=== PATIENT | male | born 1980 | race Hispanic/Latino ===

== ENCOUNTER 2020-04-13 12:36 | Inpatient (IN) | payer SELFPAY ==
--- OUTSIDE RECORDS SUMMARY | 2020-04-13 12:41 | XMS REPORT | Summary of Care ---
:1980 Author Organization [facility] Address [address] [place] [id number] Care Team Providers Name Role Phone Pcp, Does Not Have A Primary Care Provider Reason for Referral (Routine) Status Reason Specialty Diagnoses / Referred By Referred To Procedures Contact Contact New Request IM-GASTROENTEROLOGY / Diagnoses Hematemesis with nausea Esophageal varices determined by endoscopy Layne Jimenez, Gastroenterology Procedures Discharge Follow-Up: Specialty Service IM-GASTROENTEROLOGY; [address] [place] [address] (Routine) Status Reason Specialty Diagnoses / Referred By Referred To Procedures Contact Contact New Request Internal Medicine Diagnoses Hematemesis with nausea Esophageal varices determined by endoscopy Layne Jimenez MD Pcp, Patient Procedures Discharge Follow-up: PCP PATIENT DOES NOT HAVE A PCP; [address] [place] [address] Does Not Have A [address] [phone] Phone: Radiology Services (DANIELLE) Status Reason Specialty Diagnoses / Referred By Referred To Procedures Contact Contact New Request Diagnostic Diagnoses Hematemesis with nausea Villanueva, Radiology Procedures US ABDOMEN LIMITED WITH DOPPLER Heraclio Pereyra Jr., MD [address] [place] [address] [id number] [place] [address] Radiology Services (Routine) Status Reason Specialty Diagnoses / Referred By Referred To Procedures Contact Contact New Request Diagnostic Diagnoses Hematemesis with nausea Villanueva, Radiology Procedures XR CHEST 1 VW Heraclio Pereyra Jr., MD [address] [facility] [id number] [place] [address] Radiology Services (STAT) Status Reason Specialty Diagnoses / Referred By Referred To Procedures Contact Contact New Request Diagnostic Diagnoses Hematemesis with nausea Banipal Radiology Procedures XR ABDOMEN ACUTE SERIES Barby Arias DO [address] [facility] [id number] [place] [address] Reason for Visit Reason Comments Other vomitting blood Auth/Cert Status Reason Specialty Diagnoses / Referred By Referred To Procedures Contact Contact Emergency Medicine [facility] Dept [address] [place] [phone] Fax: Encounter Details Date Type Department Care Team Description 04/04/2020 - Hospital Medicine (Mabel Valentino, BEACH LIFEGUARD [address] [place], [place] [id number] Gastrointestinal 04/08/2020 Encounter [id number]) Heraclio Villanueva Jr., MD [address] [facility] [id number] [place] [phone] hemorrhage with [address] [facility] Layne Jimenez MD [address] [place], [place] [id number] hematemesis [place], [place] [id number] Allergies No Known Allergiesdocumented as of this encounter (statuses as of 04/08/2020) Medications Medication Sig Dispensed Refills Start Date End Date Status pantoprazole 40 mg EC Take 1 tablet by 30 tablet 3 04/08/2020 Active tabletIndications: mouth daily. Hematemesis with nausea, Esophageal varices determined by endoscopy propranoloL 10 mg Take 1 tablet by 60 tablet 3 04/08/2020 Active tabletIndications: mouth 2 (two) Hematemesis with nausea, times daily. Esophageal varices determined by endoscopy ciprofloxacin HCl 500 mg Take 1 tablet by 4 tablet 0 04/08/20 20 Active tabletIndications: mouth every 12 Hematemesis with nausea, (twelve) hours. Esophageal varices determined by endoscopy documented as of this encounter (statuses as of 04/08/2020) Active Problems Problem Noted Date GI bleed 04/04/2020 Gastrointestinal hemorrhage with hematemesis 0 Overview: Added automatically from request for alex manuel [id number] documented as of this encounter (statuses as of 04/08/2020) Social History Tobacco Use Types Packs/Day Years Used Date Current Every Day Smoker Tobacco Cessation: Ready to Quit: Yes; C ounseling Given: Yes Sex Assigned at Date Recorded Not on file COVID-19 Exposure Response Date Recorded In the last month, have you been in contact with No / Unsure 04/04/2020 7:59 PM WORKFORCE MANAGEMENT CONSULTANT someone who was confirmed or suspected to have Coronavirus / COVID-19? documented as of this encounter Last Filed Vital Signs Vital Sign Reading Time Taken Comments Blood Pressure 115/58 04/08/2020 12:36 PM WORKFORCE MANAGEMENT CONSULTANT Pulse 66 04/08/2020 12:36 PM WORKFORCE MANAGEMENT CONSULTANT Temperature 36.7 C (98 F) 04/08/2020 12:36 PM WORKFORCE MANAGEMENT CONSULTANT Respiratory Rate 18 04/08/2020 12:36 PM WORKFORCE MANAGEMENT CONSULTANT Oxygen Saturation 94% 04/08/2020 12:36 PM WORKFORCE MANAGEMENT CONSULTANT Inhaled Oxygen Concentration - - Weight 83 kg (182 lb 14.4 oz) 04/08/2020 4:53 AM WORKFORCE MANAGEMENT CONSULTANT b edscale Height 170.2 cm (5' 7") 04/04/2020 10:45 PM WORKFORCE MANAGEMENT CONSULTANT Body Mass Index 28.65 04/04/2020 10:45 PM WORKFORCE MANAGEMENT CONSULTANT documented in this encounter Discharge Instructions AttachmentsThe following attachments cannot be sent through Care Everywhere. Upper GI Bleeding (Stable) (Bruneian)Gastrointestinal (GI) Bleeding, When You Have (Bruneian)Varices, Esophageal (Bruneian)Pantoprazole tablets (Bruneian) Propranolol tablets (Bruneian)Ciprofloxacin tablets (Bruneian)documented in this encounter Progress Notes Chandan Sinclair LMSW - 04/08/2020 12:19 PM WORKFORCE MANAGEMENT CONSULTANT Care Management Discharge Disposition Note (DCDN) 5-2-1 Interventions: Disease specific education;Intensive medication reconciliation/management;Teachback;Clear discharge plan;Follow-up appointments;Follow-up phone calls 5-2-1 Providers: Physician;Principal Network Engineer/Supervisor Cigar Processing;Nurse 5-2-1 Patient Capacity Improvements: Avoidance of adverse events/readmission;Transportation arrangements;[facility] for [facility] Discharge Plan for ongoing care and services: Patient Choice completed for referred services: Discussed with patient/patients family involved in decision making: Patient's family or support contact: Discharge Plan: Receiving facility was provided the following clinical documentation at discharge- CM Facesheet, Consult notes, Labs, Progress Notes, MAR: DME location: Other DME location: Durable Medical Equipment: Home Health location: Discharge location(s): Community resources/referrals made or provided to patient: Yes Resources/Referrals: County Resources Fact Sheets Mental Status: Alert & Oriented to Person,Place & Time Psychosocial issues and/or concerns resulting in patient being a high risk for re-admission: Manage ADL indepentdly: Yes Living Arrangement: Home Other living arrangement: [facility] [address] [facility] Funding Resources: Self Pay Has patient been referred to [facility]/[place] [facility]? Nursing informed of discharge plan: No CHP referral sent? No CM medication request completed (if appropriate): N/A PCP: Bernie Nieto No Transportation: Private Vehicle Prior authorization obtained for ambulance: Authorization number: CPT code: Discharge Medications Will the patient be able to obtain his medications? Yes Does the patient have transportation to to obtain the prescription medications? Yes CM Medication Request completed (if appropriate): Yes Name of RN informed: Roosevelt OSULLIVAN Expected discharge date: 04/08/2020 Time: Midday [20] Additional Information: Pt is undocumented and provided good Rx card. CM/SW Name & Contact number: Chandan Sinclair LMSW Ph. [phone] The following information has been provided to the facility noted above: reason for the patient discharge or transfer; patients physical and psychosocial status; summary of care, treatment, servicesprovided to patient; and the patient progress toward goals. Chandan Dias LMSW - 04/08/2020 11:00 AM CSTCare Management Social Functional Assessment Patient Name: iWllis Alvarez Age: [age] year old Sex: male Previous admit date: N/A Current diagnosis and co-morbidities: gi bleed Readmission Questions: Was patient discharged from any acute care hospital within the last 30 days: No Social Functional Assessment: Primary language spoken/preferred: Lithuanian Mental Status: Alert & Oriented to Person,Place & Time Information given by: Spouse;Self Patient's support system: Spouse Name and number of support system: Jameson Fried @ [phone] (Spouse) Primary Water Valve Mechanic: Self MPOA: No Living Arrangement: Home Address of living arrangement : [address] [place], [place] [address] [address] Persons living in home: Self;Spouse Names & numbers of persons living in home: Jameson Fired @ [phone] (Spouse) Barriers to returning home: None Baseline functional status- ambulation: Independent Functional status-baseline personal care: Independent Baseline functional status- driving: Independent Baseline functional status- grocery shopping: Independent Functional status-baseline housekeeping: Independent Functional status-baseline meal prep: Independent Current functional status same as prior: Yes Do you have a PCP?: No Refered to: [facility] Home Health Care Agency: No Provider Services: No DME Company: No Equipment: None Hemodialysis: No Community resources utilized: None Funding Resources: Self Pay Prescription coverage plan: Self Pay [facility] where meds are [facility] Anticipated services prior to disharge: Continue Medical Eval Expected mode of discharge transportation: Family Name and phone number of the friend or family member picking up the patient: Jameson Fried @ [phone] (Spouse) Additional Recommendations for DC: Sw provided [facility] resources and good Rx card.Pt is undocumented. Recommended discharge plan: Home SFA Complete: Social Functional Assessment complete: Yes Alcohol Use Screening (AUDIT-C) How often do you have a drink containing alcohol?: 4 or more times a week SCORE: 4 How many drinks containing alcohol do you have on a typical day when you are drinking?: 3 or 4 drinks How often do you have six or more drinks on one occasion?: Never Total Score (AUDIT-C): 5 Did patient elect to have resources provided: No Actions taken: Discussed availability of resources Role of Care Management explained.yes Chandan Fairchild LMSW Supervisor Cigar Processing, Care Management Callie Davila MD - 04/07/2020 3:23 PM CST [place] Team Progress / Acceptance Note Date of Service: 04/07/2020 15:23 Chief Complaint: hematemesis 24-HOUR EVENTS: NAEO SUBJECTIVE: Pt denies any more episodes of hematemesis. He had one BM this AM which he says was black. Notes improvement in lightheadedness. Denies abdominal pain, n/v, SOB. CURRENT MEDICATIONS - reviewed. Current Facility-Administered Medications Medication Dose Route Frequency Last Rate Last Admin propranoloL (INDERAL) tablet 10 mg 10 mg Oral BID pantoprazole (PROTONIX) 40 mg in NaCl 0.9% (NS) 100 mL MINI-BAG 40 mg IV Piggyback Q12H 40 mgat 04/07/20 0741 cefTRIAXone (ROCEPHIN) 1,000 mg in NaCl 0.9% (NS) 50 mL MINI-BAG 1,000 mg IV Piggyback Q24H ABX 1,000 mg at 04/06/20 2159 dextrose 50 % in water (D50W) injection 25 mL 25 mL Slow IV Push PRN foLIC acid (FOLATE) 5 mg in NaCl 0.9% (NS) piggyback 5 mg IV Piggyback DAILY 5 mg at 04/07/200741 glucagon (GLUCAGEN DIAGNOSTIC KIT) injection 1 mg 1 mg Intramuscular PRN octreotide (SANDOSTATIN) 1,250 mcg in NaCl 0.9% (NS) 250 mL infusion 50 mcg/hr IV Infusion CONTINUOUS 10 mL/hr at 04/06/20 2310 50 mcg/hr at 04/06/20 2310 ondansetron (ZOFRAN (PF)) injection 4 mg 4 mg Slow IV Push Q6HPRN thiamine (VITAMIN B1) 100 mg in NaCl 0.9% (NS) piggyback 100 mg IV Piggyback DAILY 100 mg at 04/07/20 0741 PHYSICAL EXAM: Vitals: 04/06/20 2245 04/07/20 0502 04/07/20 0819 04/07/20 1248 BP: 113/65 125/70 107/60 120/59 BP Location: Right arm Right arm Patient Position: Supine Supine Pulse: 76 79 74 81 Resp: 18 18 19 18 Temp: 36.8 C (98.3 F) 36.2 C (97.2 F) 36.4 C (97.5 F) 37.1 C (98.7 F) TempSrc: Oral Oral Oral Axillary SpO2: 97% 97% 96% 97% Weight: Height: Intake/Output Summary (Last 24 hours) at 04/07/2020 1523 Last data filed at 04/07/2020 0502 Gross per 24 hour Intake 871 ml Output 450 ml Net 421 ml General: alert and oriented x 4 (person, place, date/time and situation); no apparent distress Lungs: clear to auscultation bilaterally Cardio: S1, S2 normal; no murmurs, rubs or gallops, regular rate and rhythm Abdomen: soft, nontender to palpation LABS/IMAGING - reviewed, pertinent results as below: MELD-Na score: 22 at 04/07/2020 4:45 AM MELD score: 19 at 04/07/2020 4:45 AM Calculated from: Serum Creatinine: 0.68 mg/dL (Rounded to 1 mg/dL) at 04/07/2020 4:45 AM Serum Sodium: 132 mmol/L at 04/07/2020 4:45 AM Total Bilirubin: 3.4 mg/dL at 04/05/2020 4:07 AM INR(ratio): 2.1 at 04/05/2020 4:13 AM Age: 39 years 9 months ASSESSMENT/PLAN Willis Alvarez is a 39 year old male admitted to the hospital with: Decompensated liver cirrhosis - MELD 22 Hematemesis - now s/p EGD w/banding EtOH and cocaine use disorder Coagulopathy Patient presented with an upper GI bleed in the setting of heavy EtOH and cocaine use. Underwent EGDwhich showed multiple esophageal varices including a grade III bleeding varix that was banded. Currently hemodynamically stable with stable hemoglobin. Plan - pantoprazole 40 mg IV BID - continue octreotide 50 mcg/hr (stop at 1915 today for 72 hours). - continue with ceftriaxone 1 g q 24 hrs; transition to cirpo on discharge for a total of 7 days (SOT 04/04 - vitamin K 10 mg IV x 3 doses (04/05 - 04/07) - CBC q 12 hrs - if overt bleeding, call IR and GI; may need emergent TIPS - f/u AFP level and hepatitis labs - Patient to have repeat EGD in 4 weeks - patient will need assistance with case management for insurance and possible case book for ongoingoutpatient care - change nadalol to propanolol given pharmacy availability; plan for d/c tomorrow. PAIN: Controlled Tylenol Prophylaxis: DVT- Contraindicated: Cranial/GI Bleeding or other Hemorrhage present Stress Ulcer: pantoprazole Code Status: addressed: Full Code Disposition Anticipated Discharge Date : 04/08/2020 Barriers to Discharge: octreotide drip, case book for EGD. Callie Weber MD Internal Medicine, PGY-2 [place] Team Pager#[phone] END OF DAILY PROGRESS NOTE HOSPITAL COURSE Willis Alvarez is a 39 year old male with no PMH who presented with UGIB in the setting of intermediate heavy EtOH use. On arrival, Hgb was 3.1; transfused RBC and cryo. GI consulted who performed EGD and found multiple varices including recently bleeding stage III varices requiring banding. He tolerated the procedure well and did not have any more episodes of bleeding/emesis. Transferred to the floor for ongoing care. Resolved Issues Acute blood loss anemia Troponin leak most likely 2/2 type II WI AKI FORCE MANAGEMENT CONSULTANT Associated attestation - Layne Jimenez MD - 04/07/2020 8:50 PM CSTI personally examined the patient on 04/07/[address] Weber's resident note as written . I actively participated in the decision-making process. Please see the resident's note for additional details. Patient with variceal bleeding/EtOH cirrhosis s/p banding by GI. He will complete his72h of IV octreotide late this evening, will likely be stable for discharge tomorrow, as he is tolerating liquids, no further hematemesis, had a BM. Understands that he will need GI follow up and that abstinence from alcohol is one of the biggest factors influencing his disease state. Will have socialwork come by prior to d/c to discuss what options are available for outpatient followup as patient is a resident of [facility]. Janusz Sinclair MD - 04/07/2020 2:00 PM CSTBrief Gastroenterology and Hepatology Progress Note Date of Service: 04/07/20 EGD106/05/19 Impression/Post-Op Diagnosis: - Normal examined duodenum. - Portal hypertensive gastropathy. - Type 2 gastroesophageal varices (GOV2, esophageal varices which extend along the fundus), without bleeding. - Type 1 gastroesophageal varices (GOV1, esophageal varices which extend along the lesser curvature), without bleeding. - Recently bleeding grade III esophageal varices. Completely eradicated. Banded. - No specimens collected. MELD-Na score: 22 at 04/07/2020 4:45 AM MELD score: 19 at 04/07/2020 4:45 AM Calculated from: Serum Creatinine: 0.68 mg/dL (Rounded to 1 mg/dL) at 04/07/2020 4:45 AM Serum Sodium: 132 mmol/L at 04/07/2020 4:45 AM Total Bilirubin: 3.4 mg/dL at 04/05/2020 4:07 AM INR(ratio): 2.1 at 04/05/2020 4:13 AM Age: 39 years 9 months Willis Alvarez is a 39 year old male with PMH as listed above, GI consulted for: Hematemesis Acute Blood Loss Anemia Suspected Cirrhosis ETOH Use Disorder Coagulopathy Decompensated Liver Cirrhosis MELD-Na 22 Child-Suh C Background: Etiology: ETOH Decompensations: EV bleeding Ascites: absent Encephalopathy: Grade 0 Varices: large grade III SBP: No previous episodes. Renal Function: recent MARA, but now normal kidney function HCC Screening: no overt lesions noted on recent US Immunity screening: needs hepatitis serologies Colon Cancer Screening: never had Transplant Candidacy: not a candidate given lack of insurance Assessment: Patient with GI bleed from large EV grade III, that were successfully banded and he has done well post procedure. Recommendations: - soft diet - Maintain 2 large bore IV's at all timeswith activetype and screen - monitor H/H qday, transfuse to keep Hgb >7 - switch PPI gtt to IV PPI BID - Octreotide 50 mcg/hr continuously for total of 72 hours - Ceftriaxone 1 gram q24 hoursfor at least 7 days; switch to cipro on d/c for total of 7 days - hold blood thinners and anti-platelet agents - notify GI fellow electronic resources librarian if any overt bleeding with associated hemodynamic changes or hemoglobin drop - start patient on propanolol - assistance for emergency medicare and follow up with GI including for repeat EGD - follow up EGD in 4 weeks (case requested) - if any further overt bleeding patient would need IR consult for emergent TIPS Patient was discussed with Dr. Beauchamp. GI will continue to follow along. Please call with questions. Janusz Sincliar MD PGY-4 Gastroenterology and Hepatology Contact Information Available on [facility] FORCE MANAGEMENT CONSULTANT Julio C Sheridan MD - 04/06/2020 6:13 PM CST [place] Team Progress / Acceptance Note Date of Service: 04/06/2020 18:13 Chief Complaint: hematemesis 24-HOUR EVENTS: - EGD 04/05 - gastroesophageal varices banded - Tolerated procedure well - diet advanced - stable to be transferred from MICU to floor SUBJECTIVE: Patient reports some esophageal discomfort, but is able to drink liquids. Denies nausea, vomiting, abdominal pain, dyspnea, melena, hematochezia. CURRENT MEDICATIONS - reviewed. Current Facility-Administered Medications Medication Dose Route Frequency Last Rate Last Admin pantoprazole (PROTONIX) 40 mg in NaCl 0.9% (NS) 100 mL MINI-BAG 40 mg IV Piggyback Q12H phytonadione (VITAMIN K) 10 mg in NaCl 0.9% (NS) piggyback 10 mg IV Piggyback DAILY 10 mg at 04/06/20 1733 cefTRIAXone (ROCEPHIN) 1,000 mg in NaCl 0.9% (NS) 50 mL MINI-BAG 1,000 mg IV Piggyback Q24H ABX 1,000 mg at 04/05/20 2201 dextrose 50 % in water (D50W) injection 25 mL 25 mL Slow IV Push PRN foLIC acid (FOLATE) 5 mg in NaCl 0.9% (NS) piggyback 5 mg IV Piggyback DAILY 5 mg at glucagon (GLUCAGEN DIAGNOSTIC KIT) injection 1 mg 1 mg Intramuscular PRN octreotide (SANDOSTATIN) 1,250 mcg in NaCl 0.9% (NS) 250 mL infusion 50 mcg/hr IV Infusion CONTINUOUS 10 mL/hr at 04/06/20 0422 50 mcg/hr at 04/06/20 042 ondansetron (ZOFRAN (PF)) injection 4 mg 4 mg Slow IV Push Q6HPRN thiamine (VITAMIN B1) 100 mg in NaCl 0.9% (NS) piggyback 100 mg IV Piggyback DAILY 100 mg at 04/06/20 0927 PHYSICAL EXAM: Vitals: 04/06/20 1000 04/06/20 1200 04/06/20 1400 04/06/20 1600 BP: 122/84 131/78 127/76 125/75 Pulse: 91 84 79 84 Resp: 22 (!) 33 22 20 Temp: 36.9 C (98.4 F) 37 C (98.6 F) TempSrc: SpO2: 100% 97% 97% 97% Weight: Height: Intake/Output Summary (Last 24 hours) at 04/06/2020 1813 Last data filed at 04/06/2020 1700 Gross per 24 hour Intake 2320 ml Output 1345 ml Net 975 ml General: alert and oriented x 4 (person, place, date/time and situation); no apparent distress Lungs: clear to auscultation bilaterally Cardio: S1, S2 normal; no murmurs, rubs or gallops, regular rate and rhythm Abdomen: soft, nontender to palpation LABS/IMAGING - reviewed, pertinent results as below: MELD-Na score: 22 at 04/06/2020 4:13 AM MELD score: 19 at 04/06/2020 4:13 AM Calculated from: Serum Creatinine: 0.78 mg/dL (Rounded to 1 mg/dL) at 04/06/2020 4:13 AM Serum Sodium: 133 mmol/L at 04/06/2020 4:13 AM Total Bilirubin: 3.4 mg/dL at 04/05/2020 4:07 AM INR(ratio): 2.1 at 04/05/2020 4:13 AM Age: 39 years 9 months ASSESSMENT/PLAN Willis Alvarez is a 39 year old male admitted to the hospital with: Decompensated liver cirrhosis - MELD 22 Hematemesis - now s/p EGD w/banding EtOH and cocaine use disorder Coagulopathy Patient presented with an upper GI bleed in the setting of heavy EtOH and cocaine use. Underwent EGDwhich showed multiple esophageal varices including a grade III bleeding varix that was banded. - pantoprazole 40 mg IV BID - continue octreotide 50 mcg/hr - continue with ceftriaxone 1 g q 24 hrs (04/04 - 04/10) - vitamin K 10 mg IV x 3 doses (04/05 - 04/07) - CBC q 12 hrs - if overt bleeding, call IR and GI; may need emergent TIPS - f/u AFP level and hepatitis labs - Patient to have repeat EGD in 4 weeks - patient will need assistance with case management for insurance and possible case book for ongoingoutpatient care - nadolol 40 mg PO daily PAIN: Controlled Tylenol Prophylaxis: DVT- Contraindicated: Cranial/GI Bleeding or other Hemorrhage present Stress Ulcer: pantoprazole Code Status: addressed: Full Code Disposition Anticipated Discharge Date : TBD Barriers to Discharge: monitoring after EGD Julio C Sheridan MD Internal Medicine - PGY 2 [place] Team Pager # [phone] END OF DAILY PROGRESS NOTE HOSPITAL COURSE Willis Alvarez is a 39 year old male with no PMH who 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 On arrival, Hgb was 3.1; transfused RBC and cryo. GI consulted who performed EGD and found multiple varices including recently bleeding stage III varices requiring banding. He tolerated the procedure well and did not have any more episodes of bleeding/emesis. Transferred to the floor for ongoing care. Resolved Issues Acute blood loss anemia Troponin leak most likely 2/2 type II [place] MARA Best Garber DO - 04/06/2020 4:36 PM WORKFORCE MANAGEMENT CONSULTANT Brief MICU Note Date: 04/06/2020 16:36 ICU day: 2 Intubation Day: n/a Code Status: full 12 Hour Events (should include: major events throughout the day, patient status, significant labs, radiology, consult updates): -s/p EGD with variceal banding -tolerated CLD in AM and GI soft for lunch -Hgb stable -no further signs of bleeding Plan for next 12 hours (should include: anticipated events, complications to watch for, pending labs/radiology/consults): -TTF -f/u hepatitis, AFP labs -trend Hgb q12 -If significant bleeding, contact IR for emergent tips -consider nadolol prior to discharge -f/u further GI recs -patient will need repeat EGD in 4 weeks, f/u social work Best Luciano DO Janusz Dias MD - 04/06/2020 3:53 PM CST Gastroenterology and Hepatology Progress Note Date of Service: 04/06/2020 15:53 Chief Complaint: GI bleeding SUBJECTIVE/ MAJOR EVENTS: Patient was upset he didn't get any liquids yesterday evening, but this morning is feeling well without any complaints. ROS: Constitutional: No weakness HEENT: No dry mouth CV: No chest pain Resp: No shortness of breath GI: no abdominal pain PHYSICAL EXAM: Temp: [36.9 C (98.4 F)-37.1 C (98.7 F)] Heart Rate (monitor): [71-92] Pulse: [71-91] Resp: [15-33] BP: (106-131)/(54-91) MAP (mmHg): [74-99] Intake/Output Summary (Last 24 hours) at 04/06/2020 1553 Last data filed at 04/06/2020 1400 Gross per 24 hour Intake 2510 ml Output 2020 ml Net 490 ml General: Patient is alert and oriented x4, No apparent distress. Cardiovascular: Regular rate and rhythm, no murmurs; no LE edema. Respiratory: Clear to auscultation bilaterally. Abdomen: Nondistended, no surgical scars, inverted umbilicus, soft, no tenderness, no masses, normalbowel sounds. LABS/IMAGING - REVIEWED EGD106/05/19 Impression/Post-Op Diagnosis: - Normal examined duodenum. - Portal hypertensive gastropathy. - Type 2 gastroesophageal varices (GOV2, esophageal varices which extend along the fundus), without bleeding. - Type 1 gastroesophageal varices (GOV1, esophageal varices which extend along the lesser curvature), without bleeding. - Recently bleeding grade III esophageal varices. Completely eradicated. Banded. - No specimens collected. MELD-Na score: 22 at 04/06/2020 4:13 AM MELD score: 19 at 04/06/2020 4:13 AM Calculated from: Serum Creatinine: 0.78 mg/dL (Rounded to 1 mg/dL) at 04/06/2020 4:13 AM Serum Sodium: 133 mmol/L at 04/06/2020 4:13 AM Total Bilirubin: 3.4 mg/dL at 04/05/2020 4:07 AM INR(ratio): 2.1 at 04/05/2020 4:13 AM Age: 39 years 9 months CURRENT MEDICATIONS - REVIEWED ASSESSMENT/PLAN Willis Alvarez is a 39 year old male with PMH as listed above, GI consulted for: Hematemesis Acute Blood Loss Anemia Suspected Cirrhosis ETOH Use Disorder Coagulopathy Decompensated Liver Cirrhosis MELD-Na 22 Child-Suh C Background: Etiology: ETOH Decompensations: EV bleeding Ascites: absent Encephalopathy: Grade 0 Varices: large grade III SBP: No previous episodes. Renal Function: recent MARA, but now normal kidney function HCC Screening: no overt lesions noted on recent US Immunity screening: needs hepatitis serologies Colon Cancer Screening: never had Transplant Candidacy: not a candidate given lack of insurance Assessment: Patient with GI bleed from large EV grade III, that were successfully banded and he has done well post procedure. Recommendations: - clear liquid diet advance slowly to soft diet - Maintain 2 large bore IV's at all times with active type and screen - monitor H/H q12h, transfuse to keep Hgb >7 - give vitamin K 10 mg IV x 3 days - switch PPI gtt to IV PPI BID - Octreotide 50 mcg/hr continuously - Ceftriaxone 1 gram q24 hours for at least 7 days - hold blood thinners and anti-platelet agents - notify GI fellow electronic resources librarian if any overt bleeding with associated hemodynamic changes or hemoglobin drop - please get AFP level, hepatitis panel - start patient on nadolol - SW assistance for emergency medicare and follow up with GI including for repeat EGD - follow up EGD in 4 weeks (case requested) - if any further overt bleeding patient would need IR consult for emergent TIPS Patient was seen and discussed with Dr. Beauchamp. Please call with questions. GI will continue to follow. Janusz Sinclair MD PGY-4 Gastroenterology and Hepatology Contact Information Available on [facility] FORCE MANAGEMENT CONSULTANT Associated attestation - Fletcher Beauchamp MD - 04/07/2020 4:27 PM CSTI saw the patient with my fellow. I reviewed all pertinent data presented to me and I agree with theassessment and plan as outlined in the fellow's note. I also performed My own confirmatory history and physical exam independently on the patient as I personally formulated the GI plan of care. ? Fletcher Beauchamp MD [employer] Advanced Endoscopist Divison of Gastroenterology and Hepatology [facility] René Ventura MD - 04/06/2020 2:05 AM CST MICU Progress/transfer Note Date of Service: 04/06/2020 02:05 Reason for ICU admission: Hematemesis ICU Day:2 Intubation Day:0 (intubated for Endoscopy) Code Status: Full Last 24 hour events (major events): -Endoscopy - GOV2 without bleeding, GOV1 without bleeding - Grade III bleeding varices banded - Tolerated Endoscopy well. No repeat bleeding. Transitioning to CLD tolerating well Subjective: Pt doing well. No issues. Notes he has sore throat from intubation/endoscope but otherwise not pain,no repeat bleeding, no more emesis. Tolerating CLD well. Ventilator Bundle: Stress ulcer prophylaxis: PPI DVT prophylaxis: contraindicated Lines (with dates): PIV L arm 18G PIV R arm 18G PIV L antecubital 20G Pires: Intake/Output: Intake/Output Summary (Last 24 hours) at 04/06/2020 0205 Last data filed at 04/05/2020 1700 Gross per 24 hour Intake 5153.3 ml Output 1250 ml Net 3903.3 ml Physical Exam: Temp: [36.2 C (97.2 F)-37 C (98.6 F)] Heart Rate (monitor): [80-99] Pulse: [80-100] Resp: [8-24] BP: (101-126)/(44-68) MAP (mmHg): [61-84] Gen: NAD, A&O HEENT: NC/AT, EOMI P: CTAB CV: RRR, no MRG; Abd: NT all 4 quadrants, ND, normoactive bowel sounds MSK: Moving all 4 extremities spontaneously Neuro: No gross deficits noted, peripheral sensation intact Skin: No peripheral edema, cyanosis, lesions noted Labs (pertinent only)/Imaging: Hgb 7.8 Plt 71 Us Abdomen Limited With Doppler Result Date: 04/05/2020 Cirrhotic liver morphology. No focal hepatic lesions. Right pleural effusion. Preliminary Report Dictated by Resident: Richmond Wallace I, Emy Esparza MD., have reviewed this study and agree with the above report. Microbiology: MSSA + BCx - Assessment/Plan: Willis Alvarez is a 39 year old male admitted with UGIB secondary to Esophageal varices d/t EtOH cirrhosis Neuro Sedation/Analgesia: none NO acute concerns, no signs of HE. Resp -Vent: none NIPPV:none No acute concerns Cardiovascular Pressors (mcg/kg/min): none #Troponin leak most likely 2/2 type II WI Will continue to trend troponins. Systolic murmur. Notes he has been told about this before however was never given a diagnosis. Could be secondary to severe anemia vs mild asymptomatic A. Stenosis. Troponins have peaked FEN/GI/ID Stress ulcer prophylaxis: PPI Nutrition: NPO #Hematemesis 2/2 to Bleeding esophageal varices s/p banding #EtOH cirrhosis MELD-Na 27 #Acute Blood loss anemia #Coagulopathy #EtOH use disorder Patient with UGIB in the setting of heavy EtOH use as well as cocaine use. RUQ U/s with cirrhotic morphology. Endoscopy showing multiple varices including grade III bleeding varix that was banded. Willcontinue to monitor patient for further bleeds with low threshold to consult IR for vessel embolization or TIPS. - Protonix drip - octreotide drip - Ceftriaxone 1g Q24h 7 doses - GI on board will follow reccs (see note) - CBC Q6h Renal #Elevated creatinine #Elevated BUN Elevated Cr and BUN in the setting of poor PO intake, heavy emesis, and UGIB. Unknown baseline so hard to diagnose whether this is MARA or if there is some CKD. However given poor PO intake and emesis this could be pre-renal. Also BUN could be elevated in setting of UGIB. - monitor I/O Endo No acute concerns OtherDVT prophylaxis: contraindicated Lines/Catheters: PIV L arm 18G PIV R arm 18G PIV L antecubital 20G Dispo: TBD Prognosis: Serious Code Status: CPR/Full René Ventura MD Internal Medicine PGY-1 Hospital Course Willis Alvarez is a 39 year old male with no PMH who presented with UGIB in the setting of intermediate heavy EtOH use. He was noted to have a Hgb of 3.1 requiring multiple units of blood and Cryoprecipitate to resuscitate him. He was taken by GI for endoscopy where they found multiple varices including recently bleeding stage III varices requiring banding. He tolerated the procedure well and did not have any more episodes of bleeding/emesis. FORCE MANAGEMENT CONSULTANT Associated attestation - Heraclio Villanueva Jr., MD - 04/06/2020 12:50 PM CSTI personally examined the patient on 04/[address] Ventura's resident note as written . Iactively participated in the decision-making process. Please see the resident's note for additionaldetails. Janusz Sinclair MD - 04/05/2020 5:20 PM CSTBrief Gastroenterology and Hepatology Progress Note Date of Service: 04/05/20 EGD Impression/Post-Op Diagnosis: - Normal examined duodenum. - Portal hypertensive gastropathy. - Type 2 gastroesophageal varices (GOV2, esophageal varices which extend along the fundus), without bleeding. - Type 1 gastroesophageal varices (GOV1, esophageal varices which extend along the lesser curvature), without bleeding. - Recently bleeding grade III esophageal varices. Completely eradicated. Banded. - No specimens collected. Recommendation: - Return patient to ICU for ongoing care. - NPO for 6 hours. - Continue present medications. - Monitor closely for evidence of recurrent bleeding; if patient has recurrent acute bleeding then will need emergent TIPS by IR - Advance diet to clear liquids if stable after 6 hours - HGB q12hrs with transfusion goal of 7 - Conitnue Octreotide drip - GI will continue to follow - Repeat upper endoscopy in 4 weeks for endoscopic band ligation. Janusz Sinclair MD PGY-4 Gastroenterology and Hepatology Contact Information Available on [facility] FORCE MANAGEMENT CONSULTANT Associated attestation - Fletcher Beauchamp MD - 04/05/2020 8:47 PM Best Garber DO - 04/05/2020 5:09 PM WORKFORCE MANAGEMENT CONSULTANT Brief MICU Note Date: 04/05/2020 17:09 ICU day: 1 Intubation Day: n/a Code Status: full 12 Hour Events (should include: major events throughout the day, patient status, significant labs, radiology, consult updates): -admitted for hematemesis -s/p 4 u PRBC -s/p EGD showing EV with stigmata of recent bleeding, banding performed Family update: bedside Plan for next 12 hours (should include: anticipated events, complications to watch for, pending labs/radiology/consults): -NPO, can advance to CLD if stable -c/w PPI, octreotide -If significant bleeding, contact IR for emergent TIPS Best Luciano DO Internal Medicine [place] Team Pager#[phone] ohn Paula [facility] - 04/04/2020 9:52 PM CST Pulmonary & Critical Care Medicine MICU Fellow Note This patient's case and situation have been discussed with the ED/primary service. The patient has been accepted for transfer to the MICU. The MICU charge nurse and nursing information systems coordinator have been notified for bed arrangement. The patient will remain under the care of the current primary team until the patient arrives to the MICU. John Paula MD Pulmonary & Critical Care Fellow Pager: [phone] FORCE MANAGEMENT CONSULTANT documented in this encounter H&P Notes Janusz Sinclair MD - 04/05/2020 9:00 AM CST Endoscopy H & P Age: [age] year old Sex: male ASA Class: II Indication: hematemesis, acute blood loss anemia Willis Alvarez is a 39 year old male with cirrhosis presents with acute hematemesis for several days and Hgb of 3.1. He has not had prior GI bleed. Please see the full consult note written by me on 04/04/20 for further details. Histories: No past medical history on file. Cirrhosis No family history on file. No fam hx of GI malignancy No past surgical history on file. none Current Facility-Administered Medications Medication Dose Route Frequency Last Rate Last Admin cefTRIAXone (ROCEPHIN) 1,000 mg in NaCl 0.9% (NS) 50 mL MINI-BAG 1,000 mg IV Piggyback Q24H ABX dextrose 50 % in water (D50W) injection 25 mL 25 mL Slow IV Push PRN foLIC acid (FOLATE) 5 mg in NaCl 0.9% (NS) piggyback 5 mg IV Piggyback DAILY 5 mg at glucagon (GLUCAGEN DIAGNOSTIC KIT) injection 1 mg 1 mg Intramuscular PRN octreotide (SANDOSTATIN) 1,250 mcg in NaCl 0.9% (NS) 250 mL infusion 50 mcg/hr IV Infusion CONTINUOUS 10 mL/hr at 04/04/202114 50 mcg/hr at 04/04/202114 ondansetron (ZOFRAN (PF)) injection 4 mg 4 mg Slow IV Push Q6HPRN pantoprazole (PROTONIX) 80 mg in NaCl 0.9% (NS) 500 mL infusion 8 mg/hr IV Infusion CONTINUOUS 50 mL/hr at 04/05/20 0747 8 mg/hr at 04/05/20 0747 thiamine (VITAMIN B1) 100 mg in NaCl 0.9% (NS) piggyback 100 mg IV Piggyback DAILY 100 mg at 04/05/20 0101 No Known Allergies Social History Socioeconomic History Marital status: Spouse name: Not on file Number of children: Not on file Years of education: Not on file Highest education level: Not on file Occupational History Not on file Social Needs Financial resource strain: Not on file Food insecurity Worry: Not on file Inability: Not on file Transportation needs Medical: Not on file Non-medical: Not on file Tobacco Use Smoking status: Current Every Day Smoker Substance and Sexual Activity Alcohol use: Not on file Drug use: Not on file Sexual activity: Not on file Lifestyle Physical activity Days per week: Not on file Minutes per session: Not on file Stress: Not on file Relationships Social connections Talks on phone: Not on file Gets together: Not on file Attends church service: Not on file Active member of club or organization: Not on file Attends meetings of clubs or organizations: Not on file Relationship status: Not on file Intimate partner violence Fear of current or ex partner: Not on file Emotionally abused: Not on file Physically abused: Not on file Forced sexual activity: Not on file Other Topics Concern Not on file Social History Narrative Not on file Physical Exam: Mental Status: alert, oriented x3 Abdomen: bowel sounds present Spleen Tip: non-palpable Hepatomegaly: no Mass: not present Tenderness: no Impression and Plan: Willis Alvarez is a 39 year old male with PMH as above who presents with hematemesis. Will proceed with EGD. Benefits, risks, alternatives, and likelihood of achieving patient's goals of care discussed. Risks discussed including but not limited to aspiration, infection, bleeding, injury to the GI tract or surrounding vessels/structures, perforation, missed polyps/lesions,failure to obtain a diagnosis, failure to complete the procedure, cardiovascular complications such as WI, stroke, arrhythmia, and . Informed consent obtained/verified. Education provided to the patient and family about the procedure. Janusz Sinclair MD PGY-4 Gastroenterology and Hepatology Contact Information Available on [facility] FORCE MANAGEMENT CONSULTANT Associated attestation - Fletcher Beauchamp MD - 04/05/2020 10:46 AM CSTI saw the patient with my fellow. I reviewed all pertinent data presented to me and I agree with theassessment and plan as outlined in the fellow's note. I also performed My own confirmatory history and physical exam independently on the patient as I personally formulated the GI plan of care. ? Fletcher Beauchamp MD [employer] Advanced Endoscopist Divison of Gastroenterology and Hepatology [facility] René Ventura MD - 04/05/2020 12:07 AM CST Medicine Intensive Care History and Physical Date of Service: 04/04/2020 23:33 ICU day: 1 Intubation Day: 0 CHIEF COMPLAINT: "Vomiting blood for a few days" History of Present Illness Willis Alvarez is a 39 year old male with a no PMH who presents with vomiting of blood since Wednesday(04/01/20). He notes he started vomiting blood on Wednesday, bright red blood mixed with clots. He had 3-4 episodes of emesis and was unable to keep anything down including food or water. Since then he has had multiple episodes of emesis with no blood and has been unable to tolerate any PO. Today he had 7 episodes of emesis with blood mixed with clots including once in the ED triage. He has tried drinking gatorade and pedialyte as well as trying to take peptobismol with no relief. He denies any hematochezia, or melena. He drinks about half a gallon of whiskey a week (last use Wednesday) and uses cocaine intermittently with the last use being last Wednesday. He has increased use due tothe pandemic as well as other personal stressors in his life. He denies ever using IV drugs.. He denies ever being diagnosed with liver disease or having any family Hx of it. He has had heart burn symptoms for which he uses over the counter nexium. He uses Advil as needed for joint pains but denies daily or weekly use. Denies any other NSAID use. He denies having any other medical history or taking any prescribed medications. Notes he took asprin 2 yesterday AM, 2 yesterday evening, and 2 this AM because he heard on the TV that it can reduce the risk of heart attacks and strokes. No fever, chills, KAMARA, SOB, abdominal pain, changes in bowel habits, burining with urination. He notes he has some L sided chest pain when he is vomiting however this relieves with rest and he never has it with other exertion. He also notes weakness, fatigue, nausea with movement which has resolved. Upon presentation, vital signs were T 36.9, HR 102, RR 28, BP 119/39. Pertinent workup showed INR 2.4, Hgb 3.1 with MCV of 69, platelets 158, sodium 129, BUN 51, Cr 1.73, and troponin of 0.051. Bili was 3.2, ALP 118, ALT 37, AST 92. PAST MEDICAL HISTORY No past medical hx PAST SURGICAL HISTORY No past surgical hx FAMILY HISTORY Denies any past family hx [place] any liver disease or GI malignancies SOCIAL HISTORY Social History Socioeconomic History Marital status: Occupational History Social Needs Tobacco Use Smoking status: Current Every Day Smoker Substance and Sexual Activity Alcohol use: Current every day drinker Drug use: Cocaine use Sexual activity: Not on file Lifestyle Relationships Social History Narrative ALLERGIES No Known Allergies per patient REVIEW OF SYSTEMS (-)=Negative,(+)=Positive General: (+) fatigue, (+) malaise, (-) fever, (-) chills Skin: negative HEENT: (-) headache, (-) sore throat Neck: (-) pain, (-) difficulty swallowing Heme: negative Resp: (-) cough, (-) shortness of breath, (-) dyspnea on exertion Cardio: (+) chest pain, (-) palpitations GI: (+) nausea, (+) vomiting, (+) hematemesis, (-) constipation, (-) melena, (-) hematochezia : (+) increased frequency, (-) dysuria PHYSICAL EXAMINATION Temp: [36.4 C (97.5 F)-37.1 C (98.8 F)] Heart Rate (monitor): [99-107] Pulse: [97-112] Resp: [13-28] BP: (79-136)/(35-75) MAP (mmHg): [59-82] Gen: NAD, A&O HEENT: NC/AT, EOMI, P: CTAB CV: RRR, Systolic ejection murmur 2/6 Abd: NT all 4 quadrants, ND, normoactive bowel sounds MSK: Moving all 4 extremities spontaneously Neuro: No gross deficits noted, peripheral sensation intact Skin: No peripheral edema, cyanosis, lesions noted Labs (pertinent only)/Imaging: Reviewed Hgb - 3.1 Plt - 158 INR - 2.4 BUN - 51 Cr - 1.73 Trop - 0.051 ALT - 37 AST - 92 Xr Abdomen Acute Series Result Date: 04/04/2020 No acute intrathoracic or intra-abdominal abnormality. Preliminary Report Dictated by Resident: Richmond Wallace I, Tang Blanchard MD., have reviewed this study and agree with the above report. Microbiology: Bcx drawn pending Assessment/Plan: Willis Alvarez is a 39 year old male admitted with UGIB secondary to Unknown source most likely variceal bleed vs ashia stafford tear vs PUD. Neuro Sedation/Analgesia: none NO acute concerns, no signs of HE. Resp -Vent: none NIPPV:none No acute concerns Cardiovascular Pressors (mcg/kg/min): none #Troponin leak most likely 2/2 type II WI Will continue to trend troponins. Systolic murmur. Notes he has been told about this before however was never given a diagnosis. Could be secondary to severe anemia vs mild asymptomatic A. Stenosis. FEN/GI/ID Stress ulcer prophylaxis: PPI Nutrition: NPO #Hematemesis 2/2 to suspected EtOH cirrhosis vs PUD vs ashia stafford tear. #Acute Blood loss anemia #Coagulopathy #EtOH use disorder Patient with UGIB in the setting of heavy EtOH use as well as cocaine use. Given frequent vomiting cannot r/o ashia stafford tear vs ruptured varix vs PUD given NSAID use. Will resuscitate with fluids and pRBC's, and reverse coagulopathy with Vit K. GI on board appreciate reccs. Prophylactic coverage with Ceftriaxone. - Admit to ICU - NPO - 2 Large bore IV's - 4u pRBC's - Vit K 10mg IV - Protonix drip - octreotide drip - Ceftriaxone 1g Q24h 7 doses - RUQ US w/ dopplers - Craft cultures - 1u Plt, 2u FFP - low threshold for intubation for protection of airway - will f/u closely with GI in case of further bleeds. - CBC Q6h Renal #Elevated creatinine #Elevated BUN Elevated Cr and BUN in the setting of poor PO intake, heavy emesis, and UGIB. Unknown baseline so hard to diagnose whether this is MARA or if there is some CKD. However given poor PO intake and emesis this could be pre-renal. Also BUN could be elevated in setting of UGIB. - U-lytes - monitor I/O Endo No acute concerns OtherDVT prophylaxis: contraindicated Lines/Catheters: PIV L arm 18G PIV R arm 18G PIV L antecubital 20G Dispo: TBD Prognosis: Serious Code Status: CPR/Full René Ventura MD Internal Medicine PGY-1 FORCE MANAGEMENT CONSULTANT Associated attestation - Heraclio Villanueva Jr., MD - 04/05/2020 11:51 AM CSTI personally examined the patient on 04/[address] Ventura's resident note as written . Iactively participated in the decision-making process. Please see the resident's note for additionaldetails. Patient with subacute/acute GI hemorrhage with acute blood loss anemia. History of heavy alcohol use as well as aspirin and NSAIDs. On ppi and octreotide. Endocopy pending documented in this encounter Consult Notes Janusz Sinclair MD - 04/04/2020 11:06 PM CSTAssociated Order(s): CONSULT GASTROENTEROLOGY Department of Gastroenterology & Hepatology Consult Note Requesting Physician: Heraclio Pereyra* Service: ICU Reason for Consultation: vomiting blood since Wednesday (3 days). Vomiting 7 times today with off-on blood. Also reports generalized weakness. Denies fever, SOB, cough, abdominal pain or any pain. Denies hx of liver problems. Reports he has daily drink wine (abut 1/2 gallon per week) since the pandemic. Last stool yesterday, tarry black. Pt triage reports patient vomited BRB in a trash can in triage. Lab shows HGB 3.1. please help to evaluate and treat Date of Service: 04/04/2020 CHIEF COMPLAINT: Hematemesis History of Present Illness Willis Alvarez is a 39 year old /White male with apparently no PMH who presented withhematemesis. 4 days ago patient developed several episodes of vomiting bright blood, however he doesn't specify the exact frequency and quantity of blood. States also was unable to keep any food or liquid down during this time. This somewhat resolved, and over the following 2 days he had no further episodes of hematemesis, but was unable to really take in PO as he would get nausea and vomit occasionally. Today the patient had reportedly 7+ episodes of hematemesis with bright red blood, and potentially with clots. He presented to the hospital for further care at the time, and when he was in the ED the RN states he had one episode of bright blood emesis of at least 200 mL quantity. Patient denies any melena or he matochezia. He denies any chronic liver disease. Patient has taken several doses of aspirin in the past few days in his state of feeling unwell. He told the MICU network intern that he was also taking Ibuprofen occasionally and Nexium PRN. The patient has a heavy ETOH intake history for at least 8 years, and he drinks approximately 1 gallon of whiskey a week with occasional tequila shots. He recently increased the amount of drinking as he has been dealing with some personal stressors. He also has a heavy cocaine use history of at least 1-2 years and he uses a half gram every 2 days. He denies any family history of GI malignancy or IBD. No prior surgeries, doesn't take any medicatoins. Upon presentation, vital signs were T 36.9, HR 102, RR 28, BP 119/39. Pertinent workup showed INR 2.4, Hgb 3.1 with MCV of 69, platelets 158, sodium 129, BUN 51, Cr 1.73, and troponin of 0.051. Bili was 3.2, ALP 118, ALT 37, AST 92. PREVIOUS INVESTIGATIONS RADIOLOGY: No prior studies EGD No studies PAST MEDICAL HISTORY No past medical history on file. None PAST SURGICAL HISTORY No past surgical history on file. None FAMILY HISTORY No family history on file. NO GI malignancy history ALLERGIES No Known Allergies MEDICATIONS Current Facility-Administered Medications Medication Dose Route Frequency Last Rate Last Admin dextrose 50 % in water (D50W) injection 25 mL 25 mL Slow IV Push PRN foLIC acid (FOLATE) 5 mg in NaCl 0.9% (NS) piggyback 5 mg IV Piggyback DAILY glucagon (GLUCAGEN DIAGNOSTIC KIT) injection 1 mg 1 mg Intramuscular PRN octreotide (SANDOSTATIN) 1,250 mcg in NaCl 0.9% (NS) 250 mL infusion 50 mcg/hr IV Infusion CONTINUOUS 10 mL/hr at 04/04/202114 50 mcg/hr at 04/04/202114 pantoprazole (PROTONIX) 80 mg in NaCl 0.9% (NS) 500 mL infusion 8 mg/hr IV Infusion CONTINUOUS 50 mL/hr at 04/04/202050 8 mg/hr at 04/04/202050 phytonadione (VITAMIN K) 10 mg in NaCl 0.9% (NS) piggyback 10 mg IV Piggyback ONCE thiamine (VITAMIN B1) 100 mg in NaCl 0.9% (NS) piggyback 100 mg IV Piggyback DAILY SOCIAL HISTORY Social History Socioeconomic History Marital status: Spouse name: Not on file Number of children: Not on file Years of education: Not on file Highest education level: Not on file Occupational History Not on file Social Needs Financial resource strain: Not on file Food insecurity Worry: Not on file Inability: Not on file Transportation needs Medical: Not on file Non-medical: Not on file Tobacco Use Smoking status: Current Every Day Smoker Substance and Sexual Activity Alcohol use: Not on file Drug use: Not on file Sexual activity: Not on file Lifestyle Physical activity Days per week: Not on file Minutes per session: Not on file Stress: Not on file Relationships Social connections Talks on phone: Not on file Gets together: Not on file Attends church service: Not on file Active member of club or organization: Not on file Attends meetings of clubs or organizations: Not on file Relationship status: Not on file Intimate partner violence Fear of current or ex partner: Not on file Emotionally abused: Not on file Physically abused: Not on file Forced sexual activity: Not on file Other Topics Concern Not on file Social History Narrative Not on file ROS: Constitutional: No weakness HEENT: No dry mouth CV: No chest pain Resp: No shortness of breath GI: No abdominal pain : No burning with urination MSK: No joint pain Skin: No rashes Neuro: No focal weakness Endo: No increased thirst Heme: No feelings of lymphadenopathy PHYSICAL EXAM BP 120/48 | Pulse 107 | Temp 37.1 C (98.8 F) (Tympanic) | Resp 14 | Ht 1.702 m (5' 7") | Wt71.5 kg (157 lb 10.1 oz) | SpO2 100% | BMI 24.69 kg/m General: Patient alert and oriented x4, No apparent distress. HEENT: EOMI, Anicteric sclerae. Neck: Supple,no lymphadenopathy Cardiovascular: Regular rate and rhythm, no murmurs Respiratory: Clear to auscultation bilaterally. Abdomen: Nondistended, no surgical scars, inverted umbilicus, no tenderness, no masses, normal bowelsounds. Rectal: Rectal vault with abundant stool, dark brown Musc: No spinal or paraspinal tenderness, no joint effusions, no clubbing. Skin: Intact and warm, dry. No jaundice or cyanosis. Neuro: No focal deficits LABORATORY HGB (g/dL) Date Value 04/04/2020 3.1 (LL) PLT (10*3/L) Date Value 04/04/2020 158 INR (no units) Date Value 04/04/2020 2.4 Hepatic Function Panel ALBUMIN (g/dL) Date Value 04/04/2020 2.4 (L) T PROTEIN (g/dL) Date Value 04/04/2020 5.4 (L) TOTAL BILI (mg/dL) Date Value 04/04/2020 3.2 (H) No results found for: BILIUNCON No results found for: BILICONJ ALTv (U/L) Date Value 04/04/2020 37 AST(SGOT) (U/L) Date Value 04/04/2020 92 (H) ALK PHOS (U/L) Date Value 04/04/2020 118 BMP NA (mmol/L) Date Value 04/04/2020 129 (L) K (mmol/L) Date Value 04/04/2020 3.6 CALCIUM (mg/dL) Date Value 04/04/2020 7.0 (L) CL (mmol/L) Date Value 04/04/2020 93 (L) BUN (mg/dL) Date Value 04/04/2020 51 (H) CREATININE (mg/dL) Date Value 04/04/2020 1.73 (H) GLUCOSE (mg/dL) Date Value 04/04/2020 147 (H) CO2 TOTAL (mmol/L) Date Value 04/04/2020 22 (L) ASSESSMENT AND PLAN Willis Alvarez is a 39 year old male with PMH as listed above, GI consulted for: Hematemesis Acute Blood Loss Anemia Suspected Cirrhosis ETOH Use Disorder Coagulopathy Patient acutely presenting with suspected upper GI bleed and most likely etiology is variceal due tolongstanding ETOH use and suspected cirrhosis. He could also have PUD from his intermittent use of NSAIDs. He has some mild hypotension and tachycardia and is continuing to be resuscitated at the time. Recommendations: - strict NPO - Maintain 2 large bore IV's at all times with active type and screen - monitor H/H q8h, transfuse to keep Hgb >7 - give vitamin K 10 mg IV - check fibrinogen and if <150 give cryoprecipitate - Protonix 80 mg IV bolus, and then 8 mg/hr continuous - Octreotide 100 mcg bolus and then 50 mcg/hr continuously - Ceftriaxone 1 gram q24 hours for at least 7 days - RUQ US with dopplers; if ascites present obtain diagnostic paracentesis and send fluid for cell count and differential, culture, albumin, total protein and cytology - full infectious workup - hold blood thinners and anti-platelet agents - notify GI fellow electronic resources librarian if any overt bleeding with associated hemodynamic changes or hemoglobin drop - give 1 unit platelets, followed by 2 units of FFP - monitor in ICU for closer monitoring and resuscitation - please also trend troponin as it was mildly elevated likely related to stress of acute bleed - low threshold to intubate patient if he continues to vomit blood. Please call us with any further overt bleeding for consideration of more urgent endoscopy. Prior to endoscopy patient will need to beintubated for airway protection (tentatively planned for the AM after resuscitation) Patient was discussed with Dr. Beauchapm, and we will formally staff in the morning. Please call with any questions. GI will continue to follow. Janusz Sinclair MD PGY-4 Gastroenterology and Hepatology Contact Information Available on [facility] FORCE MANAGEMENT CONSULTANT Associated attestation - Fletcher Beauchamp MD - 04/05/2020 10:41 AM CSTI saw the patient with my fellow. I reviewed all pertinent data presented to me and I agree with theassessment and plan as outlined in the fellow's note. I also performed My own confirmatory history and physical exam independently on the patient as I personally formulated the GI plan of care. Assessment and Plan: Acute UGIB- hematemesis with HGB of 3 at presentation. Suspect EV from underlying cirrhosis Plan EGD with intubation after appropriate resuscitation/blood products as per MICU Continue Octeotide/protonix drip ? Fletcher Beauchamp MD [employer]mi Teachercrown ironer Advanced Endoscopist Divison of Gastroenterology and Hepatology [facility] documented in this encounter ED Notes Tin Negro RN - 04/04/2020 7:40 PM CSTJose Alvarez is a 39 year old male arrived to triage via wheelchair. Patient vomiting blood x 3 days. Pt reports weakness fatigue. Denies liver problems but has been drinking nearly every day since the pandemic. Pt reports melena. Pt weak jaundiced vomiting BRB in a trash can in triage. Mabel Michaud FNP - 04/04/2020 7:36 PM CST EMERGENCY DEPARTMENT ENCOUNTER [facility] Patient Name: Willis Alvarez Date of : 1980 39 year old Exam Room:127/[facility] Primary Care Physician: No primary care provider on file. 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 Vomiting 7 times today with off-on blood. Also reports generalized weakness. Denies fever, SOB, cough, abdominal pain or any pain. Denies hx of liver problems. Reports he has daily drink wine (abut 1/2 gallon per week) since the pandemic. Last stool yesterday, tarry black. Pt triage reports patient vomited BRB in a trash can in triage. Past Medical History / Immunizations No past medical history on file. Tetanus received in last 5 years: No Childhood immunizations: Up-to-date Past Surgical History No past surgical history on file. Allergies No Known Allergies Social History Substance & Sexual Activity No substance use or sexual activity history on file. Review of Systems Review of Systems Constitutional: Positive for fatigue. Negative for chills and fever. HENT: Negative for congestion, rhinorrhea and sore throat. Eyes: Negative for pain, redness and visual disturbance. Respiratory: Negative for cough, shortness of breath and wheezing. Cardiovascular: Negative for chest pain, palpitations and leg swelling. Gastrointestinal: Positive for blood in stool (tarry black stool), nausea and vomiting (vomiting blood ). Negative for abdominal pain. Genitourinary: Negative for dysuria, urgency, flank pain and decreased urine volume. Musculoskeletal: Negative for arthralgias, myalgias and neck pain. Skin: Negative for color change, rash and wound. Neurological: Positive for weakness (generalized weakness ). Negative for dizziness, syncope, numbness and headaches. Hematological: Negative for adenopathy. Does not bruise/bleed easily. Physical Exam ED Triage Vitals [04/04/201936] Weight 73.5 kg (162 lb) Actual or estimated Estimated by patient/family report Height BP 124/75 Pulse 112 Resp 18 Temp 36.9 C (98.4 F) Temp source Oral SpO2 100 % Measured on Room air Physical Exam Vitals signs and nursing note reviewed. Constitutional: General: He is not in acute distress. Appearance: He is well-developed. HENT: Head: Normocephalic and atraumatic. Right Ear: Tympanic membrane and external ear normal. Left Ear: Tympanic membrane and external ear normal. Nose: Nose normal. No congestion or rhinorrhea. Mouth/Throat: Mouth: Mucous membranes are moist. Pharynx: Oropharynx is clear. No oropharyngeal exudate or posterior oropharyngeal erythema. Tonsils: No tonsillar exudate. Eyes: Extraocular Movements: Extraocular movements intact. Conjunctiva/sclera: Conjunctivae normal. Pupils: Pupils are equal, round, and reactive to light. Comments: Jaundice on both eyes Neck: Musculoskeletal: Normal range of motion and neck supple. Cardiovascular: Rate and Rhythm: Regular rhythm. Tachycardia present. Heart sounds: Normal heart sounds. Pulmonary: Effort: Pulmonary effort is normal. No respiratory distress. Breath sounds: Normal breath sounds. No wheezing. Abdominal: General: Bowel sounds are normal. There is no distension. Palpations: Abdomen is soft. Tenderness: There is no abdominal tenderness. There is no guarding or rebound. Musculoskeletal: Normal range of motion. Lymphadenopathy: Cervical: No cervical adenopathy. Skin: General: Skin is warm and dry. Capillary Refill: Capillary refill takes less than 2 seconds. Coloration: Skin is jaundiced and pale. Findings: No rash. Neurological: Mental Status: He is alert and oriented to person, place, and time. Cranial Nerves: No cranial nerve deficit. Sensory: No sensory deficit. Motor: No abnormal muscle tone. Psychiatric: Behavior: Behavior normal. Labs Recent Results (from the past 24 hour(s)) CBC WITH DIFF Collection Time: 04/04/20 8:11 PM Result Value Ref Range WBC 9.93 4.20 - 10.70 10*3/L RBC 1.63 (L) 4.26 - 5.52 10*6/L HGB 3.1 (LL) 12.2 - 16.4 g/dL HCT 11.3 (LL) 38.4 - 49.3 % MCV 69.3 (L) 81.7 - 95.6 fL MCH 19.0 (L) 26.1 - 32.7 pg MCHC 27.4 (L) 31.2 - 35.0 g/dL RDW-SD 47.5 38.5 - 51.6 fL RDW-CV 20.1 (H) 12.1 - 15.4 % PLT 158 150 - 328 10*3/L MPV IPF % 10.2 1.2 - 10.7 % NRBC/100 WBC 3.2 0.0 - 10.0 /100 WBCs NRBC x10^3 0.32 10*3/L SEG % 75 33 - 76 % LYMPH % 15 14 - 54 % MONO % 10 (H) 0 - 4 % ANC 7.45 (H) 1.99 - 6.95 10*3/uL COMP. METABOLIC PANEL (15020) Collection Time: 04/04/20 8:11 PM Result Value Ref Range NA 129 (L) 135 - 145 mmol/L K 3.6 3.5 - 5.0 mmol/L CL 93 (L) 98 - 108 mmol/L CO2 TOTAL 22 (L) 23 - 31 mmol/L AGAP 14 2 - 16 BUN 51 (H) 7 - 23 mg/dL GLUCOSE 147 (H) 70 - 110 mg/dL CREATININE 1.73 (H) 0.60 - 1.25 mg/dL TOTAL BILI 3.2 (H) 0.1 - 1.1 mg/dL CALCIUM 7.0 (L) 8.6 - 10.6 mg/dL T PROTEIN 5.4 (L) 6.3 - 8.2 g/dL ALBUMIN 2.4 (L) 3.5 - 5.0 g/dL ALK PHOS 118 34 - 122 U/L ALTv 37 5 - 50 U/L AST(SGOT) 92 (H) 13 - 40 U/L eGFR Calculation (Non-) 43.7 mL/min/1.73m2 eGFR Calculation () 53.0 mL/min/1.73m2 LIPASE Collection Time: 04/04/20 8:11 PM Result Value Ref Range LIPASE 72 0 - 220 U/L PROTHROMBIN TIME / INR Collection Time: 04/04/20 8:11 PM Result Value Ref Range PROTIME PATIENT 28.2 (H) 10.1 - 12.6 Seconds INR 2.4 TROPONIN I Collection Time: 04/04/20 8:11 PM Result Value Ref Range TROPONIN I 0.051 (H) <=0.034 ng/mL COVID-19 (ID NOW RAPID TESTING) Collection Time: 04/04/20 8:19 PM Specimen: NASOPHARYNGEAL SWAB Result Value Ref Range SARS-CoV-2 Rapid ID NOW Not Detected Not Detected Type and Screen - ONCE STAT Collection Time: 04/04/20 8:21 PM Result Value Ref Range ABO & RH O POSITIVE IAT Negative ABORH CONFIRMATION Collection Time: 04/04/20 9:08 PM Result Value Ref Range ABO & RH O Positive Prepare Packed RBC (in units), 2 Units Collection Time: 04/04/20 9:53 PM Result Value Ref Range Cross Match Result Compatible ISBT Blood Type Code 5100 Unit Blood Type O Pos Unit Number [id number] Blood Expiration Date & Time Status Information Issued Product Identification Red Blood Cells Product Code [id number] Cross Match Result Compatible ISBT Blood Type Code 5100 Unit Blood Type O Pos Unit Number [id number] Blood Expiration Date & Time [id number] Status Information Ready Product Identification Red Blood Cells Product Code [id number] [facility] Encounter on 04/04/20 XR ABDOMEN ACUTE SERIES Narrative PROCEDURE: XR ABDOMEN ACUTE SERIES CLINICAL INDICATION: Vomiting blood COMPARISON: None FINDINGS: The lungs are clear without focal consolidation, pleural effusion, or pneumothorax. No subdiaphragmatic free air. The cardiac silhouette is normal in size. The bowel gas pattern is nonobstructive. No radiopaque stones or abnormal calcifications are identified. No acute osseous abnormality. Impression No acute intrathoracic or intra-abdominal abnormality. Preliminary Report Dictated by Resident: Richmond Wallace I, Tang Blanchard MD., have reviewed this study and agree with the above report. Orders and Treatments Orders Placed This Encounter Procedures XR ABDOMEN ACUTE SERIES CBC WITH DIFF COMP. METABOLIC PANEL (74102) LIPASE PROTHROMBIN TIME / INR Type and Screen - ONCE STAT TROPONIN I COVID-19 (ID NOW RAPID TESTING) LAB ONLY COVID INTERPRETATION Transfusion Reaction Investigation Urinalysis (Spun) Consult Gastroenterology Procedures Procedures Notes ED Course as of Apr 04 2234 Mouna Apr 04, 20200 Afebrile. Tachycardia. No distress. Jaundice on both eyes and mild on skin. Skin also pale. Non-tender to abdomen. All others negative on physical exam Lab works shows hyponatremia (129), elevated total bili (3.2), elevated troponin (0.051), elevated creatinine (1.39), HGB 3.1 X-ray KUB Treated with Bolus 1 L, Protonix 80 mg, IV, followed by 8 mg/hr. Discussed with Dr Kovacs, faculty in ED. Dr Kovacs ordered Octreotide 50 mcg, IV, followed by 50 mcg/hr Dr Kovacs called to admit ICU. Consulted GI. Talked to Dr Sinclair. Recommended to treat with Vitamin K 10 mg, IV, and Ceftriaxone 1 gram, IV [JX] ED Course User Index [JX] Mabel Quintanilla FNP Diagnosis ICD-10-CM ICD-9-CM 1. Hematemesis with nausea K92.0 578.0 787.02 Disposition & Follow Up ED Disposition None Admitted to ICU MDM MDM Reviewed: nursing note and vitals Interpretation: ECG, x-ray and labs FORCE MANAGEMENT CONSULTANT Associated attestation - Barby Keys DO - 04/05/2020 2:06 AM WORKFORCE MANAGEMENT CONSULTANT I have seen and examined the patient and agree with the history, review of symptoms, physical exam, plan as outlined by BA Bryan. I actively participated in decision making process. Please see note for additional information. 39yo male presents for hematemesis and melena. Pt noted to have Hgb of 3. 2 large bore IV's placedin patient and started on IVFs. Pt type and screened and 2 units ordered. Started on octreotide drip/bolus and Protonix drip/bolus. GI consulted, ICU consulted and patient accepted to ICU team. VSS while in ER. Critical care time: 30 min Diagnosis: Hematemesis Melena GI bleed Severe blood loss anemia Plan: Admit to ICU Xavier Arias documented in this encounter Miscellaneous Notes Care Plan - Roosevelt Lorenz RN - 04/08/2020 12:26 PM WORKFORCE MANAGEMENT CONSULTANT Problem: Discharge Planning Goal: Absence of venous thromboembolism Outcome: Adequate for discharge Goal: Adequate for discharge Outcome: Adequate for discharge Goal: Effective communication Outcome: Adequate for discharge Problem: Falls, Risk of Goal: Absence of falls Outcome: Adequate for discharge Problem: Fluid Volume - Imbalanced Goal: Absence of signs and symptoms of imbalanced fluid volume Outcome: Adequate for discharge Problem: Infection, Risk of or Actual Goal: Absence of infection Outcome: Adequate for discharge Problem: Mental Status - Impaired, Risk of Goal: Mental status restored to baseline Outcome: Adequate for discharge Goal: Absence of physical injury Outcome: Adequate for discharge Problem: Nutrition Deficit Goal: Adequate nutritional intake Outcome: Adequate for discharge Problem: Pain Goal: Control of pain at or below patient's documented comfort goal Outcome: Adequate for discharge Goal: Reduction in pain sensation Outcome: Adequate for discharge Problem: Skin integrity Impaired (Risk or Actual) Goal: Wound healing Outcome: Adequate for discharge Goal: Prevention of new skin breakdown Outcome: Adequate for discharge Problem: Tissue Perfusion - Altered, Risk of Goal: Hemodynamically stable Outcome: Adequate for discharge Problem: Bleeding, Risk of Goal: Absence of impaired coagulation signs and symptoms Outcome: Adequate for discharge Goal: Absence of active bleeding Outcome: Adequate for discharge are Plan - Eduarda Barrios RN - 04/08/2020 3:31 AM WORKFORCE MANAGEMENT CONSULTANT Problem: Discharge Planning Goal: Absence of venous thromboembolism Outcome: Progressing as expected Goal: Adequate for discharge Outcome: Progressing as expected Goal: Effective communication Outcome: Progressing as expected Problem: Falls, Risk of Goal: Absence of falls Outcome: Progressing as expected Problem: Fluid Volume - Imbalanced Goal: Absence of signs and symptoms of imbalanced fluid volume Outcome: Progressing as expected Problem: Infection, Risk of or Actual Goal: Absence of infection Outcome: Progressing as expected Problem: Mental Status - Impaired, Risk of Goal: Mental status restored to baseline Outcome: Progressing as expected Goal: Absence of physical injury Outcome: Progressing as expected Problem: Nutrition Deficit Goal: Adequate nutritional intake Outcome: Progressing as expected Problem: Pain Goal: Control of pain at or below patient's documented comfort goal Outcome: Progressing as expected Goal: Reduction in pain sensation Outcome: Progressing as expected Problem: Skin integrity Impaired (Risk or Actual) Goal: Wound healing Outcome: Progressing as expected Goal: Prevention of new skin breakdown Outcome: Progressing as expected Problem: Tissue Perfusion - Altered, Risk of Goal: Hemodynamically stable Outcome: Progressing as expected Problem: Bleeding, Risk of Goal: Absence of impaired coagulation signs and symptoms Outcome: Progressing as expected Goal: Absence of active bleeding Outcome: Progressing as expected are Plan - Roosevelt Lorenz RN - 04/07/2020 11:08 AM WORKFORCE MANAGEMENT CONSULTANT Problem: Discharge Planning Goal: Absence of venous thromboembolism Outcome: Progressing as expected Goal: Adequate for discharge Outcome: Progressing as expected Goal: Effective communication Outcome: Progressing as expected Problem: Falls, Risk of Goal: Absence of falls Outcome: Progressing as expected Problem: Fluid Volume - Imbalanced Goal: Absence of signs and symptoms of imbalanced fluid volume Outcome: Progressing as expected Problem: Infection, Risk of or Actual Goal: Absence of infection Outcome: Progressing as expected Problem: Mental Status - Impaired, Risk of Goal: Mental status restored to baseline Outcome: Progressing as expected Goal: Absence of physical injury Outcome: Progressing as expected Problem: Nutrition Deficit Goal: Adequate nutritional intake Outcome: Progressing as expected Problem: Pain Goal: Control of pain at or below patient's documented comfort goal Outcome: Progressing as expected Goal: Reduction in pain sensation Outcome: Progressing as expected Problem: Skin integrity Impaired (Risk or Actual) Goal: Wound healing Outcome: Progressing as expected Goal: Prevention of new skin breakdown Outcome: Progressing as expected Problem: Tissue Perfusion - Altered, Risk of Goal: Hemodynamically stable Outcome: Progressing as expected Problem: Bleeding, Risk of Goal: Absence of impaired coagulation signs and symptoms Outcome: Progressing as expected Goal: Absence of active bleeding Outcome: Progressing as expected are Lee - Luz Bush RN - 04/06/2020 11:31 PM WORKFORCE MANAGEMENT CONSULTANT Problem: Discharge Planning Goal: Absence of venous thromboembolism Outcome: Progressing as expected Goal: Adequate for discharge Outcome: Progressing as expected Goal: Effective communication Outcome: Progressing as expected Problem: Falls, Risk of Goal: Absence of falls Outcome: Progressing as expected Problem: Fluid Volume - Imbalanced Goal: Absence of signs and symptoms of imbalanced fluid volume Outcome: Progressing as expected Problem: Infection, Risk of or Actual Goal: Absence of infection Outcome: Progressing as expected Problem: Mental Status - Impaired, Risk of Goal: Mental status restored to baseline Outcome: Progressing as expected Goal: Absence of physical injury Outcome: Progressing as expected Problem: Nutrition Deficit Goal: Adequate nutritional intake Outcome: Progressing as expected Problem: Pain Goal: Control of pain at or below patient's documented comfort goal Outcome: Progressing as expected Goal: Reduction in pain sensation Outcome: Progressing as expected Problem: Skin integrity Impaired (Risk or Actual) Goal: Wound healing Outcome: Progressing as expected Goal: Prevention of new skin breakdown Outcome: Progressing as expected Problem: Tissue Perfusion - Altered, Risk of Goal: Hemodynamically stable Outcome: Progressing as expected Problem: Bleeding, Risk of Goal: Absence of impaired coagulation signs and symptoms Outcome: Progressing as expected Goal: Absence of active bleeding Outcome: Progressing as expected are Lee - Jenn Collins RN - 04/04/2020 11:07 PM WORKFORCE MANAGEMENT CONSULTANT Problem: Discharge Planning Goal: Absence of venous thromboembolism Outcome: Not progressing as expected Goal: Adequate for discharge Outcome: Not progressing as expected Goal: Effective communication Outcome: Not progressing as expected Problem: Falls, Risk of Goal: Absence of falls Outcome: Not progressing as expected Problem: Fluid Volume - Imbalanced Goal: Absence of signs and symptoms of imbalanced fluid volume Outcome: Not progressing as expected Problem: Infection, Risk of or Actual Goal: Absence of infection Outcome: Not progressing as expected Problem: Mental Status - Impaired, Risk of Goal: Mental status restored to baseline Outcome: Not progressing as expected Goal: Absence of physical injury Outcome: Not progressing as expected Problem: Nutrition Deficit Goal: Adequate nutritional intake Outcome: Not progressing as expected Problem: Pain Goal: Control of pain at or below patient's documented comfort goal Outcome: Not progressing as expected Goal: Reduction in pain sensation Outcome: Not progressing as expected Problem: Skin integrity Impaired (Risk or Actual) Goal: Wound healing Outcome: Not progressing as expected Goal: Prevention of new skin breakdown Outcome: Not progressing as expected Problem: Tissue Perfusion - Altered, Risk of Goal: Hemodynamically stable Outcome: Not progressing as expected Problem: Bleeding, Risk of Goal: Absence of impaired coagulation signs and symptoms Outcome: Not progressing as expected Goal: Absence of active bleeding Outcome: Not progressing as expected D Nurse Note - Ariadna Vera RN - 04/04/2020 10:25 PM CSTReport to Karuna OSULLIVAN, patient packaged for ICU transport, no s/s or reaction to blood, infusion contin ues D Nurse Note - Ariadna Vera RN - 04/04/2020 9:37 PM CSTPatient emesis of red liquid 200 ml D Nurse Note - Ariadna Vera RN - 04/04/2020 9:[address] Yogil at bedside to go over lab results and consent for blood transfusion D Nurse Note - Ariadna Vera RN - 04/04/2020 7:56 PM CSTWillis Alvarez is a 39 year old male C/o nv of blood since Wednesday, today 7 episodes, stool black yesterday, no pain, nauseated with drinking fluids, drinks etoh 1/2 gallon week, no etoh since Wednesday, no cp no sob no fever, noted alert speaking in complete sentences, skin w/d jaundiced/pale, denies any other health problems, smokes daily,uses cocaine, last use Wednesday night, documented in this encounter Plan of Treatment Name Type Priority Associated Diagnoses Date/Ti me BLOOD CULTURE SCREEN LAB DANIELLE 11:21 PM WORKFORCE MANAGEMENT CONSULTANT BLOOD CULTURE SCREEN LAB DANIELLE 11:22 PM WORKFORCE MANAGEMENT CONSULTANT Name Type Priority Associated Diagnoses Order S chedule Transfusion Reaction LAB Routine Hematemesis with nate sea FOR FOLLOW-UP TESTING Investigation until disconti nued starting 2019 Urinalysis (Spun) LAB Routine Hematemesis with nausea FOR FOLLOW-UP TESTING until discontin ued starting 2019 Transfusion Reaction LAB Routine FOR FOL LOW-UP TESTING Investigation until disconti nued starting 2019 Urinalysis (Spun) LAB DANIELLE FOR FOLLOW -UP TESTING until discontin ued starting 2019 BASIC METABOLIC PANEL LAB DANIELLE EVERY 24 HOURS (START (NA, K, CL, CO2, GLUCOSE, TI ME ADJUSTABLE) for 1 BUN, CREATININE, CA) Weeks s tarting 04/05/2020 unti l 04/11/2020, 3 c ompleted Transfusion Reaction LAB Routine FOR FOL LOW-UP TESTING Investigation until disconti nued starting 2019 Urinalysis (Spun) LAB DANIELLE FOR FOLLOW -UP TESTING until discontin ued starting 2019 SODIUM URINE LAB DANIELLE ONCE for 1 Occu rrences starting 2019 until 0 Transfusion Reaction LAB Routine FOR FOL LOW-UP TESTING Investigation until disconti nued starting 2019 Urinalysis (Spun) LAB DANIELLE FOR FOLLOW -UP TESTING until discontin ued starting 2019 CBC WITHOUT DIFF LAB Routine EVERY 12 HO URS (START TIME ADJUSTABLE ) for 2 Days starting 04/07/2020 unti l 04/09/2020, 2 c ompleted Health Maintenance Due Date Last Done Comments PNEUMOCOCCAL 0-64 YEARS COMBINED SERIES ( - 1984 PPSV23) Depression Screening 1990 DTaP,Tdap,and Td Vaccines (1 - Tdap) 1997 INFLUENZA VACCINE (#1) 2020 documented as of this encounter Procedures Procedure Name Priority Date/Time Associated Comments Diagnosis CBC WITHOUT DIFF Routine 04/08/2020 Results for 5:28 AM WORKFORCE MANAGEMENT CONSULTANT this procedure are in the results section. BASIC METABOLIC PANEL (NA, K, Routine 04/08/2020 Results for CL, CO2, GLUCOSE, BUN, 5:28 AM WORKFORCE MANAGEMENT CONSULTANT this CREATININE, CA) procedure are in the results section. CBC WITHOUT DIFF Routine 04/07/2020 Results for 2:49 PM WORKFORCE MANAGEMENT CONSULTANT this procedure are in the results section. BASIC METABOLIC PANEL (NA, K, Routine 04/07/2020 Results for CL, CO2, GLUCOSE, BUN, 4:45 AM WORKFORCE MANAGEMENT CONSULTANT this CREATININE, CA) procedure are in the results section. CBC WITHOUT DIFF DANIELLE 04/06/2020 Results for 10:07 PM WORKFORCE MANAGEMENT CONSULTANT this procedure are in the results section. CBC WITHOUT DIFF DANIELLE 04/06/2020 Results for 9:35 AM WORKFORCE MANAGEMENT CONSULTANT this procedure are in the results section. HCV ANTIBODY Add-on 04/06/2020 Results for 4:13 AM WORKFORCE MANAGEMENT CONSULTANT this procedure are in the results section. HEPATITIS B SURFACE ANTIGEN Add-on 04/06/2020 Results for 4:13 AM WORKFORCE MANAGEMENT CONSULTANT this procedure are in the results section. CBC WITH DIFF DANIELLE 04/06/2020 Results for 4:13 AM WORKFORCE MANAGEMENT CONSULTANT this procedure are in the results section. BASIC METABOLIC PANEL (NA, K, DANIELLE 04/06/2020 Results for CL, CO2, GLUCOSE, BUN, 4:13 AM WORKFORCE MANAGEMENT CONSULTANT this CREATININE, CA) procedure are in the results section. MAGNESIUM Add-on 04/06/2020 Results for 4:13 AM WORKFORCE MANAGEMENT CONSULTANT this procedure are in the results section. CBC WITHOUT DIFF DANIELLE 04/05/2020 Results for 7:38 PM WORKFORCE MANAGEMENT CONSULTANT this procedure are in the results section. CBC WITH DIFF DANIELLE 04/05/2020 Results for 3:47 PM WORKFORCE MANAGEMENT CONSULTANT this procedure are in the results section. PREPARE PACKED RBC STAT 04/05/2020 Results f or 12:52 PM WORKFORCE MANAGEMENT CONSULTANT this procedure are in the results section. ESOPHAGOGASTRODUODENOSCOPY Level 1 A 04/05/2020 Gastrointestin al (within 2 10:43 AM WORKFORCE MANAGEMENT CONSULTANT hemorrhage with hours) hematemesis EGD (ENDO) Routine 04/05/2020 10:33 AM WORKFORCE MANAGEMENT CONSULTANT CBC WITH DIFF DANIELLE 04/05/2020 Results for 9:19 AM WORKFORCE MANAGEMENT CONSULTANT this procedure are in the results section. PREPARE CRYOPRECIPITATE Routine 04/05/2020 Resu lts for 8:16 AM WORKFORCE MANAGEMENT CONSULTANT this procedure are in the results section. HBC ANTIBODY (IGM & IGG) Add-on 04/05/2020 Res ults for 6:36 AM WORKFORCE MANAGEMENT CONSULTANT this procedure are in the results section. HEPATITIS B SURFACE ANTIBODY Add-on 04/05/2020 Results for 6:36 AM WORKFORCE MANAGEMENT CONSULTANT this procedure are in the results section. ALPHA FETOPROTEIN Add-on 04/05/2020 Results fo r 6:36 AM WORKFORCE MANAGEMENT CONSULTANT this procedure are in the results section. HAPTOGLOBIN, SERUM DANIELLE 04/05/2020 Results f or 6:36 AM WORKFORCE MANAGEMENT CONSULTANT this procedure are in the results section. TRANSFUSE PACKED RBC Routine 04/05/2020 5:29 AM WORKFORCE MANAGEMENT CONSULTANT PREPARE PACKED RBC Routine 04/05/2020 Hematemesis with Resul ts for 5:18 AM WORKFORCE MANAGEMENT CONSULTANT nausea this procedure are in the results section. FIBRINOGEN DANIELLE 04/05/2020 Results for 4:13 AM WORKFORCE MANAGEMENT CONSULTANT this procedure are in the results section. PROTHROMBIN TIME / INR Add-on 04/05/2020 Resul ts for 4:13 AM WORKFORCE MANAGEMENT CONSULTANT this procedure are in the results section. COMP. METABOLIC PANEL (19453) DANIELLE 04/05/2020 Results for 4:07 AM WORKFORCE MANAGEMENT CONSULTANT this procedure are in the results section. TROPONIN I DANIELLE 04/05/2020 Results for 4:07 AM WORKFORCE MANAGEMENT CONSULTANT this procedure are in the results section. LACTATE DEHYDROGENASE DANIELLE 04/05/2020 Result s for 4:07 AM WORKFORCE MANAGEMENT CONSULTANT this procedure are in the results section. CBC WITHOUT DIFF DANIELLE 04/05/2020 Results for 4:06 AM WORKFORCE MANAGEMENT CONSULTANT this procedure are in the results section. PREPARE PACKED RBC Routine 04/05/2020 Results f or 3:16 AM WORKFORCE MANAGEMENT CONSULTANT this procedure are in the results section. FIBRINOGEN DANIELLE 04/05/2020 Results for 3:05 AM WORKFORCE MANAGEMENT CONSULTANT this procedure are in the results section. CBC WITH DIFF DANIELLE 04/05/2020 Results for 3:05 AM WORKFORCE MANAGEMENT CONSULTANT this procedure are in the results section. TRANSFUSE PACKED RBC Routine 04/05/2020 2:45 AM WORKFORCE MANAGEMENT CONSULTANT SODIUM, URINE RANDOM DANIELLE 04/05/2020 Results for 1:47 AM WORKFORCE MANAGEMENT CONSULTANT this procedure are in the results section. CREATININE, URINE RANDOM DANIELLE 04/05/2020 Res ults for 1:47 AM WORKFORCE MANAGEMENT CONSULTANT this procedure are in the results section. URINE CULTURE [facility] 04/05/2020 Results for 1:47 AM WORKFORCE MANAGEMENT CONSULTANT this procedure are in the results section. URINALYSIS [facility] 04/05/2020 Results for 1:47 AM WORKFORCE MANAGEMENT CONSULTANT this procedure are in the results section. US ABDOMEN LIMITED WITH [facility] 04/05/2020 Hematemesis with Results for DOPPLER 1:25 AM WORKFORCE MANAGEMENT CONSULTANT nausea this procedure are in the results section. TROPONIN I [facility] 04/05/2020 Results for 12:34 AM WORKFORCE MANAGEMENT CONSULTANT this procedure are in the results section. FERRITIN SERUM Add-on 04/05/2020 Results for 12:34 AM WORKFORCE MANAGEMENT CONSULTANT this procedure are in the results section. TRANSFUSE PACKED RBC Routine 04/05/2020 12:08 AM WORKFORCE MANAGEMENT CONSULTANT XR CHEST 1 VW Routine 04/04/2020 Hematemesis with Results fo r 11:45 PM WORKFORCE MANAGEMENT CONSULTANT nausea this procedure are in the results section. BLOOD CULTURE SCREEN [facility] 04/04/2020 11:22 PM WORKFORCE MANAGEMENT CONSULTANT MRSA / MSSA SCREEN BY PCR, [facility] 04/04/2020 R esults for NARES 11:21 PM WORKFORCE MANAGEMENT CONSULTANT this procedure are in the results section. BLOOD CULTURE SCREEN [facility] 04/04/2020 11:21 PM WORKFORCE MANAGEMENT CONSULTANT EKG-12 LEAD Routine 04/04/2020 9:48 PM WORKFORCE MANAGEMENT CONSULTANT XR ABDOMEN ACUTE SERIES STAT 04/04/2020 Hematemesis with Results for 9:18 PM WORKFORCE MANAGEMENT CONSULTANT nausea this procedure are in the results section. ABORH CONFIRMATION Routine 04/04/2020 Results f or 9:08 PM WORKFORCE MANAGEMENT CONSULTANT this procedure are in the results section. HB ABO GROUPING STAT 04/04/2020 Hematemesis with Results for 8:21 PM WORKFORCE MANAGEMENT CONSULTANT nausea this procedure are in the results section. LAB ONLY COVID INTERPRETATION STAT 04/04/2020 Hematemesis with Results for 8:19 PM WORKFORCE MANAGEMENT CONSULTANT nausea this procedure are in the results section. COVID-19 (ID NOW RAPID STAT 04/04/2020 Hematemesis with R esults for TESTING) 8:19 PM WORKFORCE MANAGEMENT CONSULTANT nausea this procedure are in the results section. HB ECG ROUTINE & RHYTHM STRIP Routine 04/04/2020 Hematemesis with 8:15 PM WORKFORCE MANAGEMENT CONSULTANT nausea PROTHROMBIN TIME / INR STAT 04/04/2020 Hematemesis with R esults for 8:11 PM WORKFORCE MANAGEMENT CONSULTANT nausea this procedure are in the results section. CBC WITH DIFF STAT 04/04/2020 Hematemesis with Results fo r 8:11 PM WORKFORCE MANAGEMENT CONSULTANT nausea this procedure are in the results section. IRON PANEL Add-on 04/04/2020 Results for 8:11 PM WORKFORCE MANAGEMENT CONSULTANT this procedure are in the results section. COMP. METABOLIC PANEL (27809) STAT 04/04/2020 Hematemesis with Results for 8:11 PM WORKFORCE MANAGEMENT CONSULTANT nausea this procedure are in the results section. TROPONIN I STAT 04/04/2020 Hematemesis with Results for 8:11 PM WORKFORCE MANAGEMENT CONSULTANT nausea this procedure are in the results section. LIPASE STAT 04/04/2020 Hematemesis with Results for 8:11 PM WORKFORCE MANAGEMENT CONSULTANT nausea this procedure are in the results section. documented in this encounter Results CBC WITHOUT DIFF (04/08/2020 5:28 AM WORKFORCE MANAGEMENT CONSULTANT) WBC 6.47 4.20 - 10.70 [facility] 10*3/L SERVICES RBC 2.98 (L) 4.26 - 5.52 [facility] 10*6/L SERVICES HGB 7.9 (L) 12.2 - 16.4 [facility] g/dL SERVICES HCT 24.5 (L) 38.4 - 49.3 % [facility] SERVICES MCH 26.5 26.1 - 32.7 pg [facility] SERVICES MCV 82.2 81.7 - 95.6 fL [facility] SERVICES MCHC 32.2 31.2 - 35.0 [facility] g/dL SERVICES PLT 83 (L) 150 - 328 [facility] 10*3/L SERVICES MPV Comment: Not Measured [facility] SERVICES RDW-CV 20.5 (H) 12.1 - 15.4 % [facility] SERVICES RDW-SD 60.9 (H) 38.5 - 51.6 fL [facility] SERVICES NRBC x10^3 0.02 10*3/L [facility] SERVICES NRBC/100 WBC 0.3 0.0 - 10.0 [facility] /100 WBCs SERVICES IPF % 4.8Comment: Platelet 1.2 - 10.7 % [facility] count measured by SERVICES fluorescence method. Specimen Blood - HAND, RIGHT Performing Organization Address City/State/Zipcode Phone Number [facility] CLIA: [id number] [place] [address] [place] [address] BASIC METABOLIC PANEL (NA, K, CL, CO2, GLUCOSE, BUN, CREATININE, CA) (04/08/2020 5:28 AM WORKFORCE MANAGEMENT CONSULTANT) Pathologist Sig nature NA 135 135 - 145 [facility] mmol/L SERVICES K 3.9 3.5 - 5.0 [facility] mmol/L SERVICES CL 109 (H) 98 - 108 mmol/L [facility] CO2 TOTAL 21 (L) 23 - 31 mmol/L [facility] AGAP 5 2 - 16 [facility] BUN 14 7 - 23 mg/dL [facility] GLUCOSE 133 (H) 70 - 110 mg/dL [facility] CREATININE 0.66 0.60 - 1.25 [facility] mg/dL SERVICES CALCIUM 6.5 (L) 8.6 - 10.6 [facility] mg/dL SERVICES eGFR Calculation 133.0 mL/min/1.73m2 [facility] (Non- SERVICES [place]) eGFR Calculation 161.2 mL/min/1.73m2 [facility] () SERVICES Specimen Blood - HAND, RIGHT Narrative Performed At Association of Glomerular Filtration Rate (GFR) and St aging [facility] of Kidney Disease* + + +------- ------ + | GFR (mL/min/1.73 m2) | With Kidney Damage | Wi thout Kidney Damage + + +------- ------ + | >90 | Stage one | Normal + + +------- ------ + | 60-89 | Stage two | Decreased GFR + + +------- ------ + | 30-59 | Stage three | Stage three + + +------- ------ + | 15-29 | Stage four | Stage four + + +------- ------ + | <15 (or dialysis) | Stage five | Stage five + + +------- ------ + *Each stage assumes the associated GFR level has been in effect for at least three months. Stages 1 to 5, wit h or without kidney disease, indicate chronic kidney disease. Notes: Determination of stages one and two (with eGFR >59mL/min/1.73 m2) requires estimation of kidney damag e for at least three months as defined by structural or func tional abnormalities of the kidney, manifested by either: Pathological abnormalities or Markers of kidney damage (including abnormalities in the composition of the blo od or urine or abnormalities in imaging tests) . Performing Organization Address City/State/Zipcode Phone Number [facility] CLIA: [id number] [place] [address] [place] [address] CBC WITHOUT DIFF (04/07/2020 2:49 PM WORKFORCE MANAGEMENT CONSULTANT) WBC 4.63 4.20 - 10.70 [facility] 10*3/L SERVICES RBC 2.80 (L) 4.26 - 5.52 [facility] 10*6/L SERVICES HGB 7.3 (L) 12.2 - 16.4 [facility] g/dL SERVICES HCT 23.1 (L) 38.4 - 49.3 % [facility] SERVICES MCH 26.1 26.1 - 32.7 pg [facility] MCV 82.5 81.7 - 95.6 fL [facility] SERVICES MCHC 31.6 31.2 - 35.0 [facility] g/dL SERVICES PLT 74 (L) 150 - 328 [facility] 10*3/L SERVICES MPV Comment: Not Measured [facility] RDW-CV 20.0 (H) 12.1 - 15.4 % [facility] RDW-SD 59.7 (H) 38.5 - 51.6 fL [facility] NRBC x10^3 0.02 10*3/L [facility] NRBC/100 WBC 0.4 0.0 - 10.0 [facility] /100 WBCs SERVICES IPF % 5.1Comment: Platelet 1.2 - 10.7 % [facility] count measured by SERVICES fluorescence method. Specimen Blood - ARM, RIGHT Performing Organization Address City/State/Zipcode Phone Number [facility] CLIA: [id number] [place] [address] [place] [address] BASIC METABOLIC PANEL (NA, K, CL, CO2, GLUCOSE, BUN, CREATININE, CA) (04/07/2020 4:45 AM WORKFORCE MANAGEMENT CONSULTANT) Pathologist Sig nature NA 132 (L) 135 - 145 [facility] mmol/L SERVICES K 3.8 3.5 - 5.0 [facility] mmol/L SERVICES CL 105 98 - 108 mmol/L [facility] CO2 TOTAL 23 23 - 31 mmol/L [facility] AGAP 4 2 - 16 [facility] BUN 20 7 - 23 mg/dL [facility] GLUCOSE 94 70 - 110 mg/dL [facility] CREATININE 0.68 0.60 - 1.25 [facility] mg/dL SERVICES CALCIUM 6.4 (L) 8.6 - 10.6 [facility] mg/dL SERVICES eGFR Calculation 128.5 mL/min/1.73m2 [facility] (Non- SERVICES [place]) eGFR Calculation 155.8 mL/min/1.73m2 [facility] () SERVICES Specimen Blood - VENOUS Narrative Performed At Association of Glomerular Filtration Rate (GFR) and St aging [facility] of Kidney Disease* + + +------- ------ + | GFR (mL/min/1.73 m2) | With Kidney Damage | Wi thout Kidney Damage + + +------- ------ + | >90 | Stage one | Normal + + +------- ------ + | 60-89 | Stage two | Decreased GFR + + +------- ------ + | 30-59 | Stage three | Stage three + + +------- ------ + | 15-29 | Stage four | Stage four + + +------- ------ + | <15 (or dialysis) | Stage five | Stage five + + +------- ------ + *Each stage assumes the associated GFR level has been in effect for at least three months. Stages 1 to 5, wit h or without kidney disease, indicate chronic kidney disease. Notes: Determination of stages one and two (with eGFR >59mL/min/1.73 m2) requires estimation of kidney damag e for at least three months as defined by structural or func tional abnormalities of the kidney, manifested by either: Pathological abnormalities or Markers of kidney damage (including abnormalities in the composition of the blo od or urine or abnormalities in imaging tests) . Performing Organization Address City/State/Zipcode Phone Number [facility] CLIA: [id number] [place], [place] [id number] [address] [place] [address] CBC WITHOUT DIFF (04/06/2020 10:07 PM WORKFORCE MANAGEMENT CONSULTANT) WBC 6.54 4.20 - 10.70 [facility] 10*3/L SERVICES RBC 3.04 (L) 4.26 - 5.52 [facility] 10*6/L SERVICES HGB 7.9 (L) 12.2 - 16.4 [facility] g/dL SERVICES HCT 24.8 (L) 38.4 - 49.3 % [facility] SERVICES MCH 26.0 (L) 26.1 - 32.7 pg [facility] SERVICES MCV 81.6 (L) 81.7 - 95.6 fL [facility] SERVICES MCHC 31.9 31.2 - 35.0 [facility] g/dL SERVICES PLT 64 (L) 150 - 328 [facility] 10*3/L SERVICES MPV Comment: Not Measured [facility] RDW-CV 19.2 (H) 12.1 - 15.4 % [facility] SERVICES RDW-SD 56.5 (H) 38.5 - 51.6 fL [facility] SERVICES NRBC x10^3 0.05 10*3/L [facility] SERVICES NRBC/100 WBC 0.8 0.0 - 10.0 [facility] /100 WBCs SERVICES IPF % 8.0Comment: Platelet 1.2 - 10.7 % [facility] count measured by SERVICES fluorescence method. Specimen Blood - VENOUS Performing Organization Address [facility] Phone Number [facility] CLIA: [id number] [place] [address] [place] [address] CBC WITHOUT DIFF (04/06/2020 9:35 AM WORKFORCE MANAGEMENT CONSULTANT) WBC 6.10 4.20 - 10.70 [facility] 10*3/L SERVICES RBC 3.05 (L) 4.26 - 5.52 [facility] 10*6/L SERVICES HGB 7.9 (L) 12.2 - 16.4 [facility] g/dL SERVICES HCT 24.6 (L) 38.4 - 49.3 % [facility] SERVICES MCH 25.9 (L) 26.1 - 32.7 pg [facility] SERVICES MCV 80.7 (L) 81.7 - 95.6 fL [facility] SERVICES MCHC 32.1 31.2 - 35.0 [facility] g/dL SERVICES PLT 55 (L) 150 - 328 [facility] 10*3/L SERVICES MPV Comment: Not Measured [facility] SERVICES RDW-CV 19.1 (H) 12.1 - 15.4 % [facility] SERVICES RDW-SD 55.8 (H) 38.5 - 51.6 fL [facility] SERVICES NRBC x10^3 0.04 10*3/L [facility] SERVICES NRBC/100 WBC 0.7 0.0 - 10.0 [facility] /100 WBCs SERVICES IPF % 15.1 (H)Comment: 1.2 - 10.7 % [facility] Platelet count SERVICES measured by fluorescence method. Specimen Blood - ARM, RIGHT Performing Organization Address [facility]/Zipcode Phone Number [facility] CLIA: [id number] [place], [place] [id number] [address] [place] [address] HEPATITIS B SURFACE ANTIGEN (04/06/2020 4:13 AM WORKFORCE MANAGEMENT CONSULTANT) Pathologist Sig nature HBsAg Negative Negative [facility] HBsAg 0.07 [facility] Semi-Quantitative SERVICES Specimen Blood - LINE, VENOUS Performing Organization Address City/[facility]/Zipcode Phone Number [facility] CLIA: [id number] [place] [address] [place] [address] HCV ANTIBODY (04/06/2020 4:13 AM WORKFORCE MANAGEMENT CONSULTANT) Pathologist Sig nature HCV Ab Negative [facility] HCV Semi-Quantitative 0.03 [facility] Specimen Blood - LINE, VENOUS Performing Organization Address City/[facility]/Zipcode Phone Number [facility] CLIA: [id number] [place] [address] [place] [address] MAGNESIUM (04/06/2020 4:13 AM WORKFORCE MANAGEMENT CONSULTANT) Pathologist Sig nature MAGNESIUM 2.2 1.7 - 2.4 mg/dL [facility] Specimen Blood - LINE, VENOUS Performing Organization Address City/[facility] Phone Number [facility] CLIA: [id number] [place] [address] [place] [address] CBC WITH DIFF (04/06/2020 4:13 AM WORKFORCE MANAGEMENT CONSULTANT) WBC 6.85 4.20 - 10.70 [facility] 10*3/L SERVICES RBC 2.92 (L) 4.26 - 5.52 [facility] 10*6/L SERVICES HGB 7.6 (L) 12.2 - 16.4 [facility] g/dL SERVICES HCT 23.5 (L) 38.4 - 49.3 % [facility] SERVICES MCV 80.5 (L) 81.7 - 95.6 [facility] fL SERVICES MCH 26.0 (L) 26.1 - 32.7 [facility] pg SERVICES MCHC 32.3 31.2 - 35.0 [facility] g/dL SERVICES RDW-SD 55.1 (H) 38.5 - 51.6 [facility] fL SERVICES RDW-CV 18.7 (H) 12.1 - 15.4 % [facility] SERVICES PLT 80 (L) 150 - 328 [facility] 10*3/L SERVICES MPV Comment: Not [facility] Measured SERVICES IPF % 6.2Comment: Platelet 1.2 - 10.7 % [facility] count measured by SERVICES fluorescence method. NRBC/100 WBC 0.9 0.0 - 10.0 [facility] /100 WBCs SERVICES NRBC x10^3 0.06 10*3/L [facility] SERVICES GRAN MAT (NEUT) % 62.3 % [facility] SERVICES IMM GRAN % 0.70 % [facility] SERVICES LYMPH % 24.5 % [facility] SERVICES MONO % 9.9 % [facility] SERVICES EOS % 2.3 % [facility] SERVICES BASO % 0.3 % [facility] SERVICES GRAN MAT 4.26 1.99 - 6.95 [facility] x10^3(ANC) 10*3/uL SERVICES IMM GRAN x10^3 0.05 0.00 - 0.06 [facility] 10*3/uL SERVICES LYMPH x10^3 1.68 1.09 - 3.23 [facility] 10*3/uL SERVICES MONO x10^3 0.68 0.36 - 1.02 [facility] 10*3/uL SERVICES EOS x10^3 0.16 0.06 - 0.53 [facility] 10*3/uL SERVICES BASO x10^3 <0.03 0.01 - 0.09 [facility] 10*3/uL SERVICES Specimen Blood - LINE, VENOUS Performing Organization Address City/State/Zipcode Phone Number [facility] CLIA: [id number] [place] [address] [place] [address] BASIC METABOLIC PANEL (NA, K, CL, CO2, GLUCOSE, BUN, CREATININE, CA) (04/06/2020 4:13 AM WORKFORCE MANAGEMENT CONSULTANT) Pathologist Sig nature NA 133 (L) 135 - 145 [facility] mmol/L SERVICES K 3.4 (L) 3.5 - 5.0 [facility] mmol/L SERVICES CL 103 98 - 108 mmol/L [facility] CO2 TOTAL 26 23 - 31 mmol/L [facility] SERVICES AGAP 4 2 - 16 [facility] SERVICES BUN 37 (H) 7 - 23 mg/dL [facility] SERVICES GLUCOSE 145 (H) 70 - 110 mg/dL [facility] SERVICES CREATININE 0.78 0.60 - 1.25 [facility] mg/dL SERVICES CALCIUM 6.7 (L) 8.6 - 10.6 [facility] mg/dL SERVICES eGFR Calculation 109.7 mL/min/1.73m2 [facility] (Non- SERVICES [place]) eGFR Calculation 132.9 mL/min/1.73m2 [facility] () SERVICES Specimen Blood - LINE, VENOUS Narrative Performed At [employer] of Glomerular Filtration Rate (GFR) and St aging [facility] of Kidney Disease* + + +------- ------ + | GFR (mL/min/1.73 m2) | With Kidney Damage | Wi thout Kidney Damage + + +------- ------ + | >90 | Stage one | Normal + + +------- ------ + | 60-89 | Stage two | Decreased GFR + + +------- ------ + | 30-59 | Stage three | Stage three + + +------- ------ + | 15-29 | Stage four | Stage four + + +------- ------ + | <15 (or dialysis) | Stage five | Stage five + + +------- ------ + *Each stage assumes the associated GFR level has been in effect for at least three months. Stages 1 to 5, wit h or without kidney disease, indicate chronic kidney disease. Notes: Determination of stages one and two (with eGFR >59mL/min/1.73 m2) requires estimation of kidney damag e for at least three months as defined by structural or func tional abnormalities of the kidney, manifested by either: Pathological abnormalities or Markers of kidney damage (including abnormalities in the composition of the blo od or urine or abnormalities in imaging tests) . Performing Organization Address City/State/Zipcode Phone Number [facility] CLIA: [id number] [place] [address] [place] [address] CBC WITHOUT DIFF (04/05/2020 7:38 PM WORKFORCE MANAGEMENT CONSULTANT) WBC 7.29 4.20 - 10.70 [facility] 10*3/L SERVICES RBC 2.96 (L) 4.26 - 5.52 [facility] 10*6/L SERVICES HGB 7.8 (L) 12.2 - 16.4 [facility] g/dL SERVICES HCT 23.7 (L) 38.4 - 49.3 % [facility] MCH 26.4 26.1 - 32.7 pg [facility] MCV 80.1 (L) 81.7 - 95.6 fL [facility] MCHC 32.9 31.2 - 35.0 [facility] g/dL SERVICES PLT 71 (L) 150 - 328 [facility] 10*3/L SERVICES MPV Comment: Not Measured [facility] RDW-CV 18.8 (H) 12.1 - 15.4 % [facility] RDW-SD 54.9 (H) 38.5 - 51.6 fL [facility] NRBC x10^3 0.13 10*3/L [facility] NRBC/100 WBC 1.8 0.0 - 10.0 [facility] /100 WBCs SERVICES IPF % 7.9Comment: Platelet 1.2 - 10.7 % [facility] count measured by SERVICES fluorescence method. Specimen Blood - LINE, VENOUS Performing Organization Address City/State/Zipcode Phone Number [facility] CLIA: [id number] [place] [address] [place] [address] CBC WITH DIFF (04/05/2020 3:47 PM WORKFORCE MANAGEMENT CONSULTANT) WBC 8.16 4.20 - 10.70 [facility] 10*3/L SERVICES RBC 3.03 (L) 4.26 - 5.52 [facility] 10*6/L SERVICES HGB 8.0 (L) 12.2 - 16.4 [facility] g/dL SERVICES HCT 23.8 (L) 38.4 - 49.3 [facility] % SERVICES MCV 78.5 (L) 81.7 - 95.6 [facility] fL SERVICES MCH 26.4 26.1 - 32.7 [facility] pg SERVICES MCHC 33.6 31.2 - 35.0 [facility] g/dL SERVICES RDW-SD 53.6 (H) 38.5 - 51.6 [facility] fL SERVICES RDW-CV 18.8 (H) 12.1 - 15.4 [facility] % SERVICES PLT 70 (L) 150 - 328 [facility] 10*3/L SERVICES MPV Comment: Not [facility] Measured SERVICES IPF % 7.6Comment: 1.2 - 10.7 % [facility] Platelet count SERVICES measured by fluorescence method. NRBC/100 WBC 1.8 0.0 - 10.0 [facility] /100 WBCs SERVICES NRBC x10^3 0.15 10*3/L [facility] GRAN MAT (NEUT) % 64.5 % [facility] IMM GRAN % 1.50 % [facility] LYMPH % 23.8 % [facility] MONO % 9.3 % [facility] EOS % 0.7 % [facility] BASO % 0.2 % [facility] GRAN MAT x10^3(ANC) 5.26 1.99 - 6.95 [facility] 10*3/uL SERVICES IMM GRAN x10^3 0.12 (H) 0.00 - 0.06 [facility] 10*3/uL SERVICES LYMPH x10^3 1.94 1.09 - 3.23 [facility] 10*3/uL SERVICES MONO x10^3 0.76 0.36 - 1.02 [facility] 10*3/uL SERVICES EOS x10^3 0.06 0.06 - 0.53 [facility] 10*3/uL SERVICES BASO x10^3 <0.03 0.01 - 0.09 [facility] 10*3/uL SERVICES BEVERLY CELLS 2+ (A) (none) [facility] POLYCHROMASIA 2+ 2+ [facility] Specimen Blood - ARM, RIGHT Performing Organization Address City/State/Zipcode Phone Number [facility] CLIA: [id number] [place] [address] [place] [address] Prepare Packed RBC (in units), 2 Units (04/05/2020 12:52 PM WORKFORCE MANAGEMENT CONSULTANT) Cross Match Result Compatible LAB ISBT Blood Type Code 5100 LAB Unit Blood Type O Pos LAB Unit Number [id number] LAB Blood Expiration Date & LAB Time Status Information Returned from Issue LAB Product Identification Red Blood Cells LAB Product Code [id number] LAB Comment: Performed at [facility] [place] [address] Toll Free: [phone] CLIA No. [id number] Cross Match Result Compatible LAB ISBT Blood Type Code 5100 LAB Unit Blood Type O Pos LAB Unit Number [id number] LAB Blood Expiration Date & LAB Time Status Information Issued LAB Product Identification Red Blood Cells LAB Product Code [id number] LAB Comment: Performed at [facility] [place] [address] Toll Free: [phone] [facility] No. [id number] Specimen Performing Organization Address City/State/Zipcode Phone Number BLD LAB CBC WITH DIFF (04/05/2020 9:19 AM WORKFORCE MANAGEMENT CONSULTANT) WBC 7.86 4.20 - 10.70 [facility] 10*3/L SERVICES RBC 2.61 (L) 4.26 - 5.52 [facility] 10*6/L SERVICES HGB 6.8 (L) 12.2 - 16.4 [facility] g/dL SERVICES HCT 20.5 (L) 38.4 - 49.3 % [facility] MCV 78.5 (L) 81.7 - 95.6 [facility] fL SERVICES MCH 26.1 26.1 - 32.7 [facility] pg SERVICES MCHC 33.2 31.2 - 35.0 [facility] g/dL SERVICES RDW-SD 56.4 (H) 38.5 - 51.6 [facility] fL SERVICES RDW-CV 19.9 (H) 12.1 - 15.4 % [facility] SERVICES PLT 72 (L) 150 - 328 [facility] 10*3/L SERVICES MPV Comment: Not [facility] Measured SERVICES IPF % 8.9Comment: Platelet 1.2 - 10.7 % [facility] count measured by SERVICES fluorescence method. NRBC/100 WBC 1.4 0.0 - 10.0 [facility] /100 WBCs SERVICES NRBC x10^3 0.11 10*3/L [facility] GRAN MAT (NEUT) % 63.8 % [facility] IMM GRAN % 1.10 % [facility] LYMPH % 23.7 % [facility] MONO % 11.2 % [facility] EOS % 0.1 % [facility] BASO % 0.1 % [facility] GRAN MAT 5.01 1.99 - 6.95 [facility] x10^3(ANC) 10*3/uL SERVICES IMM GRAN x10^3 0.09 (H) 0.00 - 0.06 [facility] 10*3/uL SERVICES LYMPH x10^3 1.86 1.09 - 3.23 [facility] 10*3/uL SERVICES MONO x10^3 0.88 0.36 - 1.02 [facility] 10*3/uL SERVICES EOS x10^3 <0.03 (L) 0.06 - 0.53 [facility] 10*3/uL SERVICES BASO x10^3 <0.03 0.01 - 0.09 [facility] 10*3/uL SERVICES Specimen Blood - ARM, RIGHT Performing Organization Address [facility] Phone Number [facility] CLIA: [id number] [place] [address] [place] [address] Prepare Cryoprecipitate (in units): 1 Units~Indication: 1) Fibrinogen < 100 mg/dL with bleeding or potential for bleeding associated with invasive procedure (04/05/2020 8:16 AM WORKFORCE MANAGEMENT CONSULTANT) Unit Blood Type O Pos LAB ISBT Blood Type Code 5100 LAB Unit Number [id number] LAB Blood Expiration Date LAB & Time Status Information Issued LAB Product Identification Cryoprecipitate LAB Product Code [id number] LAB Comment: Performed at [facility] - [facility] Blood Bank [address] [place] [address] Toll Free: [phone] CLIA No. [id number] Specimen Performing Organization Address [facility] Phone Number [facility] HBC ANTIBODY (IGM & IGG) (04/05/2020 6:36 AM WORKFORCE MANAGEMENT CONSULTANT) Pathologist Sig nature HBC Negative [facility] HBC Semi-Quantitative 3.16 [facility] Specimen Blood - VENOUS Performing Organization Address [facility] Phone Number [facility] CLIA: [id number] [place] [address] [place] [address] HEPATITIS B SURFACE ANTIBODY (04/05/2020 6:36 AM WORKFORCE MANAGEMENT CONSULTANT) Pathologist Sig nature HBsAB Negative [facility] HBsAb 0.40 mIU/mL [facility] Semi-Quantitative SERVICES Specimen Blood - VENOUS Narrative Performed At Interpretation: Hepatitis B Surface An tibody [facility] Negative - Patient is considered to be not immu ne to infection with HBV. Positive - Anti-HBs detected at greater than or equal to 12 mIU/mL. Patient is considered to be immune to infection with HBV. Performing Organization Address City/State/Zipcode Phone Number [facility] CLIA: [id number] [place] [address] [place] [address] ALPHA FETOPROTEIN (04/05/2020 6:36 AM WORKFORCE MANAGEMENT CONSULTANT) Pathologist Latrell reyez AFP 2.7 <=7.5 ng/mL [facility] Specimen Blood - VENOUS Narrative Performed At [facility] has been reported to cause a negative bias, int erpret [facility] results relative to patient's use of biotin. Performing Organization Address City/[facility] Phone Number [facility] CLIA: [id number] [place] [address] [place] [address] HAPTOGLOBIN, SERUM (04/05/2020 6:36 AM WORKFORCE MANAGEMENT CONSULTANT) Pathologist Latrell reyez HAPTOGLOB 9 (L) 16 - 200 mg/dL [facility] Specimen Blood - VENOUS Performing Organization Address [facility] Phone Number [facility] CLIA: [id number] [place] [address] [place] [address] Prepare Packed RBC (in units), 2 Units (04/05/2020 5:18 AM WORKFORCE MANAGEMENT CONSULTANT) Cross Match Result Compatible LAB ISBT Blood Type Code 5100 LAB Unit Blood Type O Pos LAB Unit Number [id number] LAB Blood Expiration Date & LAB Time Status Information Issued LAB Product Identification Red Blood Cells LAB Product Code [id number] LAB Comment: Performed at [facility] - [facility] Blood [place] [address] Toll Free: [phone] CLIA No. [id number] Cross Match Result Compatible LAB ISBT Blood Type Code 5100 LAB Unit Blood Type O Pos LAB Unit Number [id number] LAB Blood Expiration Date & LAB Time Status Information Issued LAB Product Identification Red Blood Cells LAB Product Code [id number] LAB Comment: Performed at [facility] - [facility] Blood [place] [address] Toll Free: [phone] CLIA No. [id number] Specimen Performing Organization Address City/[facility] Phone Number [facility] LAB PROTHROMBIN TIME / INR (04/05/2020 4:13 AM WORKFORCE MANAGEMENT CONSULTANT) PROTIME PATIENT 24.2 (H) 10.1 - 12.6 [facility] Seconds SERVICES INR 2.1Comment: Normal [facility] INR <1.1; Warfarin SERVICES Therapeutic range 2.0 to 3.0 or 2.5 to 3.5, depending upon the indications. Specimen Blood - VENOUS Performing Organization Address City/[facility]/Zipcode Phone Number [facility] CLIA: [id number] [place] [address] [place] [address] FIBRINOGEN (04/05/2020 4:13 AM WORKFORCE MANAGEMENT CONSULTANT) Pathologist [facility] nature Fibrinogen 116 (L) 167 - 453 mg/dL [facility] Specimen Blood - VENOUS Performing Organization Address City/[facility] Phone Number [facility] CLIA: [id number] [place] [address] [place] [address] LACTATE DEHYDROGENASE (04/05/2020 4:07 AM WORKFORCE MANAGEMENT CONSULTANT) Pathologist [facility] nature LDH 493 300 - 600 U/L [facility] Specimen Blood - VENOUS Performing Organization Address City/[facility] Phone Number [facility] CLIA: [id number] [place] [address] [place] [address] COMP. METABOLIC PANEL ([id number]) (04/05/2020 4:07 AM WORKFORCE MANAGEMENT CONSULTANT) NA 131 (L) 135 - 145 [facility] mmol/L SERVICES K 3.6 3.5 - 5.0 [facility] mmol/L SERVICES CL 98 98 - 108 mmol/L [facility] CO2 TOTAL 24 23 - 31 mmol/L [facility] AGAP 9 2 - 16 [facility] BUN 54 (H) 7 - 23 mg/dL [facility] GLUCOSE 153 (H) 70 - 110 mg/dL [facility] CREATININE 1.63 (H) 0.60 - 1.25 [facility] mg/dL SERVICES TOTAL BILI 3.4 (H) 0.1 - 1.1 mg/dL [facility] CALCIUM 6.3 (L) 8.6 - 10.6 [facility] mg/dL SERVICES T PROTEIN 4.7 (L) 6.3 - 8.2 g/dL [facility] ALBUMIN 1.9 (L) 3.5 - 5.0 g/dL [facility] ALK PHOS 84 34 - 122 U/L [facility] ALTv 29 5 - 50 U/L [facility] AST(SGOT) 80 (H) 13 - 40 U/L [facility] eGFR Calculation 46.9 mL/min/1.73m2 [facility] (Non- SERVICES [place]) eGFR Calculation 56.8 mL/min/1.73m2 [facility] () SERVICES Specimen Blood - VENOUS Narrative Performed At Association of Glomerular Filtration Rate (GFR) and St aging [facility] of Kidney Disease* + + +------- ------ + | GFR (mL/min/1.73 m2) | With Kidney Damage | Wi thout Kidney Damage + + +------- ------ + | >90 | Stage one | Normal + + +------- ------ + | 60-89 | Stage two | Decreased GFR + + +------- ------ + | 30-59 | Stage three | Stage three + + +------- ------ + | 15-29 | Stage four | Stage four + + +------- ------ + | <15 (or dialysis) | Stage five | Stage five + + +------- ------ + *Each stage assumes the associated GFR level has been in effect for at least three months. Stages 1 to 5, wit h or without kidney disease, indicate chronic kidney disease. Notes: Determination of stages one and two (with eGFR >59mL/min/1.73 m2) requires estimation of kidney damag e for at least three months as defined by structural or func tional abnormalities of the kidney, manifested by either: Pathological abnormalities or Markers of kidney damage (including abnormalities in the composition of the blo od or urine or abnormalities in imaging tests) . Performing Organization Address City/State/Zipcode Phone Number [facility] CLIA: [id number] [place] [address] [place] [address] TROPONIN I (04/05/2020 4:07 AM WORKFORCE MANAGEMENT CONSULTANT) Pathologist Sig nature TROPONIN I 0.055 (H) <=0.034 ng/mL [facility] Specimen Blood - VENOUS Narrative Performed At Equal or Less than 0.034 ng/ml---Normal [facility] Note: Cardiac troponin begins to rise 3-4 hours after the onset of ischemia. Repeat in 4-6 hours if the sample w as drawn within 3-4 hours of the onset of the symptom and found normal. Between 0.035 and 0.120 ng/mL--- Borderline. Questiona ble myocardial injury or necrosis Note: Serial measurement may be necessary to confirm o r exclude the diagnosis of myocardial injury or necrosis ; Clinical correlation (symptoms, EKGs, imaging studies, and others) required; Repeat in 4-6 hours if clinically indicated. Equal or Higher than 0.121 ng/mL---Abnormal. Myocardia l Injury or Necrosis Likely Biotin has been reported to cause a negative bias, int erpret results relative to patient's use of biotin. Performing Organization Address City/[facility]/Zipcode Phone Number [facility] CLIA: [id number] [place] [address] [place] [address] CBC WITHOUT DIFF (04/05/2020 4:06 AM WORKFORCE MANAGEMENT CONSULTANT) WBC 5.74 4.20 - 10.70 [facility] 10*3/L SERVICES RBC 2.07 (L) 4.26 - 5.52 [facility] 10*6/L SERVICES HGB 5.1 (L) 12.2 - 16.4 [facility] g/dL SERVICES HCT 16.2 (L) 38.4 - 49.3 % [facility] SERVICES MCH 24.6 (L) 26.1 - 32.7 pg [facility] SERVICES MCV 78.3 (L) 81.7 - 95.6 fL [facility] MCHC 31.5 31.2 - 35.0 [facility] g/dL SERVICES PLT 78 (L) 150 - 328 [facility] 10*3/L SERVICES MPV Comment: Not Measured [facility] SERVICES RDW-CV 23.2 (H) 12.1 - 15.4 % [facility] SERVICES RDW-SD 64.3 (H) 38.5 - 51.6 fL [facility] NRBC x10^3 0.06 10*3/L [facility] NRBC/100 WBC 1.0 0.0 - 10.0 [facility] /100 WBCs SERVICES IPF % 6.7Comment: Platelet 1.2 - 10.7 % [facility] count measured by SERVICES fluorescence method. Specimen Blood - VENOUS Performing Organization Address City/[facility]/Zipcode Phone Number [facility] CLIA: [id number] [place] [address] [place] [address] Prepare Packed RBC (in units), 2 Units (04/05/2020 3:16 AM WORKFORCE MANAGEMENT CONSULTANT) Cross Match Result Compatible LAB ISBT Blood Type Code 5100 LAB Unit Blood Type O Pos LAB Unit Number [id number] LAB Blood Expiration Date & LAB Time Status Information Issued LAB Product Identification Red Blood Cells LAB Product Code [id number] LAB Comment: Performed at [facility] - [facility] Blood [place] [address] Toll Free: [phone] CLIA No. [id number] Cross Match Result Compatible LAB ISBT Blood Type Code 5100 LAB Unit Blood Type O Pos LAB Unit Number [id number] LAB Blood Expiration Date & LAB Time Status Information Issued LAB Product Identification Red Blood Cells LAB Product Code [id number] LAB Comment: Performed at [facility] - [facility] Blood [place] [address] Toll Free: [phone] CLIA No. [id number] Specimen Performing Organization Address City/State/Zipcode Phone Number [facility] FIBRINOGEN (04/05/2020 3:05 AM WORKFORCE MANAGEMENT CONSULTANT) Pathologist [facility] nature Fibrinogen 86 (LL) 167 - 453 mg/dL [facility] Specimen Blood - VENOUS Performing Organization Address City/State/Zipcode Phone Number [facility] CLIA: [id number] [place] [address] [place] [address] CBC WITH DIFF (04/05/2020 3:05 AM WORKFORCE MANAGEMENT CONSULTANT) WBC 5.13 4.20 - 10.70 [facility] 10*3/L SERVICES RBC 1.55 (L) 4.26 - 5.52 [facility] 10*6/L SERVICES HGB 3.8 (LL) 12.2 - 16.4 [facility] g/dL SERVICES HCT 12.0 (LL) 38.4 - 49.3 % [facility] SERVICES MCV 77.4 (L) 81.7 - 95.6 [facility] fL SERVICES MCH 24.5 (L) 26.1 - 32.7 [facility] pg SERVICES MCHC 31.7 31.2 - 35.0 [facility] g/dL SERVICES RDW-SD Comment: Not [facility] Measured SERVICES RDW-CV Comment: Not [facility] Measured SERVICES PLT 66 (L) 150 - 328 [facility] 10*3/L SERVICES MPV 11.4 9.8 - 13.0 fL [facility] SERVICES IPF % 5.9Comment: Platelet 1.2 - 10.7 % [facility] count measured by SERVICES fluorescence method. NRBC/100 WBC 1.0 0.0 - 10.0 [facility] /100 WBCs SERVICES NRBC x10^3 0.05 10*3/L [facility] SERVICES GRAN MAT (NEUT) % 67.8 % [facility] IMM GRAN % 0.60 % [facility] LYMPH % 21.8 % [facility] MONO % 9.6 % [facility] EOS % 0.2 % [facility] BASO % 0.0 % [facility] GRAN MAT 3.48 1.99 - 6.95 [facility] x10^3(ANC) 10*3/uL SERVICES IMM GRAN x10^3 0.03 0.00 - 0.06 [facility] 10*3/uL SERVICES LYMPH x10^3 1.12 1.09 - 3.23 [facility] 10*3/uL SERVICES MONO x10^3 0.49 0.36 - 1.02 [facility] 10*3/uL SERVICES EOS x10^3 <0.03 (L) 0.06 - 0.53 [facility] 10*3/uL SERVICES BASO x10^3 <0.03 0.01 - 0.09 [facility] 10*3/uL SERVICES BASO STIPPLING Present (A) [facility] Specimen Blood - VENOUS Performing Organization Address City/State/Zipcode Phone Number [facility] CLIA: [id number] [place] [address] [place], [place] [address] SODIUM, URINE RANDOM (04/05/2020 1:47 AM WORKFORCE MANAGEMENT CONSULTANT) Pathologist Sig nature NA URINE <5 mmol/L [facility] Specimen Urine - URINE, CLEAN CATCH Performing Organization Address City/[facility]/Zipcode Phone Number [facility] CLIA: [id number] [place], [place] [address] [address] [place] [address] CREATININE, URINE RANDOM (04/05/2020 1:47 AM WORKFORCE MANAGEMENT CONSULTANT) Pathologist Sig nature CREAT U 147.2 mg/dL [facility] Specimen Urine - URINE, CLEAN CATCH Performing Organization Address [facility] Phone Number [facility] CLIA: [id number] [place] [address] [phone] 301 [facility] URINE CULTURE (04/05/2020 1:47 AM WORKFORCE MANAGEMENT CONSULTANT) Pathologist Sig nature URINE CULTURE No aerobic growth [facility] (< 1000 CFU/mL) SERVICES Specimen Urine - URINE, CLEAN CATCH Performing Organization Address [facility] Phone Number [facility] CLIA: [id number] [place] [address] [place] [address] URINALYSIS (04/05/2020 1:47 AM WORKFORCE MANAGEMENT CONSULTANT) Pathologist Sig nature APPEARANCE Cloudy (A) Clear [facility] COLOR Yellow Yellow [facility] PH 5.0 4.8 - 8.0 [facility] SP GRAVITY 1.013 1.003 - 1.030 [facility] GLU U QUAL Normal Normal [facility] BLOOD 1+ (A) Negative [facility] KETONES Negative Negative [facility] PROTEIN Negative Negative [facility] UROBILIN Normal Normal [facility] BILIRUBIN Negative Negative [facility] NITRITE Negative Negative [facility] LEUK ELIAZAR Negative Negative [facility] RBC/HPF 8 (H) 0 - 3 HPF [facility] WBC/HPF 13 (H) 0 - 5 HPF [facility] BACTERIA Negative Negative [facility] MUCOUS Slight (A) Negative LPF [facility] AMORPHOUS Rare Rare HPF [facility] SQ EPITH <1 <=2 HPF [facility] HYAL CAST 7 (H) <=2 LPF [facility] Specimen Urine - URINE, CLEAN CATCH Performing Organization Address [facility] Phone Number [facility] CLIA: [id number] [place] [address] [phone] 301 [facility] US ABDOMEN LIMITED WITH DOPPLER (04/05/2020 1:25 AM WORKFORCE MANAGEMENT CONSULTANT) Specimen Impressions Performed At PACS/VR/DOSE Cirrhotic liver morphology. No focal hep atic lesions. Right pleural effusion. Preliminary Report Dictated by Resident: Richmond Wallace I, Emy Esparza MD., have reviewe d this study and agree with the above report. Narrative Performed At [facility] PACS/VR/DOSE HISTORY: GI bleeding, evaluate for cirrh otic morphology,. portal HTN, splenomegaly and kidneys for hydro TECHNIQUE: Survey ultrasound imaging of the abdomen wa s performed focused on the liver, biliary system, and spleen including col or Doppler evaluation of the main portal vein with representat norris images obtained. COMPARISON: None. FINDINGS: LIVER: The liver measures 15.2 cm. Coars ened echotexture and nodular contour. Micronodular contour No focal hepatic lesion. Pulsatile hepatopetal flow within the main yanira l vein. GALLBLADDER: No cholelithiasis, perichol ecystic fluid, or gallbladder distention. Mildly prominent gallbladder wall may be secondary to underlying hepatic parenchymal disease. Negative sonog raphic Palma's sign. The common bile duct is mildly prominent measuring up to 0.7 cm. RIGHT KIDNEY: The right kidney measures 10.5 x 5.2 x 5.8 cm. Normal echogenicity and contour. LEFT KIDNEY: The left kidney measures 11 .7 x 5.3 x 5.2 cm. Normal echogenicity and contour. PANCREAS: The visualized portions of the pancreas are normal. SPLEEN: The spleen is enlarged at 15.9 c m. The suprarenal abdominal aorta measures a normal 2.0 cm. A right pleural effusion is noted. Procedure Note [facility], Radiant Results Inft User - 2019 8:28 AM WORKFORCE MANAGEMENT CONSULTANT RIGHT UPPER QUADRANT ULTRASOUND HISTORY: GI bleeding, evaluate for cirrh otic morphology,. portal HTN, splenomegaly and kidneys for hydro TECHNIQUE: Survey ultrasound imaging of the abdomen was performed focused on the liver, biliary system, and spleen including color Doppler evaluation of the main portal vein with representat norris images obtained. COMPARISON: None. FINDINGS: LIVER: The liver measures 15.2 cm. Coars ened echotexture and nodular contour. Micronodular contour No focal hepatic lesion. Pulsatile hepatopetal flow within the main portal vein. GALLBLADDER: No cholelithiasis, perichol ecystic fluid, or gallbladder distention. Mildly prominent gallbladder wall may be secondary to underlying hepatic parenchymal disease. Negative sonographic Palma's sign. The common bile duct is mildly prominent measuring up to 0.7 cm. RIGHT KIDNEY: The right kidney measures 10.5 x 5.2 x 5.8 cm. Normal echogenicity and contour. LEFT KIDNEY: The left kidney measures 11 .7 x 5.3 x 5.2 cm. Normal echogenicity and contour. PANCREAS: The visualized portions of the pancreas are normal. SPLEEN: The spleen is enlarged at 15.9 c m. The suprarenal abdominal aorta measures a normal 2.0 cm. A right pleural effusion is noted. IMPRESSION Cirrhotic liver morphology. No focal hep atic lesions. Right pleural effusion. Preliminary Report Dictated by Resident: Richmond Wallace I, Emy Esparza MD., have reviewed this study and agree with the above report. Performing Organization Address City/State/Zipcode Phone Number PACS/VR/DOSE FERRITIN SERUM (04/05/2020 12:34 AM WORKFORCE MANAGEMENT CONSULTANT) Pathologist Sig nature FERRITIN 4.2 (L) 18.0 - 464.0 ng/mL [facility]IC ES Specimen Blood - VENOUS Narrative Performed At [facility] has been reported to cause a negative bias, int erpret [facility] results relative to patient's use of biotin. Performing Organization Address City/State/Zipcode Phone Number [facility] CLIA: [id number] [place] [address] [place] [address] TROPONIN I (04/05/2020 12:34 AM WORKFORCE MANAGEMENT CONSULTANT) Pathologist Sig nature TROPONIN I 0.053 (H) <=0.034 ng/mL [facility] Specimen Blood - VENOUS Narrative Performed At Equal or Less than 0.034 ng/ml---Normal [facility] Note: Cardiac troponin begins to rise 3-4 hours after the onset of ischemia. Repeat in 4-6 hours if the sample w as drawn within 3-4 hours of the onset of the symptom and found normal. Between 0.035 and 0.120 ng/mL--- Borderline. Questiona ble myocardial injury or necrosis Note: Serial measurement may be necessary to confirm o r exclude the diagnosis of myocardial injury or necrosis ; Clinical correlation (symptoms, EKGs, imaging studies, and others) required; Repeat in 4-6 hours if clinically indicated. Equal or Higher than 0.121 ng/mL---Abnormal. Myocardia l Injury or Necrosis Likely Biotin has been reported to cause a negative bias, int erpret results relative to patient's use of biotin. Performing Organization Address City/State/Zipcode Phone Number [facility] CLIA: [id number] [place] [address] [place] [address] XR CHEST 1 VW (04/04/2020 11:45 PM WORKFORCE MANAGEMENT CONSULTANT) Specimen Impressions Performed At Impression: PACS/VR/DOSE Mild perihilar congestion. Prominent cardiac silhouett e. Narrative Performed At Exam: XR CHEST 1 VW PACS/VR/DOSE Clinical History: rule out consolidation or infectious process Comparison: None Findings: Single frontal view of the chest. There is mild perihilar congestion. Cardiac silhouette is prominent. No pleu ral effusion or pneumothorax is seen. Bones and upper abdomen are unrema rkable. Procedure Note [facility], Radiant Results Inft User - 2019 9:17 AM WORKFORCE MANAGEMENT CONSULTANT Exam: XR CHEST 1 VW Clinical History: rule out consolidation or infectious process Comparison: None Findings: Single frontal view of the chest. There is mild perihilar congestion. Cardiac silhouette is prominent. No pleu ral effusion or pneumothorax is seen. Bones and upper abdomen are unrema rkable. IMPRESSION Impression: Mild perihilar congestion. Prominent car diac silhouette. Performing Organization Address City/[facility]/Zipcode Phone Number [facility]/VR/[facility] MRSA / MSSA Screen by PCR, Nares (04/04/2020 11:21 PM WORKFORCE MANAGEMENT CONSULTANT) Pathologist Sig nature MRSA Screen by PCR, Negative Negative [facility] Nares SERVICES MSSA Screen by PCR, Positive (A) Negative [facility] Nares SERVICES MRSA/MSSA Positive? Yes (A) No [facility] Specimen Swab - NARES, BOTH SIDES Narrative Performed At A positive test result does not necessarily indicate t he [facility] presence of viable organism. Performing Organization Address City/State/Zipcode Phone Number [facility] CLIA: [id number] [place] [address] [address] [facility] XR ABDOMEN ACUTE SERIES (04/04/2020 9:18 PM WORKFORCE MANAGEMENT CONSULTANT) Specimen Impressions Performed At PACS/VR/DOSE No acute intrathoracic or intra-abdomina l abnormality. Preliminary Report Dictated by Resident: Tang Back MD., have reviewed this study and agree with the above report. Narrative Performed At PROCEDURE: XR ABDOMEN ACUTE SERIES PACS/VR/DOSE CLINICAL INDICATION: Vomiting blood COMPARISON: None FINDINGS: The lungs are clear without focal consol idation, pleural effusion, or pneumothorax. No subdiaphragmatic free a ir. The cardiac silhouette is normal in size . The bowel gas pattern is nonobstructive. No radiopaque stones or abnormal calcifications are identified. No acute osseous abnormality. Procedure Note [facility], Radiant Results Inft User - 2019 10:21 PM WORKFORCE MANAGEMENT CONSULTANT PROCEDURE: XR ABDOMEN ACUTE SERIES CLINICAL INDICATION: Vomiting blood COMPARISON: None FINDINGS: The lungs are clear without focal consol idation, pleural effusion, or pneumothorax. No subdiaphragmatic free a ir. The cardiac silhouette is normal in size . The bowel gas pattern is nonobstructive. No radiopaque stones or abnormal calcifications are identified. No acute osseous abnormality. IMPRESSION No acute intrathoracic or intra-abdomina l abnormality. Preliminary Report Dictated by Resident: Tang Back MD., have r eviewed this study and agree with the above report. Performing Organization Address City/State/Zipcode Phone Number PACS/VR/DOSE ABORH CONFIRMATION (04/04/2020 9:08 PM WORKFORCE MANAGEMENT CONSULTANT) Pathologist Sig nature ABO & RH O Positive LAB Comment: Performed at [facility] Laboratory Services - [facility] Blood [place] [address] Toll Free: [phone] CLIA No. [id number] Specimen Performing Organization Address City/[facility] Phone Number [facility] LAB Type and Screen - ONCE STAT (04/04/2020 8:21 PM WORKFORCE MANAGEMENT CONSULTANT) Pathologist Sig nature ABO & RH O POSITIVE LAB Comment: Performed at [facility] Laboratory Services - [facility] [place] [address] Toll Free: [phone] CLIA No. [id number] IAT Negative LAB Comment: Performed at [facility] Laboratory Services - [facility] Blood [place] [address] Toll Free: [phone] CLIA No. [id number] Specimen Blood - VENOUS Performing Organization Address City/State/Zipcode Phone Number BLD LAB LAB ONLY COVID INTERPRETATION (04/04/2020 8:19 PM WORKFORCE MANAGEMENT CONSULTANT) COVID DMT Interpretation/Recommendations: [facility] Interpretation SERVICES Molecular NAAT Tests for Active Infection with the CRISTHIAN S-CoV-2 Virus: This result indicates that t he patient has tested negative on one occasion for the SARS-CoV-2 virus that causes COVID-19 illness. If the patient is asymptomatic, this most likely indicates that the mo ent does not have an active infection with the SARS-CoV-2 virus. If the patient develops symptoms concerning for COVID-19 illness, a repeat NAAT test (PCR, Rapid ID Now, etc.) should be performed at [facility] ch time the SARS-CoV-2 virus - if present - may have reached a detectable viral load (usually peaking by the end of the first week of symptoms). Tests for IgM and/or IgG Antibodies to SARS-CoV-2 Viru s: Testing for IgM and IgG anti bodies 1-3 weeks after illness onset will indicate whether the patient has produced antibodies to the virus. At this time, it is not known if the production of antibodies - s pecifically IgG antibodies - indicates whether the patient is immune to future infections with the SARS-CoV-2 virus. Interpretation Result Comments: These interpretation comment s are based upon aggregate COVID-19 test results in [facility]. They apply to the following tests offered at [facility] and assume the acceptable specimen type(s) were used: A. Tests for the Identification of SARS-CoV-2 RNA (Mol ecular NAAT Tests): - SARS-CoV-2 PCR as says including [place] Aptima, [place] Fusion, Ricci RealTime, and CepIntelligentMDx Xpert Xpress. - SARS-CoV-2 Rapid ID NOW by the ID NOW assay . B. Tests for the Identification of SARS-CoV-2 Antibodi es: - Chemiluminescent immunoassays including Access SARS-CoV-2 IgM (DXI 600), VITROS [id number]-[id number]-ZzR-2 IgG (Vitros 5600 and Vitros 3600), and Ricci SARS-CoV-2 IgG (INTERVENTIONAL CARDIOLOGIST I System). These interpretations are au topopulated into [facility] based on computerized algorithms matching an interpretation code to the patient's set of test results, and a clinical pathologist evaluates the comments for accuracy. However, thes e comments do not consider testing a patient may have had outside of the [facility] system. If results for COVID-19 infection continue to be negative in the context of a suspected viral respiratory illness, i t is possible the patient may have an infection with another respiratory virus. Influenza testing and a respiratory pathogen panel if clinically indicated may be beneficial in this setting. COVID Results SARS-CoV-2 Rapid ID NOW (no units) [facility] Date Value SERVICES 04/04/2020 Not Detected Specimen Swab - NASOPHARYNGEAL SWAB Performing Organization Address City/State/Zipcode Phone Number [facility] CLIA: [id number] [place], [place] [id number] [address] [place] [address] COVID-19 (ID NOW RAPID TESTING) (04/04/2020 8:19 PM WORKFORCE MANAGEMENT CONSULTANT) SARS-CoV-2 Rapid ID Not Detected Not Detected [facility] NOW SERVICES Specimen Swab - NASOPHARYNGEAL SWAB Narrative Performed At ID NOW COVID-19 Assay is an isothermal nucleic acid [facility] amplification test intended for the qualitative detect ion of nucleic acid from SARS-CoV-2 viral RNA in nasopharynge al (DIRECTOR OF RELIGIOUS LIFE) specimens. It is used under Emergency Use Authori zation (EUA) by FDA. The limit of detection (LOD) of the assa y is 125 Genome Equivalents/mL. A positive result is indicative of the presence of SARS-CoV-2 RNA. Clinical correlation with patient hi story and other diagnostic information is necessary to deter mine patient infection status. A negative (Not Detected) result does not preclude SARS-CoV-2 infection. In patients with clinical sympto ms and other tests that are consistent with SARS-CoV-2 infect ion, negative results should be treated as presumptive nega tive and a new specimen should be tested with alternative P CR molecular test. Invalid: Please collect a new specimen for repeat mo ent testing if clinically indicated. ID NOW COVID-19 Assay is an isothermal nucleic acid amplification test intended for the qualitative detect ion of nucleic acid from SARS-CoV-2 viral RNA in nasopharynge al (DIRECTOR OF RELIGIOUS LIFE) specimens. It is used under Emergency Use Authori zation (EUA) by FDA. The limit of detection (LOD) of the assa y is 125 Genome Equivalents/mL. A positive result is indicative of the presence of SARS-CoV-2 RNA. Clinical correlation with patient hi story and other diagnostic information is necessary to deter mine patient infection status. A negative (Not Detected) result does not preclude SARS-CoV-2 infection. In patients with clinical sympto ms and other tests that are consistent with SARS-CoV-2 infect ion, negative results should be treated as presumptive nega tive and a new specimen should be tested with alternative P CR molecular test. Invalid: Please collect a new specimen for repeat mo ent testing if clinically indicated. Performing Organization Address [facility] Phone Number [facility] CLIA: [id number] [place] [address] [place] [address] IRON PANEL (04/04/2020 8:11 PM WORKFORCE MANAGEMENT CONSULTANT) Pathologist [facility] IRON 11 (L) 50 - 160 ug/dL [facility] TIBC 372 250 - 410 ug/dL [facility] % FE SAT 3 (L) 20 - 50 % [facility] Specimen Blood - VENOUS Performing Organization Address [facility] Phone Number [facility] CLIA: [id number] [place] [address] [place] [address] TROPONIN I (04/04/2020 8:11 PM WORKFORCE MANAGEMENT CONSULTANT) Pathologist Sig [facility] TROPONIN I 0.051 (H) <=0.034 ng/mL [facility] Specimen Blood - VENOUS Narrative Performed At Equal or Less than 0.034 ng/ml---Normal [facility] Note: Cardiac troponin begins to rise 3-4 hours after the onset of ischemia. Repeat in 4-6 hours if the sample w as drawn within 3-4 hours of the onset of the symptom and found normal. Between 0.035 and 0.120 ng/mL--- Borderline. Questiona ble myocardial injury or necrosis Note: Serial measurement may be necessary to confirm o r exclude the diagnosis of myocardial injury or necrosis ; Clinical correlation (symptoms, EKGs, imaging studies, and others) required; Repeat in 4-6 hours if clinically indicated. Equal or Higher than 0.121 ng/mL---Abnormal. Myocardia l Injury or Necrosis Likely Biotin has been reported to cause a negative bias, int erpret results relative to patient's use of biotin. Performing Organization Address [facility] Phone Number [facility] CLIA: [id number] [place] [address] [place] [address] PROTHROMBIN TIME / INR (04/04/2020 8:11 PM WORKFORCE MANAGEMENT CONSULTANT) Pathologist [facility] PROTIME PATIENT 28.2 (H) 10.1 - 12.6 [facility] Seconds SERVICES INR 2.4Comment: Normal [facility] INR <1.1; Warfarin SERVICES Therapeutic range 2.0 to 3.0 or 2.5 to 3.5, depending upon the indications. Specimen Blood - VENOUS Performing Organization Address [facility] Phone Number [facility] CLIA: [id number] [place] [address] [place] [address] LIPASE (04/04/2020 8:11 PM WORKFORCE MANAGEMENT CONSULTANT) Pathologist [facility] nature LIPASE 72 0 - 220 U/L [facility] Specimen Blood - VENOUS Performing Organization Address [facility] Phone Number [facility] CLIA: [id number] [place] [address] [place] [address] COMP. METABOLIC PANEL (16997) (04/04/2020 8:11 PM WORKFORCE MANAGEMENT CONSULTANT) NA 129 (L) 135 - 145 [facility] mmol/L SERVICES K 3.6 3.5 - 5.0 [facility] mmol/L SERVICES CL 93 (L) 98 - 108 mmol/L [facility] CO2 TOTAL 22 (L) 23 - 31 mmol/L [facility] AGAP 14 2 - 16 [facility] BUN 51 (H) 7 - 23 mg/dL [facility] GLUCOSE 147 (H) 70 - 110 mg/dL [facility] CREATININE 1.73 (H) 0.60 - 1.25 [facility] mg/dL SERVICES TOTAL BILI 3.2 (H) 0.1 - 1.1 mg/dL [facility] CALCIUM 7.0 (L) 8.6 - 10.6 [facility] mg/dL SERVICES T PROTEIN 5.4 (L) 6.3 - 8.2 g/dL [facility] ALBUMIN 2.4 (L) 3.5 - 5.0 g/dL [facility] ALK PHOS 118 34 - 122 U/L [facility] ALTv 37 5 - 50 U/L [facility] AST(SGOT) 92 (H) 13 - 40 U/L [facility] SERVICES eGFR Calculation 43.7 mL/min/1.73m2 [facility] (Non- SERVICES [place]) eGFR Calculation 53.0 mL/min/1.73m2 [facility] () SERVICES Specimen Blood - VENOUS Narrative Performed At Association of Glomerular Filtration Rate (GFR) and St aging [facility] SERVICES of Kidney Disease* + + +------- ------ + | GFR (mL/min/1.73 m2) | With Kidney Damage | Wi thout Kidney Damage + + +------- ------ + | >90 | Stage one | Normal + + +------- ------ + | 60-89 | Stage two | Decreased GFR + + +------- ------ + | 30-59 | Stage three | Stage three + + +------- ------ + | 15-29 | Stage four | Stage four + + +------- ------ + | <15 (or dialysis) | Stage five | Stage five + + +------- ------ + *Each stage assumes the associated GFR level has been in effect for at least three months. Stages 1 to 5, wit h or without kidney disease, indicate chronic kidney disease. Notes: Determination of stages one and two (with eGFR >59mL/min/1.73 m2) requires estimation of kidney damag e for at least three months as defined by structural or func tional abnormalities of the kidney, manifested by either: Pathological abnormalities or Markers of kidney damage (including abnormalities in the composition of the blo od or urine or abnormalities in imaging tests) . Performing Organization Address City/State/Zipcode Phone Number [facility] CLIA: [id number] [place], [place] [id number] [address] [place] [address] CBC WITH DIFF (04/04/2020 8:11 PM WORKFORCE MANAGEMENT CONSULTANT) WBC 9.93 4.20 - 10.70 [facility] 10*3/L SERVICES RBC 1.63 (L) 4.26 - 5.52 [facility] 10*6/L SERVICES HGB 3.1 (LL) 12.2 - 16.4 [facility] g/dL SERVICES HCT 11.3 (LL) 38.4 - 49.3 % [facility] SERVICES MCV 69.3 (L) 81.7 - 95.6 fL [facility] SERVICES MCH 19.0 (L) 26.1 - 32.7 pg [facility] SERVICES MCHC 27.4 (L) 31.2 - 35.0 [facility] g/dL SERVICES RDW-SD 47.5 38.5 - 51.6 fL [facility] SERVICES RDW-CV 20.1 (H) 12.1 - 15.4 % [facility] SERVICES PLT 158 150 - 328 [facility] 10*3/L SERVICES MPV Comment: Not Measured [facility] SERVICES IPF % 10.2Comment: Platelet 1.2 - 10.7 % [facility] count measured by SERVICES fluorescence method. NRBC/100 WBC 3.2 0.0 - 10.0 [facility] /100 WBCs SERVICES NRBC x10^3 0.32 10*3/L [facility] SERVICES SEG % 75 33 - 76 % [facility] SERVICES LYMPH % 15 14 - 54 % [facility] SERVICES MONO % 10 (H) 0 - 4 % [facility] SERVICES ANC 7.45 (H) 1.99 - 6.95 [facility] 10*3/uL SERVICES Specimen Blood - VENOUS Performing Organization Address City/State/Zipcode Phone Number [facility] CLIA: [id number] [place] [address] [place] [address] documented in this encounter Visit Diagnoses Diagnosis Gastrointestinal hemorrhage with hematem esis - Primary Hematemesis with nausea Esophageal varices determined by endosco py GI bleed Hemorrhage of gastrointestinal tract, un specified documented in this encounter Administered Medications Medication Order MAR Action Action Date Dose Rate Site dextrose 50 % in water (D50W) injection 25 mL 25 mL, Slow IV Push, PRN, Starting Mouna 1 06/04/19 at 2250, Until Discontinued, DANIELLE, Blood Glucose < or = 70 mg/dL and patien t is unable to swallow or has mental status changes. glucagon (GLUCAGEN DIAGNOSTIC KIT) injec tion 1 mg 1 mg, Intramuscular, PRN, Starting Mouna 1 06/04/19 at 2250, Until Discontinued, DANIELLE, Blood Glucose < or = 70 mg/dL and patient is unable to swallow or has mental changes. ondansetron (ZOFRAN (PF)) injection 4 mg 4 mg, Slow IV Push, Q6HPRN, Starting Mouna 04/04/20 at 2 317, Until Discontinued, Routine, Nausea and Vomiting (N/V) pantoprazole (PROTONIX) 40 mg in NaCl 0.9% Given 04/08/2020 7:3 6 AM WORKFORCE MANAGEMENT CONSULTANT 40 mg (NS) 100 mL MINI-BAG 40 mg, IV Piggyback, Q12H, First dose on 04/06/20 at 2000, Until Discontinued, 100 mL Given 04/07/2020 8:36 PM WORKFORCE MANAGEMENT CONSULTANT 40 mg Given 04/07/2020 7:41 AM WORKFORCE MANAGEMENT CONSULTANT 40 mg propranoloL (INDERAL) tablet 10 mg Given 04/08/2020 7:36 AM WORKFORCE MANAGEMENT CONSULTANT 10 mg 10 mg, Oral, BID, First dose (after last modification) on 04/07/20 at 1545, Until Discontinued, Routine Given 04/07/2020 8:36 PM WORKFORCE MANAGEMENT CONSULTANT 10 mg Given 04/07/2020 3:52 PM WORKFORCE MANAGEMENT CONSULTANT 10 mg Medication Order MAR Action Action Date Dose Rate Site cefTRIAXone (ROCEPHIN) 1,000 mg Given 04/04/2020 9:55 PM WORKFORCE MANAGEMENT CONSULTANT 1, 000 mg in NaCl 0.9% (NS) 50 mL MINI-BAG 1,000 mg, IV Piggyback, ONCE, 1 dose, Mouna 04/04/20 at 2300, 50 mL, Reason for Anti-Infective: Empiric Therapy for Suspected Infection, Empiric Therapy Site: Abdominal, Duration of therapy: 72 hours cefTRIAXone (ROCEPHIN) 1,000 mg in NaCl Given 04/06/2020 9:59 P M WORKFORCE MANAGEMENT CONSULTANT 1,000 mg 0.9% (NS) 50 mL MINI-BAG 1,000 mg, IV Piggyback, Q24H ABX, 6 doses, First dose (after last modification) on Wed04/05/20 at 2200, Last dose on Wed04/10/20 at 2200, 50 mL, Reason for Anti-Infective: Surgical Prophylaxis, Surgical Prophylaxis: Abdominal, Duration of therapy: within 24 hours of surgery Given 04/05/2020 10:01 PM WORKFORCE MANAGEMENT CONSULTANT 1,000 mg cefTRIAXone (ROCEPHIN) 1,000 mg in NaCl Given 04/07/2020 3:52 P M WORKFORCE MANAGEMENT CONSULTANT 1,000 mg 0.9% (NS) 50 mL MINI-BAG 1,000 mg, IV Piggyback, Q24H ABX, 2 doses, First dose (after last modification) on Wed04/07/20 at 1600, Last dose on Wed04/08/20 at 1600, 50 mL, Reason for Anti-Infective: Surgical Prophylaxis, Surgical Prophylaxis: Abdominal, Duration of therapy: within 24 hours of surgery cefTRIAXone (ROCEPHIN) 1,000 mg in NaCl Given 04/08/2020 12:11 P M WORKFORCE MANAGEMENT CONSULTANT 1,000 mg 0.9% (NS) 50 mL MINI-BAG 1,000 mg, IV Piggyback, ONCE NOW, 1 dose, Wed04/08/20 at 1200, 50 mL, Reason for Anti-Infective: Surgical Prophylaxis, Surgical Prophylaxis: Abdominal, Duration of therapy: within 24 hours of surgery foLIC acid (FOLATE) 5 mg in NaCl 0.9% (NS) Given 04/08/2020 7:3 6 AM WORKFORCE MANAGEMENT CONSULTANT 5 mg piggyback IV Piggyback, DAILY, 5 doses, First dose on Wed04/04/20 at 2315, Last dose on Wed04/08/20 at 0900, 50 mL Given 04/07/2020 7:41 AM WORKFORCE MANAGEMENT CONSULTANT 5 mg Given 04/06/2020 9:27 AM WORKFORCE MANAGEMENT CONSULTANT 5 mg KCL (POTASSIUM CHLORIDE) 40 mEq in NaCl 0.9% Given 7:15 AM WORKFORCE MANAGEMENT CONSULTANT 40 mEq (NS) piggyback 40 mEq, IV Piggyback, ONCE, 1 dose, 04/06/20 at 0615, 250 mL NaCl 0.9% (NS) bolus infusion New Bag 04/04/2020 10:57 PM WORKFORCE MANAGEMENT CONSULTANT 1,000 mL 999 mL/hr 1,000 mL at 999 mL/hr, 1,000 mL, IV Infusion, ONCE, 1 dose, Mouna 04/04/20 at 2300, STAT NaCl 0.9% (NS) IV infusion 1,000 New Bag 04/04/2020 8:[address] 1,000 mL 999 mL/hr mL at 999 mL/hr, Intravenous, ONCE, 1 dose, Mouna 04/04/20 at 2100, Routine octreotide (SANDOSTATIN) 1,250 New Bag 04/06/2020 11:10 PM WORKFORCE MANAGEMENT CONSULTANT 50 mcg/hr 10 mL/hr mcg in NaCl 0.9% (NS) 250 mL infusion 50 mcg/hr (10 mL/hr), IV Infusion, CONTINUOUS, Starting [facility] 04/04/20 at 2115 Dose/Rate Verify 04/06/2020 4:22 AM WORKFORCE MANAGEMENT CONSULTANT 50 mcg/hr 10 mL/hr New Bag 04/05/2020 9:56 PM WORKFORCE MANAGEMENT CONSULTANT 50 mcg/hr 10 mL/hr octreotide (SANDOSTATIN) injection 50 mc g Given 04/04/2020 9:30 PM WORKFORCE MANAGEMENT CONSULTANT 50 mcg 50 mcg, Slow IV Push, ONCE, 1 dose, [facility] 04/04/20 at 2115, STAT ondansetron (ZOFRAN (PF)) injection 4 mg Given 04/04/2020 8:13 PM WORKFORCE MANAGEMENT CONSULTANT 4 mg 4 mg, Slow IV Push, ONCE, 1 dose, [facility] 04/04/20 at 2100, Routine pantoprazole (PROTONIX) 80 mg in NaCl 0.9% Given 04/04/2020 9:0 4 PM WORKFORCE MANAGEMENT CONSULTANT 80 mg (NS) 100 mL IV Piggyback 80 mg, IV Piggyback, ONCE, 1 dose, [facility] 04/04/20 at 2100, 100 mL pantoprazole (PROTONIX) 80 mg in New Bag 04/06/2020 10:[address] 8 mg/hr 50 mL/hr NaCl 0.9% (NS) 500 mL infusion 8 mg/hr (50 mL/hr), IV Infusion, CONTINUOUS, Starting [facility] 04/04/20 at 2100 New Bag 04/06/2020 5:02 AM WORKFORCE MANAGEMENT CONSULTANT 8 mg/hr 50 mL/hr Dose/Rate Verify 04/06/2020 4:22 AM WORKFORCE MANAGEMENT CONSULTANT 8 mg/hr 50 mL/hr phytonadione (VITAMIN K) 10 mg in NaCl 0.9% Given 04/05/2020 12:01 AM WORKFORCE MANAGEMENT CONSULTANT 10 mg (NS) piggyback 10 mg, IV Piggyback, ONCE, 1 dose, [facility] 04/04/20 at 2300, 50 mL phytonadione (VITAMIN K) 10 mg in NaCl 0.9% Given 04/07/2020 7:41 AM WORKFORCE MANAGEMENT CONSULTANT 10 mg (NS) piggyback 10 mg, IV Piggyback, DAILY, 2 doses, First dose on 04/06/20 at 1630, Last dose on 04/07/20 at 0900, 50 mL Given 04/06/2020 5:33 PM WORKFORCE MANAGEMENT CONSULTANT 10 mg thiamine (VITAMIN B1) 100 mg in NaCl 0.9% Given 04/08/2020 7:37 AM WORKFORCE MANAGEMENT CONSULTANT 100 mg (NS) piggyback IV Piggyback, DAILY, 5 doses, First dose on Mouna 04/04/20 at 2315, Last dose on 04/08/20 at 0900, 50 mL Given 04/07/2020 7:41 AM WORKFORCE MANAGEMENT CONSULTANT 100 mg Given 04/06/2020 9:27 AM WORKFORCE MANAGEMENT CONSULTANT 100 mg documented in this encounter Additional Health Concerns Infection Onset Date Last Indicated Resolved Time COVID-19 Rule Out 04/04/2020 04/04/2020 04/04/2020 9: 13 PM WORKFORCE MANAGEMENT CONSULTANT documented as of this encounter
--- OUTSIDE RECORDS SUMMARY | 2020-04-13 12:41 | XMS REPORT | Summary of Care ---
:1980 Author Organization [address] [address] Care Team Providers Name Role Phone Pcp, Does Not Have A Primary Care Provider Reason for Visit Reason Comments Transition Of Care Encounter Details Date Type Department Care Team Description 04/10/2020 Transition of Care [facility] Whitley Mchugh Transition Of [facility] [address] [place] [address] [id number] Allergies No Known Allergiesdocumented as of this encounter (statuses as of 04/10/2020) Medications Medication Sig Dispensed Refills Start Date [...] as of this encounter (statuses as of 04/10/2020) Active Problems Problem Noted Date GI bleed 04/04/2020 Gastrointestinal hemorrhage with hematemesis 0 Overview: Added automatically from request for alex bowlingy [id number] documented as of this encounter (statuses as of 04/10/2020) Social History Tobacco Use Types Packs/Day Years Used Date Current Every Day Smoker Sex Assigned at Date Recorded Not on file COVID-19 Exposure Response Date Recorded In the last month, have you been in contact with No / Unsure 04/04/2020 7:59 PM WORKERS' COMPENSATION MEDIATOR someone who was confirmed or suspected to have Coronavirus / COVID-19? documented as of this encounter Last Filed Vital Signs Not on filedocumented in this encounter Miscellaneous Notes Telephone Encounter - Whitley Mchughette - 04/10/2020 3:59 PM CST TRANSITIONAL CARE MANAGEMENT ASSESSMENT 04/10/2020 Willis Alvarez [id number] Willis Alvarez is a 39 year old /White male was admitted on 04/04/[address] He was discharged on 04/08/20 with discharge disposition of HR- Routine Discharge. Admitting Physician: Heraclio Villanueva Jr. Discharge Diagnosis: gi bleed Pt. Voices that he is having gas pressure in the abdomen. Instructed to ambulate more often. Increase movement in place. Pt. Eating and drinking. Instructed on AA, patient. Voices that someone told himit was approved for him to drink a beer with lunch. Instructed with symptoms ongoing not recommended. Pt. Instructed if blood in stool or dark stool to seek medical attention with local provider or ed.Pt. Verbalized understanding. Linked Episodes Type: Episode: Status: Noted: Resolved: Last update: Updated by: TRANSITION OF CARE tcm Active 04/08/2020 04/10/2020 3:56 PM Whitley Mchughette Comments:[id number] TCM [id number] outreach documentation: Discharge Assessment Chart Assessed: 04/10/20 TCM Outreach Completed: 04/10/20 Do you have a few minutes to speak with me about how you are doing at home?: Yes Discharge Instructions Do you understand your at-home instructions?: Yes Medications Have you filled your prescriptions and do you have them in your home? : Yes Do you know how to take your medications?: Yes Can you provide me with the names or descriptions of any [id number] or supplements you are currently taking?: Yes Supplies Did you receive applicable home medical supplies/equipment?: N/A Follow Up Appointment Has a follow up appointment been scheduled?: No May I assist with scheduling this appointment?: Patient will schedule Do you have any questions about your follow up appointments?: No Are you able to get to your appointment? Who will be taking you?: [facility] Home Health Assistance Has the home health nurse contacted you since you've been home?: N/A Survey - Recognition Is there anything you would like to share about your recent hospitalization, or anyone you would like to recognize?: No Do you have any suggestions for improvement?: No Do you have any other questions or concerns at this time?: No Future Appointments: documented in this encounter Plan of Treatment Health Maintenance Due Date Last Done Comments PNEUMOCOCCAL 0-64 YEARS COMBINED SERIES (1 of 1 - 1984 PPSV23) Depression Screening 1990 DTaP,Tdap,and Td Vaccines (1 - Tdap) 1997 INFLUENZA VACCINE (#1) 2020 documented as of this encounter Results Not on filedocumented in this encounter
--- OUTSIDE RECORDS SUMMARY | 2020-04-13 12:41 | XMS REPORT | Continuity of Care Document ---
:1980 Author Organization [facility] t Address [address] [place] [address] [address] [place] [address] Care Team Providers Name Role Phone Jeison Attending Clinician Dom Fuentes Attending Clinician Hafsa Villanueva MD Attending Clinician Barbara FARRAR Attending Clinician Hafsa Villanueva MD Admitting Clinician Problems This patient has no known problems. Allergies, Adverse Reactions, Alerts This patient has no known allergies or adverse reactions. Medications This patient has no known medications. Procedures This patient has no known procedures. Encounters Start End Encounter Admission Attending Care Care Encounter Source Date/Time Date/Time Type Type Clinicians Facility Department ID 2020-04-10 2020-04-10 Transition Dylan Mchugh [id number] 00:00:00 00:00:00 of Care Karina Arredondo [id number] [place] [id number] 2020-04-04 2020-04-08 [facility] Mabel Quintanilla [id number] 19:39:00 13:15:00 En[id number] Results This patient has no known results.
[2020-04-13 13:35] LABS: Absolute Lymphocytes (CBC) 2.1 K/uL (0.7-4.9); Basophils % 1.3 % (0-1.3); Hematocrit 28.4 % (39.6-49.0); Lymphocytes % 30.7 % (15.3-44.8); MPV 10.8 fL (7.6-11.3); RBC Red Blood Cell Count 3.43 M/uL (4.33-5.43)
[2020-04-13 13:37] LABS: Protime INR 1.56
[2020-04-13] MEDS ORDERED: FUROSEMIDE 20 MG/ 2ML VIAL ONE (13:48)
[2020-04-13] MEDS ORDERED: IPRATROPIUM BROM 0.5MG/2.5ML ONE (13:48)
[2020-04-13] MEDS ORDERED: ALBUTEROL 2.5 MG/3 ML NEB SOL ONE (13:49)
[2020-04-13 13:52] LABS: ALT/SGPT 59 U/L (12-78); AST/SGOT 109 U/L (15-37); Albumin 2.1 g/dL (3.4-5.0); Alkaline Phosphatase 231 U/L (45-117); BUN Blood Urea Nitrogen 12 mg/dL (7-18); Bicarbonate 20 mmol/L (21-32); Bilirubin Direct 3.1 mg/dL (0-0.2); Bilirubin Total 4.3 mg/dL (0.2-1.0); Glucose Level 188 mg/dL (74-106); NT PRO-BNP 174 pg/mL (<125); Potassium 4.5 mmol/L (3.5-5.1); Protein, Total 6.2 g/dL (6.4-8.2); Sodium Level 141 mmol/L (136-145); Troponin (Emerg Dept Use Only) < 0.02 ng/mL (0.0-0.045)
--- NOTE | 2020-04-13 15:01 | RAD REPORT ---
EXAM DESCRIPTION: CT - Abdomen Pelvis W Contrast - 04/13/2020 2:47 pm CLINICAL HISTORY: Abdominal pain COMPARISON: none. TECHNIQUE: Computed axial tomography of the abdomen pelvis was obtained. 100 cc Isovue-300 was admin istered intravenously. Oral contrast was not requested which limits evaluation of bowel. All CT scans are performed using dose optimization technique as appropriate and may include automated exposure control or mA/KV adjustment according to patient size. FINDINGS: Cirrhotic liver. Small cysts. Mild dilation portal vein. Spleen measures 15 millimeters. A bdominal varices The pancreas, adrenals and kidneys are unremarkable. There is no evidence of diverticulitis. Small to moderate amount ascites. Diffuse edema within the subcutaneous tissues IMPRESSION: Cirrhosis with mild splenomegaly and small to moderate amount ascites
--- NOTE | 2020-04-13 15:02 | RAD REPORT ---
EXAM DESCRIPTION: CT - Chest For Pe Angio - 04/13/2020 2:39 pm CLINICAL HISTORY: Shortness of breath COMPARISON: None. TECHNIQUE: Dynamically enhanced axial 3 mm thick images of the chest were obtained during administra tion of <100> mL Isovue 370 IV contrast. Coronal and oblique reconstruction images were generated and reviewed. Exam utilizes a protocol for optimal evaluation of pulmonary arterial tree. Maximum intensity projections 3D imaging was utilized All CT scans are performed using dose optimization technique as appropriate and may include automated exposure control or mA/KV adjustment according to patient size. FINDINGS: A pulmonary embolus is not seen. A thoracic aortic aneurysm is not noted. Large right pleural effusion with right lower lobe atelectasis IMPRESSION: Negative for a pulmonary embolism. Large right pleural effusion with right lower lobe atelectasis
--- NOTE | 2020-04-13 15:02 | RAD REPORT ---
EXAM DESCRIPTION: Naa Single View04/13/2020 1:43 pm CLINICAL HISTORY: Shortness of breath COMPARISON: none FINDINGS: Large right pleural effusion with right lower lobe atelectasis Heart is normal size
--- NOTE | 2020-04-13 15:17 | ER ---
Nurse's Notes [facility] Name: Willis Barba Age: 39 yrs Sex: Male : 1980 Arrival Date: 04/13/2020 Time: 12:37 Bed 6 Private MD: Diagnosis: Shortness of breath;Pleural effusion, not elsewhere classified-Right;Alcoholic cirrhosis of liver Presentation: 04/13 12:49 Chief complaint: Patient states: SOB, wheezing, swelling to abdomen and legs since 1 Wednesday. Just released from [facility] on Wednesday for his liver and had procedure done. No fever. Coronavirus screen: Client denies travel out of the [place] in the last 14 days. difficulty breathing, shortness of breath, Client presents with at least one sign or symptom that may indicate coronavirus-19. Standard/surgical mask placed on the client. The client reports previous COVID testing was negative. Ebola Screen: Patient denies travel to an Ebola-affected area in the 21 days before illness onset. Initial Sepsis Screen: Does the patient meet any 2 criteria? RR > 20 per min. No. Patient's initial sepsis screen is negative. Does the patient have a suspected source of infection? Yes: Acute abdominal pain. Risk Assessment: Do you want to hurt yourself or someone else? Patient reports no desire to harm self or others. Onset of symptoms was April 09, 2020. 12:49 Method Of Arrival: Ambulatory [facility] 12:49 Acuity: NIDIA 2 ll1 Triage Assessment: 12:52 General: Appears ill, Behavior is calm, cooperative, appropriate for age. Pain: 1 Complains of pain in abdomen Quality of pain is described as aching, pressure, squeezing, Pain began Monday 04/09. Neuro: No deficits noted. Cardiovascular: No deficits noted. Respiratory: Reports shortness of breath labored breathing Airway is patent Trachea midline Respiratory effort is even, labored, Respiratory pattern is symmetrical, tachypnea Breath sounds with wheezes bilaterally. Onset: The symptoms/episode began/occurred 04/09, the patient has moderate shortness of breath. GI: Abdomen is round distended, Bowel sounds present X 4 quads. Abd is soft Abdomen is tender to palpation X 4 quads. Reports lower abdominal pain, upper abdominal pain, bloating. Historical: - Allergies: 12:49 No Known Allergies; ll1 - PMHx: 12:49 Hypertension; liver disease; ll1 - PSHx: 12:49 liver procedure; ll1 - Immunization history:: Adult Immunizations up to date, Flu vaccine is not up to date. - Social history:: Smoking status: Patient reports the use of cigarette tobacco products, denies chronic smoking, but will smoke occasionally, smokes one-half pack cigarettes per day, Patient uses alcohol, on a daily basis. Screenin:52 Abuse screen: Denies threats or abuse. Denies injuries from another. Nutritional ec1 screening: No deficits noted. Tuberculosis screening: No symptoms or risk factors identified. Fall Risk No fall in past 12 months (0 pts). Secondary diagnosis (15 points) No IV (0 pts). Ambulatory Aid- None/Bed Rest/Nurse Assist (0 pts). Gait- Normal/Bed Rest/Wheelchair (0 pts) Mental Status- Oriented to own ability (0 pts). Assessment: 12:52 General: Appears uncomfortable, ill, Behavior is calm, cooperative. Pain: Complains of ec1 pain in abdomen Pain currently is 4 out of 10 on a pain scale. Neuro: Level of Consciousness is awake, alert, obeys commands, Oriented to person, place, time, situation. Cardiovascular: Rhythm is sinus rhythm. Respiratory: Airway is patent Respiratory effort is even, labored, Breath sounds with crackles bilaterally. Breath sounds are diminished bilaterally. GI: Abdomen is round distended, Bowel sounds present X 4 quads. Reports lower abdominal pain, upper abdominal pain. : No deficits noted. EENT: No deficits noted. Derm: Skin is jaundiced. Musculoskeletal: No deficits noted. 15:00 Reassessment: Patient and/or family updated on plan of care and expected duration. Pain ec1 level reassessed. Respiratory: Airway is patent Respiratory effort is even, labored, Breath sounds are clear in right upper lobe and left upper lobe Breath sounds are diminished in right middle lobe, left lower lobe and right lower lobe Breath sounds with wheezes in right upper lobe, left upper lobe, right middle lobe and left lower lobe. 15:28 Reassessment: spoke with Marga in lab to run patient's COVID swab in house. Awaiting ss results. 16:00 Reassessment: Dr Snow at the bedside. sv Vital Signs: 12:49 BP 122 / 63; Pulse 73; Resp 24; Temp 99.1; Pulse Ox 100% on R/A; Weight 87.09 kg; ll1 Height 5 ft. 7 in. (170.18 cm); Pain 6/10; 13:00 BP 125 / 53; Pulse 71; Resp 26; Pulse Ox 100% ; sv 14:00 BP 125 / 80; Pulse 71; Resp 20; Pulse Ox 100% ; sv 14:56 BP 124 / 87; Pulse 73; Resp 20; Pulse Ox 100% ; sv 15:30 BP 119 / 72; Pulse 73; Resp 20 S; Pulse Ox 99% on R/A; ec1 16:30 BP 126 / 66; Pulse 76; Resp 25; Pulse Ox 100% ; sv 17:00 BP 117 / 65; Pulse 75; Resp 19; Pulse Ox 98% ; sv 12:49 Body Mass Index 30.07 (87.09 kg, 170.18 cm) ll1 ED Course: 12:37 Patient arrived in ED. ds1 12:46 Oanh Lua, ABRAN is Primary Nurse. ec1 12:48 Arm band placed on Patient placed in an exam room, on a stretcher. ll1 12:52 Triage completed. ll1 12:52 Placed in gown. Bed in low position. Adult w/ patient. ec1 12:53 Levon Townsend NP is PHCP. pm1 12:53 Jose Fung MD is Attending Physician. pm1 13:27 Inserted saline lock: 18 gauge in right antecubital area, using aseptic technique. ec1 Blood collected. 13:43 XRAY Chest (1 view) In Process Unspecified. EDMS 14:39 CT Chest For PE Angio In Process Unspecified. EDMS 14:47 CT Abd/Pelvis - IV Contrast Only In Process Unspecified. EDMS 15:16 Faisal Snow is Hospitalizing Provider. pm1 17:25 No provider procedures requiring assistance completed. Patient admitted, IV remains in sv place. intact. Administered Medications: 13:42 Drug: Albuterol - atroVENT (3:1) (2.5 mg - 0.5 mg) 3 ml Route: Nebulizer; ec1 13:42 Drug: Lasix 40 mg Route: IVP; Site: right antecubital; ec1 Output: 15:01 Urine: 575ml (Voided); Total: 575ml. ec1 15:22 Urine: 600ml (Voided); Total: 1175ml. ec1 Outcome: 15:16 Decision to Hospitalize by Provider. pm1 17:25 Admitted to Med/surg accompanied by tech, via wheelchair, room 229, with chart, Report sv called to Ewelina OSULLIVAN 17:25 Condition: stable 17:25 Instructed on the need for admit. 17:43 Patient left the ED. ec1 Signatures: Dispatcher [employer] Naheed Egan, RN RN Mona Metz ds1 Lilia Pittman RN RN Levon Townsend, SEAFOOD PREPARER SEAFOOD PREPARER pm1 Deangelo Luna RN RN ll1 Oanh Lua RN RN ec1 Corrections: (The following items were deleted from the chart) 13:24 12:49 Acuity: NIDIA 3 ll1 ll1
--- NOTE | 2020-04-13 15:17 | EDPHYS ---
Physician Documentation [facility] Name: Willis Barba Age: 39 yrs Sex: Male : 1980 Arrival Date: 04/13/2020 Time: 12:37 Bed 6 Private MD: ED Physician Jose Fung HPI: 04/13 13:16 This 39 yrs old Male presents to ER via Ambulatory with complaints of pm1 Breathing Difficulty. 13:16 The patient has shortness of breath at rest. Onset: The symptoms/episode began/occurred pm1 4 day(s) ago. Duration: The symptoms are continuous, and are steadily getting worse. The patient's shortness of breath is aggravated by light activity, is alleviated by nothing. Associated signs and symptoms: Pertinent positives: swelling to lower extremities and abdomen. Severity of symptoms: in the emergency department the symptoms are worse. Patient was admitted last week for hematemesis at [facility]. Transfused blood and had varies banded. Patient discharged on Wednesday and reports shortness of breath, wheezing and swelling to lower extremities and abdomen on Wednesday. No nausea, vomiting, diarrhea, abdominal pain since discharge from the hospital. Historical: - Allergies: 12:49 No Known Allergies; ll1 - PMHx: 12:49 Hypertension; liver disease; ll1 - PSHx: 12:49 liver procedure; ll1 - Immunization history:: Adult Immunizations up to date, Flu vaccine is not up to date. - Social history:: Smoking status: Patient reports the use of cigarette tobacco products, denies chronic smoking, but will smoke occasionally, smokes one-half pack cigarettes per day, Patient uses alcohol, on a daily basis. ROS: 13:16 Constitutional: Negative for fever, chills, and weight loss, Eyes: Negative for injury, pm1 pain, redness, and discharge, ENT: Negative for injury, pain, and discharge, Neck: Negative for injury, pain, and swelling. 13:16 Back: Negative for injury and pain. 13:16 : Negative for injury, bleeding, discharge, and swelling, MS/Extremity: Negative for injury and deformity, Skin: Negative for injury, rash, and discoloration. 13:16 Neuro: Negative for headache, weakness, numbness, tingling, and seizure. 13:16 Cardiovascular: Positive for edema, Negative for chest pain, palpitations. 13:16 Respiratory: Positive for shortness of breath, wheezing, Negative for cough. 13:16 Abdomen/GI: Positive for swelling, Negative for abdominal pain, nausea, vomiting, and diarrhea. Exam: 13:16 Constitutional: This is a well developed, well nourished patient who is awake, alert, pm1 and in no acute distress. Head/Face: Normocephalic, atraumatic. 13:16 Back: No spinal tenderness. No costovertebral tenderness. Full range of motion. Skin: Warm, dry with normal turgor. Normal color with no rashes, no lesions, and no evidence of cellulitis. MS/ Extremity: Pulses equal, no cyanosis. Neurovascular intact. Full, normal range of motion. 13:16 Cardiovascular: Rate: normal, Rhythm: regular, Pulses: no pulse deficits are appreciated, Edema: pedal edema, that is mild. 13:16 Respiratory: the patient does not display signs of respiratory distress, Breath sounds: decreased breath sounds, are heard in the right posterior middle lobe and right posterior lower lobe, Respiratory rate: 24 13:16 Abdomen/GI: Inspection: distension, that is mild, Palpation: abdomen is soft and non-tender, in all quadrants. 13:16 Neuro: Exam negative for acute changes, Orientation: is normal, Mentation: is normal, Motor: is normal, moves all fours. Vital Signs: 12:49 BP 122 / 63; Pulse 73; Resp 24; Temp 99.1; Pulse Ox 100% on R/A; Weight 87.09 kg; ll1 Height 5 ft. 7 in. (170.18 cm); Pain 6/10; 13:00 BP 125 / 53; Pulse 71; Resp 26; Pulse Ox 100% ; sv 14:00 BP 125 / 80; Pulse 71; Resp 20; Pulse Ox 100% ; sv 14:56 BP 124 / 87; Pulse 73; Resp 20; Pulse Ox 100% ; sv 15:30 BP 119 / 72; Pulse 73; Resp 20 S; Pulse Ox 99% on R/A; ec1 16:30 BP 126 / 66; Pulse 76; Resp 25; Pulse Ox 100% ; sv 17:00 BP 117 / 65; Pulse 75; Resp 19; Pulse Ox 98% ; sv 12:49 Body Mass Index 30.07 (87.09 kg, 170.18 cm) ll1 MDM: 13:08 Patient medically screened. pm1 15:12 Data reviewed: vital signs. Data interpreted: Pulse oximetry: on room air is 100 %. pm1 Interpretation: normal. 15:12 Counseling: I had a detailed discussion with the patient and/or guardian regarding: the pm1 historical points, exam findings, and any diagnostic results supporting the discharge/admit diagnosis, lab results, radiology results, the need for further work-up and treatment in the hospital. 15:25 Physician consultation: Faisal Snow regarding admission, patient's condition, would pm1 like me to see if a physician is available to perform a thoracentesis. 15:29 Physician consultation: Yony Valerio MD regarding consult, patient's condition, give pm1 the patient spirolactone and will schedule thoracentesis . 04/13 13:10 Order name: Basic Metabolic Panel; Complete Time: 14:01 pm1 04/13 13:10 Order name: CBC with Diff; Complete Time: 16:16 pm1 04/13 13:10 Order name: LFT's; Complete Time: 14:01 pm1 04/13 13:10 Order name: Magnesium; Complete Time: 14:01 pm1 04/13 13:10 Order name: NT PRO-BNP; Complete Time: 14:01 pm1 04/13 13:10 Order name: PT-INR; Complete Time: 14:01 pm1 04/13 13:10 Order name: Troponin (emerg Dept Use Only); Complete Time: 14:01 pm1 04/13 13:10 Order name: XRAY Chest (1 view); Complete Time: 15:07 pm1 04/13 13:58 Order name: Urine Dipstick--Ancillary (enter results); Complete Time: 16:44 eb 04/13 14:06 Order name: CT Chest For PE Angio; Complete Time: 15:07 pm1 04/13 14:12 Order name: Flu; Complete Time: 16:16 pm1 04/13 15:53 Order name: CBC Smear Scan; Complete Time: 16:16 EDMS 04/13 17:12 Order name: SARS-COV-2 RT PCR; Complete Time: 17:19 EDMS 04/13 13:10 Order name: EKG; Complete Time: 13:10 pm1 04/13 13:10 Order name: Cardiac monitoring; Complete Time: 13:31 pm1 12/05 13:10 Order name: EKG - Nurse/Tech; Complete Time: 13:32 pm1 04/13 13:10 Order name: IV Saline Lock; Complete Time: 13:32 pm1 04/13 13:10 Order name: Labs collected and sent; Complete Time: 13:32 pm1 04/13 13:10 Order name: O2 Per Protocol; Complete Time: 13:32 pm1 04/13 13:10 Order name: O2 Sat Monitoring; Complete Time: 13:32 pm1 04/13 13:10 Order name: Urine Dipstick-Ancillary (obtain specimen); Complete Time: 13:50 pm1 04/13 14:06 Order name: CT Abd/Pelvis - IV Contrast Only; Complete Time: 15:07 pm1 Administered Medications: 13:42 Drug: Albuterol - atroVENT (3:1) (2.5 mg - 0.5 mg) 3 ml Route: Nebulizer; ec1 13:42 Drug: Lasix 40 mg Route: IVP; Site: right antecubital; ec1 Disposition: 18:00 Co-signature as Attending Physician, Jose Fung MD. rn Disposition: 04/13/20 15:16 Hospitalization ordered by Faisal Snow for Observation. Preliminary diagnosis are Shortness of breath, Pleural effusion, not elsewhere classified - Right, Alcoholic cirrhosis of liver. - Bed requested for Telemetry/MedSurg (observation). - Status is Observation. ec1 - Condition is Stable. - Problem is new. - Symptoms have improved. Signatures: Dispatcher [employer] EDMS Jose Fung MD MD rn Marinas, Patrick, CORRECTION OFFICER HEAD CORRECTION OFFICER HEAD pm1 Willis Melendez RN RN ja1 Deangelo Luna RN RN ll1 Oanh Lua RN RN ec1 Corrections: (The following items were deleted from the chart) 15:24 15:12 Counseling: I had a detailed discussion with the patient and/or guardian pm1 regarding: the historical points, exam findings, and any diagnostic results supporting the discharge/admit diagnosis, lab results, radiology results, the need for further work-up and treatment in the hospital, to return to the emergency department if symptoms worsen or persist or if there are any questions or concerns that arise at home, pm1 15:55 14:12 CORONAVIRUS+MR.LAB.BRZ ordered. EDMS EDMS 17:07 15:16 Hospitalization Ordered by Faisal Snow for Observation. Preliminary diagnosis ja1 is Shortness of breath; Pleural effusion, not elsewhere classified - Right; Alcoholic cirrhosis of liver. Bed requested for Telemetry/MedSurg (observation). Status is Observation. Condition is Stable. Problem is new. Symptoms have improved. pm1 17:43 17:07 04/13/2020 15:16 Hospitalization Ordered by Faisal Snow for Observation. ec1 Preliminary diagnosis is Shortness of breath; Pleural effusion, not elsewhere classified - Right; Alcoholic cirrhosis of liver. Bed requested for Telemetry/MedSurg (observation). Status is Observation. Condition is Stable. Problem is new. Symptoms have improved. ja1
[2020-04-13 15:53] LABS: Anisocytosis 2+; Blood Morphology Comment NOTED (NOT SEEN); Platelet Estimate DECR; White Blood Cell Scan OK (OK)
--- NOTE | 2020-04-13 16:31 | P.HP ---
Certification for Inpatient Patient admitted to: Inpatient With expected LOS: >2 Midnights Practitioner: I am a practitioner with admitting privileges, knowledge of patient current condition, hospital course, and medical plan of care. Services: Services provided to patient in accordance with Admission requirements found in Title 42 Section 412.3 of the Code of Federal Regulations Patient History Date of Service: 04/13/20 Reason for admission: Shortness of breath History of Present Illness: 39-year-old gentleman with a history of alcohol abuse, recently diagnosed with liver cirrhosis, recently admitted for GI bleed and diagnoses esophageal varices with banding present to the emergency department with shortness of breath. Patient reports progressive shortness of breath of a few days duration. He denied any cough or fever or abdominal pain. He denies any melena or hematemesis. He stated he quit drinking alcohol [address] scan of the chest demonstrated large right pleural effusion. CT abdomen and pelvis demonstrated [id number] ascites, cirrhotic liver, abdominal varices and splenomegaly. Pulmonology-Dr. Valerio has been contacted who agrees to perform thoracentesis. Patient is given IV Lasix the ED. He is admitted for further management. - Past Medical/Surgical History -: Liver cirrhosis -: Splenomegaly -: Esophageal varies -: History of alcohol abuse -: EGD with banding of varices - Family History Mother -: Diabetes Father -: Diabetes - Social History Smoking Status: Former smoker Alcohol use: No CD- Drugs: No Physical Examination - Physical Exam General: Alert, In no apparent distress HEENT: Mucous membr. moist/pink, EOMI, Sclerae nonicteric Neck: Supple, JVD not distended Respiratory: Diminished (On the right), Other (No crackles.) Cardiovascular: No edema, Regular rate/rhythm, Normal S1 S2 Gastrointestinal: Normal bowel sounds, Soft and benign, No tenderness Musculoskeletal: No swelling, No tenderness Integumentary: No rashes, No erythema Neurological: Normal speech, Normal strength at 5/5 x4 extr, Cranial nerves 3-12 intact - Studies Laboratory Data (last 24 hrs) 04/13/20 13:23: PT 18.2 H, INR 1.56 04/13/20 13:23: WBC 6.7, Hgb 8.9 L, Hct 28.4 L, Plt Count 139 L 04/13/20 13:23: Sodium 141, Potassium 4.5, BUN 12, Creatinine 0.78, Glucose 188 H, Magnesium 2.0, Total Bilirubin 4.3 H, AST 109 H, ALT 59, Alkaline Phosphatase 231 H Microbiology Data (last 24 hrs): 04/13/20 14:18 Nasopharnyx Influenza Type A Antigen Screen - Final 04/13/20 14:18 Nasopharnyx Influenza Type B Antigen Screen - Final Assessment and Plan - Problems (Diagnosis) (1) Pleural effusion Current Visit: Yes Status: Acute (2) Liver cirrhosis Current Visit: Yes Status: Acute (3) Ascites Current Visit: Yes Status: Acute (4) History of GI bleed Current Visit: Yes Status: Acute (5) Intra-abdominal varices Current Visit: Yes Status: Acute (6) Anemia Current Visit: Yes Status: Acute - Plan Admit to the medical floor. Consult to pulmonary for thoracentesis. Start IV Lasix Start Oral Aldactone Continue home dose oral Protonix Continue home dose propranolol for portal hypertension. Monitor hemoglobin and transfuse p.r.n. - Advance Directives Does patient have a Living Will: No Does patient have a Durable POA for Healthcare: No
[2020-04-13 16:35] LABS: Urine Blood NEGATIVE (NEG); Urine Glucose NEGATIVE (NEG); Urine Protein 1+ (NEG); Urine Specific Gravity 1.025 (1.005-1.030)
[2020-04-13] MEDS: FUROSEMIDE 40 MG/4 ML VIAL IV SCH (18:12)
[2020-04-14 05:34] LABS: Absolute Lymphocytes (CBC) 2.3 K/uL (0.7-4.9); Basophils % 1.2 % (0-1.3); Hematocrit 24.8 % (39.6-49.0); Lymphocytes % 31.5 % (15.3-44.8); MPV 10.5 fL (7.6-11.3); RBC Red Blood Cell Count 3.04 M/uL (4.33-5.43)
[2020-04-14 05:53] LABS: ALT/SGPT 52 U/L (12-78); AST/SGOT 102 U/L (15-37); Albumin 1.8 g/dL (3.4-5.0); Alkaline Phosphatase 181 U/L (45-117); BUN Blood Urea Nitrogen 13 mg/dL (7-18); Bicarbonate 23 mmol/L (21-32); Bilirubin Total 4.7 mg/dL (0.2-1.0); Glucose Level 85 mg/dL (74-106); Magnesium 1.9 mg/dL (1.8-2.4); Phosphorus 3.7 mg/dL (2.5-4.9); Potassium 3.6 mmol/L (3.5-5.1); Protein, Total 5.4 g/dL (6.4-8.2); Sodium Level 144 mmol/L (136-145)
[2020-04-14] MEDS ORDERED: NA CHLORIDE 0.9% 250 ML ONE (07:00)
[2020-04-14] MEDS ORDERED: KCL 20 MEQ/100 mL IVPB 20 MEQ/100 ML BAG IV SCH (07:45)
[2020-04-14] MEDS: FUROSEMIDE 40 MG/4 ML VIAL IV SCH ×2 (09:43→17:34)
[2020-04-14] MEDS: SPIRONOLACTONE 25 MG TABLET PO SCH (09:44)
--- NOTE | 2020-04-14 11:56 | P.OP ---
Preoperative diagnosis: RIGHT pleural Effusion Postoperative diagnosis: RIGHT pleural Effusion Primary procedure: Placement of RIGHT Thoracostomy Tube Anesthesia: GETA + Local Estimated blood loss: <1cc Specimen: Pleural Fluid sent Findings: straw coloredfluid Complications: None Drain(s): Other (RIGHT chest tube) Transferred to: Other (room) Condition: Good
[2020-04-14] MEDS ORDERED: MORPHINE 2 MG/ML SYR ONE (12:08)
--- NOTE | 2020-04-14 12:29 | RAD REPORT ---
EXAM DESCRIPTION: RAD - Chest Single View - 04/14/2020 12:20 pm CLINICAL HISTORY: right chest tube placement Chest pain. COMPARISON: Chest Single View dated 04/13/2020; Chest For Pe Angio dated 04/13/2020; Abdomen Pelvis W Contrast dated 04/13/2020 FINDINGS: Portable technique limits examination quality. Since the prior study, a right-sided chest tube has been placed directed cephalad. The large right pl eural effusion has nearly completely drained. A small 5% right apical pneumothorax noted. The heart i s normal in size.
[2020-04-14] MEDS ORDERED: ALBUMIN HUMAN 25% 100 ML IV ONE (13:43)
[2020-04-14] MEDS ORDERED: NA CHLORIDE 0.9% 250 ML IV PRN (13:44)
--- NOTE | 2020-04-14 13:50 | P.PN ---
Subjective Date of Service: 04/14/20 Chief Complaint: Shortness of breath Patient status post chest tube placement today by general surgery. 4 L of fluid drained. Physical Examination - Vital Signs Temperature: 98.2 F Blood Pressure: 131/58 Pulse: 76 Respirations: 16 Pulse Ox (%): 95 - Physical Exam General: Alert, In no apparent distress Neck: Supple, JVD not distended Respiratory: Diminished (On the right.) Cardiovascular: No edema, Regular rate/rhythm, Normal S1 S2 Gastrointestinal: Normal bowel sounds, Soft and benign, Non-distended Musculoskeletal: No swelling, No tenderness Integumentary: No rashes Neurological: Other (Nonfocal) - Studies Laboratory Data (last 24 hrs) 04/13/20 13:23: WBC 6.7, Hgb 8.9 L, Hct 28.4 L, Plt Count 139 L 04/13/20 13:23: Sodium 141, Potassium 4.5, BUN 12, Creatinine 0.78, Glucose 188 H, Magnesium 2.0, Total Bilirubin 4.3 H, AST 109 H, ALT 59, Alkaline Phosphatase 231 H Microbiology Data (last 24 hrs): 04/13/20 14:18 Nasopharnyx Influenza Type A Antigen Screen - Final 04/13/20 14:18 Nasopharnyx Influenza Type B Antigen Screen - Final Assessment And Plan - Current Problems (Diagnosis) (1) Pleural effusion Current Visit: Yes Status: Acute (2) Liver cirrhosis Current Visit: Yes Status: Acute (3) Ascites Current Visit: Yes Status: Acute (4) History of GI bleed Current Visit: Yes Status: Acute (5) Intra-abdominal varices Current Visit: Yes Status: Acute (6) Anemia Current Visit: Yes Status: Acute - Plan General surgery input appreciated. Status post chest tube. Give 150 mL of IV albumin infusion. Will also given 250 mL normal saline given the large volume thoracentesis. Continue IV Lasix and Aldactone Start Oral Aldactone Continue oral Protonix He is on propranolol for portal hypertension. Monitor hemoglobin and transfuse p.r.n. for hemoglobin less than 7. Monitor for active GI bleed.
[2020-04-14] MEDS: MORPHINE 2 MG/ML SYR IV PRN ×3 (13:55→20:10)
[2020-04-14 14:36] LABS: Body Fluid WBC 93 /mm^3
--- NOTE | 2020-04-14 14:52 | OP ---
Date of Procedure: 04/14/2020 Surgeon: Geremias Michel MD, Preoperative Diagnosis: Right pleural effusion. Postoperative Diagnosis: Right pleural effusion. Procedure Performed: Placement of a right thoracostomy tube. Anesthesia: Local, 1% lidocaine used. Estimated Blood Loss: Less than 1 mL. Specimen: Pleural fluid sent. Findings: Straw-colored fluid. Complications: None. Drains: A 21-Ivorian Thal chest tube in the right chest. Condition: The patient remained in room in good condition throughout the procedure. Procedure In Detail: After informed was obtained, the patient was prepped and draped in the usual st erile fashion. After adequate anesthesia was achieved with 1% lidocaine, in the right thoracic space approximately fifth and sixth intercostal space, I made a small chad incision over the insertion sit e of the needle and using a finer needle, I then placed a finer needle over the rib into the right th oracic space. Pleural fluid was appreciated at this point. A syringe was withdrawn and sent off for specimen analysis at this point. I then advanced a wire through the insertion needle and removed th e needle. At this point, I used a Seldinger technique over the wire to sequentially dilate up the tr act and placed the 20-Ivorian Thal chest tube pointing cranially. At this point, a straw-colored pleu ral fluid was appreciated. I then cleansed the area once again, secured to the chest tube to the [place] st wall with the attached to a silk suture and placed a sterile dressing over the top. The chest tub e was placed on suction on the Pneumovax system at this point and immediately 2 L was withdrawn, appe ared straw-colored fluid. The patient tolerated the procedure well without evidence of complication and remained in the room in good condition throughout the procedure. All counts were correct at the end the case. Wire out was called. PARVEEN/STEPHANIE Voice ID: [id number] Report ID: [id number]
[2020-04-14 15:33] LABS: Appearance CLEAR (CLEAR); Body Fluid Source PLEURAL; Color of fluid Yellow (COLORLESS)
--- NOTE | 2020-04-14 17:07 | CON ---
Date of Consultation: 04/14/2020 Brief History Of Present Illness: The patient is a 39-year-old gentleman with a history of alcohol a buse, recently diagnosed with liver cirrhosis. He was admitted for GI bleeding and diagnosed with es ophageal varices with banding. Presents to the emergency department with shortness of breath. 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 He denied any cou gh, fever, abdominal pain, melena, or hematemesis. He was noted to have a very large right pleural e ffusion on chest CT, as such I was consulted for placement of a right thoracostomy tube via Dr. Geni conway's recommendations. Past Medical History: Significant for cirrhosis, splenomegaly, esophageal varices, alcohol abuse. Past Surgical History: EGD with banding of varices. Denies any surgical history otherwise. Social History: He is a former smoker. He is a positive active alcohol abuser at this point. Denie s recreational drug use. Physical Examination: Vital Signs: At the time of my examination; his BMI is 30. His blood pressure 131/58, pulse was 76, respirations 16, temperature 98.2. General: He is awake, alert, and oriented. Psychiatric: Appropriate, conversive. HEENT: Normocephalic. His sclerae were slightly injected and appeared to have discoloration and jau ndice. His skin overall was jaundiced. He has subungual jaundice. His mucous membranes otherwise w orsen. Neck: Supple without JVD. Chest: Normal expansion. Clear to auscultation on the left, absent breath sounds on the right. Abdomen: Soft, nontender. Extremities: No clubbing, cyanosis, or edema. Laboratory Data: Revealed a white blood cell count of 7.2, hemoglobin 7.7, hematocrit 24.8, platelet count was 133. His PT 18.2, INR 1.5. His sodium 144, potassium 3.6, chloride 115, carbon dioxide 2 3, BUN 13, creatinine 0.8, glucose is 85, phosphorus 7.5, magnesium 1.9, total bilirubin 4.7, direct component 3.1, AST 102, ALT 52, alkaline phosphatase is 181. His troponin was less than 0.02. He oviedo d imaging performed, which included a chest x-ray on 04/13, officially read as large right pleural ef fusion with right lower lobe atelectasis. He had an abdomen and pelvis CT on 04/13 as well, which wa s officially read as cirrhosis with mild splenomegaly and [id number] amount of ascites. He oviedo d a CT chest/CTA chest, which was officially read as negative for pulmonary embolus, large right pleu ral effusion with right lower lobe atelectasis. Assessment And Plan: This is a 39-year-old male, who has cirrhosis and right pleural effusion. 1.Continue medical management. 2.I have been consulted to place a right thoracostomy tube. I have explained the risks, benefits, a nd alternatives including, but not limited to bleeding, infection, damage to surrounding tissues, pne umothorax, need for further operation and procedures. The patient agrees to proceed as indicated. Thank you for this interesting consult. PARVEEN/STEPHANIE Voice ID: [id number] Report ID: [id number]
--- NOTE | 2020-04-14 19:42 | P.CNS ---
Date of Consult: 04/14/20 Reason for Consult: Pleural effusion Chief Complaint: Pleural effusion History of Present Illness: Patient is 39 years of age with a history of cirrhosis of the liver secondary to alcohol abuse smoking about 2 weeks ago as been complaining of progressive dyspn ea for the past 2 weeks history of GI bleed with esophageal varices was admitted with opacification of is right hardik thorax secondary to his cirrhosis this a quit smoking 2 weeks ago chest tube was placed today breathing a little better there is no history of thoracenteses a paracentesis before as not have a regular doctor Allergies No Known Allergies Allergy (Unverified 04/13/20 17:28) Home Medications: Pantoprazole [Protonix Tab*] 40 mg PO DAILY 04/13/20 Propranolol [Inderal*] 10 mg PO BID 04/13/20 - Past Medical/Surgical History Diabetic: No -: Liver cirrhosis -: Splenomegaly -: Esophageal varices -: History of alcohol abuse -: EGD with banding of varices - Family History Mother Medical History: Diabetes Father Medical History: Diabetes - Social History Alcohol use: Yes CD- Drugs: Yes Caffeine use: Yes Place of Residence: Home Review of Systems General: Weakness Respiratory: Shortness of Breath Cardiovascular: Chest Pain Physical Examination Temp Pulse Resp BP Pulse Ox 98.1 F 78 16 126/60 92 04/14/20 16:00 04/14/20 16:00 04/14/20 16:00 04/14/20 16:00 04/14/20 16:00 General: Alert, In no apparent distress, Oriented x3 Neck: Supple Respiratory: Clear to auscultation bilaterally Cardiovascular: No edema, Normal S1 S2 - Problems (1) Hydrothorax Current Visit: Yes Status: Acute Plan: Patient is 47 years of age admitted with massive right-sided pleural effusion secondary to cirrhosis of the liver he does have a normal liver function tests he quit drinking 2 weeks ago history of esophageal varices and bleeding status post chest tube change to suction he has been draining quite a bit the significant output from the chest tube may consider pleurodesis if his output decline
[2020-04-14 22:08] LABS: Urine Appearance CLEAR; Urine Blood NEGATIVE (NEG); Urine Color ORANGE; Urine Glucose NEGATIVE (NEG); Urine Protein NEGATIVE (NEG); Urine Specific Gravity 1.015 (1.005-1.030); Urine Urobilinogen 0.2 mg/dL (0.2-1.0); Urine pH 5.5 (5.0-7.0)
[2020-04-14 22:19] LABS: Urine Microscopic Reflex NO UMIC
[2020-04-14 22:39] LABS: Urine Bilirubin 1+ (NEG)
[2020-04-15] MEDS: MORPHINE 2 MG/ML SYR IV PRN ×4 (00:50→22:18)
[2020-04-15 05:34] LABS: Absolute Lymphocytes (CBC) 2.1 K/uL (0.7-4.9); Basophils % 0.5 % (0-1.3); Hematocrit 24.1 % (39.6-49.0); Lymphocytes % 20.5 % (15.3-44.8); MPV 10.3 fL (7.6-11.3); RBC Red Blood Cell Count 2.97 M/uL (4.33-5.43)
[2020-04-15 05:55] LABS: ALT/SGPT 47 U/L (12-78); AST/SGOT 85 U/L (15-37); Alkaline Phosphatase 145 U/L (45-117); BUN Blood Urea Nitrogen 17 mg/dL (7-18); Bicarbonate 26 mmol/L (21-32); Bilirubin Total 4.4 mg/dL (0.2-1.0); Glucose Level 91 mg/dL (74-106); Potassium 4.3 mmol/L (3.5-5.1); Protein, Total 5.5 g/dL (6.4-8.2); Sodium Level 139 mmol/L (136-145)
[2020-04-15] MEDS: SPIRONOLACTONE 25 MG TABLET PO SCH (07:56)
[2020-04-15] MEDS: FUROSEMIDE 40 MG/4 ML VIAL IV SCH ×2 (07:57→16:39)
--- NOTE | 2020-04-15 08:54 | RAD REPORT ---
EXAM DESCRIPTION: RAD - Chest Single View - 04/15/2020 7:06 am CLINICAL HISTORY: chest tube Chest pain. COMPARISON: Chest Single View dated 04/14/2020; Chest Single View dated 04/13/2020 FINDINGS: Portable technique limits examination quality. Right-sided chest tube is in place directed cephalad. No measurable pneumothorax. Opacity in the righ t lung base has developed probably a small right pleural effusion. The heart is mildly prominent in s ize.
--- NOTE | 2020-04-15 09:53 | P.PN ---
Subjective Date of Service: 04/15/20 Chief Complaint: Pleural effusion Subjective: Improving (Patient feels better, no shortness of breath) Physical Examination - Vital Signs Temperature: 99 F Blood Pressure: 125/65 Pulse: 82 Respirations: 18 Pulse Ox (%): 96 - Physical Exam General: Alert, In no apparent distress, Cooperative HEENT: Mucous membr. moist/pink Respiratory: Clear to auscultation bilaterally, Normal air movement, Other (RIGHT sided chest tube in place, no air leak, serous fluid ) Assessment And Plan - Current Problems (Diagnosis) (1) Hydrothorax Current Visit: Yes Status: Acute Plan: - chest tube to water seal today - repeat chest x -ray in 6 hours - repeat chest x ray in AM - continue medical management
--- NOTE | 2020-04-15 14:40 | P.PN ---
Subjective Date of Service: 04/15/20 Chief Complaint: Pleural effusion Patient states he feels much better. Chest tube no place under water seal. His blood pressure has been stable. He denies any melena. Hemoglobin is stable for now. Physical Examination - Vital Signs Temperature: 99.3 F Blood Pressure: 119/59 Pulse: 89 Respirations: 18 Pulse Ox (%): 96 - Physical Exam General: Alert, In no apparent distress Neck: JVD not distended Respiratory: Clear to auscultation bilaterally, Normal air movement Cardiovascular: Regular rate/rhythm, Normal S1 S2, Edema (1+ bilateral lower extremity edema) Capillary refill: <2 Seconds Gastrointestinal: Normal bowel sounds, Soft and benign, Ascites Musculoskeletal: No swelling, No tenderness Integumentary: No rashes, No erythema Neurological: Normal speech, Normal strength at 5/5 x4 extr, Cranial nerves 3-12 intact Assessment And Plan - Current Problems (Diagnosis) (1) Pleural effusion Current Visit: Yes Status: Acute (2) Liver cirrhosis Current Visit: Yes Status: Acute (3) Ascites Current Visit: Yes Status: Acute (4) History of GI bleed Current Visit: Yes Status: Acute (5) Intra-abdominal varices Current Visit: Yes Status: Acute (6) Anemia Current Visit: Yes Status: Acute - Plan Status post chest tube. Chest tube placed under water seal now. Repeat chest x-ray is unchanged from the 1 done earlier this morning. Blood pressure has been stable. Continue IV Lasix and Aldactone Continue oral Protonix and propranolol Patient seen by pulmonary-Dr. Valerio who is planning pleurodesis given the massive size of the right pleural effusion and the likelihood of recurrence Monitor hemoglobin and transfuse p.r.n. for hemoglobin less than 7. Monitor for active GI bleed. General surgery is planning for chest tube removal tomorrow.
--- NOTE | 2020-04-15 15:26 | RAD REPORT ---
EXAM DESCRIPTION: RADChest Single View04/15/2020 2:28 pm CLINICAL HISTORY: Chest pain COMPARISON: April 15, 2020 FINDINGS: Right chest tube remains in place without pneumothorax. Opacification of the right hemithorax likely a combination of pleural effusion and atelectasis
[2020-04-15] MEDS: DOCUSATE NA/SENNA CONC 1 TAB PO SCH (20:35)
[2020-04-16 06:03] LABS: Absolute Lymphocytes (CBC) 2.1 K/uL (0.7-4.9); Basophils % 0.7 % (0-1.3); Hematocrit 23.9 % (39.6-49.0); Lymphocytes % 29.5 % (15.3-44.8); MPV 10.3 fL (7.6-11.3); RBC Red Blood Cell Count 2.95 M/uL (4.33-5.43)
--- NOTE | 2020-04-16 07:51 | RAD REPORT ---
[facility] CLINICAL HISTORY: Chest pain COMPARISON: April 15 FINDINGS: Chest tube remains in place. A pneumothorax is not seen. The opacification of the right hemithorax has diminished likely representing a combination of pleural effusion and atelectasis.
[2020-04-16] MEDS ORDERED: NA CHLORIDE 0.9% TOP SCH ×2 (08:00)
[2020-04-16] MEDS ORDERED: [UNRECOGNIZED DRUG - OTHER] TOP SCH ×2 (08:00)
[2020-04-16] MEDS ORDERED: LIDOCAINE 2% TOP SCH ×2 (08:00)
[2020-04-16] MEDS: SPIRONOLACTONE 25 MG TABLET PO SCH (08:54)
[2020-04-16] MEDS: FUROSEMIDE 40 MG/4 ML VIAL IV SCH ×2 (08:54→17:10)
[2020-04-16] MEDS: DOCUSATE NA/SENNA CONC 1 TAB PO SCH ×2 (08:55→21:00)
--- NOTE | 2020-04-16 12:31 | P.PN ---
Subjective Date of Service: 04/16/20 Chief Complaint: Pleural effusion Subjective: Improving (In better shortness of breath is improved still has significant drainage) Review of Systems 10-point ROS is otherwise unremarkable Physical Examination - Vital Signs Temperature: 98.9 F Blood Pressure: 124/61 Pulse: 87 Respirations: 20 Pulse Ox (%): 95 - Physical Exam General: Alert, Oriented x3 Respiratory: Clear to auscultation bilaterally Assessment & Plan - Problems (Diagnosis) (1) Hydrothorax Current Visit: Yes Status: Acute Plan: For full if the pleural effusion decline still less than 50 cc an hr will plan to do a pleurodesis CBC shows predominance of mononuclear cells with the patient
[2020-04-16] MEDS: MORPHINE 2 MG/ML SYR IV PRN ×2 (12:32→21:52)
--- NOTE | 2020-04-16 15:10 | P.PN ---
Subjective Date of Service: 04/16/20 Chief Complaint: Pleural effusion Subjective: Improving Physical Examination - Vital Signs Temperature: 98.9 F Blood Pressure: 124/61 Pulse: 87 Respirations: 20 Pulse Ox (%): 94 - Physical Exam General: Alert, In no apparent distress, Cooperative HEENT: Mucous membr. moist/pink Cardiovascular: Other (chest tube in place) Assessment And Plan - Current Problems (Diagnosis) (1) Hydrothorax Current Visit: Yes Status: Acute Plan: - chest tube to water seal today - repeat chest x ray in AM - continue medical management - possible pleurodesis in am
--- NOTE | 2020-04-16 16:17 | P.PN ---
Subjective Date of Service: 04/16/20 Chief Complaint: Pleural effusion Subjective: Improving (Breathing more comfortably, chest tube continues with output, reports some tenderness at chest tube site, otherwise feeling well) Review of Systems 10-point ROS is otherwise unremarkable Physical Examination - Vital Signs Temperature: 98.9 F Blood Pressure: 124/61 Pulse: 87 Respirations: 20 Pulse Ox (%): 94 - Physical Exam General: Alert, In no apparent distress, Oriented x3 HEENT: Sclerae nonicteric Respiratory: Normal air movement, Crackles/rales (Right Lung base, otherwise clear), Other (Chest tube in place) Cardiovascular: No edema, Regular rate/rhythm Gastrointestinal: Soft and benign, Non-distended, No tenderness Assessment & Plan Physician Review Additional Text: R Pleural effusion Liver cirrhosis (alcoholic) w/ ascites, varices h/o GI bleed Anemia s/p chest tube placement by surgery (Dr. Michel), improved breathing / CXR continues with moderate output, possible removal in next 24-48hrs pulmonology consulted, plan for pleurodesis tomorrow Hgb: stable in mid-high 7s, transfuse PRN if <7, no evidence of active bleed conntinue IV lasix, aldactone continue PPI and propranolol Dispo: home after pleurodesis / clinical improvement in ~48hrs Time Spent Managing Pts Care (In Minutes): 35
[2020-04-17] MEDS: ACETAMINOPHEN 325 MG TABLET PO PRN ×2 (02:27→20:34)
[2020-04-17] MEDS: MORPHINE 2 MG/ML SYR IV PRN ×4 (02:29→20:35)
[2020-04-17 04:36] LABS: Hematocrit 24.2 % (39.6-49.0); MPV 10.1 fL (7.6-11.3); RBC Red Blood Cell Count 2.98 M/uL (4.33-5.43)
--- NOTE | 2020-04-17 07:20 | RAD REPORT ---
EXAM DESCRIPTION: RAD - Chest Single View - 04/17/2020 5:14 am CLINICAL HISTORY: chest tube COMPARISON: April 16 TECHNIQUE: AP portable chest image was obtained 04/17/2020 5:14 am . FINDINGS: Right-sided chest tube remains in place. Position has not changed. Lung volumes are low in dicating and mostly expiration exam. There is questionable trace amount of pneumothorax at the right apex. No lateral or lung base pneumothorax seen. Left lung field is clear. Right base opacification h as improved. Significant improvement seen in the upper right lung field. Heart and vasculature are no rmal. No measurable pleural effusion. No acute bony abnormality seen. No acute aortic findings suspec loni. IMPRESSION: Continued clearing of the right lung field parenchymal opacification since April 16. Suspected trace right apical pneumothorax on this expiration examination.
[2020-04-17] MEDS: FUROSEMIDE 40 MG/4 ML VIAL IV SCH (08:48)
[2020-04-17] MEDS: SPIRONOLACTONE 25 MG TABLET PO SCH (08:49)
[2020-04-17] MEDS: DOCUSATE NA/SENNA CONC 1 TAB PO SCH ×2 (08:49→20:36)
--- NOTE | 2020-04-17 09:25 | P.PN ---
Subjective Date of Service: 04/17/20 Chief Complaint: Pleural effusion Subjective: No new changes Physical Examination - Vital Signs Temperature: 98.2 F Blood Pressure: 122/66 Pulse: 82 Respirations: 16 Pulse Ox (%): 97 - Physical Exam General: Alert, In no apparent distress, Cooperative Respiratory: Clear to auscultation bilaterally, Normal air movement, Other (RIGHT chest tube remains in place, no leak) Assessment And Plan - Current Problems (Diagnosis) (1) Hydrothorax Current Visit: Yes Status: Acute Plan: - chest tube to water seal today - repeat chest x ray in AM - continue medical management - pleurodesis today with iodine Physician Review Additional Text: R Pleural effusion Liver cirrhosis (alcoholic) w/ ascites, varices h/o GI bleed Anemia s/p chest tube placement by surgery (Dr. Michel), improved breathing / CXR continues with moderate output, possible removal in next 24-48hrs pulmonology consulted, plan for pleurodesis tomorrow Hgb: stable in mid-high 7s, transfuse PRN if <7, no evidence of active bleed conntinue IV lasix, aldactone continue PPI and propranolol Dispo: home after pleurodesis / clinical improvement in ~48hrs
--- NOTE | 2020-04-17 12:15 | P.OP ---
Date of Service: 04/17/20 (Iodine pleurodesis) Findings and Operative Technique Patient is 39 years of age admitted with her large hepatic hydrothorax is clinically improving decrease After informing the patient I had an was injected through the chest tube as per protocol patient tolerated the procedure very well plan to clamped the chest tube for [address] and place it on suction possible discharge tomorrow
--- NOTE | 2020-04-17 18:12 | P.PN ---
Subjective Date of Service: 04/17/20 Chief Complaint: Pleural effusion Subjective: No new changes (feeling well, breathing comfortably on RA, some pain at chest tube insertion) Review of Systems 10-point ROS is otherwise unremarkable Physical Examination - Vital Signs Temperature: 98.5 F Blood Pressure: 144/67 Pulse: 91 Respirations: 18 Pulse Ox (%): 95 - Physical Exam General: Alert, In no apparent distress HEENT: Sclerae nonicteric Respiratory: Clear to auscultation bilaterally Cardiovascular: Regular rate/rhythm Gastrointestinal: Soft and benign, No tenderness Musculoskeletal: No tenderness Assessment & Plan Physician Review Additional Text: R Pleural effusion Liver cirrhosis (alcoholic) w/ ascites, varices h/o GI bleed Anemia s/p chest tube placement by surgery (Dr. Michel), improved breathing / CXR continues with moderate output, possible removal in next 24-48hrs for pleurodesis today by Dr Valerio Hgb: stable in mid-high 7s, transfuse PRN if <7, no evidence of active bleed continue IV lasix, aldactone continue PPI and propranolol Dispo: possible dc in 24-48hrs, pending pleurodesis, chest tube output Time Spent Managing Pts Care (In Minutes): 35
[2020-04-18] MEDS: MORPHINE 2 MG/ML SYR IV PRN ×2 (03:44→09:17)
[2020-04-18 05:44] LABS: Hematocrit 25.6 % (39.6-49.0); RBC Red Blood Cell Count 3.18 M/uL (4.33-5.43)
--- NOTE | 2020-04-18 07:21 | RAD REPORT ---
EXAM DESCRIPTION: RADChest Single View04/18/2020 6:17 am CLINICAL HISTORY: Chest pain COMPARISON: April 17, 2020 FINDINGS: A right chest tube remains in place without visualization of a pneumothorax. Small right pleural effusion with mild right basilar opacities have partially resolved.
[2020-04-18] MEDS: DOCUSATE NA/SENNA CONC 1 TAB PO SCH (09:00)
[2020-04-18] MEDS: SPIRONOLACTONE 25 MG TABLET PO SCH (09:17)
--- NOTE | 2020-04-18 10:36 | RAD REPORT ---
EXAM DESCRIPTION: RADChest Single View04/18/2020 10:18 am CLINICAL HISTORY: Chest tube removal COMPARISON: April 18 FINDINGS: The right chest tube has been removed. A pneumothorax is not seen
--- NOTE | 2020-04-18 11:29 | P.DS ---
Admission Date: 04/13/20 Discharge Date: 04/18/20 Disposition: ROUTINE DISCHARGE Reason for Admission: Pleural effusion Consultations: Pulmonology - Dr. Valerio General Surgery - Dr. Michel Procedures: CXR (04/13): Large right pleural effusion with right lower lobe atelectasis CTA Chest (04/13): negative for PE. Large R Pleural effusion with RLL atelectasis CT Abd/Pelvis (04/13):Cirrhosis with mild splenomegaly and small to moderate amount ascites R Thoracostomy tube placement (04/14): by Dr. Geremias Michel, 2L straw colored fluid drained Iodine pleurodesis (04/17) by Dr. Valerio Problem List R Pleural effusion Liver cirrhosis (alcoholic) w/ ascites, varices h/o GI bleed Anemia of chronic disease Brief History of Present Illness: 39yo, male; PMH: alcohol abuse, recent diagnosis of liver cirrhosis and h/o GI Bleed recently presented to ED due to progressive SOB x few days. He was found to have a large right pleural effusion on CT scan, and small-moderate ascites. Hospital Course: Pulmonology and General surgery were consulted. A chest tube was placed by general surgery, and had significant output for a few days. Once output im proved, patient underwent pleurodesis by pulmonology on 04/17. His chest tube was removed on 04/18, post-pull CXR was negative for pneumothorax, and patient was discharged home. Patient had significant improvement after initial chest tube placement and did not require any supplemental O2 since then. He was treated with spironolactone and had improvement in ascites as well. He is discharged to continue spironolactone 25mg daily. He will f/u with pulmonology and his PCP in the next 1-2 weeks. Vital Signs/Physical Exam: Temp Pulse Resp BP Pulse Ox 97.9 F 92 H 92 H 137/70 137 04/18/20 08:00 04/18/20 09:17 04/18/20 09:17 04/18/20 09:17 04/18/20 09:17 General: Alert, In no apparent distress HEENT: Sclerae nonicteric Respiratory: Clear to auscultation bilaterally, Normal air movement Cardiovascular: No edema, Regular rate/rhythm Gastrointestinal: Soft and benign, No tenderness Musculoskeletal: No tenderness Integumentary: No rashes Neurological: Normal speech, Normal affect Laboratory Data at Discharge: WBC 6.7 K/uL (4.3-10.9) 04/18/20 05:32 Hgb 8.3 g/dL (13.6-17.9) L 04/18/20 05:32 Hct 25.6 % (39.6-49.0) L 04/18/20 05:32 Plt Count 105 K/uL (152-406) L 04/18/20 05:32 PT 18.2 SECONDS (9.5-12.5) H 04/13/20 13:23 INR 1.56 04/13/20 13:23 Sodium 139 mmol/L (136-145) 04/15/20 05:08 Potassium 4.3 mmol/L (3.5-5.1) 04/15/20 05:08 BUN 17 mg/dL (7-18) 04/15/20 05:08 Creatinine 0.83 mg/dL (0.55-1.3) 04/15/20 05:08 Glucose 91 mg/dL (74-106) 04/15/20 05:08 Phosphorus 3.7 mg/dL (2.5-4.9) 04/14/20 05:24 Magnesium 1.9 mg/dL (1.8-2.4) 04/14/20 05:24 Total Bilirubin 4.4 mg/dL (0.2-1.0) H 04/15/20 05:08 AST 85 U/L (15-37) H 04/15/20 05:08 ALT 47 U/L (12-78) 04/15/20 05:08 Alkaline Phosphatase 145 U/L (45-117) H 04/15/20 05:08 Home Medications: Pantoprazole [Protonix Tab*] 40 mg PO DAILY 04/13/20 Propranolol [Inderal*] 10 mg PO BID 04/13/20 Spironolactone 25 mg PO DAILY 30 Days #30 tablet 04/18/20 New Medications: Spironolactone 25 mg PO DAILY 30 Days #30 tablet Patient Discharge Instructions: follow up with Dr. Valerio in 1-2 weeks. leave dressing in place for at least 2 days. no heavy lifting for 2 weeks. new medication: spironolacton 25mg daily Diet: Regular Activity: Ad manuel Followup: NONE,NONE [Primary Care Provider] - Time spent managing pt's care (in minutes): 35
[2020-04-18 12:08] VITALS: O2SAT 96
[2020-04-18 12:20] VITALS: BP 122/64; TEMP 99
== END 2020-04-18 12:45 | disposition home or self-care (01) | DRG 433 ==
LOC: ER 12:36 → ERHOLD 16:17 → 2ND 17:22
PROVIDERS: ADMIT Internal Medicine; ATTEND Hospitalist
PROC: 0W9930Z Drainage of Right Pleural Cavity with Drainage Device, Percutaneous Approach (ICD-10-PCS; principal; 2020-04-14)
PROC: 3E0L3GC Introduction of Other Therapeutic Substance into Pleural Cavity, Percutaneous Approach (ICD-10-PCS; 2020-04-17)
DX: K70.31 Alcoholic cirrhosis of liver with ascites (principal); J90 Pleural effusion, not elsewhere classified; K76.6 Portal hypertension; J94.8 Other specified pleural conditions; I10 Essential (primary) hypertension; I86.8 Varicose veins of other specified sites; D73.2 Chronic congestive splenomegaly; D64.9 Anemia, unspecified; Z87.891 Personal history of nicotine dependence; Z79.899 Other long term (current) drug therapy; Z20.828 Contact with and (suspected) exposure to other viral communicable diseases
CPT/HCPCS: 36415; 71045; 71275; 74177; 80048; 80053; 80076; 81003; 83735; 83880; 84100; 84484; 85025; 85027; 85610; 87070; 87205; 87804; 88108; 88305; 89050; 93005; 94760; 96374; 99285; J1940; J2270; J3480; J7050; P9047; Q9967; U0003

== ENCOUNTER 2020-04-21 12:37 | Emergency (ER) | payer SELFPAY ==
--- OUTSIDE RECORDS SUMMARY | 2020-04-21 12:42 | XMS REPORT | Continuity of Care Document ---
:1980 Author Organization [facility] t Address [address] [place] [address] Dr. Carnes[address] [place] [address] Care Team Providers Name Role Phone Jeison [...] 2020-04-10 2020-04-10 Transition Dylan Mchugh [id number] 00:00:00 00:00:00 of Care Karina Arredondo [id number] Sherrill [id number] 2020-04-04 2020-04-08 [facility] Mabel Quintanilla [id number] 19:39:00 13:15:00 Encounter Heraclio Villanueva [id number] Barbara, [facility] [id number] [id number] Results This patient has no known results.
[2020-04-21 13:34] LABS: Absolute Lymphocytes (CBC) 2.8 K/uL (0.7-4.9); Basophils % 1.1 % (0-1.3); Hematocrit 22.8 % (39.6-49.0); Lymphocytes % 27.8 % (15.3-44.8); MPV 10.7 fL (7.6-11.3); RBC Red Blood Cell Count 2.78 M/uL (4.33-5.43)
[2020-04-21 13:36] LABS: Protime INR 1.46
[2020-04-21 13:48] LABS: ALT/SGPT 40 U/L (12-78); AST/SGOT 89 U/L (15-37); Albumin 2.1 g/dL (3.4-5.0); Alkaline Phosphatase 209 U/L (45-117); BUN Blood Urea Nitrogen 31 mg/dL (7-18); Bicarbonate 23 mmol/L (21-32); Bilirubin Direct 2.2 mg/dL (0-0.2); Bilirubin Total 2.9 mg/dL (0.2-1.0); Glucose Level 107 mg/dL (74-106); Lipase 308 U/L (73-393); Magnesium 2.4 mg/dL (1.8-2.4); NT PRO-BNP 100 pg/mL (<125); Potassium 5.3 mmol/L (3.5-5.1); Protein, Total 6.3 g/dL (6.4-8.2); Sodium Level 138 mmol/L (136-145); Troponin (Emerg Dept Use Only) < 0.02 ng/mL (0.0-0.045)
--- NOTE | 2020-04-21 13:52 | RAD REPORT ---
EXAM DESCRIPTION: RAD - Chest Single View - 04/21/2020 1:40 pm CLINICAL HISTORY: COUGH, abdominal pain, vomiting, cirrhosis and esophageal varices COMPARISON: Portable April 18 TECHNIQUE: AP portable chest image was obtained 04/21/2020 1:40 pm . FINDINGS: Lung volumes are very low. No mass or consolidation identified. Lung base atelectasis blackburn ges are present. Heart and vasculature are normal. No measurable pleural effusion and no pneumothorax . No acute bony abnormality seen. No acute aortic findings suspected. IMPRESSION: Limited portable exam with no acute cardiopulmonary process.
[2020-04-21] MEDS ORDERED: PANTOPRAZOLE INJ 80 MG in NA CHLORIDE 0.9% 250 ML IV SCH (14:00)
[2020-04-21] MEDS ORDERED: THIAMINE 200 MG/2 ML INJ ONE (14:34)
[2020-04-21] MEDS ORDERED: ONDANSETRON 4 MG/2 ML VIAL ONE (14:35)
[2020-04-21] MEDS ORDERED: OCTREOTIDE ACETATE 100 MCG/ML ONE (14:35)
[2020-04-21] MEDS ORDERED: PANTOPRAZOLE 40 MG INJ ONE (14:35)
[2020-04-21] MEDS ORDERED: NA CHLORIDE 0.9% 1,000 ML ONE (14:35)
[2020-04-21] MEDS ORDERED: SOD POLYSTYREN SUL 15 GM/60 ML UCUP ONE ×2 (14:58→16:44)
--- NOTE | 2020-04-21 15:20 | ER ---
Nurse's Notes [facility] Name: Willis Barba Age: 39 yrs Sex: Male : 1980 Arrival Date: 04/21/2020 Time: 12:39 Bed 18 Private MD: Diagnosis: Alcoholic cirrhosis of liver;Hyperkalemia;Esophageal varices with bleeding;Anemia, unspecified Presentation: 04/21 12:50 Chief complaint: Patient states: Vomiting blood since this morning, x 3. Hx of Liver ca1 Cirrhosis and Esophageal varices. Was [facility] for same thing few weeks ago. Chest tube inserted here and was taken out , now draining clear fluid when ever I throw up. Coronavirus screen: Client denies travel out of the [place] in the last 14 days. The client reports previous COVID testing was negative. Date of collection: April 2020. Ebola Screen: Patient negative for fever greater than or equal to 101.5 degrees Fahrenheit, and additional compatible Ebola Virus Disease symptoms Patient denies exposure to infectious person. Patient denies travel to an Ebola-affected area in the 21 days before illness onset. No symptoms or risks identified at this time. Initial Sepsis Screen: Does the patient meet any 2 criteria? No. Patient's initial sepsis screen is negative. Does the patient have a suspected source of infection? No. Patient's initial sepsis screen is negative. Risk Assessment: Do you want to hurt yourself or someone else? Patient reports no desire to harm self or others. Onset of symptoms was April 21, 2020. 12:50 Method Of Arrival: Wheelchair ca1 12:50 Acuity: NIDIA 2 ca1 Triage Assessment: 13:00 General: Appears distressed, uncomfortable, Behavior is cooperative, appropriate for bp age, anxious. Pain: Denies pain. EENT: No deficits noted. Neuro: Level of Consciousness is awake, alert, obeys commands, Oriented to person, place, time, situation, Appropriate for age. Cardiovascular: No deficits noted. Respiratory: No deficits noted. GI: Reports HEMATEMESIS. : No signs and/or symptoms were reported regarding the genitourinary system. Derm: No deficits noted. Musculoskeletal: No deficits noted. Historical: - Allergies: 13:02 No Known Allergies; ca1 - PMHx: 13: Hypertension; Liver disease; Cirrhosis; ca1 - PSHx: 13:02 liver procedure; ca1 - Immunization history:: Adult Immunizations up to date. - Social history:: Smoking status: Patient/guardian denies using tobacco, but has a distant history of tobacco abuse. - Family history:: not pertinent. Screenin:00 Abuse screen: Denies threats or abuse. Denies injuries from another. Nutritional bp screening: No deficits noted. Tuberculosis screening: No symptoms or risk factors identified. Fall Risk None identified. Assessment: 13:00 General: SEE TRIAGE NOTE. bp 14:00 Reassessment: No changes from previously documented assessment. Patient and/or family bp updated on plan of care and expected duration. Pain level reassessed. TRANSFER INITIATED. Derm: Skin is pale. 14:20 Reassessment: TRANSFUSE ORDERS FAXED TO BLOOD BANK, PER MD. bp 16:00 Reassessment: TRANSFER IN PROCESS. NO FURTHER VOMITING OR HEMATEMESIS NOTED. bp 18:01 Reassessment: REPORT TO REA OSULLIVAN FOR [facility]. BLOOD CONSENT SIGNED AND bp WITNESSED. TRANSPORT PENDING. 18:30 Reassessment: PT ACUTELY CONFUSED, SPEECH RAMBLING, SLURRED AND INCOHERENT. PER , bp CONFUSION OCCURRED ACUTELY WITHIN LAST 10 MINUTES. MD INFORMED. 1ST UNIT PRBC INITIATED. 18:45 Reassessment: MD AT B. PT REMAINS ACUTELY CONFUSED, NOW AOx1. PT UPGRADED TO bp CRITICAL, FLIGHT TRANSPORT INITIATED. 19:30 Reassessment: FLIGHT AT [facility]. PT REMAINS AOx1, ESPARZA PLACED BY FLIGHT. [facility] bp TRANSFER CENTER CONTACTED AND UPDATED ON PT CONDITION. BLOOD TRANSFUSING, CHECKED WITH FLIGHT NURSE. Vital Signs: 12:50 BP 117 / 55; Pulse 79; Resp 16 S; Temp 97.4(TE); Pulse Ox 100% on R/A; Weight 68.04 kg ca1 (R); Height 5 ft. 7 in. (170.18 cm) (R); Pain 0/10; 14:00 BP 102 / 54; Pulse 70; Resp 15; Pulse Ox 100% ; bp 15:00 BP 107 / 49; Pulse 86; Resp 15; Pulse Ox 100% ; bp 16:00 BP 106 / 46; Pulse 75; Resp 15; Pulse Ox 100% ; bp 17:00 BP 110 / 58; Pulse 75; Resp 14; Pulse Ox 100% ; bp 18:01 BP 93 / 67; Pulse 72; Resp 16; Pulse Ox 100% ; bp 19:03 BP 109 / 46; Pulse 76; Resp 14; Temp 97.3; Pulse Ox 100% ; bp 19:31 BP 91 / 64; Pulse 67; Resp 13; Pulse Ox 100% ; bp 12:50 Body Mass Index 23.49 (68.04 kg, 170.18 cm) ca1 ED Course: 12:39 Patient arrived in ED. ag5 12:51 Cabrera Lopez MD is Attending Physician. yeni 12:57 Rowdy Willson, ABRAN is Primary Nurse. bp 13:00 Patient has correct armband on for positive identification. Bed in low position. Call bp light in reach. Side rails up X2. Adult w/ patient. 13:01 Triage completed. ca1 13:02 Arm band placed on right wrist. ca1 13:05 Inserted saline lock: 18 gauge in right antecubital area, using aseptic technique. bp 13:10 Inserted saline lock: 18 gauge in right forearm, using aseptic technique. bp 13:15 Inserted saline lock: 20 gauge in right hand, using aseptic technique. bp 13:41 XRAY Chest (1 view) In Process Unspecified. EDMS 18:03 No provider procedures requiring assistance completed. Patient transferred, IV remains bp in place. 19:30 Esparza cath inserted, using sterile technique, 18 Fr., balloon inflated, to gravity bp drainage, urine specimen collected. Administered Medications: 13:25 Drug: Thiamine 100 mg Route: IV; Rate: per protocol; Site: right forearm; bp 16:50 Follow up: IV Status: Completed infusion bp 13:30 Drug: ProTONIX 80 mg Route: IVP; Site: right forearm; bp 14:53 Follow up: Response: No adverse reaction bp 13:30 Drug: ProTONIX 8 mg/hr Route: IV; Rate: 25 ml/hr; Site: right forearm; bp 18:04 Follow up: IV Status: Infusion continued upon transfer bp 13:30 Drug: SandoSTATIN 100 mcg Route: IV; Rate: per protocol; Site: right forearm; bp 16:50 Follow up: IV Status: Completed infusion bp 13:30 Drug: Zofran (Ondansetron) 4 mg Route: IVP; Site: right forearm; bp 14:54 Follow up: Response: Nausea is decreased bp 13:30 Drug: NS 0.9% 1000 ml Route: IV; Rate: 125 ml/hr; Site: right forearm; bp 18:04 Follow up: IV Status: Infusion continued upon transfer bp 14:30 Drug: Kayexalate 30 grams Route: PO; bp 16:50 Follow up: Response: No adverse reaction bp 15:45 Drug: Vitamin K1 10 mg Route: Sub-Q; Site: right lower abdomen; bp 16:50 Follow up: Response: No adverse reaction bp 15:59 Drug: SandoSTATIN 50 mcg/h Route: IV; Rate: calculated rate; Site: right forearm; bp 18:03 Follow up: IV Status: Infusion continued upon transfer bp 16:45 Drug: Rocephin 1 grams Route: IV; Rate: per protocol; Site: right forearm; bp 17:27 Follow up: IV Status: Completed infusion bp Output: 19:30 Urine: 700ml (Esparza); Total: 700ml. bp Outcome: 15:19 ER care complete, transfer ordered by . yeni 18:03 Transferred by ground EMS to [facility], Transfer form completed. bp 18:03 Condition: stable 18:03 Instructed on the need for transfer. 19:48 Patient left the ED. dm5 Signatures: Dispatcher [employer] EDDigna Paulino RN RN dm5 Cabrera Lopez MD MD cha Peltier, Brian, RN Edie Hernandez RN Maria Eugenia Cox 5 Corrections: (The following items were deleted from the chart) 19:31 18:30 Reassessment: PT ACUTELY CONFUSED, SPEECH RAMBLING, SLURRED AND INCOHERENT. PER bp , CONFUSION OCCURRED ACUTELY WITHIN LAST 10 MINUTES. MD INFORMED bp
--- NOTE | 2020-04-21 15:20 | EDPHYS ---
Physician Documentation [facility] Name: Willis Barba Age: 39 yrs Sex: Male : 1980 Arrival Date: 04/21/2020 Time: 12:39 Bed 18 Private MD: ED Physician Cabrera Lopez HPI: 04/21 14:22 This 39 yrs old Male presents to ER via Wheelchair with complaints of Vomiting yeni Blood, Incision Problem. 14:22 The patient presents to the emergency department vomiting blood, a moderate amount. yeni Onset: The symptoms/episode began/occurred just prior to arrival. Abdominal pain: none is appreciated. Modifying factors: The symptoms are alleviated by nothing, the symptoms are aggravated by food, movement, PO intake. weak, pain, just out of [facility]. hx of cirrhosis, etoh abuse, varices, recent right chest tube for effusion, still leaking. Associated signs and symptoms: Pertinent positives: anorexia, dizziness when standing, shortness of breath. Severity of symptoms: At their worst the symptoms were mild moderate in the emergency department the symptoms have improved mildly. The patient has experienced similar episodes in the past, multiple times. Historical: - Allergies: 13:02 No Known Allergies; ca1 - PMHx: 13:02 Hypertension; Liver disease; Cirrhosis; ca1 - PSHx: 13:02 liver procedure; ca1 - Immunization history:: Adult Immunizations up to date. - Social history:: Smoking status: Patient/guardian denies using tobacco, but has a distant history of tobacco abuse. - Family history:: not pertinent. ROS: 14:22 Constitutional: Negative for fever, chills, and weight loss, ENT: Negative for injury, yeni pain, and discharge, Neck: Negative for injury, pain, and swelling, Cardiovascular: Negative for chest pain, palpitations, and edema, Respiratory: Negative for shortness of breath, cough, wheezing, and pleuritic chest pain, Back: Negative for injury and pain, : Negative for injury, bleeding, discharge, and swelling, MS/Extremity: Negative for injury and deformity, Neuro: Negative for headache, weakness, numbness, tingling, and seizure, Psych: Negative for depression, anxiety, suicide ideation, homicidal ideation, and hallucinations, Allergy/Immunology: Negative for hives, rash, and allergies, Endocrine: Negative for neck swelling, polydipsia, polyuria, polyphagia, and marked weight changes, Hematologic/Lymphatic: Negative for swollen nodes, abnormal bleeding, and unusual bruising. 14:22 Eyes: Positive for jaundice. 14:22 Abdomen/GI: Positive for nausea and vomiting, hematemesis. 14:22 Skin: Positive for pallor. Exam: 14:22 Head/Face: Normocephalic, atraumatic. ENT: Nares patent. No nasal discharge, no yeni septal abnormalities noted. Tympanic membranes are normal and external auditory canals are clear. Oropharynx with no redness, swelling, or masses, exudates, or evidence of obstruction, uvula midline. Mucous membranes moist. Neck: Trachea midline, no thyromegaly or masses palpated, and no cervical lymphadenopathy. Supple, full range of motion without nuchal rigidity, or vertebral point tenderness. No Meningismus. Chest/axilla: Normal chest wall appearance and motion. Nontender with no deformity. No lesions are appreciated. Cardiovascular: Regular rate and rhythm with a normal S1 and S2. No gallops, murmurs, or rubs. Normal PMI, no JVD. No pulse deficits. Respiratory: Lungs have equal breath sounds bilaterally, clear to auscultation and percussion. No rales, rhonchi or wheezes noted. No increased work of breathing, no retractions or nasal flaring. Abdomen/GI: Soft, non-tender, with normal bowel sounds. No distension or tympany. No guarding or rebound. No evidence of tenderness throughout. Back: No spinal tenderness. No costovertebral tenderness. Full range of motion. MS/ Extremity: Pulses equal, no cyanosis. Neurovascular intact. Full, normal range of motion. Neuro: Awake and alert, GCS 15, oriented to person, place, time, and situation. Cranial nerves II-XII grossly intact. Motor strength 5/5 in all extremities. Sensory grossly intact. Cerebellar exam normal. Normal gait. Psych: Awake, alert, with orientation to person, place and time. Behavior, mood, and affect are within normal limits. 14:22 Constitutional: The patient appears in obvious distress, moderately distressed. 14:22 Eyes: Conjunctiva: pale, Sclera: icterus, is present. 14:22 ECG was reviewed by the Attending Physician. 14:22 Abdomen/GI: Inspection: abdomen appears normal, Bowel sounds: active, Palpation: soft, Liver: no appreciated palpable abnormalities, Hernia: not appreciated. 14:22 Skin: Appearance: Color: jaundiced, pale, Temperature: normal temperature, Moisture: normal moisture, petechiae, not noted, ecchymosis, not noted, flushing, not noted, diaphoresis is not appreciated. Vital Signs: 12:50 BP 117 / 55; Pulse 79; Resp 16 S; Temp 97.4(TE); Pulse Ox 100% on R/A; Weight 68.04 kg ca1 (R); Height 5 ft. 7 in. (170.18 cm) (R); Pain 0/10; 14:00 BP 102 / 54; Pulse 70; Resp 15; Pulse Ox 100% ; bp 15:00 BP 107 / 49; Pulse 86; Resp 15; Pulse Ox 100% ; bp 16:00 BP 106 / 46; Pulse 75; Resp 15; Pulse Ox 100% ; bp 17:00 BP 110 / 58; Pulse 75; Resp 14; Pulse Ox 100% ; bp 18:01 BP 93 / 67; Pulse 72; Resp 16; Pulse Ox 100% ; bp 19:03 BP 109 / 46; Pulse 76; Resp 14; Temp 97.3; Pulse Ox 100% ; bp 19:31 BP 91 / 64; Pulse 67; Resp 13; Pulse Ox 100% ; bp 12:50 Body Mass Index 23.49 (68.04 kg, 170.18 cm) ca1 MDM: 12:51 Patient medically screened. yeni 15:11 Differential diagnosis: gastritis, varices. Data reviewed: vital signs, nurses notes, [facility] lab test result(s), EKG, radiologic studies, plain films. Data interpreted: manager monitoring: rate is 70 beats/min, rhythm is regular, Pulse oximetry: on room air is 100 %. Test interpretation: by ED physician or midlevel provider: ECG, plain radiologic studies. Counseling: I had a detailed discussion with the patient and/or guardian regarding: the historical points, exam findings, and any diagnostic results supporting the discharge/admit diagnosis, lab results, radiology results, the need to transfer to another facility, for higher level of care, [facility] does not immediately have the required specialist. 19:25 Differential Diagnosis altered mental status, sepsis. ED course: pt remained yeni hemodynamically stable, got confused with nausea meds per , non focal, know name, hemo stable, dw attending, [facility]ef[facility] loading patient now. 04/21 13:06 Order name: Basic Metabolic Panel [facility] 04/21 13:06 Order name: CBC with Diff [facility] 04/21 13:06 Order name: LFT's [facility] 04/21 13:06 Order name: Magnesium [facility] 04/21 13:06 Order name: NT PRO-BNP [facility] 04/21 13:06 Order name: PT-INR; Complete Time: 14:14 [facility] 04/21 13:06 Order name: Troponin (emerg Dept Use Only); Complete Time: 14:14 [facility] 04/21 13:06 Order name: Lipase; Complete Time: 14:14 [facility] 04/21 13:06 Order name: Type And Screen [facility] 04/21 13:07 Order name: Basic Metabolic Panel; Complete Time: 14:14 [facility] 04/21 13:07 Order name: CBC with Automated Diff; Complete Time: 14:14 [facility] 04/21 13:07 Order name: Liver (Hepatic) Function; Complete Time: 14:14 [facility] 04/21 13:07 Order name: Magnesium; Complete Time: 14:14 [facility] 04/21 13:07 Order name: NT PRO-BNP; Complete Time: 14:14 [facility] 04/21 13:06 Order name: XRAY Chest (1 view); Complete Time: 14:14 [facility] 04/21 13:06 Order name: EKG; Complete Time: 13:08 [facility] 04/21 16:09 Order name: ABO/RH no charge; Complete Time: 18:39 [facility] 04/21 17:35 Order name: Packed RBCs (Additional Unit) [facility] 04/21 18:56 Order name: Glucose, Ancillary Testing; Complete Time: 19:23 [facility] 04/21 13:06 Order name: Cardiac monitoring; Complete Time: 13:18 [facility] 04/21 13:06 Order name: EKG - Nurse/Tech; Complete Time: 13:43 [facility] 04/21 13:06 Order name: IV Saline Lock; Complete Time: 13:18 [facility] 04/21 13:06 Order name: Labs collected and sent; Complete Time: 13:18 [facility] 04/21 13:06 Order name: O2 Per Protocol; Complete Time: 13:18 [facility] 04/21 13:06 Order name: O2 Sat Monitoring; Complete Time: 13:18 [facility] 04/21 13:06 Order name: IV Saline Lock - Large Bore; Complete Time: 13:43 yeni 04/21 18:40 Order name: Blood Glucose Level; Complete Time: 19:00 yeni EC:22 Rate is 77 beats/min. Rhythm is regular. QRS [place] is Normal. OK interval is normal. QRS yeni interval is normal. QT interval is prolonged at 484 msec. No Q waves. T waves are Normal. No ST changes noted. Clinical impression: NSR w/ Non-specific ST/T Changes and No evidence of ischemia. Interpreted by me. Reviewed by me. Administered Medications: 13:25 Drug: Thiamine 100 mg Route: IV; Rate: per protocol; Site: right forearm; bp 16:50 Follow up: IV Status: Completed infusion bp 13:30 Drug: ProTONIX 80 mg Route: IVP; Site: right forearm; bp 14:53 Follow up: Response: No adverse reaction bp 13:30 Drug: ProTONIX 8 mg/hr Route: IV; Rate: 25 ml/hr; Site: right forearm; bp 18:04 Follow up: IV Status: Infusion continued upon transfer bp 13:30 Drug: SandoSTATIN 100 mcg Route: IV; Rate: per protocol; Site: right forearm; bp 16:50 Follow up: IV Status: Completed infusion bp 13:30 Drug: Zofran (Ondansetron) 4 mg Route: IVP; Site: right forearm; bp 14:54 Follow up: Response: Nausea is decreased bp 13:30 Drug: NS 0.9% 1000 ml Route: IV; Rate: 125 ml/hr; Site: right forearm; bp 18:04 Follow up: IV Status: Infusion continued upon transfer bp 14:30 Drug: Kayexalate 30 grams Route: PO; bp 16:50 Follow up: Response: No adverse reaction bp 15:45 Drug: Vitamin K1 10 mg Route: Sub-Q; Site: right lower abdomen; bp 16:50 Follow up: Response: No adverse reaction bp 15:59 Drug: SandoSTATIN 50 mcg/h Route: IV; Rate: calculated rate; Site: right forearm; bp 18:03 Follow up: IV Status: Infusion continued upon transfer bp 16:45 Drug: Rocephin 1 grams Route: IV; Rate: per protocol; Site: right forearm; bp 17:27 Follow up: IV Status: Completed infusion bp Disposition: 04/21/20 15:19 Transfer ordered to [facility]. Diagnosis are Alcoholic cirrhosis of liver, Hyperkalemia, Esophageal varices with bleeding, Anemia, unspecified. - Reason for transfer: Higher level of care. - Accepting physician is to [facility] [place] - Condition is Serious. - Problem is new. - Symptoms have improved. Signatures: Dispatcher [employer] Digna Reyna RN RN [id number] Cabrera Lopez MD MD cha Peltier, Brian, RN RN bp Edie Duval RN RN ca1 Corrections: (The following items were deleted from the chart) 16:02 15:19 04/21/2020 15:[facility] is Alcoholic yeni cirrhosis of liver; Hyperkalemia; Esophageal varices with bleeding; Anemia, unspecified. Reason for transfer: Higher level of care. Accepting physician is to [facility]. Condition is Serious. Problem is new. Symptoms have improved. [facility] 19:48 16:02 04/21/2020 15:19 [facility] Diagnosis is Alcoholic dm5 cirrhosis of liver; Hyperkalemia; Esophageal varices with bleeding; Anemia, unspecified. Reason for transfer: Higher level of care. Accepting physician is to [facility] [place]. Condition is Serious. Problem is new. Symptoms have improved. yeni
[2020-04-21] MEDS ORDERED: VITAMIN K (ADULT) 10 MG/ML ONE (15:55)
[2020-04-21] MEDS ORDERED: OCTREOTIDE 500 MCG in NA CHLORIDE 0.9% 500 ML IV SCH (16:00)
[2020-04-21] MEDS ORDERED: OCTREOTIDE 500 MCG in NA CHLORIDE 0.9% 500 ML IV ONE (16:00)
[2020-04-21] MEDS ORDERED: CEFTRIAXONE/SWI 1gm 1 GM/10 ML SYR ONE (17:22)
[2020-04-21] MEDS ORDERED: NA CHLORIDE 0.9% 250 ML ONE (18:30)
[2020-04-25 02:36] VITALS: O2SAT 100
[2020-04-25 02:44] VITALS: TEMP 97.3
[2020-04-25 02:45] VITALS: BP 91/64
== END 2020-04-21 19:48 | disposition short-term general hospital (02) ==
LOC: ER 12:37
PROC: 30233N1 Transfusion of Nonautologous Red Blood Cells into Peripheral Vein, Percutaneous Approach (ICD-10-PCS; principal; 2020-04-21)
DX: D64.9 Anemia, unspecified (principal); E87.5 Hyperkalemia; K70.30 Alcoholic cirrhosis of liver without ascites; I10 Essential (primary) hypertension
CPT/HCPCS: 36415; 51702; 71045; 80048; 80076; 82947; 83690; 83735; 83880; 84484; 85025; 85610; 86850; 86900; 86901; 93005; 96365; 96366; 96367; 96372; 96375; 99285; C9113; J0696; J2354; J2405; J3411; J3430; J7030; J7040; J7050; P9016

== ENCOUNTER 2020-05-18 02:26 | Emergency (ER) | payer SELFPAY ==
--- OUTSIDE RECORDS SUMMARY | 2020-05-18 02:31 | XMS REPORT | Clinical Summary ---
:1980 Author Organization [facility] Address [address] [place] [address] Care Team Providers Name Role Phone Unavailable Primary Care Provider Unavailable Allergies No Known Allergies Medications Medication Sig Dispensed Refills Start Date End Date Status ferrous sulfate 325 Take 1 tablet 30 tablet 11 04/29/202004/29 Active (65 FE) MG tablet (325 mg total) by mouth daily with breakfast. folic acid (FOLVITE) 1 Take 1 tablet (1 30 tablet 11 04/29/2020 04/29/2021 Active MG tablet mg total) by mouth daily. lactulose (CHRONULAC) Take 30 mLs (20 2700 mL 2 04/29/2020 0 05/29/2020 Active 20 gram/30 mL solution g total) by mouth 3 (three) times daily for 30 days. pantoprazole Take 1 tablet 30 tablet 0 04/29/2020 Ac tive (PROTONIX) 40 MG (40 mg total) by tablet mouth 2 (two) times daily. rifAXIMin 550 mg Tab Take 1 tablet 60 tablet 1 04/29/2020 Active (550 mg total) by mouth 2 (two) times daily. thiamine 100 MG tablet Take 1 tablet 30 tablet 11 04/30/2020 Active (100 mg total) by mouth daily. Active Problems Problem Noted Date Hepatic encephalopathy 04/22/2020 ALC (alcoholic liver cirrhosis) 04/22/2020 GI bleed 04/21/2020 Encounters Date Type Specialty Care Team Description 05/13/2020 Telephone General Internal Rahel Nicholson Follow-up Medicine PIEDAD Shaw 04/28/2020 Travel 04/22/2020 Anesthesia Event Gastroenterology Krysten Coto 04/22/2020 Surgery Gastroenterology Kalpana Willett MD 04/21/2020 Hospital General Internal Louise Gill, Gastroi ntestinal hemorrhage with hematemesis (Primary Dx); - Encounter Medicine Fran Meeks, Morales ci rrhosis of liver without ascites (HCC); 04/29/2020 Hepatic encephalopathy (HCC); Omari Acute metabolic encephalopathy; Pedro Respiratory bony lure requiring intubation (HCC); MD Chauncey Immunity status testing; Ottoniel Kelsey, Screening f or malignant neoplasm; Esophageal varices without bleeding, uns pecified esophageal varices type (HCC); Katey Mcfarlane Shock (HCC) ; MD Diane Portal hyper tension (HCC); Esophageal ulce r with bleeding; Acute respirato ry failure with hypoxia (HCC); Pleural effusio n 04/21/2020 Telephone Critical Care Medicine des Gu MD after 05/18/2019 Social History Tobacco Use Types Packs/Day Years Used Date Never Assessed Sex Assigned at Date Recorded Not on file COVID-19 Exposure Response Date Recorded In the last month, have you been in contact with No / Unsure 04/28/2020 10:50 PM CHLORINATION OPERATOR someone who was confirmed or suspected to have Coronavirus / COVID-19? Last Filed Vital Signs Vital Sign Reading Time Taken Comments Blood Pressure 125/62 04/29/2020 11:19 AM CHLORINATION OPERATOR Pulse 76 04/29/2020 11:19 AM CHLORINATION OPERATOR Temperature 36.8 C (98.2 F) 04/29/2020 11:19 AM CHLORINATION OPERATOR Respiratory Rate 18 04/29/2020 11:19 AM CHLORINATION OPERATOR Oxygen Saturation 100% 04/29/2020 11:19 AM CHLORINATION OPERATOR Inhaled Oxygen Concentration 40% 04/26/2020 9:25 AM CHLORINATION OPERATOR Weight 78 kg (172 lb) 04/29/2020 6:00 AM CHLORINATION OPERATOR Height 170 cm (5' 6.93") 04/21/2020 10:00 PM CHLORINATION OPERATOR Body Mass Index 27 04/21/2020 10:00 PM CHLORINATION OPERATOR Plan of Treatment Health Maintenance Due Date Last Done Comments HEPATITIS B VACCINE (1 of 3 - Risk 3-dose series) 1997 LIPID PANEL 2013 INFLUENZA VACCINE (#1) 2020 DEPRESSION SCREENING (12+) 05/10/2020 Procedures Procedure Name Priority Date/Time Associated Comments Diagnosis POCT-GLUCOSE METER Routine 04/29/2020 12:20 Resul ts for this PM CHLORINATION OPERATOR procedure are i n the results section. POCT-GLUCOSE METER Routine 04/29/2020 7:47 Resul ts for this AM CHLORINATION OPERATOR procedure are i n the results section. SARS-COV2/RT-PCR STAT 04/29/2020 6:02 Results for this ([facility]) AM CHLORINATION OPERATOR procedure are in the results section. CBC W/PLT COUNT & Routine 04/29/2020 4:00 Result s for this AUTO DIFFERENTIAL AM CHLORINATION OPERATOR procedure are in the results section. CALCIUM, IONIZED STAT 04/29/2020 4:00 Results for this AM CHLORINATION OPERATOR procedure are i n the results section. PHOSPHORUS Routine 04/29/2020 4:00 Results for this AM CHLORINATION OPERATOR procedure are i n the results section. MAGNESIUM Routine 04/29/2020 4:00 Results for this AM CHLORINATION OPERATOR procedure are i n the results section. PROTHROMBIN TIME/INR Routine 04/29/2020 4:00 Res ults for this AM CHLORINATION OPERATOR procedure are i n the results section. PT/APTT Routine 04/29/2020 4:00 Results for this AM CHLORINATION OPERATOR procedure are i n the results section. CBC W/PLT COUNT & Routine 04/29/2020 4:00 Result s for this AUTO DIFFERENTIAL AM CHLORINATION OPERATOR procedure are in the results section. COMPREHENSIVE Routine 04/29/2020 4:00 Results fo r this METABOLIC PANEL AM CHLORINATION OPERATOR procedure ar e in the results section. POCT-GLUCOSE METER Routine 04/29/2020 1:17 Resul ts for this AM CHLORINATION OPERATOR procedure are i n the results section. POCT-GLUCOSE METER Routine 04/28/2020 5:13 Resul ts for this PM CHLORINATION OPERATOR procedure are i n the results section. HEMOGLOBIN AND Routine 04/28/2020 2:13 Results f or this HEMATOCRIT PM CHLORINATION OPERATOR procedure are i n the results section. POCT-GLUCOSE METER Routine 04/28/2020 11:38 Resul ts for this AM CHLORINATION OPERATOR procedure are i n the results section. POCT-GLUCOSE METER Routine 04/28/2020 6:13 Resul ts for this AM CHLORINATION OPERATOR procedure are i n the results section. CBC W/PLT COUNT & Routine 04/28/2020 4:55 Result s for this AUTO DIFFERENTIAL AM CHLORINATION OPERATOR procedure are in the results section. HEMOGLOBIN AND Routine 04/28/2020 4:55 Results f or this HEMATOCRIT AM CHLORINATION OPERATOR procedure are i n the results section. CALCIUM, IONIZED STAT 04/28/2020 4:55 Results for this AM CHLORINATION OPERATOR procedure are i n the results section. PHOSPHORUS Routine 04/28/2020 4:55 Results for this AM CHLORINATION OPERATOR procedure are i n the results section. MAGNESIUM Routine 04/28/2020 4:55 Results for this AM CHLORINATION OPERATOR procedure are i n the results section. PROTHROMBIN TIME/INR Routine 04/28/2020 4:55 Res ults for this AM CHLORINATION OPERATOR procedure are i n the results section. PT/APTT Routine 04/28/2020 4:55 Results for this AM CHLORINATION OPERATOR procedure are i n the results section. CBC W/PLT COUNT & Routine 04/28/2020 4:55 Result s for this AUTO DIFFERENTIAL AM CHLORINATION OPERATOR procedure are in the results section. COMPREHENSIVE Routine 04/28/2020 4:55 Results fo r this METABOLIC PANEL AM CHLORINATION OPERATOR procedure ar e in the results section. HEMOGLOBIN AND Routine 04/28/2020 12:08 Results f or this HEMATOCRIT AM CHLORINATION OPERATOR procedure are i n the results section. POCT-GLUCOSE METER Routine 04/27/2020 11:54 Resul ts for this PM CHLORINATION OPERATOR procedure are i n the results section. HEMOGLOBIN AND Routine 04/27/2020 3:28 Results f or this HEMATOCRIT PM CHLORINATION OPERATOR procedure are i n the results section. POCT-GLUCOSE METER Routine 04/27/2020 1:06 Resul ts for this PM CHLORINATION OPERATOR procedure are i n the results section. POCT-GLUCOSE METER Routine 04/27/2020 11:26 Resul ts for this AM CHLORINATION OPERATOR procedure are i n the results section. XR CHEST 1 VIEW STAT 04/27/2020 10:30 Results for this PORTABLE/BEDSIDE AM CHLORINATION OPERATOR procedure a re in the results section. HEMOGLOBIN AND Routine 04/27/2020 8:06 Results f or this HEMATOCRIT AM CHLORINATION OPERATOR procedure are i n the results section. BLOOD GAS, ARTERIAL STAT 04/27/2020 2:57 Resu lts for this AM CHLORINATION OPERATOR procedure are i n the results section. CBC W/PLT COUNT & Routine 04/27/2020 2:56 Result s for this AUTO DIFFERENTIAL AM CHLORINATION OPERATOR procedure are in the results section. CALCIUM, IONIZED STAT 04/27/2020 2:56 Results for this AM CHLORINATION OPERATOR procedure are i n the results section. PHOSPHORUS Routine 04/27/2020 2:56 Results for this AM CHLORINATION OPERATOR procedure are i n the results section. MAGNESIUM Routine 04/27/2020 2:56 Results for this AM CHLORINATION OPERATOR procedure are i n the results section. PROTHROMBIN TIME/INR Routine 04/27/2020 2:56 Res ults for this AM CHLORINATION OPERATOR procedure are i n the results section. PT/APTT Routine 04/27/2020 2:56 Results for this AM CHLORINATION OPERATOR procedure are i n the results section. CBC W/PLT COUNT & Routine 04/27/2020 2:56 Result s for this AUTO DIFFERENTIAL AM CHLORINATION OPERATOR procedure are in the results section. COMPREHENSIVE Routine 04/27/2020 2:56 Results fo r this METABOLIC PANEL AM CHLORINATION OPERATOR procedure ar e in the results section. HEMOGLOBIN AND Routine 04/27/2020 2:56 Results f or this HEMATOCRIT AM CHLORINATION OPERATOR procedure are i n the results section. POCT-GLUCOSE METER Routine 04/26/2020 6:36 Resul ts for this PM CHLORINATION OPERATOR procedure are i n the results section. HEMOGLOBIN AND Routine 04/26/2020 5:15 Results f or this HEMATOCRIT PM CHLORINATION OPERATOR procedure are i n the results section. MR ABDOMEN WITH & DANIELLE 04/26/2020 4:08 Result s for this WITHOUT IV CONTRAST PM CHLORINATION OPERATOR procedur e are in the results section. HEMOGLOBIN AND Routine 04/26/2020 9:10 Results f or this HEMATOCRIT AM CHLORINATION OPERATOR procedure are i n the results section. POCT-GLUCOSE METER Routine 04/26/2020 5:55 Resul ts for this AM CHLORINATION OPERATOR procedure are i n the results section. BLOOD GAS, ARTERIAL STAT 04/26/2020 5:52 Resu lts for this AM CHLORINATION OPERATOR procedure are i n the results section. CBC W/PLT COUNT & Routine 04/26/2020 12:57 Result s for this AUTO DIFFERENTIAL AM CHLORINATION OPERATOR procedure are in the results section. CALCIUM, IONIZED STAT 04/26/2020 12:57 Results for this AM CHLORINATION OPERATOR procedure are i n the results section. PHOSPHORUS Routine 04/26/2020 12:57 Results for this AM CHLORINATION OPERATOR procedure are i n the results section. MAGNESIUM Routine 04/26/2020 12:57 Results for this AM CHLORINATION OPERATOR procedure are i n the results section. PROTHROMBIN TIME/INR Routine 04/26/2020 12:57 Res ults for this AM CHLORINATION OPERATOR procedure are i n the results section. PT/APTT Routine 04/26/2020 12:57 Results for this AM CHLORINATION OPERATOR procedure are i n the results section. CBC W/PLT COUNT & Routine 04/26/2020 12:57 Result s for this AUTO DIFFERENTIAL AM CHLORINATION OPERATOR procedure are in the results section. COMPREHENSIVE Routine 04/26/2020 12:57 Results fo r this METABOLIC PANEL AM CHLORINATION OPERATOR procedure ar e in the results section. HEMOGLOBIN AND Routine 04/26/2020 12:57 Results f or this HEMATOCRIT AM CHLORINATION OPERATOR procedure are i n the results section. POCT-GLUCOSE METER Routine 04/26/2020 12:08 Resul ts for this AM CHLORINATION OPERATOR procedure are i n the results section. HC VENOUS DOPPLER EXT Routine 04/25/2020 9:45 Re sults for this CLAUDIA PM CHLORINATION OPERATOR procedure are i n the results section. HEMOGLOBIN AND Routine 04/25/2020 4:28 Results f or this HEMATOCRIT PM CHLORINATION OPERATOR procedure are i n the results section. POCT-GLUCOSE METER Routine 04/25/2020 11:36 Resul ts for this AM CHLORINATION OPERATOR procedure are i n the results section. POCT-GLUCOSE METER Routine 04/25/2020 5:38 Resul ts for this AM CHLORINATION OPERATOR procedure are i n the results section. CBC W/PLT COUNT & Routine 04/25/2020 5:34 Result s for this AUTO DIFFERENTIAL AM CHLORINATION OPERATOR procedure are in the results section. HEMOGLOBIN AND Routine 04/25/2020 5:34 Results f or this HEMATOCRIT AM CHLORINATION OPERATOR procedure are i n the results section. CBC W/PLT COUNT & Routine 04/25/2020 5:34 Result s for this AUTO DIFFERENTIAL AM CHLORINATION OPERATOR procedure are in the results section. CALCIUM, IONIZED STAT 04/25/2020 4:04 Results for this AM CHLORINATION OPERATOR procedure are i n the results section. BLOOD GAS, ARTERIAL STAT 04/25/2020 4:04 Resu lts for this AM CHLORINATION OPERATOR procedure are i n the results section. PHOSPHORUS Routine 04/25/2020 4:04 Results for this AM CHLORINATION OPERATOR procedure are i n the results section. MAGNESIUM Routine 04/25/2020 4:04 Results for this AM CHLORINATION OPERATOR procedure are i n the results section. PROTHROMBIN TIME/INR Routine 04/25/2020 4:04 Res ults for this AM CHLORINATION OPERATOR procedure are i n the results section. PT/APTT Routine 04/25/2020 4:04 Results for this AM CHLORINATION OPERATOR procedure are i n the results section. COMPREHENSIVE Routine 04/25/2020 4:04 Results fo r this METABOLIC PANEL AM CHLORINATION OPERATOR procedure ar e in the results section. HEMOGLOBIN AND Routine 04/24/2020 11:52 Results f or this HEMATOCRIT PM CHLORINATION OPERATOR procedure are i n the results section. POCT-GLUCOSE METER Routine 04/24/2020 11:41 Resul ts for this PM CHLORINATION OPERATOR procedure are i n the results section. HEMOGLOBIN AND Routine 04/24/2020 6:07 Results f or this HEMATOCRIT PM CHLORINATION OPERATOR procedure are i n the results section. POCT-GLUCOSE METER Routine 04/24/2020 5:44 Resul ts for this PM CHLORINATION OPERATOR procedure are i n the results section. XR ABDOMEN / KUB 1 STAT 04/24/2020 12:23 Resul ts for this VIEW PM CHLORINATION OPERATOR procedure are i n the results section. HEMOGLOBIN AND Routine 04/24/2020 11:54 Results f or this HEMATOCRIT AM CHLORINATION OPERATOR procedure are i n the results section. CT BRAIN WITHOUT IV STAT 04/24/2020 11:40 Resu lts for this CONTRAST PORTABLE AM CHLORINATION OPERATOR procedure are in the results section. POCT-GLUCOSE METER Routine 04/24/2020 10:43 Resul ts for this AM CHLORINATION OPERATOR procedure are i n the results section. MRSA SCREEN STAT 04/24/2020 9:46 Results for this AM CHLORINATION OPERATOR procedure are i n the results section. AMMONIA STAT 04/24/2020 9:43 Results for this AM CHLORINATION OPERATOR procedure are i n the results section. POCT-GLUCOSE METER Routine 04/24/2020 6:10 Resul ts for this AM CHLORINATION OPERATOR procedure are i n the results section. BLOOD GAS, ARTERIAL STAT 04/24/2020 3:42 Resu lts for this AM CHLORINATION OPERATOR procedure are i n the results section. CBC W/PLT COUNT & Routine 04/24/2020 3:41 Result s for this AUTO DIFFERENTIAL AM CHLORINATION OPERATOR procedure are in the results section. CBC W/PLT COUNT & Routine 04/24/2020 3:41 Result s for this AUTO DIFFERENTIAL AM CHLORINATION OPERATOR procedure are in the results section. CALCIUM, IONIZED STAT 04/24/2020 3:40 Results for this AM CHLORINATION OPERATOR procedure are i n the results section. PHOSPHORUS Routine 04/24/2020 3:40 Results for this AM CHLORINATION OPERATOR procedure are i n the results section. MAGNESIUM Routine 04/24/2020 3:40 Results for this AM CHLORINATION OPERATOR procedure are i n the results section. PROTHROMBIN TIME/INR Routine 04/24/2020 3:40 Res ults for this AM CHLORINATION OPERATOR procedure are i n the results section. PT/APTT Routine 04/24/2020 3:40 Results for this AM CHLORINATION OPERATOR procedure are i n the results section. COMPREHENSIVE Routine 04/24/2020 3:40 Results fo r this METABOLIC PANEL AM CHLORINATION OPERATOR procedure ar e in the results section. HEMOGLOBIN AND Routine 04/24/2020 12:22 Results f or this HEMATOCRIT AM CHLORINATION OPERATOR procedure are i n the results section. POCT-GLUCOSE METER Routine 04/23/2020 11:55 Resul ts for this PM CHLORINATION OPERATOR procedure are i n the results section. PREPARE LEUKO-REDUCED STAT 04/23/2020 11:54 Re sults for this RBC PM CHLORINATION OPERATOR procedure are i n the results section. POCT-GLUCOSE METER Routine 04/23/2020 6:15 Resul ts for this PM CHLORINATION OPERATOR procedure are i n the results section. HEMOGLOBIN AND Routine 04/23/2020 6:09 Results f or this HEMATOCRIT PM CHLORINATION OPERATOR procedure are i n the results section. SPUTUM CULTURE + GRAM STAT 04/23/2020 3:46 Re sults for this STAIN PM CHLORINATION OPERATOR procedure are i n the results section. BRONCHOSCOPY Routine 04/23/2020 3:18 Results for this PM CHLORINATION OPERATOR procedure are i n the results section. BLOOD GAS, ARTERIAL STAT 04/23/2020 2:50 Resu lts for this PM CHLORINATION OPERATOR procedure are i n the results section. EEG AWAKE AND DROWSY Routine 04/23/2020 2:40 Res ults for this PM CHLORINATION OPERATOR procedure are i n the results section. XR CHEST 1 VIEW STAT 04/23/2020 12:54 Results for this PORTABLE/BEDSIDE PM CHLORINATION OPERATOR procedure a re in the results section. POCT-GLUCOSE METER Routine 04/23/2020 11:59 Resul ts for this AM CHLORINATION OPERATOR procedure are i n the results section. BLOOD GAS, ARTERIAL Routine 04/23/2020 11:53 Resu lts for this AM CHLORINATION OPERATOR procedure are i n the results section. HEPATITIS C ANTIBODY DANIELLE 04/23/2020 11:53 Res ults for this AM CHLORINATION OPERATOR procedure are i n the results section. ANTI-NUCLEAR ANTIBODY DANIELLE 04/23/2020 11:53 Re sults for this (DENISE) AM CHLORINATION OPERATOR procedure are i n the results section. HEMOGLOBIN AND Routine 04/23/2020 11:53 Results f or this HEMATOCRIT AM CHLORINATION OPERATOR procedure are i n the results section. HEPATITIS B CORE DANIELLE 04/23/2020 11:52 Results for this ANTIBODY, TOTAL AM CHLORINATION OPERATOR procedure ar e in the results section. HEPATITIS B SURFACE DANIELLE 04/23/2020 11:52 Resu lts for this ANTIBODY AM CHLORINATION OPERATOR procedure are i n the results section. HEPATITIS B SURFACE DANIELLE 04/23/2020 11:52 Resu lts for this ANTIGEN AM CHLORINATION OPERATOR procedure are i n the results section. MITOCHONDRIA M2 DANIELLE 04/23/2020 11:52 Results for this ANTIBODY (IGG) AM CHLORINATION OPERATOR procedure are in the results section. HEPATITIS A ANTIBODY, DANIELLE 04/23/2020 11:52 Re sults for this IGG AM CHLORINATION OPERATOR procedure are i n the results section. CERULOPLASMIN DANIELLE 04/23/2020 11:52 Results fo r this AM CHLORINATION OPERATOR procedure are i n the results section. ALPHA FETOPROTEIN DANIELLE 04/23/2020 11:52 Result s for this (AFP), TUMOR MARKER AM CHLORINATION OPERATOR procedur e are in the results section. [id number]\\, DANIELLE 04/23/2020 11:52 Re sults for this SERUM AM CHLORINATION OPERATOR procedure are i n the results section. ACTIN (SMOOTH MUSCLE) DANIELLE 04/23/2020 11:52 Re sults for this ANTIBODY, IGG AM CHLORINATION OPERATOR procedure are in the results section. BLOOD GAS, ARTERIAL STAT 04/23/2020 4:24 Resu lts for this AM CHLORINATION OPERATOR procedure are i n the results section. CBC W/PLT COUNT & Routine 04/23/2020 4:23 Result s for this AUTO DIFFERENTIAL AM CHLORINATION OPERATOR procedure are in the results section. BILIRUBIN, DIRECT DANIELLE Add-on 04/23/2020 4:23 Result s for this AM CHLORINATION OPERATOR procedure are i n the results section. HEMOGLOBIN AND Routine 04/23/2020 4:23 Results f or this HEMATOCRIT AM CHLORINATION OPERATOR procedure are i n the results section. CALCIUM, IONIZED STAT 04/23/2020 4:23 Results for this AM CHLORINATION OPERATOR procedure are i n the results section. PHOSPHORUS Routine 04/23/2020 4:23 Results for this AM CHLORINATION OPERATOR procedure are i n the results section. MAGNESIUM Routine 04/23/2020 4:23 Results for this AM CHLORINATION OPERATOR procedure are i n the results section. PROTHROMBIN TIME/INR Routine 04/23/2020 4:23 Res ults for this AM CHLORINATION OPERATOR procedure are i n the results section. PT/APTT Routine 04/23/2020 4:23 Results for this AM CHLORINATION OPERATOR procedure are i n the results section. CBC W/PLT COUNT & Routine 04/23/2020 4:23 Result s for this AUTO DIFFERENTIAL AM CHLORINATION OPERATOR procedure are in the results section. COMPREHENSIVE Routine 04/23/2020 4:23 Results fo r this METABOLIC PANEL AM CHLORINATION OPERATOR procedure ar e in the results section. BLOOD GAS, ARTERIAL Routine 04/23/2020 12:31 Resu lts for this AM CHLORINATION OPERATOR procedure are i n the results section. POCT-GLUCOSE METER Routine 04/22/2020 11:47 Resul ts for this PM CHLORINATION OPERATOR procedure are i n the results section. LACTIC ACID, VENOUS Routine 04/22/2020 9:15 Resu lts for this PM CHLORINATION OPERATOR procedure are i n the results section. CORTISOL STAT 04/22/2020 8:07 Results for this PM CHLORINATION OPERATOR procedure are i n the results section. CALCIUM, IONIZED STAT 04/22/2020 8:07 Results for this PM CHLORINATION OPERATOR procedure are i n the results section. HEMOGLOBIN AND Routine 04/22/2020 8:07 Results f or this HEMATOCRIT PM CHLORINATION OPERATOR procedure are i n the results section. BLOOD GAS, ARTERIAL STAT 04/22/2020 8:06 Resu lts for this PM CHLORINATION OPERATOR procedure are i n the results section. REPORT OF PROCEDURE - 04/22/2020 6:06 ENDOSCOPY URL PM CHLORINATION OPERATOR HEMOGLOBIN AND Routine 04/22/2020 3:58 Results f or this HEMATOCRIT PM CHLORINATION OPERATOR procedure are i n the results section. BASIC METABOLIC PANEL DANIELLE 04/22/2020 3:57 Re sults for this (7) PM CHLORINATION OPERATOR procedure are i n the results section. HEMOGLOBIN AND STAT 04/22/2020 2:24 Results f or this HEMATOCRIT PM CHLORINATION OPERATOR procedure are i n the results section. BLOOD GAS, ARTERIAL STAT 04/22/2020 2:23 Resu lts for this PM CHLORINATION OPERATOR procedure are i n the results section. UPPER ENDOSCOPY 04/22/2020 2:00 Upper GI bleed PM CHLORINATION OPERATOR Special Needs REQ: TF LACTIC ACID, ARTERIAL STAT 04/22/2020 1:25 Re sults for this PM CHLORINATION OPERATOR procedure are i n the results section. 2D ECHO W/ DOPPLER Routine 04/22/2020 12:02 Resul ts for this (CW/PW/COLOR) PM CHLORINATION OPERATOR procedure are in the results section. APTT STAT 04/22/2020 11:53 Results for this AM CHLORINATION OPERATOR procedure are i n the results section. FIBRINOGEN STAT 04/22/2020 11:53 Results for this AM CHLORINATION OPERATOR procedure are i n the results section. PROTHROMBIN TIME/INR STAT 04/22/2020 11:53 Res ults for this AM CHLORINATION OPERATOR procedure are i n the results section. BLOOD GAS, ARTERIAL STAT 04/22/2020 11:52 Resu lts for this AM CHLORINATION OPERATOR procedure are i n the results section. INSERT NON-TUNNEL CV Routine 04/22/2020 11:49 Gastrointestinal Results for this CATH AM CHLORINATION OPERATOR hemorrhage with procedure ar e in hematemesis the results section. VT INSERT Routine 04/22/2020 11:47 Gastrointestinal Results for this CATH,ART,PERCUT,SHORT AM CHLORINATION OPERATOR hemorrhage with pro cedure are in TERM hematemesis the results section. US RENAL WITH DOPPLER Routine 04/22/2020 11:35 Re sults for this AM CHLORINATION OPERATOR procedure are i n the results section. TRANSFUSE STAT 04/22/2020 11:29 LEUKO-REDUCED RED AM CHLORINATION OPERATOR BLOOD CELLS XR CHEST 1 VIEW STAT 04/22/2020 11:06 Results for this PORTABLE/BEDSIDE AM CHLORINATION OPERATOR procedure a re in the results section. CBC (HEMOGRAM ONLY) STAT 04/22/2020 10:13 Resu lts for this AM CHLORINATION OPERATOR procedure are i n the results section. CBC W/PLT COUNT & Routine 04/22/2020 4:47 Result s for this AUTO DIFFERENTIAL AM CHLORINATION OPERATOR procedure are in the results section. FIBRINOGEN Add-On 04/22/2020 4:47 Results for this AM CHLORINATION OPERATOR procedure are i n the results section. HEMOGLOBIN AND Routine 04/22/2020 4:47 Results f or this HEMATOCRIT AM CHLORINATION OPERATOR procedure are i n the results section. PHOSPHORUS Routine 04/22/2020 4:47 Results for this AM CHLORINATION OPERATOR procedure are i n the results section. MAGNESIUM Routine 04/22/2020 4:47 Results for this AM CHLORINATION OPERATOR procedure are i n the results section. PT/APTT Routine 04/22/2020 4:47 Results for this AM CHLORINATION OPERATOR procedure are i n the results section. COMPREHENSIVE Routine 04/22/2020 4:47 Results fo r this METABOLIC PANEL AM CHLORINATION OPERATOR procedure ar e in the results section. CBC W/PLT COUNT & Routine 04/22/2020 4:47 Result s for this AUTO DIFFERENTIAL AM CHLORINATION OPERATOR procedure are in the results section. ABORH, MANUAL STAT 04/22/2020 12:41 Results fo r this AM CHLORINATION OPERATOR procedure are i n the results section. CALCIUM, IONIZED Routine 04/22/2020 12:41 Results for this AM CHLORINATION OPERATOR procedure are i n the results section. PROCALCITONIN STAT 04/22/2020 12:41 Results fo r this AM CHLORINATION OPERATOR procedure are i n the results section. TSH/FREE T4 IF Routine 04/22/2020 12:41 Results f or this INDICATED AM CHLORINATION OPERATOR procedure are i n the results section. HEMOGLOBIN AND Routine 04/22/2020 12:41 Results f or this HEMATOCRIT AM CHLORINATION OPERATOR procedure are i n the results section. FERRITIN Routine 04/22/2020 12:41 Results for this AM CHLORINATION OPERATOR procedure are i n the results section. IRON, TIBC, % SAT. Routine 04/22/2020 12:41 Resul ts for this (WITHOUT FERRITIN) AM CHLORINATION OPERATOR procedure are in the results section. CT BRAIN WITHOUT IV STAT 04/21/2020 11:18 Resu lts for this CONTRAST PM CHLORINATION OPERATOR procedure are i n the results section. XR CHEST 1 VIEW STAT 04/21/2020 10:48 Results for this PORTABLE/BEDSIDE PM CHLORINATION OPERATOR procedure a re in the results section. AMMONIA STAT 04/21/2020 10:21 Results for this PM CHLORINATION OPERATOR procedure are i n the results section. POCT-GLUCOSE METER Routine 04/21/2020 9:36 Resul ts for this PM CHLORINATION OPERATOR procedure are i n the results section. BLOOD CULTURE Routine 04/21/2020 9:30 Results fo r this PM CHLORINATION OPERATOR procedure are i n the results section. CBC W/PLT COUNT & STAT 04/21/2020 9:28 Result s for this AUTO DIFFERENTIAL PM CHLORINATION OPERATOR procedure are in the results section. TYPE AND SCREEN, STAT 04/21/2020 9:28 Results for this AUTOMATED PM CHLORINATION OPERATOR procedure are i n the results section. URINALYSIS W/ REFLEX Routine 04/21/2020 9:28 Res ults for this URINE CULTURE PM CHLORINATION OPERATOR procedure are in the results section. LACTIC ACID, VENOUS STAT 04/21/2020 9:28 Resu lts for this PM CHLORINATION OPERATOR procedure are i n the results section. FIBRINOGEN STAT 04/21/2020 9:28 Results for this PM CHLORINATION OPERATOR procedure are i n the results section. PT/APTT STAT 04/21/2020 9:28 Results for this PM CHLORINATION OPERATOR procedure are i n the results section. HEPATIC FUNCTION STAT 04/21/2020 9:28 Results for this PANEL PM CHLORINATION OPERATOR procedure are i n the results section. PHOSPHORUS STAT 04/21/2020 9:28 Results for this PM CHLORINATION OPERATOR procedure are i n the results section. MAGNESIUM STAT 04/21/2020 9:28 Results for this PM CHLORINATION OPERATOR procedure are i n the results section. BASIC METABOLIC PANEL STAT 04/21/2020 9:28 Re sults for this (7) PM CHLORINATION OPERATOR procedure are i n the results section. CBC W/PLT COUNT & STAT 04/21/2020 9:28 Result s for this AUTO DIFFERENTIAL PM CHLORINATION OPERATOR procedure are in the results section. BLOOD CULTURE Routine 04/21/2020 9:28 Results fo r this PM CHLORINATION OPERATOR procedure are i n the results section. SARS-COV2/RT-PCR STAT 04/21/2020 9:28 Results for this ([facility] RE[facility] LAB[facility]) PM CHLORINATION OPERATOR procedure are in the results section. after 05/18/2019 Results POC-Glucose meter (04/29/2020 12:20 PM CHLORINATION OPERATOR)Only the most recent of23 results within the time period is included. POC-Glucose Meter 120 (H) 70 - 110 mg/dL [facility] Comment: [facility] : TESTED AT [facility] [address] [facility], [address] CENTER : Stretcher Leveler Operator Helper/Product Scientist ID = [id number] for YOSELYN MOSQUEDA Specimen Blood Performing Organization Address City/State/Zipcode Phone Number [address] [phone] CENTER SARS-CoV2/RT-PCR (Asymptomatic ONLY) (04/29/2020 6:02 AM CHLORINATION OPERATOR)Only the most recent of2 resultswithin the time period is included. Pathologist [facility] SARS-COV2/RT-PCR Negative Not Detected, [facility] Negative, See [facility] external report CENTER for linked test SARS-COV-2 [facility] RUMA [facility] PERFORMING LAB [facility] Specimen Other - Nasopharyngeal wall structure (b shubham structure) Narrative Performed At Negative result for this test determines that [facility] SARS-CoV-2 RNA was not present in the specimen above the Limit of Detection (LOD). However, Negative results do not preclude SARS-CoV-2 infection and should not be used as the sole basis for treatment or patient management decisions. Negative results must be combined with clinical observations, patient history, and epidemiological information. A false negative result may occur if a specimen is improperly collected, transported or handled. A false negative result should be considered if patient's recent exposures or clinical presentation indicate that COVID-19 (SARS-CoV-2) is likely and diagnostic tests for other causes of illness are negative. Re-testing should be considered in cases of suspected false negatives. The limit of detection for this assay is 800 copies/mL. This SARS CoV-2 test is a real-time RT-PCR test intended for the qualitative detection of nucleic acid from SARS-CoV-2 in a nasopharyngeal swab specimen collected from individuals suspected of COVID-19 by their healthcare provider. This test has not been Food and Drug Administration (FDA) cleared or approved. This is a modified version of an approved Emergency Use Authorization (EUA) and is in the process of review by the FDA. Once authorized by the FDA, the issued EUA will be effective until the declaration that circumstances exist justifying the authorization of the emergency use of in vitro diagnostic tests for detection and/or diagnosis of COVID-19 is terminated under Section 564(b)(2) of the Act or the EUA is revoked under Section 564(g) of the Act. Fact Sheet for Healthcare Providers: https://www.charming charlie/sites/default/files/pro duct/documents/Fact_Sheet_HC_Providers_Lyra_SA RS-CoV-2.pdf Fact Sheet for Healthcare Patients: https://www.charming charlie/sites/default/files/pro duct/documents/Fact_Sheet_Patients_Lyra_SARS-C oV-2.pdf Performing Laboratory: [address] [place] [address] Performing Organization Address City/State/[place] [address] CENTER PT/aPTT (04/29/2020 4:00 AM CHLORINATION OPERATOR)Only the most recent of9 resultswithin the time period is included. Pathologist Sig nature Protime 21.0 (H) 11.9 - 14.2 seconds [facility] INR 1.87 <=5.90 [facility] PTT 43.9 (H) 22.5 - 36.0 seconds [facility] Specimen Blood Narrative Performed At Effective 10/05/2018: PT Reference Range [facility] Change New: 11.9-14.2 Previous: 11.7-14.7 RECOMMENDED COUMADIN/WARFARIN INR THERAPY RANGES STANDARD DOSE: 2.0-3.0 Includes: PROPHYLAXIS for venous thrombosis, systemic embolization; TREATMENT for venous thrombosis and/or pulmonary embolus. HIGH RISK: Target INR is 2.5-3.5 for patients wiht mechanical heart valves. Performing Organization Address City/State/Zipcode Phone Number [facility] [address] [place] [address] [place] Calcium, Ionized (04/29/2020 4:00 AM CHLORINATION OPERATOR)Only the most recent of9 resultswithin the time period is included. Pathologist Sig nature Calcium, Ion 1.07 (L) 1.12 - 1.27 mmol/L [facility] pH, Blood 7.44 [facility] Specimen Blood Performing Organization Address City/[facility]/Zipcode Phone Number [facility] [address] [place] [address] [place] CBC with platelet count + automated diff (04/29/2020 4:00 AM CHLORINATION OPERATOR)Only the most recent of9 resultswithin the time period is included. WBC 5.6 3.5 - 10.5 [facility] K/L [facility] RBC 2.86 (L) 4.63 - 6.08 [facility] M/L [facility] Hemoglobin 7.4 (L) 13.7 - 17.5 [facility] GM/DL [facility] Hematocrit 23.2 (L) 40.1 - 51.0 % [facility] MCV 81.1 79.0 - 92.2 [facility] fL [facility] MCH 25.9 25.7 - 32.2 [facility] pg [facility] MCHC 31.9 (L) 32.3 - 36.5 [facility] GM/DL [facility] RDW 18.6 (H) 11.6 - 14.4 % [facility] Platelets 62 (L) 150 - 450 [facility] K/CU MM [facility] MPV Comment: Unable to [facility] report due to [facility] abnormal Platelet [facility]ICAL [facility]ENTER population distribution. nRBC 0 0 - 0 /100 [facility] % Neutros 67 % [facility] % Lymphs 24 % [facility] % Monos 8 % [facility] % Eos 0 % [facility] % Baso 0 % [facility] # Neutros 3.73 1.78 - 5.38 [facility]/L [facility] # Lymphs 1.31 (L) 1.32 - 3.57 [facility] # Monos 0.45 0.30 - 0.82 [facility] # Eos 0.02 (L) 0.04 - 0.54 [facility] # Baso 0.00 (L) 0.01 - 0.08 [facility] Immature 1 0 - 1 % [facility] Granulocytes-Relat [facility] Specimen Blood Performing Organization Address City/State/Zipcode Phone Number [place] [phone] [place] [address] CENTER Prothrombin time/INR (04/29/2020 4:00 AM CHLORINATION OPERATOR)Only the most recent of8 results within the time period is included. Pathologist Sig nature Protime 21.0 (H) 11.9 - 14.2 seconds [facility] INR 1.87 <=5.90 [facility] Specimen Blood Narrative Performed At Effective 10/05/2018: PT Reference Range [facility] Change New: 11.9-14.2 Previous: 11.7-14.7 RECOMMENDED COUMADIN/WARFARIN INR THERAPY RANGES STANDARD DOSE: 2.0-3.0 Includes: PROPHYLAXIS for venous thrombosis, systemic embolization; TREATMENT for venous thrombosis and/or pulmonary embolus. HIGH RISK: Target INR is 2.5-3.5 for patients wiht mechanical heart valves. Performing Organization Address City/State/Zipcode Phone Number [facility] [address] [place] [address] CENTER Phosphorus (04/29/2020 4:00 AM CHLORINATION OPERATOR)Only the most recent of9 resultswithin the time period is included. Pathologist Sig nature Phosphorus 2.9 2.3 - 4.7 mg/dL [facility] Specimen Blood Narrative Performed At Stretcher Leveler Operator Helper ID - BALBINA Diaz [facility] Performing Organization Address City/[facility]/Zipcode Phone Number [facility] [address] [place] [phone] CENTER Magnesium (04/29/2020 4:00 AM CHLORINATION OPERATOR)Only the most recent of9 resultswithin the time period is included. Pathologist Sig nature Magnesium 1.8 1.6 - 2.6 mg/dL [facility] Specimen Blood Narrative Performed At Stretcher Leveler Operator Helper ID - BALBINA Diaz [facility] Performing Organization Address City/[facility]/Zipcode Phone Number [facility] [address] [place] [address] CENTER Comprehensive metabolic panel (04/29/2020 4:00 AM CHLORINATION OPERATOR)Only the most recent of8 resultswithin the time period is included. Protein, Total 4.6 (L) 6.0 - 8.3 [facility] gm/dL [facility] Albumin 2.1 (L) 3.5 - 5.0 [facility] g/dL [facility] Alkaline 109 40 - 150 U/L [facility] Phosphatase [facility] Total Bilirubin 2.5 (H) 0.2 - 1.2 [facility] mg/dL [facility] Sodium 133 (L) 136 - 145 [facility] meq/L [facility] Potassium 3.8 3.5 - 5.1 [facility] meq/L [facility] Chloride 110 (H) 98 - 107 [facility] meq/L [facility] CO2 16 (L) 22 - 29 [facility] meq/L [facility] BUN 17 7 - 21 mg/dL [facility] Creatinine 0.69 0.57 - 1.25 [facility] mg/dL [facility] Glucose 124 (H) 70 - 105 [facility] mg/dL [facility] Calcium 6.9 (L) 8.4 - 10.2 [facility] mg/dL [facility] AST 99 (H) 5 - 34 U/L [facility] ALT 77 (H) 6 - 55 U/L [facility] EGFR Comment: [facility] CLINICAL DATA TO [facility] CALCULATE ESTIMATED GFR. Specimen Blood Narrative Performed At Stretcher Leveler Operator Helper ID - BALBINA M [facility] Specimen slightly icteric Performing Organization Address City/[facility]/Zipcode Phone Number [facility] [address] [place] [address] CENTER Hemoglobin and hematocrit (04/28/2020 2:13 PM CHLORINATION OPERATOR)Only the most recent of23 resultswithin the time period is included. Pathologist Sig nature Hemoglobin 8.5 (L) 13.7 - 17.5 GM/DL [facility] Hematocrit 27.6 (L) 40.1 - 51.0 % [facility] Specimen Blood Narrative Performed At Stretcher Leveler Operator Helper ID - [id number] [facility] Performing Organization Address City/[facility] Facility[facility] Phone Number [facility] [address] [place] [address] CENTER XR chest 1 view portable / bedside (04/27/2020 10:30 AM CHLORINATION OPERATOR)Only the most recent of4 resultswithin the time period is included. Specimen Narrative Performed At FINAL REPORT GE RIS History: Pneumonia Comparison: 04/23/2020 Findings: Small right pleural effusion i s likely unchanged allowing for differences in patient positioning. Mild adjacent compressive atelectasis is also unchanged. Airspace consolidation at the left lung base has improved. No pneumothorax. The cardiac shadow is n ormal in size. Signed: Bharath Wang MD Report Verified Date/Time: 04/27/2020 11:11:41 Reading Location: [facility] B1 C013T Transitio nal Reading Room Procedure Note Interface, External Ris In - 04/27/2020 11:13 AM CHLORINATION OPERATOR FINAL REPORT History: Pneumonia Comparison: 04/23/2020 Findings: Small right pleural effusion i s likely unchanged allowing for differences in patient positioning. Mild adjacent compressive atelectasis is also unchanged. Airspace consolidation at the left lung base has improved. No pneumothorax. The cardiac shadow is n ormal in size. Signed: Bharath Wang MD Report Verified Date/Time: 04/27/2020 1 1:11:41 Reading Location: [facility] B1 C013T Transitio nal Reading Room Performing Organization Address City/[facility] Facility[facility] Phone Number RIS Blood gas, arterial (04/27/2020 2:57 AM CHLORINATION OPERATOR)Only the most recent of11 results within the time period is included. Pathologist Sig nature pH, Arterial 7.49 (H) 7.35 - 7.45 [facility] pCO2, Arterial 24 (L) 35 - 45 mm Hg [facility] pO2, Arterial 133 (H) 80 - 90 mm Hg [facility] O2 Sat, Arterial 99.0 (H) 96.0 - 97.0 % [facility] HCO3, Arterial 18 (L) 21 - 29 mmol/L [facility] Base Excess, Arterial -4.7 (L) -2.0 - 3.0 [facility] mmol/L [facility] Patient Temperature 36.0 [facility] FIO2 21.0 [facility] Specimen Blood, Arterial Performing Organization Address City/State/Zipcode Phone Number [facility] [address] [place] [address] CENTER MR abdomen without & with IV contrast (04/26/2020 4:08 PM CHLORINATION OPERATOR) Specimen Narrative Performed At FINAL REPORT RIS TECHNIQUE: MRI of the abdomen WITHOUT an d WITH intravenous contrast. INDICATION: 39-year-old man with cirrhos is. COMPARISON: None. FINDINGS: LOWER THORAX: Bilateral pleural effusion s, small on the right and trace on the left. Atelectasis in the de pendent portions of both lower lobes, left greater than right. LIVER: Cirrhotic morphology of the liver . No suspicious liver observation. Right hepatic cysts measure up to 1.6 x 1.5 cm (LI-RADS 1). BILIARY: Thickened wall of the otherwise unremarkable gallbladder, a nonspecific finding in the setting of ci rrhosis/ascites. No biliary ductal dilatation or filling defect. SPLEEN: Spleen is prominent and measures 16.5 cm in the craniocaudal dimension. PANCREAS: No focal mass or ductal dilata tion. ADRENALS: No adrenal nodule. KIDNEYS/URETERS: No hydronephrosis or ma ss. PERITONEUM/RETROPERITONEUM: Small volume ascites. LYMPH NODES: No lymphadenopathy. VESSELS: Patent portal system and hepati c veins. Main portal vein is borderline prominent and measures 1.3 cm in diameter. 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 Conventional hepatic ar terial anatomy. Abdominal aorta is normal in caliber. GI TRACT: No distention or wall thickeni ng. BONES AND SOFT TISSUES: Partially visual ized 1.6 x 2 cm structure in the superficial soft tissues of the ante rior abdominal wall, likely a fluid-containing ventral hernia. IMPRESSION: Cirrhosis with portal hypertension and s mall volume ascites. No suspicious liver observation. Bilateral pleural effusions, small the r ight and trace on the left, with adjacent atelectasis in both lower lobes. Signed: India Mohan MD Report Verified Date/Time: 04/26/2020 22:29:54 Reading Location: [address] Consult R [facility] Procedure Note Interface, External Ris In - 04/26/2020 10:32 PM CHLORINATION OPERATOR FINAL REPORT TECHNIQUE: MRI of the abdomen WITHOUT an d WITH intravenous contrast. INDICATION: 39-year-old man with cirrhos is. COMPARISON: None. FINDINGS: LOWER THORAX: Bilateral pleural effusion s, small on the right and trace on the left. Atelectasis in the de pendent portions of both lower lobes, left greater than right. LIVER: Cirrhotic morphology of the liver . No suspicious liver observation. Right hepatic cysts measure up to 1.6 x 1.5 cm (LI-RADS 1). BILIARY: Thickened wall of the otherwise unremarkable gallbladder, a nonspecific finding in the setting of ci rrhosis/ascites. No biliary ductal dilatation or filling defect. SPLEEN: Spleen is prominent and measures 16.5 cm in the craniocaudal dimension. PANCREAS: No focal mass or ductal dilata tion. ADRENALS: No adrenal nodule. KIDNEYS/URETERS: No hydronephrosis or ma ss. PERITONEUM/RETROPERITONEUM: Small volume ascites. LYMPH NODES: No lymphadenopathy. VESSELS: Patent portal system and hepati c veins. Main portal vein is borderline prominent and measures 1.3 cm in diameter. 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 Conventional hepatic ar terial anatomy. Abdominal aorta is normal in caliber. GI TRACT: No distention or wall thickeni ng. BONES AND SOFT TISSUES: Partially visual ized 1.6 x 2 cm structure in the superficial soft tissues of the ante rior abdominal wall, likely a fluid-containing ventral hernia. IMPRESSION: Cirrhosis with portal hypertension and s mall volume ascites. No suspicious liver observation. Bilateral pleural effusions, small the r ight and trace on the left, with adjacent atelectasis in both lower lobes. Signed: India Mohan MD Report Verified Date/Time: 04/26/2020 2 2:29:54 Reading Location: [facility] B1 C013W Consult R [facility] Room Performing Organization Address City/State/Zipcode Phone Number [facility] Venous doppler arms bilateral (04/25/2020 9:45 PM CHLORINATION OPERATOR) Pathologist Sig nature Ejection Fraction [facility] ECHO HEARTLAB MKCK E[facility] CPACS Specimen Impressions Performed At Right Impression [facility] ECHO HEARTLAB MKCKESSON CPACS 1. There is no deep venous obstruction in the jugular, subclavian, axillary, brachial, radial or ulnar veins. 2. There is total echolucent superficial venous obstruction in the cephalic vein. 3. There is no superficial venous obstruction in the basilic vein. Left Impression 1. There is no deep venous obstruction in the jugular, subclavian, axillary, brachial, radial or ulnar veins. 2. There is partial echolucent superficial venous obstruction in the cephalic vein. 3. There is no superficial venous obstruction in the basilic vein Conclusions Summary Venous duplex imaging and compression of the bilateral upper extremities was performed. The veins were adequately visualized. The bilateral deep venous system was patent and compressible with no evidence of thrombus. The bilateral superficial venous system was positive with acute thrombus. Signature Velocities are measured in cm/s ; Diameters are measured in cm Narrative Performed At [facility] - Upper Extremities Veins [facility]CHO HEARTLAB MKCK[facility] Demographics Patient Name GEOFFREY BARBA Date of Study 04/25/2020 Age 39 Visit Number [id number] Gender Male Accession Number [id number] Date of 1980 Referring [place] Room Number [id number] Cutter Niki Olivares Interpreting Susannah Gold T Physician Procedure Type of Study: Veins: Upper Extremities Veins, VENOUS DOPPLER ARMS, BILATERAL. Indications for Study:Upper extremity ed david. Patient Status:Routine. Study Location:Portable. Technical Quality:Technically Difficult. - Results were reported to:ABRAN MERCEDES @ 22:00. Risk Factors History of Disease + + + + !Diagnosis !Date !Comments ! + + + + !History/Risk Factors: !04/25/2020!Multiple invasive lines ! + + + + Procedure Note Interface, External Ris In - 04/26/2020 2:04 PM CHLORINATION OPERATOR [facility] - Upper Extremities Veins Demographics Patient Name GEOFFREY BARBA Ja e of Study 04/25/2020 Age 39 Visit Number [id number] Gen sal Male Accession Number [id number] Ja e of 1980 Referring Pedro Deutsch Number [id number] Cutter Niki Olivares [facility] Susannah Gold, [facility] Lionel marin MD Procedure Type of Study: Veins: Upper Extremities Veins, VENOUS DOPPLER ARMS, BILATERAL. Indications for Study:Upper extremity ed david. Patient Status:Routine. Study Location:Portable. Technical Quality:Technically Difficult. - Results were reported to:ABRAN MERCEDES @ 22:00. Risk Factors History of Disease + + + + !Diagnosis !Date ! Comments ! + + + + !History/Risk Factors: !04/25/2020! Multiple invasive lines ! + + + + Impressions Right Impression 1. There is no deep venous obstruction i n the jugular, subclavian, axillary, brachial, radial or ulnar veins. 2. There is total echolucent superficial venous obstruction in the cephalic vein. 3. There is no superficial venous obstru ction in the basilic vein. Left Impression 1. There is no deep venous obstruction i n the jugular, subclavian, axillary, brachial, radial or ulnar veins. 2. There is partial echolucent superfici al venous obstruction in the cephalic vein. 3. There is no superficial venous obstru ction in the basilic vein Conclusions Summary Venous duplex imaging and compression o f the bilateral upper extremities was performed. The veins were adequatel y visualized. The bilateral deep venous system was patent and compressib le with no evidence of thrombus. The bilateral superficial venous system was positive with acute thrombus. Signature Velocities are measured in cm/s ; Diamet ers are measured in cm Performing Organization Address City/State/[facility] Phone Number [facility] ECHO HEARTLAB MKCKESSON CPACS XR abdomen / KUB 1 view (04/24/2020 12:23 PM CHLORINATION OPERATOR) Specimen Narrative Performed At FINAL REPORT [facility] RAD, ABDOMEN/KUB, 1 VIEW AP INDICATION: Cor gayatri insertion COMPARISON: None TECHNIQUE: Limited portable radiograph o f the lower chest and upper abdomen was acquired for purposes of abilio luating feeding tube placement FINDINGS: Feeding tube tip overlies the duodenojej unal junction. Signed: Layne De Dios MD Report Verified Date/Time: 04/24/2020 12:36:16 Reading Location: [place] Reading Room Procedure Note Interface, External Ris In - 04/24/2020 12:49 PM CHLORINATION OPERATOR FINAL REPORT RAD, ABDOMEN/KUB, 1 VIEW AP INDICATION: Cor gayatri insertion COMPARISON: None TECHNIQUE: Limited portable radiograph o f the lower chest and upper abdomen was acquired for purposes of abilio luating feeding tube placement FINDINGS: Feeding tube tip overlies the duodenojej unal junction. Signed: Layne De Dios MD Report Verified Date/Time: 04/24/2020 1 2:36:16 [place] Location: [facility] [place] Room Performing Organization Address City/State/Zipcode Phone Number Carticipate CT brain without IV contrast portable (04/24/2020 11:40 AM CHLORINATION OPERATOR) Specimen Narrative Performed At FINAL REPORT [facility]icipate CT BRAIN WITHOUT IV CONTRAST - PORTABLE INDICATION: Altered mental status TECHNIQUE: Noncontrast portable axial CT imaging was obtained from the vertex to the skull base. Axial imag es were reconstructed using a bone algorithm. DOSE REDUCTION: Dose modulation, iterati ve reconstruction, and/or weight-based adjustment of the mA/kV was utilized to reduce the radiation dose to as low as reasonably a chievable. COMPARISON: April 21, 2020 FINDINGS: There is no discernible ramirez-white disru ption. Morphology is grossly within normal limits. No midline shift o r hydrocephalus is evident. Ventricular and extra-axial CSF spaces a re within normal limits. Osseous structures are intact. IMPRESSION: No acute intracranial abnormality. Signed: JR Lopez Robert MD Report Verified Date/Time: 04/24/2020 12:21:42 [place] Location: [facility] C013 Neuro [place] [facility] Room Procedure Note Interface, External Ris In - 04/24/2020 12:26 PM CHLORINATION OPERATOR FINAL REPORT CT BRAIN WITHOUT IV CONTRAST - PORTABLE INDICATION: Altered mental status TECHNIQUE: Noncontrast portable axial CT imaging was obtained from the vertex to the skull base. Axial imag es were reconstructed using a bone algorithm. DOSE REDUCTION: Dose modulation, iterati ve reconstruction, and/or weight-based adjustment of the mA/kV was utilized to reduce the radiation dose to as low as reasonably a chievable. COMPARISON: April 21, 2020 FINDINGS: There is no discernible ramirez-white disru ption. Morphology is grossly within normal limits. No midline shift o r hydrocephalus is evident. Ventricular and extra-axial CSF spaces a re within normal limits. Osseous structures are intact. IMPRESSION: No acute intracranial abnormality. Signed: JR Lopez Robert MD Report Verified Date/Time: 04/24/2020 1 2:21:42 [place] Location: [facility] C013 Neuro [place] ding Room Performing Organization Address [facility] Phone Number RIS MRSA screen (04/24/2020 9:46 AM CHLORINATION OPERATOR) Pathologist Sig nature Result No MRSA isolated [facility] Specimen Nasal - Both anterior nares (body struct ure) Performing Organization Address [facility] Phone Number [address] [address] CENTER Ammonia (04/24/2020 9:43 AM CHLORINATION OPERATOR)Only the most recent of2 resultswithin the time period is included. Pathologist Sig nature Ammonia 69 18 - 72 mol/L [facility] Specimen Blood Narrative Performed At Stretcher Leveler Operator Helper ID - NENA Nielson [facility] Performing Organization Address [facility] Phone Number [facility] [address] CENTER Prepare Leuko-Red RBC (04/23/2020 11:54 PM CHLORINATION OPERATOR) Pathologist Sig nature CROSSMATCH COMPATIBLE SAFETRACE TX Unit ABO O Pos SAFETRACE TX UNIT NUMBER [id number] SAFETRACE TX Status TX_TIMEINCHART SAFETRACE TX Blood Bank Product RED BLOOD CELLS SAFETRACE TX PRODUCT CODE [id number] SAFETRACE TX Specimen Other Performing Organization Address [facility] Phone Number SAFETRACE TX Sputum Culture + Gram Stain (04/23/2020 3:46 PM CHLORINATION OPERATOR) Result 1+ Staphylococcus [facility] aureus (A) [facility] Gram Stain Result 3+ WBCs [facility] Gram Stain Result >25/LPF epithelial [facility] cells [facility] Gram Stain Result 2+ gram negative rods [facility] Gram Stain Result 2+ gram negative [facility] coccobacilli [facility] Gram Stain Result 1+ gram positive cocci [facility] in pairs and clusters [facility] Specimen Aspirate - Endotracheal tube, device (ph ysical object) Narrative Performed At 1+ Normal respiratory tabitha present [facility] Organism Antibiotic Method Susceptibility Staphylococcus aureus Clindamycin 0.25: Susc eptible Staphylococcus aureus Erythromycin <=0.25: Ballard sceptible Staphylococcus aureus Linezolid 2: Suscept ible Staphylococcus aureus Oxacillin <=0.25: [place] sceptible Staphylococcus aureus Rifampin <=0.5: Pari ceptible Staphylococcus aureus Tetracycline <=1: Susce ptible Staphylococcus aureus Trimethoprim + Sulfamethoxazole <=10: Susceptible Staphylococcus aureus Vancomycin 1: Suscept ible Performing Organization Address [facility] Phone Number [address] [phone] CENTER Bronchoscopy (04/23/2020 3:18 PM CHLORINATION OPERATOR) Narrative Performed At Mackenzie Wilder MD 04/09 3:21 PM [facility] Bronchoscopy Procedure Note Procedure: 1. Bronchoscopy, Diagnostic 2. Bronchoscopy, Therapeutic Pre-Operative Diagnosis: Respiratory bony lure with hypoxia, decreased compliance on ventilator Post-Operative Diagnosis: Same Indication: Diagnostic and therapeutic f or new acute hypoxia Anesthesia: Moderate Sedation Consent: The patient was in immediate da nger, and required the procedure emergently. Procedure Details: Time out was performed by the procedure team and nursing staff.Multifactor patient identify was verified using name, medical record number, and date of . Vent support maintained on Fio2 100. The bronchoscope was introduced through the ETT. A bronchoscopic airway exam was performed to evaluate th e visible tracheobronchial tree to the segmental l evel. The right bronchial tree was assessed to include t he right mainstem bronchus, RBI, and RUL/RML/RLL bronchi t o the segmental level. The left bronchial tree was assessed to include the left mainstem bronchus, EDSON, Lingula, and LLL bronchi to the segmental level. The bronchoscope was then removed and th e procedure terminated. Summary of Significant Findings: -Trachea: ETT terminates 2cm above chapito a -Main Miguelina: sharp -Right bronchial tree: purulent secretio ns obstructing RBI, with some pooling of secretions -Left bronchial tree: purulent secretion s in left lower lobe, suctioned Estimated Blood Loss: Minimal Specimens: Sent purulent fluid Complications: None; patient tolerated the procedure well. Disposition: ICU - intubated and hemodyn amically stable. Patient tolerated the procedure well. EEG AWAKE AND DROWSY (04/23/2020 2:40 PM CHLORINATION OPERATOR) Specimen Narrative Performed At NEUROPHYSIOLOGY ROUTINE EEG REPORT [facility] DATES OF TEST: 04/23/20 DATE OF REPORT: 04/23/20 Name: Geoffrey Barba Start time: 2:19 PM Stop time: 2:40 PM ACC #: [id number] EEG Number: [id number] ICD-10: R41.82 CPT Code: 77924 HISTORY: 39-year-old man, with multipl e medical comorbities, liver cirrhosis presented with altered mental status MEDICATIONS THAT COULD AFFECT EEG: No anti-seizure medications TECHNICAL SUMMARY: This is a digital video-EEG recorded wit h 32 input channels reviewed with bipolar and referential montages us ing the modified combinatorial system nomenclature. DESCRIPTION OF RECORD: During the maximally alert state, there is no well-defined posterior dominant rhythm. The background activity consisted predominantly of 8-10 Hz alpha frequency seen diffusely a nd intermixed intermittently with slower 5-6 Hz theta and 2-4 Hz delt a frequencies. The background activity showed poor variability. Incons istent reactivity to external stimuli was present, evident on one occa marlene by the suppression of faster frequencies and dominance of diff use delta actitivty (example at 2:20:19 PM, when his eyes were passiv filiberto opened by the technologist). No focal features No epileptiform discharges were seen. EVENTS: No clinical or electrographic se izures were recorded. HV: Hyperventilation was not performed. PHOTIC STIMULATION: Photic stimulation w as performed 1-33 Hz. Photic stimulation didn't elicit abnormal disch arges. IMPRESSION: Abnormal EEG - No posterior dominant rh ythm - Moderate generalized slo wing of the background activity CLINICAL CORRELATION: This record is indicative of moderate de gree of encephalopathy. No epileptiform discharges or seizures were recorded. An EEG without epileptiform discharges does not exclude the possibility of epilepsy. If the clinical suspicion of epilepsy re alex, consider additional EEG recordings. Gracy Hernandez MD Neurophysiology/ Epilepsy Fellow I have reviewed the electroencephalogram and this report and agree with its interpretation. Princess James MD Neurophysiology/Epilepsy Attending Procedure Note Interface, External Ris In - 04/23/2020 5:47 PM CHLORINATION OPERATOR NEUROPHYSIOLOGY ROUTINE EEG REPORT DATES OF TEST: 04/23/20 DATE OF REPORT: 04/23/20 Name: Geoffrey Barba Start time: 2:19 PM Stop time: 2:40 PM ACC #: [id number] EEG Number: [id number] ICD-10: R41.82 CPT Code: 07337 HISTORY: 39-year-old man, with multiple medical comorbities, liver cirrhosis presented with altered mental status MEDICATIONS THAT COULD AFFECT EEG: No anti-seizure medications TECHNICAL SUMMARY: This is a digital video-EEG recorded wit h 32 input channels reviewed with bipolar and referential montages us ing the modified combinatorial system nomenclature. DESCRIPTION OF RECORD: During the maximally alert state, there is no well-defined posterior dominant rhythm. The background activity consisted predominantly of 8-10 Hz alpha frequency seen diffusely a nd intermixed intermittently with slower 5-6 Hz theta and 2-4 Hz delt a frequencies. The background activity showed poor variability. Incons istent reactivity to external stimuli was present, evident on one occa marlene by the suppression of faster frequencies and dominance of diff use delta actitivty (example at 2:20:19 PM, when his eyes were passiv filiberto opened by the technologist). No focal features No epileptiform discharges were seen. EVENTS: No clinical or electrographic se izures were recorded. HV: Hyperventilation was not performed. PHOTIC STIMULATION: Photic stimulation w as performed 1-33 Hz. Photic stimulation didn't elicit abnormal disch arges. IMPRESSION: Abnormal EEG - No posterior dominant rhythm - Moderate generalized slowing of the background activity CLINICAL CORRELATION: This record is indicative of moderate de gree of encephalopathy. No epileptiform discharges or seizures were recorded. An EEG without epileptiform discharges does not exclude the possibility of epilepsy. If the clinical suspicion of epilepsy re alex, consider additional EEG recordings. Gracy Hernandez MD Neurophysiology/ Epilepsy Fellow I have reviewed the electroencephalogram and this report and agree with its interpretation. Princess James MD Neurophysiology/Epilepsy Attending Performing Organization Address [facility] Phone Number GE RIS Hepatitis C antibody (04/23/2020 11:53 AM CHLORINATION OPERATOR) Pathologist Sig nature Hepatitis C Ab Nonreactive Nonreactive [facility] Specimen Blood Narrative Performed At Stretcher Leveler Operator Helper ID - CAR[place] F [facility] Performing Organization Address City/[facility]/Zipcode Phone Number [address] [address] CENTER Anti-Nuclear Antibody (DENISE) (04/23/2020 11:53 AM CHLORINATION OPERATOR) Pathologist Sig nature DENISE Negative Negative [facility] Specimen Blood Narrative Performed At Test performed by IFA method. [facility] Test performed by IFA method. Performing Organization Address [facility] Phone Number [address] [phone] CENTER Hepatitis A antibody, IgG (04/23/2020 11:52 AM CHLORINATION OPERATOR) Pathologist Sig nature Hep A IgG Reactive (A) Nonreactive [facility] Specimen Blood Narrative Performed At Stretcher Leveler Operator Helper RAMANDEEP Handley HOA Corona [facility] Performing Organization Address City/[facility]/Zipcode Phone Number [facility] [address] [place], [place] [phone] CENTER Mitochondria M2 Antibody (IgG) (04/23/2020 11:52 AM CHLORINATION OPERATOR) Mitochondria M2 Ab <20.0 See Note: U [facility] Comment: INCORPORATED Reference Range: NEGATIVE: < OR = 20.0 EQUIVOCAL: 20.1-24.9 POSITIVE: > OR = 25.0 Specimen Blood Narrative Performed At Performing Lab [facility] [place] [address] [place] [address] [employer] [place] [address] Nikunj Montanez MD, PhD, BAL Performing Organization Address [facility] Phone Number [facility] [employer] [address] INCORPORATED [address] [employer] Actin (Smooth Muscle) Antibody, IgG (04/23/2020 11:52 AM CHLORINATION OPERATOR) Anti-Smooth <20 See Note: [facility] Comment: INCORPORATED Reference Range: <20 NEGATIVE > OR = 20 POSITIVE Antibodies recognizing actin are the main component of smooth muscle antibodies associated with autoimmune liver disease. Actin antibodies are found in approximately 75% of patients with autoimmune hepatitis (AIH) type 1, approximately 65% of patients with autoimmune cholangitis, approximately 30% of patients with primary biliary cirrhosis, and approximately 2% of healthy people. High values are closely correlated with AIH type 1. Specimen Blood Narrative Performed At Performing Lab [facility] [place] [address] [place] [address] Nikunj Montanez MD, PhD, BAL Performing Organization Address [facility] Phone Number [facility] [employer] [place] [address] INCORPORATED [address] [employer] [id number] (04/23/2020 11:52 AM CHLORINATION OPERATOR) Pathologist Sig nature A-1 Antitrypsin 154.20 90.00 - 200.00 [facility] mg/dL [facility] Specimen Blood Narrative Performed At Stretcher Leveler Operator Helper ID - HOA Corona [facility] Performing Organization Address City/[facility]/Zipcode Phone Number [address] [address] CENTER Ceruloplasmin (04/23/2020 11:52 AM CHLORINATION OPERATOR) Pathologist Sig [facility] Ceruloplasmin 26 18 - 36 mg/dL [facility] Specimen Blood Narrative Performed At Performing Lab [facility] *LAKISHA [facility], [address] [place] [phone] Des Wallace MD Performing Organization Address City/[facility] Phone Number [place] [address] [address] [facility] Alpha fetoprotein (AFP), tumor marker (04/23/2020 11:52 AM CHLORINATION OPERATOR) Pathologist Sig critical [facility] Alpha-Fetoprotein 2.4 <10.0 ng/mL [facility] Specimen Blood Narrative Performed At Stretcher Leveler Operator Helper ID - SOLOMONS Cj [facility] Performing Organization Address [facility] Phone Number [address] [address] [place] Hepatitis B core antibody, total (04/23/2020 11:52 AM CHLORINATION OPERATOR) Pathologist Sig [facility] Hep B Core Total Ab Nonreactive Nonreactive [facility] Specimen Blood Narrative Performed At Stretcher Leveler Operator Helper ID - SOLOMONS Cj [facility] Performing Organization Address City/[facility]/Zipcode Phone Number [address] [address] CENTER Hepatitis B surface antibody (04/23/2020 11:52 AM CHLORINATION OPERATOR) Pathologist Sig nature Hep B S Ab <8.0 <8.0 mIU/mL [facility] Specimen Blood Narrative Performed At Stretcher Leveler Operator Helper ID - HOA Corona [facility] Performing Organization Address City/State/Zipcode Phone Number [address] [address] CENTER Hepatitis B surface antigen (04/23/2020 11:52 AM CHLORINATION OPERATOR) Pathologist Sig nature HBsAg Screen Nonreactive Nonreactive [facility] Specimen Blood Narrative Performed At Specimen is considered negative for HBsA g. [facility] Performing Organization Address City/[facility]/Zipcode Phone Number [address] [address] [place] Bilirubin, direct (04/23/2020 4:23 AM CHLORINATION OPERATOR) Pathologist Sig nature Bilirubin, Direct 3.2 (H) 0.1 - 0.5 mg/dL [facility] Specimen Blood Narrative Performed At Stretcher Leveler Operator Helper ID - SOLOMONS Cj [facility] Performing Organization Address City/[facility] Phone Number [address] [address] [place] Lactic acid, venous (04/22/2020 9:15 PM CHLORINATION OPERATOR)Only the most recent of2 results within the time period is included. Pathologist Sig nature Lactate, Venous 1.77 0.50 - 2.20 mmol/L [facility] Specimen Blood Narrative Performed At Stretcher Leveler Operator Helper ID - [facility] Specimen slightly icteric Performing Organization Address City/[facility]/Zipcode Phone Number [address] [address] CENTER Cortisol (04/22/2020 8:07 PM CHLORINATION OPERATOR) Pathologist Sig nature Cortisol, Total 11.6 3.7 - 19.4 ug/dL [facility] Specimen Blood Narrative Performed At Stretcher Leveler Operator Helper ID - [facility] Performing Organization Address City/[facility]/Zipcode Phone Number [facility] [address] [place] [address] CENTER REPORT OF PROCEDURE - ENDOSCOPY URL (04/22/2020 6:06 PM CHLORINATION OPERATOR) Narrative Performed At This result has an attachment that is no t available. Basic Metabolic Panel (04/22/2020 3:57 PM CHLORINATION OPERATOR)Only the most recent of2 results within the time period is included. Sodium 140 136 - 145 [facility] meq/L [facility] Potassium 4.5Comment: Specimen 3.5 - 5.1 [facility] slightly hemolyzed meq/L [facility] Chloride 116 (H) 98 - 107 meq/L [facility] CO2 16 (L) 22 - 29 meq/L [facility] BUN 30 (H) 7 - 21 mg/dL [facility] Creatinine 0.82Comment: Specimen 0.57 - 1.25 [facility] slightly hemolyzed mg/dL [facility] Glucose 157 (H) 70 - 105 mg/dL [facility] Calcium 7.7 (L) 8.4 - 10.2 [facility] mg/dL [facility] EGFR Comment: INSUFFICIENT [facility] CLINICAL DATA TO [facility] CALCULATE ESTIMATED [facility] GFR. Specimen Blood Narrative Performed At Stretcher Leveler Operator Helper ID - [facility] Specimen moderately icteric Performing Organization Address City/State/Zipcode Phone Number [facility] [address] [place] [address] [place] Lactic Acid, Arterial (04/22/2020 1:25 PM CHLORINATION OPERATOR) Pathologist Sig nature Lactate, Art 2.0 0.5 - 2.2 mmol/L [facility] Specimen Blood, Arterial Narrative Performed At Stretcher Leveler Operator Helper ID - SOLOMONS F [facility] Specimen slightly icteric Performing Organization Address City/State/Zipcode Phone Number [facility] [address] [place] [address] [place] 2D Echo W/Doppler(CW/PW/Color) (04/22/2020 12:02 PM CHLORINATION OPERATOR) Pathologist Sig nature Ejection Fraction Est EF is 55-60% [facility] ECHO [facility]ART[facility] Specimen Narrative Performed At Transthoracic Echocardiography Report (T TE) [facility] ECHO HEARTLAB [facility] Demographics Patient Name GEOFFREY BARBA Date of Study 04/22/2020 Gender Male Visit Number [id number] Race Unknown Room Number 7214 Number Date of 1980 Referring Physician Fran Mejias 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 Clinical History GI Bleed, Anemia, Hepatic Encephalopathy, EtOH Cirrhosis HGB 6.8 HCT 21.6 % Contrast Medium: Definity. Height: 66 inches Weight: 73.94 kg (163 lbs) BSA: 1.83 m^2 BMI: 26.31 kg/m^2 HR: 82 bpm BP: 126/76 mmHg Summary The left ventricle is chamber size (by vol index) is normal (male - LVED vol - 34-74ml/m2). No apparent segmental wall motion abnormalities. Estimated LVEF is 55-60%. Unable to estimate peak systolic PA pressure; inadequate TR velocity signal. Signature Findings Left Ventricle The left ventricle is chamber size (by vol index) is normal (male - LVED vol - 34-74ml/m2). No apparent segmental wall motion abnormalities. Estimated LVEF is 55-60%. LV endocardium is adequately visualized with IV ultrasound enhancing agen t. Left Atrium Normal size left atrium. Right Ventricle Normal right ventricle structure and function. Right Atrium Normal righ t atrium. Aortic Valve Normal aortic valve structure and function. Mitral Valve Normal mitral valve structure and function. Tricuspid Valve Normal tricuspid valve structure and function. A trace of tricuspid regurgitation. Unable to estimate peak systolic PA pressure; inadequate TR velocity signal. Pulmonic Valve Normal PV structure and function by limited views and Doppler. Aorta Aortic root size (SInus of Valsalva diameter) is norm al . Pericardium No pericardial effusion is visualized. IVC/SVC/PA/PV/Pleural The estimated RA pressure by IVC dynamics 0-5mmHg . Chambers/Structures Left Atrium LA Dimension: 3.68 cm LA Area: 18.88 cm^2 LA Volume: 56.56 ml LA Vol. Index: 31 ml/m^2 Left Ventricle LVIDd: 4.79 cm LVEDV:120.29 ml LV Septum Diastolic: 1.03 cm LV PW Diastolic: 1.03 cm LVEDV Bradley's:130.51 ml LVESV Bradley's:42.46 ml LVEF Bradley's: 67.5 % LVEDVI: 71 ml/m^2 LVESVI: 23 ml/m^ 2 LVOT Diameter: 2.07 cm Right Atrium RA Area: 17.75 cm^ 2 Right Ventricle RV Diast Dim.: 2.99 cm Aorta Ao Root S of Lakisha.: 2.97 cm Doppler/Quantitative Measurements Mitral Valve MV Gideon. Peak: Tissue Doppler E' Lateral Velocity: 0.18 m/s E/E': 4.23 Aortic Valve Peak Velocity: 1 m/s Mean Velocity: 0.68 m/s Peak Gradient: 3.97 mmHg Mean Gradient: 2.09 mmHg AV Area (continuity): 3.74 cm^2 AV VTI: 20.22 cm AV DVI: 1.11 LVOT Peak Velocity: 0.95 m/s Peak Gradient: 3.62 mmHg Mean Velocity: 0.63 m/s Mean Gradient: 1.85 mmHg LVOT Diameter: 2.07 cm LVOT VTI: 22.47 cm LVOT Area: 3.37 cm^2 LVOT SV:75.58 ml LVOT CO: 6.2 l/min LVOT CI: 3.39 l/min/m^2 RVOT RVOT VTI (PW): 28.86 cm Procedure Note Interface, External Ris In - 04/22/2020 5:36 PM CHLORINATION OPERATOR Transthoracic Echocardiography Report (TTE) Demographics Patient Name GEOFFREY BARBA Date of St udy 04/22/2020 Gender Male Visit Number [id number] [facility] Number Date of 1980 Referring Physician Fran Mejias 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 Clinical History GI Bleed, Anemia, Hepatic Encephalopathy , EtOH Cirrhosis HGB 6.8 HCT 21.6 % Contrast Medium: Definity. Height: 66 inches Weight: 73.94 kg (163 lbs) BSA: 1.83 m^2 BMI: 26.31 kg/m^2 HR: 82 bpm BP: 126/76 mmHg Summary The left ventricle is chamber size (by vol index) is normal (male - LVED vol - 34-74ml/m2). No apparent segmenta l wall motion abnormalities. Estimated LVEF is 55-60%. Unable to estimate peak systolic PA pre ssure; inadequate TR velocity signal. Signature Findings Left Ventricle The left ventric le is chamber size (by vol index) is normal (male - LVED vol - 34-74ml/m2). No apparent segm ental wall motion abnormalities. Estimated LVEF i s 55-60%. LV endocardium is adequately visua lized with IV ultrasound enhancing agent. Left Atrium Normal size left atrium. Right Ventricle Normal right joselito tricle structure and function. Right Atrium Normal right atr ium. Aortic Valve Normal aortic va lve structure and function. Mitral Valve Normal mitral va lve structure and function. Tricuspid Valve Normal tricuspid valve structure and function. A trace of tricu spid regurgitation. Unable to estima te peak systolic PA pressure; inadequate TR ve locity signal. Pulmonic Valve Normal PV struct ure and function by limited views and Doppler. Aorta Aortic root size (SInus of Valsalva diameter) is normal . Pericardium No pericardial e ffusion is visualized. IVC/SVC/PA/PV/Pleural The estimated RA pressure by IVC dynamics 0-5mmHg . Chambers/Structures Left Atrium LA Dimension: 3.68 cm LA Area: 18.88 cm^2 LA Volume: 56.56 ml LA Vol. Index: 31 ml/m^2 Left Ventricle LVIDd: 4.79 cm LVEDV:120.29 ml LV Septum Diastolic: 1.03 cm LV PW Diastolic: 1.03 cm LVEDV Bradley's:130.51 ml LVESV Bradley's:42.46 ml LVEF Bradley's: 67.5 % LVEDVI: 71 ml/m^2 LVESVI: 23 ml/m^2 LVOT Diameter: 2.07 cm Right Atrium RA Area: 17.75 cm^2 Right Ventricle RV Diast Dim.: 2.99 cm Aorta Ao Root S of Lakisha.: 2.97 cm Doppler/Quantitative Measurements Mitral Valve MV Gideon. Peak: Tissue Doppler E' Lateral Velocity: 0.18 m/s E/E': 4.23 Aortic Valve Peak Velocity: 1 m/s Mean Velocity: 0.68 m/s Peak Gradient: 3.97 mmHg Mean Gradient: 2.09 mmHg AV Area (continuity): 3.74 cm^2 AV VTI: 20.22 cm AV DVI: 1.11 LVOT Peak Velocity: 0.95 m/s Pea k Gradient: 3.62 mmHg Mean Velocity: 0.63 m/s Shannan n Gradient: 1.85 mmHg LVOT Diameter: 2.07 cm LVO T VTI: 22.47 cm LVOT Area: 3.37 cm^2 LVO T SV:75.58 ml LVOT CO: 6.2 l/min LVO T CI: 3.39 l/min/m^2 RVOT RVOT VTI (PW): 28.86 cm Performing Organization Address [facility] Phone Number [facility]ART[facility] MKCKESSON CPACS aPTT (04/22/2020 11:53 AM CHLORINATION OPERATOR) Pathologist Sig nature PTT 41.1 (H) 22.5 - 36.0 seconds [facility] Specimen Blood Performing Organization Address [facility] Phone Number [facility] [address] [place] [address] CENTER Fibrinogen (04/22/2020 11:53 AM CHLORINATION OPERATOR)Only the most recent of3 resultswithin the time period is included. Pathologist Sig nature Fibrinogen 223 (L) 225 - 434 mg/dl [facility] Specimen Blood Performing Organization Address [facility] Phone Number [address] [address] [place] Trialysis Catheter (04/22/2020 11:49 AM CHLORINATION OPERATOR) Narrative Performed At Joe Alonzo PA 04/22/2020 11:53 AM Trialysis Catheter Date/Time: 04/22/2020 10:30 AM Performed by: Joe Alonzo PA Authorized by: Joe Alonzo PA Consent: The procedure was performed in an emergent situation. Verbal consent not obtained. Written consent no t obtained. Test results: test results available and properly labeled Site marked: the operative site was stephany ed Imaging studies: imaging studies availab le Required items: required blood products, implants, devices, and special equipment available Patient identity confirmed: anonymous pr otocol, patient vented/unresponsive, arm band and provid ed demographic data Time out: Immediately prior to procedure a "time out" was called to verify the correct patient, procedure, equipmen t, support analyst and site/side marked as required. Indications: vascular access Anesthesia: Local Anesthetic: lidocaine 1% without e pinephrine Sedation: Patient sedated: no Preparation: skin prepped with 2% chlorh exidine Skin prep agent dried: skin prep agent completely drie d prior to procedure Sterile barriers: all five maximum steri le barriers used - cap, mask, sterile gown, sterile gloves, and large sterile sheet Hand hygiene: hand hygiene performed joann or to central venous catheter insertion Location details: left femoral Patient position: flat Catheter type: triple lumen Catheter size: 13 Fr 20cm Trialysis. Pre-procedure: landmarks identified Number of attempts: 1 Successful placement: yes Post-procedure: line sutured and dressin g applied Immediate Post-Procedure Note Date/Time: 04/22/2020 10:30 AM Assistants to the procedure: None Pre-procedure diagnosis: Hemorrhagic jeremie ck Post-procedure diagnosis: Hemorrhagic sh ock Procedures Performed: Trialysis Catheter Specimens removed: None Estimated blood loss (mL): None Complications: None Type of anesthesia: None Grafts or Implants: None Insert Arterial Line (04/22/2020 11:47 AM CHLORINATION OPERATOR) Narrative Performed At Joe Alonzo PA 04/22/2020 11:49 AM Insert Arterial Line Date/Time: 04/22/2020 10:30 AM Performed by: Joe Alonzo PA Authorized by: Joe Alonzo PA Consent: The procedure was performed in an emergent situation. Verbal consent not obtained. Written consent no t obtained. Test results: test results available and properly labeled Site marked: the operative site was stephany ed Imaging studies: imaging studies availab le Required items: required blood products, implants, devices, and special equipment available Patient identity confirmed: provided demographic data, anonymous protocol, patient vented/unresponsive and arm band Time out: Immediately prior to procedure a "time out" was called to verify the correct patient, procedure, equipmen t, support analyst and site/side marked as required. Preparation: Patient was prepped and draped in the usu al sterile fashion. Indications: multiple ABGs, respiratory failure and he modynamic monitoring Location: left radial Anesthesia: Local Anesthetic: lidocaine 1% without e pinephrine Florin's test normal: yes Needle gauge: 20 Seldinger technique: Seldinger technique used Number of attempts: 1 Post-procedure: line sutured and dressin g applied Post-procedure CMS: normal Patient tolerance: patient tolerated the procedure wel l with no immediate complications US Renal with Doppler (04/22/2020 11:35 AM CHLORINATION OPERATOR) Specimen Narrative Performed At FINAL REPORT [employer] TECHNIQUE: Grayscale, color Doppler, and spectral Doppler ultrasound of the kidneys and bladder. INDICATION: 39-year-old man with hematur ia. COMPARISON: None. FINDINGS: RIGHT KIDNEY: Right kidney measures 10 x 5 x 5.4 cm with cortical thickness of 1.9 cm. No solid mass. No h ydronephrosis. Renal artery and vein are patent. Resistive index in the lower portion of the kidney is elevated and measures 0.85. Re sistive indices in the upper and mid portions of the kidney are at th e upper limit of normal and measures 0.73 and 0.76, respectively. LEFT KIDNEY: Left kidney measures 10.5 x 5.4 x 4.9 cm with cortical thickness of 1.9 cm. No solid mass. No h ydronephrosis. Renal artery and vein are patent. Normal resistive in dices throughout the kidney range between 0.66-0.70. BLADDER: Bladder is decompressed by Fole y catheter. IMPRESSION: Unremarkable appearance of the kidneys. Patent bilateral renal vasculature. Elev ated resistive index in the lower portion of the right kidney is non specific and may be seen with medical renal disease. Signed: India Mohan MD Report Verified Date/Time: 04/22/2020 11:56:58 Procedure Note Interface, External Ris In - 04/22/2020 11:59 AM CHLORINATION OPERATOR FINAL REPORT TECHNIQUE: Grayscale, color Doppler, and spectral Doppler ultrasound of the kidneys and bladder. INDICATION: 39-year-old man with hematur ia. COMPARISON: None. FINDINGS: RIGHT KIDNEY: Right kidney measures 10 x 5 x 5.4 cm with cortical thickness of 1.9 cm. No solid mass. No h ydronephrosis. Renal artery and vein are patent. Resistive index in the lower portion of the kidney is elevated and measures 0.85. Re sistive indices in the upper and mid portions of the kidney are at th e upper limit of normal and measures 0.73 and 0.76, respectively. LEFT KIDNEY: Left kidney measures 10.5 x 5.4 x 4.9 cm with cortical thickness of 1.9 cm. No solid mass. No h ydronephrosis. Renal artery and vein are patent. Normal resistive in dices throughout the kidney range between 0.66-0.70. BLADDER: Bladder is decompressed by Fole y catheter. IMPRESSION: Unremarkable appearance of the kidneys. Patent bilateral renal vasculature. Elev ated resistive index in the lower portion of the right kidney is non specific and may be seen with medical renal disease. Signed: India Mohan MD Report Verified Date/Time: 04/22/2020 1 1:56:58 Performing Organization Address City/[facility] Phone Number [facility]IS Transfuse Leuko-Red RBC (04/22/2020 11:29 AM CHLORINATION OPERATOR)CBC (Hemogram only) (04/22/2020 10:13 AM CHLORINATION OPERATOR) Pathologist Sig nature WBC 7.8 3.5 - 10.5 K/L [facility] RBC 3.19 (L) 4.63 - 6.08 M/L [facility] Hemoglobin 8.4 (L) 13.7 - 17.5 GM/DL [facility] Hematocrit 26.7 (L) 40.1 - 51.0 % [facility] MCV 83.7 79.0 - 92.2 fL [facility] MCH 26.3 25.7 - 32.2 pg [facility] MCHC 31.5 (L) 32.3 - 36.5 GM/DL [facility] RDW 20.4 (H) 11.6 - 14.4 % [facility] Platelets 112 (L) 150 - 450 K/CU MM [facility] MPV 11.7 9.4 - 12.4 fL [facility] nRBC 0 0 - 0 /100 WBC [facility] Specimen Blood Performing Organization Address City/[facility]/Zipcode Phone Number [facility] [address] [place] [address] CENTER Procalcitonin (04/22/2020 12:41 AM CHLORINATION OPERATOR) Pathologist Sig nature Procalcitonin 0.27 (H) <0.05 ng/mL [facility] Specimen Blood Narrative Performed At SEPSIS RISK (ng/mL) [facility] Low: 0.05-0.50 Intermediate: 0.51-2.00 High: >=2.01 Performing Organization Address [facility] Phone Number [address] [address] CENTER ABORH, manual (04/22/2020 12:41 AM CHLORINATION OPERATOR) Pathologist Sig nature ABO Grouping O [facility] Rh Factor POS [facility] Specimen Blood Performing Organization Address [facility] Phone Number [address] [address] TSH/Free T4 If Indicated (04/22/2020 12:41 AM CHLORINATION OPERATOR) Pathologist Sig nature TSH 0.829 0.350 - 4.940 uIU/mL [facility] Specimen Blood Narrative Performed At Stretcher Leveler Operator Helper ID - DB [facility] Performing Organization Address [facility] Phone Number [address] [address] CENTER Iron, TIBC, % sat. (without ferritin) (04/22/2020 12:41 AM CHLORINATION OPERATOR) Pathologist Sig nature Iron 48.0 40.0 - 160.0 [facility] ug/dL [facility] TIBC 251 250 - 450 ug/dL [facility] Iron % Saturation 19 (L) 20 - 55 % [facility] Specimen Blood Narrative Performed At Stretcher Leveler Operator Helper ID - DB [facility] CENTER Performing Organization Address [facility] Phone Number [address] [address] CENTER Ferritin (04/22/2020 12:41 AM CHLORINATION OPERATOR) Pathologist Sig nature Ferritin 23.17 5.00 - 275.00 ng/mL [facility] Specimen Blood Narrative Performed At Stretcher Leveler Operator Helper ID - ANNE MARIE [facility] CENTER Performing Organization Address City/State/Zipcode Phone Number [facility] [address] [place] [address] brain without IV contrast (04/21/2020 11:18 PM CHLORINATION OPERATOR) Specimen Narrative Performed At FINAL REPORT [employer] RIS CT, BRAIN, WITHOUT CONTRAST CLINICAL INDICATION: Subarachnoid hemo rrhage, follow-up COMPARISON: None TECHNIQUE: Noncontrast axial CT imagin g of the brain and skull. Coronal and sagittal reformats obtained. DOSE REDUCTION: Dose modulation, iterati ve reconstruction, and/or weight-based adjustment of the mA/kV was utilized to reduce the radiation dose to as low as reasonably a chievable. FINDINGS: Cerebral parenchyma: No mass, acute intr acranial hemorrhage or evidence of acute cortical infarct. Cerebellum and brainstem: No acute findi ng. Ventricles: No evidence of hydrocephalus . Extra-axial spaces: Unremarkable. Calvarium and skull base: Intact. Paranasal sinuses and mastoid air cells: Imaged chambers are without acute abnormality. Orbital contents: Included portions unre markable. Additional findings: None. IMPRESSION: No acute intracranial abnormality. If there is persistent clinical concern for intracranial pathology, MR examination is recommended for furthe r characterization. Signed: Driss Gilbert MD Report Verified Date/Time: 04/21/2020 23:30:02 Procedure Note Interface, External Ris In - 04/21/2020 11:33 PM CHLORINATION OPERATOR FINAL REPORT CT, BRAIN, WITHOUT CONTRAST CLINICAL INDICATION: Subarachnoid hemor rhage, follow-up COMPARISON: None TECHNIQUE: Noncontrast axial CT imaging of the brain and skull. Coronal and sagittal reformats obtained. DOSE REDUCTION: Dose modulation, iterati ve reconstruction, and/or weight-based adjustment of the mA/kV was utilized to reduce the radiation dose to as low as reasonably a chievable. FINDINGS: Cerebral parenchyma: No mass, acute intr acranial hemorrhage or evidence of acute cortical infarct. Cerebellum and brainstem: No acute findi ng. Ventricles: No evidence of hydrocephalus . Extra-axial spaces: Unremarkable. Calvarium and skull base: Intact. Paranasal sinuses and mastoid air cells: Imaged chambers are without acute abnormality. Orbital contents: Included portions unre markable. Additional findings: None. IMPRESSION: No acute intracranial abnormality. If there is persistent clinical concern for intracranial pathology, MR examination is recommended for furthe r characterization. Signed: Driss Gilbert MD Report Verified Date/Time: 04/21/2020 2 3:30:02 Performing Organization Address City/[facility]/Zipcode Phone Number RIS Blood Culture - Routine (Right Venipuncture) (04/21/2020 9:30 PM CHLORINATION OPERATOR)Only the most recent of2 resultswithin the time period is included. Pathologist Sig nature Result No growth in 5 days [facility] Specimen Blood - Entire right upper arm (body str ucture) Performing Organization Address City/State/Zipcode Phone Number [facility] [address] [place] [address] CENTER Urinalysis w/Microscopic + Reflex to Culture (04/21/2020 9:28 PM CHLORINATION OPERATOR) Color, UA Yellow [facility] Clarity, UA Clear [facility] Specific [place], 1.026 1.001 - 1.035 [facility] pH, UA 7.5 5.0 - 8.0 [facility] Protein, UA 30 mg/dL (A) Negative [facility] Glucose, UA Negative Negative [facility] Ketones, UA Trace (A) Negative [facility] Bilirubin, UA Negative Negative [facility] Blood, UA Large (A) Negative [facility] Nitrite, UA Negative Negative [facility] Leukocytes, UA Negative Negative [facility] Urobilinogen, UA 2.0 (H) 0.2 - 1.0 mg/dL [facility] RBC, UA 344 /HPF [facility] WBC, UA 0 /HPF [facility] Specimen Source [facility] Specimen Urine - Urinary catheter, device (physic al object) Narrative Performed At Stretcher Leveler Operator Helper ID - [auto] [facility] Stretcher Leveler Operator Helper ID - tech Performing Organization Address [facility] Phone Number [address] [address] CENTER Type and screen, automated (04/21/2020 9:28 PM CHLORINATION OPERATOR) Pathologist Sig nature ABO/RH AUTOMATED O POSITIVE [facility] (BEAKER) [facility] Ab Scrn NEGATIVE [facility] Specimen Blood - Entire right upper arm (body str ucture) Performing Organization Address [facility] Phone Number [address] [address] Hepatic function panel (04/21/2020 9:28 PM CHLORINATION OPERATOR) Pathologist Sig nature Protein, Total 5.4 (L) 6.0 - 8.3 gm/dL [facility] Albumin 2.2 (L) 3.5 - 5.0 g/dL [facility] Total Bilirubin 4.3 (H) 0.2 - 1.2 mg/dL [facility] Bilirubin, Direct 2.8 (H) 0.1 - 0.5 mg/dL [facility] Alkaline Phosphatase 139 40 - 150 U/L [facility] AST 69 (H) 5 - 34 U/L [facility] ALT 29 6 - 55 U/L [facility] Specimen Blood - Entire left upper arm (body stru cture) Narrative Performed At Stretcher Leveler Operator Helper ID - DB [facility] Specimen moderately icteric Performing Organization Address City/State/Zipcode Phone Number [facility] [address] [place] [address] CENTER after 05/18/2019 Advance Directives For more information, please contact: [phone] Code Status Date Activated Date Inactivated Comments Full Code 04/21/2020 8:46 PM 04/29/2020 5:24 PM This code status was determined by: Patient
--- OUTSIDE RECORDS SUMMARY | 2020-05-18 02:37 | XMS REPORT | Summary of Care ---
:1980 Author Organization [facility] Address [address] [place] [id number] Care Team Providers Name Role Phone Pcp, Does Not Have A Primary Care Provider Reason for Referral (Routine) Status Reason Specialty Diagnoses / Referred By Referred To Procedures Contact Contact New Request IM-GASTROENTEROLO Diagnoses Other ascites Zay, Delmy GY Procedures Discharge Follow-Up: Specialty Service IM-GASTROENTEROLOGY; 1 Week BA Mello [facility] [place] [address] (Routine) Status Reason Specialty Diagnoses / Referred By Referred To Procedures Contact Contact New Request Diagnoses Other ascites Zay, Delmy Pcp, Patient Does Procedures Discharge Follow-up: PCP PATIENT DOES NOT HAVE A PCP; 1 Week BA Mello Not Have A [facility] [address] [place], [place] [address] [place], [place] Phone: [phone] Phone: Radiology Services (STAT) Status Reason Specialty Diagnoses / Referred By Referred To Procedures Contact Contact Closed Diagnostic Diagnoses Other ascites Hypokalemia Metabolic acidosis Orlando Aguila, Radiology Procedures IR PARACENTESIS/PERITONECENTESIS WITH IMAGING [address] [facility] [address] [place] [address] Radiology Services (STAT) Status Reason Specialty Diagnoses / Referred By Referred To Procedures Contact Contact New Request Diagnostic Diagnoses Other ascites Hypokalemia Metabolic acidosis Orlando Aguila, Radiology Procedures IR PARACENTESIS [address] [facility] [address] [place] [address] Reason for Visit Reason Comments Ascites Auth/Cert Status Reason Specialty Diagnoses / Referred By Referred To Procedures Contact Contact Emergency Medicine Diagnoses ascites [facility] Emergency Dept [address] [place] [id number] Fax: Encounter Details Date Type Department Care Team Description 05/07/2020 - Emergency ADC Medicine Surgery Edgardo Aguila MD [address] [place] [address] [place] [id number] Ascites 05/08/2020 Unit Adriana Tanner MD [address] [place] [address] [phone] [place] [address] [id number] Allergies No Known Allergiesdocumented as of this encounter (statuses as of 05/08/2020) Medications Medication Sig Dispensed Refills Start Date End Date Status pantoprazole 40 mg EC Take 1 tablet 30 tablet 3 04/08/2020 Active tabletIndications: by mouth daily. Hematemesis with nausea, Esophageal varices determined by endoscopy propranoloL 10 mg Take 1 tablet 60 tablet 3 04/08/2020 Active tabletIndications: by mouth 2 Hematemesis with (two) times nausea, Esophageal daily. varices determined by endoscopy ciprofloxacin HCl 500 Take 1 tablet 4 tablet 0 04/08/2020 Active mg tabletIndications: by mouth every Hematemesis with 12 (twelve) nausea, Esophageal hours. varices determined by endoscopy lactulose 10 gram/15 mL Take 30 mL by 0 Active (15 mL) Soln mouth 3 (three) times daily. rifAXIMin (XIFAXAN) 550 Take 550 mg by 0 Active mg tablet mouth 2 (two) times daily. ferrous sulfate 325 mg Take 1 tablet 60 tablet 0 05/08/2020 Active (65 mg iron) by mouth 2 tabletIndications: (two) times Other ascites daily for 30 days. documented as of this encounter (statuses as of 05/08/2020) Active Problems Problem Noted Date Ascites 05/07/2020 GI bleed 04/04/2020 Gastrointestinal hemorrhage with hematemesis 0 Overview: Added automatically from request for alex manuel [id number] documented as of this encounter (statuses as of 05/08/2020) Social History Tobacco Use Types Packs/Day Years Used Date Former Smoker Smokeless Tobacco: Never Used Tobacco Cessation: Counseling Given: Yes Sex Assigned at Date Recorded Not on file COVID-19 Exposure Response Date Recorded In the last month, have you been in contact with No / Unsure 05/07/2020 3:53 PM [employer]SE [employer]ER someone who was confirmed or suspected to have Coronavirus / COVID-19? documented as of this encounter Last Filed Vital Signs Vital Sign Reading Time Taken Comments Blood Pressure 121/59 05/08/2020 5:30 PM [employer]SE [employer] Pulse 67 05/08/2020 5:30 PM [employer]SE [employer] Temperature 36.9 C (98.5 F) 05/08/2020 5:30 PM HOSE [employer]UBING [employer]ER Respiratory Rate 18 05/08/2020 5:30 PM HOSE [employer]UBING [employer]ER Oxygen Saturation 100% 05/08/2020 5:30 PM HOSE [employer]ING [employer]ER Inhaled Oxygen Concentration - - Weight 84.5 kg (186 lb 3.2 oz) 05/08/2020 3:49 AM HOSE [employer]UBING [employer] Height 170.2 cm (5' 7") 05/07/2020 6:39 PM HOSE [employer]UBING BACKER Body Mass Index 29.16 05/07/2020 6:39 PM HOSE TUBING BACKER documented in this encounter Discharge Instructions AttachmentsThe following attachments cannot be sent through Care Everywhere.Iron tablets, capsules, extended-release tablets (Belarusian)Ascites (Belarusian)documented in this encounter Progress Notes Adriana Gonsalez, SWAPNIL - 05/08/2020 2:41 PM CSTCare Management Social Functional Assessment Patient Name: Geoffrey Alvarez Age: [age] year old Sex: male Patient's Previous Admission Date at [facility]: 04/04/2020 Current diagnosis and co-morbidities: Ascites Hypokalemia Metabolic acidosis Readmission Questions: Was patient discharged from any acute care hospital within the last 30 days: Yes([facility]04/20/20) Were all questions regarding previous illness/diagnosis answered prior to discharge: Yes Did you have any difficulties with your discharge instructions: No Were you able to go to your follow-up discharge appointments: No If No, comment: none scheduled Any difficulties after discharge with medications: Yes If Yes, comment: cost Any difficulties after discharge with transportation: No Any difficulties after discharge with physical conditions, support, or other limitations?: No Did patient refuse services that were recommended on the previous admission: No Was patient non-compliant with the previously recommended treatment: No If admitted from the ED did you call your primary MD or place a sick call/request with your provider?: No Social Functional Assessment: Primary language spoken/preferred: Belarusian Mental Status: Alert & Oriented to Person,Place & Time Information given by: Self Patient's support system: Spouse Name and number of support system: Fariha Barba [phone] Primary Post Secondary Professional: Self;Spouse MPOA: No Living Arrangement: Home Address of living arrangement : [address] [place] [id number] Persons living in home: Self;Child;Spouse Barriers to returning home: None Baseline functional status- ambulation: Independent Functional status-baseline personal care: Independent Baseline functional status- driving: Requires minimal to moderate assistance Baseline functional status- grocery shopping: Requires minimal to moderate assistance Functional status-baseline housekeeping: Requires minimal to moderate assistance Functional status-baseline meal prep: Requires minimal to moderate assistance Current functional status same as prior: Yes Do you have a PCP?: No Refered to: [facility] Home Health Care Agency: No Provider Services: No DME Company: No Equipment: None Hemodialysis: No Community resources utilized: Prescription Assistance Program(s) Funding Resources: Self Pay Prescription coverage plan: Self Pay Anticipated services prior to disharge: Paracentesis Expected mode of discharge transportation: Personal vehicle;Family Name and phone number of the friend or family member picking up the patient: Fariha Barba [phone] Additional info required for discharge planning: No needs identified Recommended discharge plan: Home Pt lives with and 2 minor children. Stated he quit drinking ETOH around gi because he wants to improve physical condition so he can return to work and care for his family. Pt declined referrals for AA, stating he has been around friends who drink and has had no desire. SW encouraged patient to consider support As a preventive measure. Primary concern today is medical care; referred patient to [facility] ([facility] in [place]) which has a clinic in [place] where patient lives. Also provided him with website for [employer], to search for assistance programs and coupons to help defray the cost of medications. Pt's first paracentesis was at [facility] on 04/20; this visit is his second. SW encouragedpatient to meet with PCP soon to receive support on his new health journey. Follow-up prn. Alcohol Use Screening (AUDIT-C) How often do you have a drink containing alcohol?: Never SCORE: 0 Did patient elect to have resources provided: No Actions taken: Provided support;Other (see comments)(Pt stopped drinking around Thanks[place] this year. Stated he has no current need for support, as he is motivated not to drink again.) Adriana Gonsalez LCSW, [facility]- Drama Director, Social Work Office Belarusian proficient TUBING BACKER documented in this encounter H&P Notes Shawna Medrano MD - 05/07/2020 11:02 PM CST MEDICINE ADC ADMIT H&P Date of Service: 05/07/2020 CHIEF COMPLAINT: ascites History of Present Illness 39 year-old male with pmh of alcoholic cirrhosis (with complications of esophageal varices, hepatic encephalopathy, portal hypertension), PUD who presents to the ED secondary to ascites. Patient was recently diagnosed with alcoholic liver cirrhosis in March when admitted for hematemesis at [facility] and had esophageal banding due to underlying esophageal varices. Patient was just admitted to [facility] and subsequently 04/30/2020 after having shortness of breath and volume overload.He does not recall being prescribed diuretics to take as an outpatient. He notes that days after discharge he became volume overload (adomen, legs) around the 25th. About 2 days, he started shortnessof breath and abdominal pain. No chest pain/tenderness. PAST MEDICAL HISTORY Past Medical History: Diagnosis Date Alcoholic cirrhosis Cirrhosis Esophageal ulcer Esophageal varices Gastrointestinal hemorrhage with hematemesis Hepatic encephalopathy Metabolic encephalopathy Pleural effusion Portal hypertension Past Surgical History: Procedure Laterality Date ESOPHAGOGASTRODUODENOSCOPY N/A 04/05/2020 Surgeon: Fletcher Beauchamp MD; Location: [facility] Location Family History Noncontributory ALLERGIES No Known Allergies MEDICATIONS No current facility-administered medications on file prior to encounter. Current Outpatient Medications on File Prior to Encounter Medication Sig Dispense Refill rifAXIMin (XIFAXAN) 550 mg tablet Take 550 mg by mouth 2 (two) times daily. lactulose 10 gram/15 mL (15 mL) Soln Take 30 mL by mouth 3 (three) times daily. ciprofloxacin HCl 500 mg tablet Take 1 tablet by mouth every 12 (twelve) hours. 4 tablet 0 pantoprazole 40 mg EC tablet Take 1 tablet by mouth daily. 30 tablet 3 propranoloL 10 mg tablet Take 1 tablet by mouth 2 (two) times daily. 60 tablet 3 SOCIAL HISTORY Social History Socioeconomic History Marital [...] Not on file Tobacco Use Smoking status: Former Smoker Smokeless tobacco: Never Used Substance and Sexual Activity Alcohol use: Not on file Drug use: Not on file Sexual activity: Not on file Lifestyle Physical activity Days per week: Not on file Minutes per session: Not on file Stress: Not on file Relationships Social connections Talks on phone: Not on file Gets together: Not on file Attends worship service: Not on file Active member of [...] file Social History Narrative Not on file Social: Former Smoker. Former drinker. Review of Systems Constitutional: Positive for appetite change (decreased). Negative for activity change, chills, diaphoresis, fatigue, fever and unexpected weight change. HENT: Positive for sore throat. Negative for congestion, dental problem, drooling, ear discharge, ear pain, facial swelling, hearing loss, mouth sores, nosebleeds, postnasal drip, rhinorrhea, sinus pressure, sneezing, tinnitus, trouble swallowing and voice change. Eyes: Negative. Respiratory: Positive for shortness of breath. Negative for apnea, cough, choking, chest tightness, wheezing and stridor. Breasts: Negative. Cardiovascular: Positive for leg swelling. Negative for chest pain and palpitations. Gastrointestinal: Positive for abdominal pain. Negative for abdominal distention, anal bleeding, blood in stool, constipation, diarrhea, nausea, rectal pain and vomiting. Genitourinary: Positive for decreased urine volume. Negative for bladder incontinence, dysuria, urgency, frequency, hematuria, flank pain, discharge, penile swelling, scrotal swelling, enuresis, difficulty urinating, genital sores, penile pain, testicular pain and nocturia. Musculoskeletal: Negative. Negative for neck pain and neck stiffness. Skin: Positive for color change (yellowish). Negative for pallor and rash. Neurological: Negative. Psychiatric/Behavioral: Negative. Endocrine: Endocrine negative PHYSICAL EXAMINATION Vitals: 05/07/20 1700 05/07/20 1800 05/07/20 1839 05/07/20 1932 BP: 135/60 121/60 119/77 112/61 Pulse: 81 80 69 66 Resp: 18 20 20 Temp: 36.4 C (97.5 F) 36.8 C (98.2 F) TempSrc: Temporal Artery Temporal Artery SpO2: 100% 100% 100% 100% Weight: 85.5 kg (188 lb 6.4 oz) Height: 1.702 m (5' 7") Physical Exam Constitutional: He is oriented to person, place, and time. He appears well- developed and well-nourished. No distress. HENT: Head: Normocephalic and atraumatic. Right Ear: External ear normal. Left Ear: External ear normal. Eyes: Pupils are equal, round, and reactive to light. Conjunctivae and EOM are normal. Scleral icterus is present. Neck: Normal range of motion. Cardiovascular: Normal rate and regular rhythm. Pulmonary/Chest: Effort normal. No respiratory distress. He exhibits no tenderness. Abdominal: Soft. He exhibits distension. He exhibits no mass. There is no abdominal tenderness. There is no rebound and no guarding. Musculoskeletal: Normal range of motion. General: Edema (1+ pitting edema in the lower extremity bilaterally) present. No tenderness. Neurological: He is alert and oriented to person, place, and time. Skin: Skin is warm and dry. No rash noted. No erythema. No pallor. Jaundice Psychiatric: He has a normal mood and affect. His behavior is normal. Judgment and thought content normal. LABS - reviewed pertinent labs as below: Reviewed IMAGING - reviewed, pertinent results as below: None ASSESSMENT/PLAN Geoffrey Alvarez is a 39 year old male with PMH as listed above, admitted to the hospital with: 1. Decompensated cirrhosis: noted in ascites -- IR paracentesis is pending 2. Thrombocytopenia: secondary to cirrhosis -- Will hold heparin at this time 3. Anemia: could be symptomatic and appears to be downtrending. -- Will get anemia work up including iron panel and occult blood -- Will likely need transfusion Prophylaxis: DVT- Contraindicated: Thrombocytopenia Code Status: addressed: FC documented in this encounter Consult Notes Leslie Valencia, RD - 05/08/2020 11:15 AM CSTAssociated Order(s): CONSULT FOOD AND NUTRITION MEDICAL NUTRITION THERAPY- CONSULT NOTE: Reason For Consultation: Physician consult: Diet for cirrhotic patient Malnutrition Assessment: Nutritional Diagnosis: None SGA Rating: At Risk Plan: Recommend cardiac diet with 60 g protein modifier Admission Chief Complaint: had concerns including Ascites. Present on Admission: Ascites PMH/PSH: has a past medical history of Alcoholic cirrhosis, Cirrhosis, Esophageal ulcer, Esophageal varices,Gastrointestinal hemorrhage with hematemesis, Hepatic encephalopathy, Metabolic encephalopathy, Pleural effusion, and Portal hypertension. has a past surgical history that includes esophagogastroduodenoscopy (N/A, 04/05/2020). GI and Nutrition Related Findings: Symptoms: N/A Difficulty: N/A GI tract alteration: N/A Alternative means of nutrition: N/A General: Edema and Ascites Medications: Current Facility-Administered Medications: ciprofloxacin HCl (CIPRO) tablet 500 mg, 500 mg, Oral, Q12H, Shawna Medrano MD, 500 mg at 05/08/20 0836 furosemide (LASIX) injection 40 mg, 40 mg, IV Push, DAILY, Shawna Medrano MD, 40 mg at 05/08/20 0836 lactulose (CEPHULAC) solution 30 mL, 30 mL, Oral, TID, Shawna Medrano MD, 30 mL at 05/08/20 0835 pantoprazole (PROTONIX) EC tablet 40 mg, 40 mg, Oral, DAILY, Shawna Medrano MD, 40 mg at 05/08/20 0836 propranoloL (INDERAL) tablet 10 mg, 10 mg, Oral, BID, Shawna Medrano MD, 10 mg at 05/08/20 0836 rifAXIMin (XIFAXAN) tablet 550 mg, 550 mg, Oral, BID, Shawna Medrano MD, 550 mg at 05/08/20 0836 sennosides (SENOKOT) tablet 8.6 mg, 8.6 mg, Oral, BIDRICH, Adriana Tanner MD Lab and Medical Test Results: NA (mmol/L) Date Value 05/08/2020 137 K (mmol/L) Date Value 05/08/2020 4.2 CALCIUM (mg/dL) Date Value 05/08/2020 7.3 (L) CL (mmol/L) Date Value 05/08/2020 114 (H) BUN (mg/dL) Date Value 05/08/2020 17 CREATININE (mg/dL) Date Value 05/08/2020 0.73 GLUCOSE (mg/dL) Date Value 05/08/2020 102 CO2 TOTAL (mmol/L) Date Value 05/08/2020 19 (L) ALBUMIN (g/dL) Date Value 05/07/2020 2.6 (L) T PROTEIN (g/dL) Date Value 05/07/2020 5.5 (L) TOTAL BILI (mg/dL) Date Value 05/07/2020 2.7 (H) BILI UNCON (mg/dL) Date Value 05/07/2020 1.6 (H) BILI CONJ (mg/dL) Date Value 05/07/2020 0.0 ALTv (U/L) Date Value 05/07/2020 44 AST(SGOT) (U/L) Date Value 05/07/2020 50 (H) ALK PHOS (U/L) Date Value 05/07/2020 178 (H) Results for GEOFFREY BARBA ( ) as of 05/08/2020 11:16 Ref. Range 05/08/2020 03:33 AMMONIA Latest Ref Range: 9 - 33 umol/L 46 (H) Nutrition Assessment: Age: [age] year old Sex: male Ht: Ht Readings from Last 3 Encounters: 05/07/20 1.702 m (5' 7") 04/04/20 1.702 m (5' 7") Current Wt: Wt Readings from Last 1 Encounters: 05/08/20 84.5 kg (186 lb 3.2 oz) BMI: Body mass index is 29.16 kg/m. (Overweight) IBW for Ht: 67.27 kg +/- 6.7 kg %IBW: 126% Weight History: Wt Readings from Last 10 Encounters: 05/08/20 84.5 kg (186 lb 3.2 oz) 04/08/20 83 kg (182 lb 14.4 oz) Inflammatory Markers: N/A Current Dietary Order(s): Orders Placed This Encounter Procedures Regular Diet; Texture: Regular. EMR Documented Food Allergies/Intolerance/Cultural Preferences: No Known Allergies Nutrition & Diet History: Patient reports UBW of 160-180 lbs when not fluid overloaded. He tries to eat smaller meals at home and feels like he hasn't had any appetite changes or lost any weight recently. LBM 05/08. Mr. Barba was able to eat 3/4 of his breakfast this morning with no difficulties. RD provided a cirrhosis nutrition therapy handout (important topics included: low sodium, small more frequent meals, staying active, and avoiding alcohol. A sample menu was also included.). Patient acknowledged education. RD reviewed patient's labs, and will continue to monitor. Calculated Daily Nutritional Needs: IBW= 67.27 kg Calories: 2020 kcal/day 30 kcal/kg IBW Protein: 54-80 g/day = 0.8-1.2 g/kg IBW Fluid: Per MD; adjust per acute needs Nutrition Diagnosis: PES #1: Food and nutrition related knowledged deficit related to lack of prior diet education as evidenced by patient needing diet education for cirrhosis Nutrition Intervention(s): Interventions: 1. Recommend cardiac diet with 60 g protein modifier - soft/ low fiber foods if unable to tolerate regular foods 2. Recommend daily weights 3. Cirrhosis nutrition therapy handout 4. Encouraged adequate PO intake 5. Will monitor diet tolerance, intake, GI function, weight trends, and nutrition related labs Goals: 1. The pt's documented intake is no less than 75% of provided meals D/C Planning: Heart healthy diet. Small more frequent meals/ snacks. Less than 2000 mg sodium per day with fluid restriction per MD. Choose foods with 140 mg or less of sodium per serving. MVI supplementation per MD. Nutrition Monitoring and Evaluation: A registered dietitian will f/u in 5 days to report nutrition related information and to revise the recommended nutrition intervention(s) if necessary; please page with questions or concerns, thank-you. Leslie Valencia RD,OLI RD Office: [phone] signed by Leslie Valencia RD at 05/08/2020 11:28 AM CSTdocumented in this encounter ED Notes Zoya Paz RN - 05/07/2020 3:54 PM CSTPatient complaining of ascites and bilateral lower extremity edema. States he was at [facility] last week for "fluid on my lung, they had to put a tube and I wasn't conscious". He has become short of breath again and thinks it is due to "too much fluid". 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 meds Chief Complaint Chief Complaint Patient presents with Ascites HPI History provided by: Patient Abdominal Pain Pain location: Generalized Pain quality: fullness and heavy Pain radiates to: Does not radiate Pain severity: Moderate Onset quality: Gradual Timing: Constant Progression: Unchanged Chronicity: Chronic Relieved by: Nothing Worsened by: Nothing Associated symptoms: no chest pain, no chills, no cough, no dysuria, no fatigue, no fever, no hematemesis, no hematochezia, no nausea, no shortness of breath and no vomiting Past Medical History / Immunizations Past Medical History: Diagnosis Date Alcoholic cirrhosis Cirrhosis Esophageal ulcer Esophageal varices Gastrointestinal hemorrhage with hematemesis Hepatic encephalopathy Metabolic encephalopathy Pleural effusion Portal hypertension Tetanus received in last 5 years: Unknown Childhood immunizations: Up-to-date Past Surgical History Past Surgical History: Procedure Laterality Date ESOPHAGOGASTRODUODENOSCOPY N/A 04/05/2020 Surgeon: Fletcher Beauchamp MD; Location: [facility] Allergies No Known Allergies Social History Tobacco Use Current Every Day Smoker. Review of Systems Review of Systems Constitutional: Negative. Negative for chills, fatigue, fever and unexpected weight change. HENT: Negative. Eyes: Negative. Negative for discharge and itching. Respiratory: Negative. Negative for cough, chest tightness, shortness of breath and wheezing. Cardiovascular: Negative. Negative for chest pain and palpitations. Gastrointestinal: Positive for abdominal distention and abdominal pain. Negative for hematemesis, hematochezia, nausea and vomiting. Genitourinary: Negative. Negative for dysuria, urgency, frequency and flank pain. Musculoskeletal: Negative. Skin: Negative. Negative for color change, pallor and wound. Neurological: Negative. Negative for dizziness, syncope, light-headedness and headaches. Psychiatric/Behavioral: Negative. Negative for agitation and behavioral problems. All other systems reviewed and are negative. Endocrine: Endocrine negative Physical Exam BP 127/65 | Pulse 70 | Temp 37.2 C (99 F) | Resp 18 | Ht 1.702 m (5' 7") | Wt 77.1 kg (170 lb) | SpO2 100% | BMI 26.63 kg/m Physical Exam Vitals signs reviewed. Constitutional: Appearance: He is well-developed. He is ill-appearing. Comments: jaundice HENT: Head: Normocephalic and atraumatic. Nose: Nose normal. Eyes: Conjunctiva/sclera: Conjunctivae normal. Neck: Musculoskeletal: Normal range of motion and neck supple. Trachea: No tracheal deviation. Cardiovascular: Rate and Rhythm: Normal rate and regular rhythm. Heart sounds: Normal heart sounds. No murmur. No friction rub. Pulmonary: Effort: Pulmonary effort is normal. No respiratory distress. Breath sounds: Normal breath sounds. No stridor. No wheezing or rales. Abdominal: General: Bowel sounds are normal. There is distension. Palpations: Abdomen is soft. Tenderness: There is no abdominal tenderness. There is no guarding or rebound. Musculoskeletal: Normal range of motion. Skin: General: Skin is warm and dry. Neurological: Mental Status: He is alert and oriented to person, place, and time. Cranial Nerves: No cranial nerve deficit. Sensory: No sensory deficit. Psychiatric: Behavior: Behavior normal. Labs Recent Results (from the past 24 hour(s)) COVID-19 (ID NOW RAPID TESTING) Collection Time: 05/07/20 4:22 PM Specimen: NASOPHARYNGEAL SWAB Result Value Ref Range SARS-CoV-2 Rapid ID NOW Not Detected Not Detected CBC with Differential Collection Time: 05/07/20 4:26 PM Result Value Ref Range WBC 6.61 4.20 - 10.70 10*3/L RBC 2.85 (L) 4.26 - 5.52 10*6/L HGB 7.3 (L) 12.2 - 16.4 g/dL HCT 23.7 (L) 38.4 - 49.3 % MCV 83.2 81.7 - 95.6 fL MCH 25.6 (L) 26.1 - 32.7 pg MCHC 30.8 (L) 31.2 - 35.0 g/dL RDW-SD 59.3 (H) 38.5 - 51.6 fL RDW-CV 20.8 (H) 12.1 - 15.4 % PLT 67 (L) 150 - 328 10*3/L MPV NRBC/100 WBC 0.0 0.0 - 10.0 /100 WBCs NRBC x10^3 <0.01 10*3/L GRAN MAT (NEUT) % IMM GRAN % LYMPH % MONO % EOS % BASO % GRAN MAT x10^3(ANC) IMM GRAN x10^3 LYMPH x10^3 MONO x10^3 EOS x10^3 BASO x10^3 Basic Metabolic Panel (NA, K, CL, CO2, GLUCOSE, BUN, CREATININE, CA) Collection Time: 05/07/20 4:26 PM Result Value Ref Range NA 140 135 - 145 mmol/L K 3.3 (L) 3.5 - 5.0 mmol/L CL 113 (H) 98 - 108 mmol/L CO2 TOTAL 19 (L) 23 - 31 mmol/L AGAP 8 2 - 16 BUN 14 7 - 23 mg/dL GLUCOSE 115 (H) 70 - 110 mg/dL CREATININE 0.84 0.60 - 1.25 mg/dL CALCIUM 7.7 (L) 8.6 - 10.6 mg/dL eGFR Calculation (Non-) 100.7 mL/min/1.73m2 eGFR Calculation () 122.0 mL/min/1.73m2 Hepatic Function Panel (ALB, T.PRO, BILI T, BU/BC, ALT, AST, ALK PHOS) Collection Time: 05/07/20 4:26 PM Result Value Ref Range TOTAL BILI 2.7 (H) 0.1 - 1.1 mg/dL BILI UNCON 1.6 (H) 0.1 - 1.1 mg/dL BILI CONJ 0.0 0.0 - 0.3 mg/dL T PROTEIN 5.5 (L) 6.3 - 8.2 g/dL ALBUMIN 2.6 (L) 3.5 - 5.0 g/dL ALK PHOS 178 (H) 34 - 122 U/L ALTv 44 5 - 50 U/L AST(SGOT) 50 (H) 13 - 40 U/L Lipase Serum Collection Time: 05/07/20 4:26 PM Result Value Ref Range LIPASE 259 (H) 0 - 220 U/L aPTT Collection Time: 05/07/20 4:26 PM Result Value Ref Range APTT Patient 37 23 - 38 Seconds Prothrombin Time (PT) / INR Collection Time: 05/07/20 4:26 PM Result Value Ref Range PROTIME PATIENT 19.1 (H) 12.0 - 14.7 Seconds INR 1.7 Imaging No results found for this visit on 05/07/20. Orders and Treatments Orders Placed This Encounter Procedures IR PARACENTESIS CBC with Differential Basic Metabolic Panel (NA, K, CL, CO2, GLUCOSE, BUN, CREATININE, CA) Hepatic Function Panel (ALB, T.PRO, BILI T, BU/BC, ALT, AST, ALK PHOS) Lipase Serum aPTT Prothrombin Time (PT) / INR COVID-19 (ID NOW RAPID TESTING) LAB ONLY COVID INTERPRETATION No orders of the defined types were placed in this encounter. Procedures EKG Time 1632 Rate 67 [place] normal Intervals normal No acute ischemia Notes & MDM Patient was evaluated for an emergency medical condition related to Ascites . Differential diagnoses considered by presenting complaints but not limited to: Ascities Assessment: Pt accepted by Dr. Tanner. Per Radiology IR available tomorrow. Consult placed. History, physical exam findings, results of visit, differential diagnosis, medication regimens and plan of future care have been considered. Additional MDM may be found in the ED course. Differential diagnosis considered and final disposition made based on information gathered during evaluation and may not be completely ruled out or specifically listed. Vital signs were rechecked before final disposition. Diagnosis ICD-10-CM ICD-9-CM 1. Other ascites R18.8 789.59 2. Hypokalemia E87.6 276.8 3. Metabolic acidosis E87.2 276.2 Disposition & Follow Up ED Disposition ED Disposition Condition Comment Admit - Observation Stable Is this patient COVID positive or a patient under investigation (PUI)?: No Treatment Team: [facility] [[id number]] Primary reason for admission: Ascites [375760] Secondary reason for admission: Hypokalemia [610253] Secondary reason for admission: Metabo lic acidosis [788958] Is (or was) this a planned re-admission?: No Dr. Tanner accepted patient at 1720 Patient's Medications START taking these medications No medications on file CONTINUE taking these medications which have NOT CHANGED CIPROFLOXACIN HCL 500 MG TABLET Take 1 tablet by mouth every 12 (twelve) hours. PANTOPRAZOLE 40 MG EC TABLET Take 1 tablet by mouth daily. PROPRANOLOL 10 MG TABLET Take 1 tablet by mouth 2 (two) times daily. START taking Modified Medications as Prescribed No medications on file STOP taking these medications No medications on file Orlando Aguila Jr., MD Clinical Polygraph Operator [facility] Emergency Department TUBING BACKER documented in this encounter Miscellaneous Notes Care Plan - Lenora Mandel RN - 05/08/2020 8:35 AM HOSE TUBING BACKER Problem: Infection Risk Goal: Absence of infection Outcome: Progressing as expected Problem: Falls, Risk of Goal: Absence of falls Outcome: Progressing as expected Problem: Discharge Planning Goal: Absence of venous thromboembolism Outcome: Progressing as expected Goal: Adequate for discharge Outcome: Progressing as expected Goal: Effective communication Outcome: Progressing as expected Problem: Pain Goal: Control of pain at or below patient's documented comfort goal Outcome: Progressing as expected Goal: Reduction in pain sensation Outcome: Progressing as expected Problem: Fluid Volume - Imbalanced Goal: Absence of imbalanced fluid volume signs and symptoms Outcome: Progressing as expected are Plan - Vidhi Koch RN - 05/07/2020 9:37 PM HOSE TUBING BACKER Problem: Infection Risk Goal: Absence of infection Outcome: Progressing as expected Problem: Infection Risk Goal: Absence of infection Outcome: Progressing as expected Problem: Falls, Risk of Goal: Absence of falls Outcome: Progressing as expected Problem: Falls, Risk of Goal: Absence of falls Outcome: Progressing as expected Problem: Discharge Planning Goal: Absence of venous thromboembolism Outcome: Progressing as expected Goal: Adequate for discharge Outcome: Progressing as expected Goal: Effective communication Outcome: Progressing as expected Problem: Discharge Planning Goal: Absence of venous thromboembolism Outcome: Progressing as expected Problem: Discharge Planning Goal: Adequate for discharge Outcome: Progressing as expected Problem: Discharge Planning Goal: Effective communication Outcome: Progressing as expected Problem: Pain Goal: Control of pain at or below patient's documented comfort goal Outcome: Progressing as expected Goal: Reduction in pain sensation Outcome: Progressing as expected Problem: Pain Goal: Control of pain at or below patient's documented comfort goal Outcome: Progressing as expected Problem: Pain Goal: Reduction in pain sensation Outcome: Progressing as expected D Nurse Note - Eden Chatman RN - 05/07/2020 6:19 PM CSTReport given to Richard OSULLIVAN in medsurge unit. documented in this encounter Plan of Treatment Name Type Priority Associated Diagnoses Date/Ti me EKG-12 LEAD ROUTINE ONCE HEART STATION STAT Other ascites 1 07/08/2019 4:15 PM HOSE TUBING BACKER LAB ONLY COVID LAB Routine Other ascites 05/07/2020 4:22 INTERPRETATION PM HOSE TUBING BACKER OCCULT (GUAIAC) BLOOD LAB Routine 2019 6:58 AM HOSE TUBING BACKER IR IMAGING STAT Other ascites 05/08/2020 4:35 PARACENTESIS/PERITONECEN Hypokal emia PM HOSE TUBING BACKER TESIS WITH IMAGING Metabolic acidosis Name Type Priority Associated Order Schedule Diagnoses EKG-12 LEAD ROUTINE HEART STATION STAT Other ascites ONCE f or 1 ONCE Occurrences sta rting 05/07/2020 unti l 05/07/2020 LAB ONLY COVID LAB Routine Other ascites ONCE for 1 INTERPRETATION Occurrences s tarting 05/07/2020 unti l 05/07/2020 IR PARACENTESIS IMAGING STAT Other ascites ONCE for 1 Hypokalemia Occurrences starting Metabolic acidosis 0 until 05/07/2020 AM CBC with LAB Routine EVERY MORNING A T Differential 0400 for 5 Occurrences sta rting 05/08/2020 unti l 05/12/2020, 1 completed AM Basic Metabolic LAB Routine EVERY MOR SHARRON AT Panel (NA, K, CL, CO2, 0400 for 5 GLUCOSE, BUN, Occurrences st arting CREATININE, CA) 05/08/2020 u ntil 05/12/2020, 1 completed AMMONIA, PLASMA LAB Routine EVERY MORNIN G AT 0400 for 3 Days starting 2019 until 1 Transfusion Reaction LAB Routine FOR FOL LOW-UP Investigation TESTING until discontinued starting 2019 Urinalysis (Spun) LAB Routine FOR FOLLOW -UP TESTING until discontinued starting 2019 OCCULT (GUAIAC) BLOOD LAB Routine ONCE f or 1 Occurrences sta rting 05/08/2020 unti l 05/08/2020 IR IMAGING STAT Other ascites ONCE for 1 PARACENTESIS/PERITONECE Hypokale maira Occurrences starting NTESIS WITH IMAGING Metabolic acidosis until 05/08/2020 Health Maintenance Due Date Last Done Comments Depression Screening 1990 DTaP,Tdap,and Td Vaccines (1 - 1997 Tdap) INFLUENZA VACCINE (#1) 2020 PNEUMOCOCCAL 0-64 YEARS COMBINED Aged Out No longer eligible based on SERIES patient's age to complete this topic documented as of this encounter Procedures Procedure Name Priority Date/Time Associated Comments Diagnosis PREPARE PLATELETS Routine 05/08/2020 5:08 Result s for this PM [employer]SE [employer]ER procedure are i n the results section. HEMOGLOBIN Routine 05/08/2020 3:04 Results for this PM [employer]SE [employer]ER procedure are i n the results section. PREPARE PACKED RBC Routine 05/08/2020 12:05 Resul ts for this PM [employer]SE [employer] procedure are i n the results section. HB ABO GROUPING Routine 05/08/2020 7:00 Results for this AM [employer]SE [employer]ER procedure are i n the results section. TOTAL IRON BINDING Routine 05/08/2020 6:58 Resul ts for this CAPACITY AM [employer]SE [employer]ING BACKER procedure are i n the results section. TRANSFERRIN Routine 05/08/2020 6:58 Results for this AM [employer]SE [employer]ER procedure are i n the results section. IRON Routine 05/08/2020 6:58 Results for this AM [employer]SE [employer]ER procedure are i n the results section. FERRITIN SERUM Routine 05/08/2020 6:58 Results f or this AM [employer]SE [employer]ING [employer]ER procedure are i n the results section. CBC WITH DIFF Routine 05/08/2020 3:33 Results fo r this AM [employer]SE [employer]ING [employer]ER procedure are i n the results section. AMMONIA, PLASMA Routine 05/08/2020 3:33 Results for this AM [employer]SE [employer]ING BACKER procedure are i n the results section. BASIC METABOLIC PANEL Routine 05/08/2020 3:32 Re sults for this (NA, K, CL, CO2, AM [employer]SE [employer]UBING BACKER procedure a re in GLUCOSE, BUN, the results CREATININE, CA) section. ACTIVATED PARTIAL STAT 05/07/2020 4:26 Other ascites Resul ts for this THRMPLAS KENIA PM HOSE [employer]UBING BACKER procedure are i n the results section. PROTHROMBIN TIME / STAT 05/07/2020 4:26 Other ascites Resu lts for this INR PM [employer]SE [employer]UBING BACKER procedure are i n the results section. CBC WITH DIFF STAT 05/07/2020 4:26 Other ascites Results f or this PM [employer]SE TUBING BACKER procedure are i n the results section. BASIC METABOLIC PANEL STAT 05/07/2020 4:26 Other ascites R esults for this (NA, K, CL, CO2, PM HOSE TUBING BACKER procedure a re in GLUCOSE, BUN, the results CREATININE, CA) section. HEPATIC FUNCTION STAT 05/07/2020 4:26 Other ascites Result s for this PANEL ([id number]) PM HOSE TUBING BACKER procedure are in (ALB,T.PRO,BILI the results T,BU/BC,ALT,AST,ALK section. PHOS) LIPASE STAT 05/07/2020 4:26 Other ascites Results fo r this PM HOSE TUBING BACKER procedure are i n the results section. COVID-19 (ID NOW STAT 05/07/2020 4:22 Other ascites Result s for this RAPID TESTING) PM HOSE TUBING BACKER procedure are in the results section. CONSENT/REFUSAL FOR Routine 05/07/2020 3:48 DIAGNOSIS AND PM HOSE TUBING BACKER TREATMENT NOTICE OF PRIVACY Routine 05/07/2020 3:48 PRACTICES PM HOSE TUBING BACKER documented in this encounter Results Prepare Platelets (in units): 1 Units~Indication: 2) Platelets < 50,000 with active hemorrhage orpotential to bleed from invasive procedure (05/08/2020 5:08 PM HOSE TUBING BACKER) Unit Blood Type A Pos LAB ISBT Blood Type Code 6200 LAB Unit Number [id number] LAB Blood Expiration Date & [id number] LAB Time Status Information Issued LAB Product Identification Platelets LAB Product Code [id number] LAB Comment: Performed at [facility] Laboratory [facility] Blood Bank [address] [place], [place] [address] Toll Free: [phone] CLIA No. [id number] Specimen Performing Organization Address City/State/Zipcode Phone Number BLD LAB HEMOGLOBIN (05/08/2020 3:04 PM HOSE TUBING BACKER) Pathologist [facility] HGB 7.5 (L) 12.2 - 16.4 g/dL [facility] LABORATORY Specimen Blood - ARM, RIGHT Performing Organization Address [facility] Phone Number [facility] CLIA: [id number] [place] [address] [place] [address] Prepare Packed RBC (in units), 1 Units (05/08/2020 12:05 PM HOSE TUBING BACKER) Cross Match Result Compatible LAB ISBT Blood Type Code 5100 LAB Unit Blood Type O Pos LAB Unit Number [id number] LAB Blood Expiration Date & [id number] LAB Time Status Information Issued LAB Product Identification Red Blood Cells LAB Product Code [id number] LAB Comment: Performed at [facility] Blood [place] [address] Toll Free: [phone] CLIA No. [id number] Specimen Performing Organization Address [facility] Phone Number BLD LAB Type and Screen - ONCE Routine (05/08/2020 7:00 AM HOSE TUBING BACKER) Pathologist [facility] ABO & RH O Positive LAB Comment: Performed at [facility] Blood Bank [address] [place] [address] Toll Free: [phone] CLIA No. [id number] IAT Negative LAB Comment: Performed at [facility] Blood Bank [address] [place], [place] [address] Toll Free: [phone] CLIA No. [id number] Specimen VENOUS Performing Organization Address City/[facility]/Zipcode Phone Number BLD LAB FERRITIN SERUM (05/08/2020 6:58 AM HOSE TUBING BACKER) Pathologist Sig nature FERRITIN 9.9 (L) 18.0 - 464.0 ng/mL [facility] LABORATORY Specimen Blood - ARM, RIGHT Narrative Performed At Biotin has been reported to cause a negative [facility] LABORATORY bias, interpret results relative to patient's use of biotin. Performing Organization Address [facility] Phone Number [facility] CLIA: [id number] [place] [address] TOTAL IRON BINDING CAPACITY (05/08/2020 6:58 AM HOSE TUBING BACKER) Pathologist Sig nature TIBC 312 250 - 410 ug/dL [facility] LABORATORY % FE SAT 10 (L) 20 - 50 % [facility] LABORATORY Specimen Blood - ARM, RIGHT Performing Organization Address [facility] Phone Number [facility] CLIA: [id number] [place] [address] TRANSFERRIN (05/08/2020 6:58 AM HOSE TUBING BACKER) Pathologist Sig nature TRANSFERRN 201 168 - 336 mg/dL [facility] LABORATORY SERVICES Specimen Blood - ARM, RIGHT Performing Organization Address [facility] Phone Number [facility] LABORATORY SERVICES CLIA: [id number] [place], [place] [address] [address] [place] [address] IRON (05/08/2020 6:58 AM HOSE TUBING BACKER) Pathologist Sig nature IRON 30 (L)Comment: 50 - 160 ug/dL [facility] LABORATORY Specimen Blood - ARM, RIGHT Performing Organization Address [facility] Phone Number [facility] CLIA: [id number] [place] [address] AMMONIA, PLASMA (05/08/2020 3:33 AM HOSE TUBING BACKER) Pathologist Sig nature AMMONIA 46 (H) 9 - 33 umol/L [facility] LABORATORY Specimen Blood - ARM, LEFT Performing Organization Address [facility] Phone Number [facility] CLIA: [id number] [place] [address] AM CBC with Differential (05/08/2020 3:33 AM HOSE TUBING BACKER) WBC 5.67 4.20 - 10.70 [facility] 10*3/L HOSPITAL LABORATORY RBC 2.53 (L) 4.26 - 5.52 [facility] 10*6/L [facility] LABORATORY HGB 6.5 (L) 12.2 - 16.4 [facility] g/dL [facility] LABORATORY HCT 21.0 (L) 38.4 - 49.3 % [facility] LABORATORY MCV 83.0 81.7 - 95.6 [facility] LABORATORY MCH 25.7 (L) 26.1 - 32.7 [facility] pg [facility] LABORATORY MCHC 31.0 (L) 31.2 - 35.0 [facility] g/dL [facility] LABORATORY RDW-SD 58.8 (H) 38.5 - 51.6 [facility] LABORATORY RDW-CV 20.7 (H) 12.1 - 15.4 % [facility] LABORATORY PLT 49 (LL) 150 - 328 [facility] 10*3/L [facility] LABORATORY MPV Comment: Not [facility] LABORATORY IPF % 3.1Comment: Platelet 1.2 - 10.7 % [facility] count measured by HOSPITAL fluorescence method. LABORATORY NRBC/100 WBC 0.0 0.0 - 10.0 [facility] /100 WBCs [facility] LABORATORY NRBC x10^3 <0.01 10*3/L [facility] LABORATORY GRAN MAT (NEUT) % 71.1 % [facility] LABORATORY IMM GRAN % 0.40 % [facility] LABORATORY LYMPH % 20.1 % [facility] LABORATORY MONO % 6.3 % [facility] LABORATORY EOS % 1.9 % [facility] LABORATORY BASO % 0.2 % [facility] LABORATORY GRAN MAT 4.03 1.99 - 6.95 [facility] x10^3(ANC) 10*3/uL [facility] LABORATORY IMM GRAN x10^3 <0.03 0.00 - 0.06 [facility] 10*3/uL [facility] LABORATORY LYMPH x10^3 1.14 1.09 - 3.23 [facility] 10*3/uL [facility] LABORATORY MONO x10^3 0.36 0.36 - 1.02 [facility] 10*3/uL HOSPITAL LABORATORY EOS x10^3 0.11 0.06 - 0.53 [facility] 10*3/uL HOSPITAL LABORATORY BASO x10^3 <0.03 0.01 - 0.09 [facility] 10*3/uL [facility] LABORATORY PLT ESTIMATE Decreased (A) Normal [facility] LABORATORY Specimen Blood - ARM, LEFT Performing Organization Address City/State/Zipcode Phone Number [facility] CLIA: [id number] [place] [address] AM Basic Metabolic Panel (NA, K, CL, CO2, GLUCOSE, BUN, CREATININE, CA) (05/08/2020 3:32 AM HOSE TUBING BACKER) [facility] NA 137 135 - 145 [facility] mmol/L [facility] LABORATORY K 4.2 3.5 - 5.0 [facility] mmol/L [facility] LABORATORY CL 114 (H) 98 - 108 mmol/L [facility] LABORATORY CO2 TOTAL 19 (L) 23 - 31 mmol/L [facility] LABORATORY AGAP 4 2 - 16 [facility] LABORATORY BUN 17 7 - 23 mg/dL [facility] LABORATORY GLUCOSE 102 70 - 110 mg/dL [facility] LABORATORY CREATININE 0.73 0.60 - 1.25 [facility] mg/dL [facility] LABORATORY CALCIUM 7.3 (L) 8.6 - 10.6 [facility] mg/dL [facility] LABORATORY eGFR Calculation 118.4 mL/min/1.73m2 [facility] ([facility] LABORATORY [place]) eGFR Calculation 143.5 mL/min/1.73m2 [facility] () [facility] LABORATORY Specimen Blood - ARM, LEFT Narrative Performed At [facility] Glomerular Filtration Rate (GFR) [facility] LABORATORY and Staging of Kidney Disease* + + +- + | GFR (mL/min/1.73 m2) | With Kidney Damage | Without Kidney Damage + + +- + | >90 | Stage one | Normal + + +- + | 60-89 | Stage two | Decreased GFR + + +- + | 30-59 | Stage three | Stage three + + +- + | 15-29 | Stage four | Stage four + + +- + | <15 (or dialysis) | Stage five | Stage five + + +- + *Each stage assumes the associated GFR level has been in effect for at least three months. Stages 1 to 5, with or without kidney disease, indicate chronic kidney disease. Notes: Determination of stages one and two (with eGFR >59mL/min/1.73 m2) requires estimation of kidney damage for at least three months as defined by structural or functional abnormalities of the kidney, manifested by either: Pathological abnormalities or Markers of kidney damage (including abnormalities in the composition of the blood or urine or abnormalities in imaging tests). Performing Organization Address [facility] Phone Number [facility] CLIA: [id number] [place] [address] Prothrombin Time (PT) / INR (05/07/2020 4:26 PM HOSE TUBING BACKER) PROTIME PATIENT 19.1 (H) 12.0 - 14.7 [facility] LABORATORY INR 1.7Comment: Normal [facility] INR <1.1; Warfarin [facility] Therapeutic range LABORATORY 2.0 to 3.0 or 2.5 to 3.5, depending upon the indications. Specimen Blood - VENOUS Performing Organization Address [facility] Phone Number [facility] CLIA: [id number] [place] [address] aPTT (05/07/2020 4:26 PM HOSE TUBING BACKER) Pathologist Sig nature APTT Patient 37 23 - 38 Seconds [facility] LABORATORY Specimen Blood - VENOUS Narrative Performed At [facility] patient population mean normal value [facility] LABORATORY for aPTT is 30 seconds. Performing Organization Address [facility] Phone Number [facility] CLIA: [id number] [place] [address] Lipase Serum (05/07/2020 4:26 PM HOSE TUBING BACKER) Pathologist Sig nature LIPASE 259 (H) 0 - 220 U/L [facility] LABORATORY Specimen Blood - VENOUS Performing Organization Address [facility] Phone Number [facility] CLIA: [id number] [place] [address] Hepatic Function Panel (ALB, T.PRO, BILI T, BU/BC, ALT, AST, ALK PHOS) (05/07/2020 4:26 PM HOSE TUBING BACKER) Pathologist Sig nature TOTAL BILI 2.7 (H) 0.1 - 1.1 mg/dL [facility] LABORATORY BILI UNCON 1.6 (H) 0.1 - 1.1 mg/dL [facility] LABORATORY BILI CONJ 0.0 0.0 - 0.3 mg/dL [facility] LABORAT[facility] T PROTEIN 5.5 (L) 6.3 - 8.2 g/dL [facility] LABORAT[facility] ALBUMIN 2.6 (L) 3.5 - 5.0 g/dL [facility] LABORATORY ALK PHOS 178 (H) 34 - 122 U/L [facility] LABOR[facility] ALTv 44 5 - 50 U/L [facility] LABOR[facility] AST(SGOT) 50 (H) 13 - 40 U/L [facility] LABORATORY Specimen Blood - VENOUS Performing Organization Address City/State/Zipcode Phone Number [facility] CLIA: [id number] [place] [address] Basic Metabolic Panel (NA, K, CL, CO2, GLUCOSE, BUN, CREATININE, CA) (05/07/2020 4:26 PM HOSE TUBING BACKER) Pathologist Sig nature NA 140 135 - 145 [facility] mmol/L [facility] LABORATORY K 3.3 (L) 3.5 - 5.0 [facility] mmol/L [facility] LABORATORY CL 113 (H) 98 - 108 mmol/L [facility] LABORATORY CO2 TOTAL 19 (L) 23 - 31 mmol/L [facility] LABORATORY AGAP 8 2 - 16 [facility] LABOR[facility] BUN 14 7 - 23 mg/dL [facility] LABOR[facility] GLUCOSE 115 (H) 70 - 110 mg/dL [facility] LABORATORY CREATININE 0.84 0.60 - 1.25 [facility] mg/dL [facility] LABORATORY CALCIUM 7.7 (L) 8.6 - 10.6 [facility] mg/dL [facility] LABORATORY eGFR Calculation 100.7 mL/min/1.73m2 [facility] ([facility] LABORATORY [place]) eGFR Calculation 122.0 mL/min/1.73m2 [facility] () [facility] LABORATORY Specimen Blood - VENOUS Narrative Performed At [facility] Glomerular Filtration Rate (GFR) [facility] LABORATORY and Staging of Kidney Disease* + + +- + | GFR (mL/min/1.73 m2) | With Kidney Damage | Without Kidney Damage + + +- + | >90 | Stage one | Normal + + +- + | 60-89 | Stage two | Decreased GFR + + +- + | 30-59 | Stage three | Stage three + + +- + | 15-29 | Stage four | Stage four + + +- + | <15 (or dialysis) | Stage five | Stage five + + +- + *Each stage assumes the associated GFR level has been in effect for at least three months. Stages 1 to 5, with or without kidney disease, indicate chronic kidney disease. Notes: Determination of stages one and two (with eGFR >59mL/min/1.73 m2) requires estimation of kidney damage for at least three months as defined by structural or functional abnormalities of the kidney, manifested by either: Pathological abnormalities or Markers of kidney damage (including abnormalities in the composition of the blood or urine or abnormalities in imaging tests). Performing Organization Address City/State/Zipcode Phone Number [facility] CLIA: [id number] [place] [address] CBC with Differential (05/07/2020 4:26 PM [employer]) WBC 6.61 4.20 - 10.70 [facility] 10*3/L [facility] RBC 2.85 (L) 4.26 - 5.52 [facility] 10*6/L [facility] HGB 7.3 (L) 12.2 - 16.4 [facility] g/dL [facility] HCT 23.7 (L) 38.4 - 49.3 % [facility] MCV 83.2 81.7 - 95.6 [facility] LABORATORY MCH 25.6 (L) 26.1 - 32.7 [facility] LABORATORY MCHC 30.8 (L) 31.2 - 35.0 [facility] g/dL [facility] RDW-SD 59.3 (H) 38.5 - 51.6 [facility] LABORATORY RDW-CV 20.8 (H) 12.1 - 15.4 % [facility] PLT 67 (L) 150 - 328 [facility] 10*3/L [facility] MPV Comment: Not [facility] LABORATORY NRBC/100 WBC 0.0 0.0 - 10.0 [facility] /100 WBCs [facility] NRBC x10^3 <0.01 10*3/L [facility] GRAN MAT (NEUT) % 74.0 % [facility] IMM GRAN % 0.30 % [facility] LYMPH % 13.9 % [facility] MONO % 6.8 % [facility] EOS % 4.8 % [facility] BASO % 0.2 % [facility] GRAN MAT 4.89 1.99 - 6.95 [facility] x10^3(ANC) 10*3/uL [facility] IMM GRAN x10^3 <0.03 0.00 - 0.06 [facility] 10*3/uL [facility] LYMPH x10^3 0.92 (L) 1.09 - 3.23 [facility] 10*3/uL [facility] MONO x10^3 0.45 0.36 - 1.02 [facility] 10*3/uL [facility] EOS x10^3 0.32 0.06 - 0.53 [facility] 10*3/uL [facility] BASO x10^3 <0.03 0.01 - 0.09 [facility] 10*3/uL [facility] Specimen Blood - VENOUS Performing Organization Address City/State/Zipcode Phone Number [facility] CLIA: [id number] [place] [address] COVID-19 ([facility] RAPID TESTING) (05/07/2020 4:22 PM [employer]) SARS-CoV-2 Rapid ID Not Detected Not Detected [facility] Specimen Swab - NASOPHARYNGEAL SWAB Narrative Performed At [facility] COVID-19 Assay is an isothermal nucleic [facility] acid amplification test intended for the qualitative detection of nucleic acid from SARS-CoV-2 viral RNA in nasopharyngeal (BIOMETRIC FINGERPRINTING TECHNICIAN) specimens. It is used under Emergency Use Authorization (EUA) by FDA. The limit of detection (LOD) of the assay is 125 Genome Equivalents/mL. A positive result is indicative of the presence of SARS-CoV-2 RNA. Clinical correlation with patient history and other diagnostic information is necessary to determine patient infection status. A negative (Not Detected) result does not preclude SARS-CoV-2 infection. In patients with clinical symptoms and other tests that are consistent with SARS-CoV-2 infection, negative results should be treated as presumptive negative and a new specimen should be tested with alternative PCR molecular test. Invalid: Please collect a new specimen for repeat patient testing if clinically indicated. Performing Organization Address City/State/Zipcode Phone Number [facility] CLIA: [id number] [place] [address] [place] [address] documented in this encounter Visit Diagnoses Diagnosis Other ascites - Primary Hypokalemia Hypopotassemia Metabolic acidosis Acidosis Ascites Other ascites documented in this encounter Administered Medications Medication Order MAR Action Action Date Dose Rate Site ciprofloxacin HCl (CIPRO) tablet Given 05/08/2020 8:36 AM [employer] 5 00 mg 500 mg 500 mg, Oral, Q12H, First dose on Wed05/08/20 at 0800, Until Discontinued, DANIELLE, Reason for Anti-Infective: Empiric Therapy for Suspected Infection, Empiric Therapy Site: Abdominal, Duration of therapy: 7 days furosemide (LASIX) injection 40 mg Given 05/08/2020 8:36 AM [employer] 40 mg 40 mg, IV Push, DAILY, First dose on Wed05/08/20 at 0900, Until Discontinued, Routine lactulose (CEPHULAC) solution 30 mL Given 05/08/2020 1:48 PM [employer] 30 mL 30 mL, Oral, TID, First dose on Wed05/08/20 at 0800, Until Discontinued Given 05/08/2020 8:35 AM [employer] 30 mL pantoprazole (PROTONIX) EC tablet 40 mg Given 05/08/2020 8:36 AM [employer] 40 mg 40 mg, Oral, DAILY, First dose on Wed05/08/20 at 0900, Until Discontinued, Routine propranoloL (INDERAL) tablet 10 mg Given 05/08/2020 8:36 AM [employer] 10 mg 10 mg, Oral, BID, First dose on Wed05/08/20 at 0800, Until Discontinued, Routine rifAXIMin (XIFAXAN) tablet 550 mg Given 05/08/2020 8:36 AM [employer] 550 mg 550 mg, Oral, BID, First dose on Wed05/08/20 at 0800, Until Discontinued, Routine, Reason for Anti-Infective: Empiric Therapy for Suspected Infection, Empiric Therapy Site: Abdominal, Duration of therapy: 7 days sennosides (SENOKOT) tablet 8.6 mg 8.6 mg, Oral, BIDPRN, Starting 05/07 at 1911, Until Discontinued, Routine, Constipation Medication Order MAR Action Action Date Dose Rate Site heparin (porcine) Given 05/07/2020 9:19 PM 5,000 Units Abdomen-SC injection 5,000 Units [employer] 5,000 Units, Subcutaneous, Q8H, First dose on Wed05/07/20 at 2200, Until Discontinued, Routine KCL (KLOR-CON M20) tablet 40 mEq Given 05/07/2020 11:26 PM [employer] 40 mEq 40 mEq, Oral, ONCE, 1 dose, Wed05/08/20 at 0015, Routine documented in this encounter Additional Health Concerns Infection Onset Date Last Indicated Resolved Time COVID-19 Rule Out 05/07/2020 05/07/2020 05/07/2020 4: 53 PM [employer] documented as of this encounter
--- OUTSIDE RECORDS SUMMARY | 2020-05-18 02:37 | XMS REPORT | Continuity of Care Document ---
:1980 Author Organization [facility] t Address [address] [place] [address] Care Team Providers Name Role Phone Valeria Nicholson PA-C Attending Clinician Hafsa Negro DO Attending Clinician Mingo FARRAR Attending Clinician Ciro FARRAR Attending Clinician Constantino Wei MD Attending Clinician [phone] Chauncey Salcido MD Attending Clinician Laure FARRAR Attending Clinician Diane Mcfarlane MD Attending Clinician Anne Willett MD Attending Clinician Norma Coto Attending Clinician CONSTANTINO WEI Attending Clinician Unavailable Jeison Attending Clinician Dom Fuentes Attending Clinician Hafsa Villanueva MD Attending Clinician Barbara FARRAR Attending Clinician Ciro FARRAR Admitting Clinician CONSTANTINO WEI Admitting Clinician Andrew Villanueva MD, J Admitting Clinician Problems Condition Condition Condition Status Onset Resolution Last Treating Co mments Source Name Details Category Date Date Treatment Clinician Date Hepatic Hepatic Disease Active 2019-05 [facility] encephalop encephalop 2-14 [facility] - athy athy 00:00: Medical 00 Center ALC ALC Disease Active 2019-[address] [facility] [address] (alcoholic (alcoholic 2-14 Tamar kes - liver liver 00:00: Medical cirrhosis) cirrhosis) 00 Ce nter GI bleed GI bleed Disease Active 2019-05 [facility] Allergies, Adverse Reactions, Alerts This patient has no known allergies or adverse reactions. Social History Social Habit Start Date Stop Date Quantity Comments Source Sex Assigned At [facility] Exposure to SARS-CoV-2 Not sure [facility] (event) Center Medications Ordered Filled Start Stop Current Ordering Indication Dosage Frequency Signature Comments Components Source Medication Medication Date Date Medication? Clinician (SIG) Name Name thiamine 2019-05- Yes 100mg QD Take 1 [facility] MG 2-22 12-22 tablet [facility] - tablet 00:00: 23:59 (100 mg Medical 00 :00 total) by Center mouth daily. pantoprazol 2019-05 Yes 40mg Q.5D Take [address] [facility] [address] e 2-21 tablet (40 [facility] - (PROTONIX) 00:00: mg total) Me dical 40 MG 00 by mouth 2 Center tablet (two) times daily. rifAXIMin 2019-05 Yes 550mg Q.5D Take 1 [facility] 550 mg Tab 2-21 tablet [facility] - 00:00: (550 mg Medical 00 total) by Center mouth 2 (two) times daily. ferrous 2019-05- Yes 325mg Take [address] [facility] sulfate 325 2-21 12-21 tablet [facility] - (65 FE) MG 00:00: 23:59 (325 mg Med ical tablet 00 :00 total) by Center mouth daily with breakfast. folic acid 2019-05- Yes 1mg QD Take [address] (FOLVITE) 1 2-21 12-21 tablet (1 Tamar kes - MG tablet 00:00: 23:59 mg total) Me dical 00 :00 by mouth Center daily. lactulose 2019-05- Yes 20g [id number] Take 30 [facility] (CHRONULAC) 06-30 [id number] mLs (20 g [facility] - 20 gram/30 00:00: 23:59 3D total) by Emily woods mL solution 00 :00 mouth 3 Cente r (three) times daily for 30 days. Vital Signs Vital Name Observation Time Observation Value Comments Source Systolic blood 2020-04-29 11:19:00 125 mm[Hg] [facility] Diastolic blood 2020-04-29 11:19:00 62 mm[Hg] [facility] S [facility] Heart rate 2020-04-29 11:19:00 76 /min [facility] Body temperature 2020-04-29 11:19:00 36.78 Cayla [facility] Respiratory rate 2020-04-29 11:19:00 18 /min [facility] Oxygen saturation in 2020-04-29 11:19:00 100 /min [facility] - Arterial blood by Medical Ce nter Pulse oximetry Body weight 2020-04-29 06:00:00 78.019 kg [facility] BMI 2020-04-29 06:00:00 27.00 kg/m2 [facility] Body height 2020-04-21 22:00:00 170 cm [facility] Procedures Procedure Date / Time Performing Clinician Source Performed POCT-GLUCOSE METER 2020-04-29 12:20:00 JuliannaKatey [facility] POCT-GLUCOSE METER 2020-04-29 07:47:00 Katey Mcfarlane [facility] SARS-COV2/RT-PCR ([facility] & 2020-04-29 06:02:00 FaisalMadelyn [facility] - REF LABS) [facility] COMPREHENSIVE METABOLIC 2020-04-29 04:00:00 FaisalMadelyn [facility] PT/APTT 2020-04-29 04:00:00 FultonMadelyn [facility] PROTHROMBIN TIME/INR 2020-04-29 04:00:00 FultonMadelyn [facility] MAGNESIUM 2020-04-29 04:00:00 Madelyn Malone [facility] PHOSPHORUS 2020-04-29 04:00:00 Madelyn Malone [facility] CALCIUM, IONIZED 2020-04-29 04:00:00 [facility] CBC W/PLT COUNT & AUTO 2020-04-29 04:00:00 [place]Jeannette[place]ell[place] [facility] POCT-GLUCOSE METER 2020-04-29 01:17:00 Julianna Tejelina [facility] POCT-GLUCOSE METER 2020-04-28 17:13:00 [facility] HEMOGLOBIN AND HEMATOCRIT 2020-04-28 14:13:00 Katey Mcfarlane [facility] POCT-GLUCOSE METER 2020-04-28 11:38:00 JuliannaNicmarcolaelina [facility] POCT-GLUCOSE METER 2020-04-28 06:13:00 Ottoniel Kelsey [facility] COMPREHENSIVE METABOLIC 2020-04-28 04:55:00 [place] [facility] PT/APTT 2020-04-28 04:55:00 [facility] PROTHROMBIN TIME/INR 2020-04-28 04:55:00 [place]ann[place]ell[place] [facility] MAGNESIUM 2020-04-28 04:55:00 Faisal [place] [facility] PHOSPHORUS 2020-04-28 04:55:00 FaisalJeannetteYellville [facility] CALCIUM, IONIZED 2020-04-28 04:55:00 [facility] HEMOGLOBIN AND HEMATOCRIT 2020-04-28 04:55:00 Gilberto Obando [facility] CBC W/PLT COUNT & AUTO 2020-04-28 04:55:00 Joe Alonzo [facility] HEMOGLOBIN AND HEMATOCRIT 2020-04-28 00:08:00 Gilber[address] Oband[address] [facility] POCT-GLUCOSE METER 2020-04-27 23:54:00 Ottoniel Kelsey [facility] HEMOGLOBIN AND HEMATOCRIT 2020-04-27 15:28:00 Gilberto Obando [facility] POCT-GLUCOSE METER 2020-04-27 13:06:00 Pedro Salcido [facility] POCT-GLUCOSE METER 2020-04-27 11:26:00 Omari [facility] XR CHEST 1 VIEW 2020-04-27 10:30:00 Madelyn Malone [facility]/BEDSIDE [facility] HEMOGLOBIN AND HEMATOCRIT 2020-04-27 08:06:00 Gilberto Obando [facility] BLOOD GAS, ARTERIAL 2020-04-27 02:57:00 Gilberto Obando [facility] HEMOGLOBIN AND HEMATOCRIT 2020-04-27 02:56:00 Gilberto Obando [facility] COMPREHENSIVE METABOLIC 2020-04-27 02:56:00 [facility] PT/APTT 2020-04-27 02:56:00 [place]on [facility] PROTHROMBIN TIME/INR 2020-04-27 02:56:00 [facility] MAGNESIUM 2020-04-27 02:56:00 [facility] PHOSPHORUS 2020-04-27 02:56:00 [facility] CALCIUM, IONIZED 2020-04-27 02:56:00 [facility] CBC W/PLT COUNT & AUTO 2020-04-27 02:56:00 Joe Alonzo I [facility] POCT-GLUCOSE METER 2020-04-26 18:36:00 Pedro Salcido [facility] HEMOGLOBIN AND HEMATOCRIT 2020-04-26 17:15:00 Gilberto Obando [facility] MR ABDOMEN WITH & WITHOUT 2020-04-26 16:08:00 Shannan Hilario [facility] - IV CONTRAST [facility] HEMOGLOBIN AND HEMATOCRIT 2020-04-26 09:10:00 [facility] POCT-GLUCOSE METER 2020-04-26 05:55:00 Pedro Salcido [facility] BLOOD GAS, ARTERIAL 2020-04-26 05:52:00 Gilberto Obando [facility] HEMOGLOBIN AND HEMATOCRIT 2020-04-26 00:57:00 Gilberto Obando [facility] COMPREHENSIVE METABOLIC 2020-04-26 00:57:00 [place] [facility] PROTHROMBIN TIME/INR 2020-04-26 00:57:00 [place]on [facility] MAGNESIUM 2020-04-26 00:57:00 [place]on [facility] PHOSPHORUS 2020-04-26 00:57:00 [place]on [facility] CALCIUM, IONIZED 2020-04-26 00:57:00 [place] [facility] CBC W/PLT COUNT & AUTO 2020-04-26 00:57:00 Joe Alonzo CH, I [facility] POCT-GLUCOSE METER 2020-04-26 00:08:00 [facility] VENOUS DOPPLER EXT CLAUDIA 2020-04-25 21:45:00 Mackenzie Wilder ed [facility] HEMOGLOBIN AND HEMATOCRIT 2020-04-25 16:28:00 Gilberto Obando [facility] POCT-GLUCOSE METER 2020-04-25 11:36:00 Om[facility] POCT-GLUCOSE METER 2020-04-25 05:38:00 [facility] HEMOGLOBIN AND HEMATOCRIT 2020-04-25 05:34:00 [facility] CBC W/PLT COUNT & AUTO 2020-04-25 05:34:00 Joe Alonzo CH, I [facility] COMPREHENSIVE METABOLIC 2020-04-25 04:04:00 Madelyn Malone [facility] PT/APTT 2020-04-25 04:04:00 Madelyn Malone [facility] PROTHROMBIN TIME/INR 2020-04-25 04:04:00 Madelyn Malone [facility] MAGNESIUM 2020-04-25 04:04:00 Madelyn Malone [facility] PHOSPHORUS 2020-04-25 04:04:00 Madelyn Malone [facility] BLOOD GAS, ARTERIAL 2020-04-25 04:04:00 Gisella Gilberto [facility] CALCIUM, IONIZED 2020-04-25 04:04:00 Madelyn Malone [facility] HEMOGLOBIN AND HEMATOCRIT 2020-04-24 23:52:00 Gilberto Obando [facility] POCT-GLUCOSE METER 2020-04-24 23:41:00 Omari [facility] HEMOGLOBIN AND HEMATOCRIT 2020-04-24 18:07:00 Madelyn Malone [facility] POCT-GLUCOSE METER 2020-04-24 17:44:00 [facility] XR ABDOMEN / KUB 1 VIEW 2020-04-24 12:23:00 Madelyn Malone [facility] HEMOGLOBIN AND HEMATOCRIT 2020-04-24 11:54:00 Madelyn Malone [facility] CT BRAIN WITHOUT IV 2020-04-24 11:40:00 [facility] POCT-GLUCOSE METER 2020-04-24 10:43:00 Pedro Salcido [facility] MRSA SCREEN 2020-04-24 09:46:00 Mackenzie Wilder [facility] AMMONIA 2020-04-24 09:43:00 Tina [facility] POCT-GLUCOSE METER 2020-04-24 06:10:00 Pedro Salcido [facility] BLOOD GAS, ARTERIAL 2020-04-24 03:42:00 SereniGilberto ledesma [facility] CBC W/PLT COUNT & AUTO 2020-04-24 03:41:00 Joe Alonzo [facility] COMPREHENSIVE METABOLIC 2020-04-24 03:40:00 Madelyn Malone [facility] PT/APTT 2020-04-24 03:40:00 [facility] PROT[facility]/INR 2020-04-24 03:40:00 [facility] MAGNESIUM 2020-04-24 03:40:00 [facility] PHOSPHORUS 2020-04-24 03:40:00 [facility] CALCIUM, IONIZED 2020-04-24 03:40:00 [facility] HEMOGLOBIN [facility] HEMATOCRIT 2020-04-24 00:22:00 Madelyn Malone [facility] POCT-GLUCOSE METER 2020-04-23 23:55:00 Omari [facility] PREPARE LEUKO-REDUCED RBC 2020-04-23 23:54:00 Madelyn Malone [facility] POCT-GLUCOSE METER 2020-04-23 18:15:00 Omari [facility] HEMOGLOBIN AND HEMATOCRIT 2020-04-23 18:09:00 Madelyn Malone [facility] SPUTUM CULTURE + GRAM 2020-04-23 15:46:[address] [facility] BRONCHOSCOPY 2020-04-23 15:18:[address] [facility] BLOOD GAS, ARTERIAL 2020-04-23 14:50:00 Madelyn Malone [facility] EEG AWAKE AND DROWSY 2020-04-23 14:40:00 Bryan Peterson [facility] XR CHEST 1 VIEW 2020-04-23 12:54:00 Madelyn Malone [facility]BEDSIDE Medical Center POCT-GLUCOSE METER 2020-04-23 11:59:00 Pedro Salcido [facility] HEMOGLOBIN AND HEMATOCRIT 2020-04-23 11:53:00 Madelyn Malone I [facility] ANTI-NUCLEAR ANTIBODY 2020-04-23 11:53:00 Shannan Hilario [facility] (DENISE[facility] HEPATITIS C ANTIBODY 2020-04-23 11:53:[address] [facility] BLOOD GAS, ARTERIAL 2020-04-23 11:53:00 Madelyn Malone [facility] ACTIN (SMOOTH MUSCLE) 2020-04-23 11:52:00 Shannan Hilario [facility] - ANTIBODY, IGG [facility] [id number], 2020-04-23 11:52:00 Shannan Hilario [facility] SERUM [facility] ALPHA FETOPROTEIN (AFP), 2020-04-23 11:52:00 Shannan Hilario [facility] - TUMOR MARKER [facility] CERULOPLASMIN 2020-04-23 11:52:00 Shannan Hilario [facility] St Tamar kes - [facility] HEPATITIS A ANTIBODY, IGG 2020-04-23 11:52:00 [facility] MITOCHONDRIA M2 ANTIBODY 2020-04-23 11:52:00 Shannan Hilario [facility] (IGG) [facility] HEPATITIS B SURFACE 2020-04-23 11:52:00 [facility] ANTIGEN [facility] HEPATITIS B SURFACE 2020-04-23 11:52:00 Shannan Hilario [facility] - ANTIBODY [facility] HEPATITIS B CORE 2020-04-23 11:52:00 Shannan Hilario [facility] - ANTIBODY, TOTAL [facility] BLOOD GAS, ARTERIAL 2020-04-23 04:24:00 Serenio, Gilberto [facility] COMPREHENSIVE METABOLIC 2020-04-23 04:23:00 Madelyn Malone [facility] PT/APTT 2020-04-23 04:23:00 Madelyn Malone [facility] PROTHROMBIN TIME/INR 2020-04-23 04:23:00 Madelyn Malone [facility] MAGNESIUM 2020-04-23 04:23:00 Madelyn Malone [facility] PHOSPHORUS 2020-04-23 04:23:00 Madelyn Malone [facility] CALCIUM, IONIZED 2020-04-23 04:23:00 Madelyn Malone [facility] HEMOGLOBIN AND HEMATOCRIT 2020-04-23 04:23:00 Madelyn Malone [facility] BILIRUBIN, DIRECT 2020-04-23 04:23:00 Shannan Hilario [facility] CBC W/PLT COUNT & AUTO 2020-04-23 04:23:00 Joe Alonzo [facility] BLOOD GAS, ARTERIAL 2020-04-23 00:31:00 Gisella [facility] POCT-GLUCOSE METER 2020-04-22 23:47:00 Pedro Salcido [facility] LACTIC ACID, VENOUS 2020-04-22 21:15:00 Rogelio Jack [facility] HEMOGLOBIN AND HEMATOCRIT 2020-04-22 20:07:00 Madelyn Malone [facility] CALCIUM, IONIZED 2020-04-22 20:07:00 Madelyn Malone [facility] CORTISOL 2020-04-22 20:07:00 Gisella [facility] BLOOD GAS, ARTERIAL 2020-04-22 20:06:00 [facility] REPORT OF PROCEDURE - 2020-04-22 18:06:16 [address] [facility] HEMOGLOBIN AND HEMATOCRIT 2020-04-22 15:58:00 Madelyn Malone I [facility] BASIC METABOLIC PANEL (7) 2020-04-22 15:57:00 Joe Alonzo [facility] HEMOGLOBIN AND HEMATOCRIT 2020-04-22 14:24:00 Cheri Joe [facility] BLOOD GAS, ARTERIAL 2020-04-22 14:23:[address] [facility] UPPER ENDOSCOPY 2020-04-22 14:00:00 Brennon Kalpana [facility] LACTIC ACID, ARTERIAL 2020-04-22 13:25:00 Cheri Joe [facility] 2D ECHO W/ DOPPLER 2020-04-22 12:02:57 [facility] ([facility] PROTHROMBIN TIME/INR 2020-04-22 11:53:00 Joe Alonzo [facility] FIBRINOGEN 2020-04-22 11:53:00 Joe Alonzo [facility] APTT 2020-04-22 11:53:00 Joe Alonzo [facility] BLOOD GAS, ARTERIAL 2020-04-22 11:52:00 Cheri [facility] INSERT NON-TUNNEL CV CATH 2020-04-22 11:49:54 Cheri Joe [facility] NH INSERT 2020-04-22 11:47:48 Joe Alonzo [facility] CATH,ART,PERCUT,[facility]OR[facility]ERM [facility] US RENAL WITH DOPPLER 2020-04-22 11:35:00 Madelyn Malone [facility] TRANSFUSE LEUKO-REDUCED 2020-04-22 11:29:11 Faisal [facility] RED BLOOD CELLS [facility] XR CHEST 1 VIEW 2020-04-22 11:06:00 Joe Alonzo [facility] PORTABLE/BEDSIDE Medical Center CBC (HEMOGRAM ONLY) 2020-04-22 10:13:00 Mackenzie Wilder [facility] COMPREHENSIVE METABOLIC 2020-04-22 04:47:00 Madelyn Malone [facility] PT/APTT 2020-04-22 04:47:00 Madelyn Malone [facility] MAGNESIUM 2020-04-22 04:47:00 Madelyn Malone [facility] PHOSPHORUS 2020-04-22 04:47:00 Madelyn Malone [facility] HEMOGLOBIN AND HEMATOCRIT 2020-04-22 04:47:00 Madelyn Malone [facility] FIBRINOGEN 2020-04-22 04:47:00 Madelyn Malone [facility] CBC W/PLT COUNT & AUTO 2020-04-22 04:47:00 Madelyn Malone [facility] IRON, TIBC, % SAT. 2020-04-22 00:41:00 Madelyn Malone [facility] (WITHOUT FERRITIN) Medical Cente r FERRITIN 2020-04-22 00:41:00 [facility]al[facility]ica[facility] HEMOGLOBIN AND HEMATOCRIT 2020-04-22 00:41:00 Madelyn Malone [facility] TSH/FREE T4 IF INDICATED 2020-04-22 00:41:00 [facility] PROCALCITONIN 2020-04-22 00:41:00 [facility] CALCIUM, IONIZED 2020-04-22 00:41:00 Madelyn Malone [facility] ABORH, MANUAL 2020-04-22 00:41:00 Ayana Linda [facility] CT BRAIN WITHOUT IV 2020-04-21 23:18:[address] [facility] CONTRAST [facility] XR CHEST 1 VIEW 2020-04-21 22:48:[address] [facility] PORTABLE/BEDSIDE Medical Center AMMONIA 2020-04-21 22:21:00 Madelyn Malone [facility] POCT-GLUCOSE METER 2020-04-21 21:36:00 Fran Wei [facility] BLOOD CULTURE 2020-04-21 21:30:00 FaisalJessicaVA [facility] SARS-COV2/RT-PCR ([facility] & 2020-04-21 21:28:00 Madelyn Malone [facility] - REF LABS) [facility] BLOOD CULTURE 2020-04-21 21:28:00 Madelyn Malone [facility] BASIC METABOLIC PANEL (7) 2020-04-21 21:28:00 Madelyn Malone FRANCISCO I [facility] MAGNESIUM 2020-04-21 21:28:00 Madelyn Malone [facility] PHOSPHORUS 2020-04-21 21:28:00 Madelyn Malone [facility] HEPATIC FUNCTION PANEL 2020-04-21 21:28:00 Madelyn Malone [facility] Ana [facility] PT/APTT 2020-04-21 21:28:00 Madelyn Malone [facility] FIBRINOGEN 2020-04-21 21:28:00 Madelyn Malone [facility] LACTIC ACID, VENOUS 2020-04-21 21:28:00 Rogelio Jack [facility] URINALYSIS W/ REFLEX 2020-04-21 21:28:[address] [facility] URINE CULTURE [facility] TYPE AND SCREEN, 2020-04-21 21:28:00 Madelyn Malone [facility] s AUTOMATED [facility] CBC W/PLT COUNT & AUTO 2020-04-21 21:28:00 Madelyn Malone [facility] DIFFERENTIAL [facility] Plan of Care Planned Activity Planned Date Details Comments Source Future Scheduled 2020-05-[address] [facility] Test 00:00:00 (12+) [code = [facility] DEPRESSION SCREENING (12+)] Future Scheduled 2020-01-[address] [facility] - Test 00:00:00 (#1) [code = [facility] INFLUENZA VACCINE (#1)] Future Scheduled [address] [facility] Test 00:00:00 (procedure) [code = [facility] 53331520] Future Scheduled 1997 HEPATITIS B VACCINE [facility] - Test 00:00:00 (1 of 3 - Risk 3-dose Medica [facility] Center series) [code = HEPATITIS B VACCINE (1 of 3 - Risk 3-dose series)] Encounters Start End Encounter Admission Attending Care Care Encounter Source Date/Time Date/Time Type Type Clinicians Facility Department ID 2020-05-11 2020-05-11 Emergency Marky, [facility] [id number] 21:57:00 23:42:00 Pushpa Hafsa Miranda [id number] [place] [id number] [place] [id number] 2020-05-07 2020-05-08 Emergency Orlando Aguila [facility] [id number] 16:08:00 17:39:00 Adriana Tanner [id number] [place] [id number] [place] [id number] 2020-04-10 2020-04-10 Transition Dylan Mchugh [id number] 00:00:00 00:00:00 of Care Karina Arredondo [id number] [place] [id number] 2020-04-04 2020-04-08 [facility] Mabel Quintanilla [id number] 19:39:00 13:15:00 Encounter VillanuevaHeraclio kramer [id number]. 10 [facility] [id number] Results Test Description Test Time Test Comments Results Result Comments Source POC-Glucose meter 2020-04-29 12:32:00 Test Item Value Reference Range Interpretation Comme nts POC-Glucose Meter (test code = 120 mg/dL 70-110 H : TESTED AT [facility] [address] [facility] 1538) [facility], [address] 30: Metal Ceiling Builder/Techni tequila ID = [id number] for YOSELYN MOSQUEDA Lab Interpretation (test code = Abnormal 55804-0) [facility] [id number] 12:32:00 Test Item Value Reference Range Interpretation Comments POC-GLUCOSE METER 120 mg/dL 70-110 H : [facility] (BEAKER) (test code = BERTKEYSHA R [facility], 1538) [address]: [employer] Ce[employer] Builder/Techni tequila ID = [id number] for YOSELYN PEREZ SARS-CoV2/RT-PCR (Asymptomatic ONLY)2020-04-29 11:24:00 Test Item Value Reference Range Interpretation Comments SARS-COV2/RT-PCR Negative Not Detected, (test code = Negative, See 57942-5) external report for linked test SARS-COV-2 [facility]MA PERFORMING LAB (test code = 95498-3) ROBERT (test code = Negative result for this ROBERT) test determines that SARS-CoV-2 RNA was not present in the [...] of the Act. Fact Sheet for Healthcare Providers:https://www.[employer]/sites/default/f mary ellen/product/documents/F act_Sheet_HC_Providers_L iqv_EHZT-SxO-1.pdf Fact Sheet for Healthcare Patients:https://www.[employer]/sites/default/fi les/product/documents/Fa ct_Sheet_Patients_Lyra_S ARS-CoV-2.pdf Performing Laboratory:[facility] [place] [address] [facility] & REF LABS)2020-04-29 11:24:00 Test Item Value Reference Range Interpretation Comments SARS-COV2/RT-PCR (test Negative Not Detected, Negative, code = 1677631) See external report for linked test SARS-COV-2 PERFORMING LAB [facility] RUMA (test code = 3662508) Negative result for this test determines that SARS-CoV-2 RNA was not present in the specimen above the Limit of Detection (LOD). However, Negative results do not preclude SARS-CoV-2 infection and should not be used as the sole basis for treatment or patient management decisions. Negative results mustbe combined with clinical observations, patient history, and epidemiological information. A false negative result may occur if a specimen is improperly collected, transported or handled. A false negative result should be considered if patient's recent exposures or clinical presentation indicate that COVID-19 (SARS-CoV-2) is likely and diagnostic tests for other causes of illness are negative. Re-testing should be considered in cases of suspected false negatives.The limit of detection for this assay is 800 copies/mL.This SARS CoV-2 test is a real-time RT-PCR test intended for the qualitative detection of nucleic acid from SARS-CoV-2 in a nasopharyngeal swab specimen collected from individuals susp ected of COVID-19 by their healthcare provider.This test has not been Food and Drug [...] is revoked under Section 564(g) of the Act.Fact Sheet for Healthcare Providers:https://www.[employer]/sites/default/files/product/documents/Fact_Shee d_FE_Qfkuticmj_Yuzr_PAHP-WgI-3.pdfFact Sheet for Healthcare Patients:https://www.[employer]com/sites/default/files/product/ documents/Grme_Bdhho_Mcyrsknc_Evgi_TVZK-HgC-8.pdfPerforming Laboratory:[facility], [place] [address]JYRH-RXAJGTQ METER 2020-04-29 08:00:00 Test Item Value Reference Range Interpretation Comments POC-GLUCOSE METER 107 mg/dL 70-110 : TESTED A T [facility] 6720 (BEAKER) (test code = GORDON Lezama [facility], 1538) [address]: Metal Ceiling Builder/Techni tequila ID = [id number] for YOSELYN PEREZ Calcium, [id number] 05:48:00 Test Item Value Reference Range Interpretation Comments Calcium, Ion (test code = 1993-3) 1.07 mmol/L 1.12-1.27 L pH, Blood (test code = 32991-9) 7.44 Lab Interpretation (test code = Abnormal 45280-7) [facility], [id number] 05:48:00 Test Item Value Reference Range Interpretation Comments CALCIUM IONIZED (BEAKER) (test 1.07 mmol/L 1.12-1.27 L code = 698) PH, BLOOD (BEAKER) (test code = 7.44 1810) Comprehensive metabolic [id number] 05:40:00 Test Item Value Reference Range Interpretation Comments Protein, Total (test 4.6 6.0- 8.3 gm/dL L code = 2885-2) Albumin (test code = 2.1 g/dL 3.5-5 L 20350-9) Alkaline Phosphatase 109 U/L 40-150 (test code = 6768-6) Total Bilirubin (test 2.5 mg/dL 0.2-1.2 H code = 1975-2) Sodium (test code = 133 meq/L 136-145 L 2951-2) Potassium (test code 3.8 meq/L 3.5-5.1 = 2823-3) Chloride (test code = 110 meq/L 98-107 H 2074-0) CO2 (test code = 16 meq/L 22-29 L 8-9) BUN (test code = 17 mg/dL - 3094-0) Creatinine (test code 0.69 mg/dL 0.57-1.25 = 2160-0) Glucose (test code = 124 mg/dL 70-105 H 2345-7) Calcium (test code = 6.9 mg/dL 8.4-10.2 L 72116-8) AST (test code = 99 U/L 5-34 H 1920-8) ALT (test code = 77 U/L 6-55 H 1742-6) EGFR (test code = [place] [address]-0) CLINICAL DATA T O CALCULATE ESTIMATED GFR. ROBERT (test code = ROBERT) Metal Ceiling Builder ID - BALBINA MSpecimen slightly icteric Lab Interpretation Abnormal (test code = 68817-6) [facility] HospitalCOMPREHENSIVE METABOLIC [id number] 05:40:00 Test Item Value Reference Range Interpretation Comments TOTAL PROTEIN 4.6 gm/dL 6.0-8.3 L (BEAKER) (test code = 770) ALBUMIN (BEAKER) 2.1 g/dL 3.5-5.0 L (test code = 1145) ALKALINE PHOSPHATASE 109 U/L 40-150 (BEAKER) (test code = 346) BILIRUBIN TOTAL 2.5 mg/dL 0.2-1.2 H (BEAKER) (test code = 377) SODIUM (BEAKER) (test 133 meq/L 136-145 L code = 381) POTASSIUM (BEAKER) 3.8 meq/L 3.5-5.1 (test code = 379) CHLORIDE (BEAKER) 110 meq/L 98-107 H (test code = 382) CO2 (BEAKER) (test 16 meq/L 22-29 L code = 355) BLOOD UREA NITROGEN 17 mg/dL 7-21 (BEAKER) (test code = 354) CREATININE (BEAKER) 0.69 mg/dL 0.57-1.25 (test code = 358) GLUCOSE RANDOM 124 mg/dL 70-105 H (BEAKER) (test code = 652) CALCIUM (BEAKER) 6.9 mg/dL 8.4-10.2 L (test code = 697) AST (SGOT) (BEAKER) 99 U/L 5-34 H (test code = 353) ALT (SGPT) (BEAKER) 77 U/L 6-55 H (test code = 347) EGFR (BEAKER) (test INSUFFIC IENT CLINICAL code = 1092) DATA TO CALCULA TE ESTIMATED GFR. Metal Ceiling Builder ID - BALBINA MSpecimen slightly [id number] 05:32:00 Test Item Value Reference Range Interpretation Comments Magnesium (test code = 1.8 mg/dL 1.6-2.6 36542-8) ROBERT (test code = ROBERT) Metal Ceiling Builder ID - BALBINA M Lab Interpretation (test Normal code = 94345-2) [facility] HospitalPhosphorus2020-12-21 05:32:00 Test Item Value Reference Range Interpretation Comments Phosphorus (test code = 2.9 mg/dL 2.3-4.7 2777-1) ROBERT (test code = ROBERT) Metal Ceiling Builder ID - BALBINA M Lab Interpretation (test Normal code = 35435-8) [facility] HospitalMAGNESIUM2020-12-21 05:32:00 Test Item Value Reference Range Interpretation Comments MAGNESIUM (BEAKER) (test code = 1.8 mg/dL 1.6-2.6 627) Metal Ceiling Builder ID - BALBINA [id number] 05:32:00 Test Item Value Reference Range Interpretation Comments PHOSPHORUS (BEAKER) (test code = 2.9 mg/dL 2.3-4.7 604) Metal Ceiling Builder ID - BALBINA MPT/[id number] 05:24:00 Test Item Value Reference Range Interpretation Comments Protime (test code = 21.0 11.9- 14.2 H 5902-2) seconds INR (test code = 1.87 <=5.90 6301-6) PTT (test code = 43.9 22.5- 36.0 H 53059-6) seconds ROBERT (test code = ORBERT) Effective 10/05/2018: PT Reference Range ChangeNew: 11.9-14.2 Previous: 11.7-14.7 RECOMMENDED COUMADIN/WARFARIN INR THERAPY RANGESSTANDARD DOSE: 2.0-3.0 Includes: PROPHYLAXIS for venous thrombosis, systemic embolization; TREATMENT for venous thrombosis and/or pulmonary embolus.HIGH RISK: Target INR is 2.5-3.5 for patients wiht mechanical heart valves. Lab Interpretation Abnormal (test code = 89887-9) [facility] HospitalPT/[id number] 05:24:00 Test Item Value Reference Range Interpretation Comments PROTIME (BEAKER) (test code = 21.0 seconds 11.9-14.2 H 759) INR (BEAKER) (test code = 370) 1.87 <=5.90 PARTIAL THROMBOPLASTIN TIME 43.9 seconds 22.5-36.0 H (BEAKER) (test code = 760) Effective 10/05/2018: PT Reference Range ChangeNew: 11.9-14.2 Previous: 11.7- 14.7RECOMMENDED COUMADIN/WARFARIN INR THERAPY RANGESSTANDARD DOSE: 2.0-3.0 Includes: PROPHYLAXIS for venous thrombosis, systemic embolization; TREATMENT for venous thrombosis and/or pulmonary embolus.HIGH RISK: Target INR is2.5-3.5 for patients wiht mechanical heart valves.Prothrombin time/[id number] 05:23:00 Test Item Value Reference Range Interpretation Comments Protime (test code = 21.0 11.9- 14.2 H 5902-2) seconds INR (test code = 1.87 <=5.90 6301-6) ROBERT (test code = ROBERT) Effective 10/05/2018: PT Reference Range ChangeNew: 11.9-14.2 Previous: 11.7-14.7 RECOMMENDED COUMADIN/WARFARIN INR THERAPY RANGESSTANDARD DOSE: 2.0-3.0 Includes: PROPHYLAXIS for venous thrombosis, systemic embolization; TREATMENT for venous thrombosis and/or pulmonary embolus.HIGH RISK: Target INR is 2.5-3.5 for patients wiht mechanical heart valves. Lab Interpretation Abnormal (test code = 82084-0) [facility] HospitalPROTHROMBIN TIME/[id number] 05:23:00 Test Item Value Reference Range Interpretation Comments PROTIME (BEAKER) (test code = 21.0 seconds 11.9-14.2 H 759) INR (BEAKER) (test code = 370) 1.87 <=5.90 Effective 10/05/2018: PT Reference Range ChangeNew: 11.9-14.2 Previous: 11.7- 14.7RECOMMENDED COUMADIN/WARFARIN INR THERAPY RANGESSTANDARD DOSE: 2.0-3.0 Includes: PROPHYLAXIS for venous thrombosis, systemic embolization; TREATMENT for venous thrombosis and/or pulmonary embolus.HIGH RISK: Target INR is2.5-3.5 for patients wiht mechanical heart valves.CBC with platelet count + automated [id number] 05:06:00 Test Item Value Reference Range Interpretation Comments WBC (test code = 6690-2) 5.6 3.5- 10.5 K/L RBC (test code = 789-8) 2.86 4.63- 6.08 M/L L MCHC (test code = 786-4) 31.9 32.3- 36.5 GM/DL L Hematocrit (test code = 23.2 % 40.1-51 L 4544-3) MCV (test code = 787-2) 81.1 fL 79-92.2 MCH (test code = 785-6) 25.9 pg 25.7-32.2 RDW (test code = 788-0) 18.6 % 11.6-14.4 H Platelets (test code = 62 150- 450 K/CU MM L 777-3) MPV (test code = Unable [place] r [place] 74382-1) to abnormal Jordy telet population distribution. nRBC (test code = 413) 0 0- 0 /100 WBC % Neutros (test code = 67 % 429) % Lymphs (test code = 24 % 430) % Monos (test code = 8 % 431) % Eos (test code = 432) 0 % % Baso (test code = 437) 0 % # Neutros (test code = 3.73 1.78- 5.38 K/L 670) # Lymphs (test code = 1.31 1.32- 3.57 K/L L 414) # Monos (test code = 0.45 0.30- 0.82 K/L 415) # Eos (test code = 416) 0.02 0.04- 0.54 K/L L # Baso (test code = 417) 0.00 0.01- 0.08 K/L L Immature 1 % 0-1 Granulocytes-Relative (test code = 2801) Lab Interpretation (test Abnormal code = 84207-3) [facility] W/PLT COUNT & AUTO [id number] 05:06:00 Test Item Value Reference Range Interpretation Comments WHITE BLOOD CELL COUNT 5.6 K/ L 3.5-10.5 (BEAKER) (test code = 775) RED BLOOD CELL COUNT 2.86 M/ L 4.63-6.08 L (BEAKER) (test code = 761) HEMOGLOBIN (BEAKER) 7.4 GM/DL 13.7-17.5 L (test code = 410) HEMATOCRIT (BEAKER) 23.2 % 40.1-51.0 L (test code = 411) MEAN CORPUSCULAR VOLUME 81.1 fL 79.0-92.2 (BEAKER) (test code = 753) MEAN CORPUSCULAR 25.9 pg 25.7-32.2 HEMOGLOBIN (BEAKER) (test code = 751) MEAN CORPUSCULAR 31.9 GM/DL 32.3-36.5 L HEMOGLOBIN CONC (BEAKER) (test code = 752) RED CELL DISTRIBUTION 18.6 % 11.6-14.4 H WIDTH (BEAKER) (test code = 412) PLATELET COUNT (BEAKER) 62 K/CU MM 150-450 L (test code = 756) MEAN PLATELET VOLUME Unable to report due (BEAKER) (test code = to abn ormal Platelet 754) population distribution. NUCLEATED RED BLOOD 0 /100 WBC 0-0 CELLS (BEAKER) (test code = 413) NEUTROPHILS RELATIVE 67 % PERCENT (BEAKER) (test code = 429) LYMPHOCYTES RELATIVE 24 % PERCENT (BEAKER) (test code = 430) MONOCYTES RELATIVE 8 % PERCENT (BEAKER) (test code = 431) EOSINOPHILS RELATIVE 0 % PERCENT (BEAKER) (test code = 432) BASOPHILS RELATIVE 0 % PERCENT (BEAKER) (test code = 437) NEUTROPHILS ABSOLUTE 3.73 K/ L 1.78-5.38 COUNT (BEAKER) (test code = 670) LYMPHOCYTES ABSOLUTE 1.31 K/ L 1.32-3.57 L COUNT (BEAKER) (test code = 414) MONOCYTES ABSOLUTE 0.45 K/ L 0.30-0.82 COUNT (BEAKER) (test code = 415) EOSINOPHILS ABSOLUTE 0.02 K/ L 0.04-0.54 L COUNT (BEAKER) (test code = 416) BASOPHILS ABSOLUTE 0.00 K/ L 0.01-0.08 L COUNT (BEAKER) (test code = 417) IMMATURE 1 % 0-1 GRANULOCYTES-RELATIVE PERCENT (BEAKER) (test code = 2801) POCT-GLUCOSE [id number] 01:29:00 Test Item Value Reference Range Interpretation Comments POC-GLUCOSE METER 141 mg/dL 70-110 H : TESTED A T [facility] 6720 (BEAKER) (test code = [facility], 1538) [address]: Metal Ceiling Builder/Techni tequila ID = [id number] for ZULEIKA GARCIA POCT-GLUCOSE [id number] 18:29:00 Test Item Value Reference Range Interpretation Comments POC-GLUCOSE METER 106 mg/dL 70-110 : TESTED A T [facility] 6720 (BEAKER) (test code = [facility], 1538) [address]: Metal Ceiling Builder/Techni tequila ID = [id number] for SA NTGRADY, MACO Hemoglobin and [id number] 14:25:00 Test Item Value Reference Range Interpretation Comments Hemoglobin (test code = 8.5 13.7- 17.5 GM/DL L 786-4) Hematocrit (test code = 27.6 % 40.1-51 L 4544-3) ROBERT (test code = ROBERT) Metal Ceiling Builder ID - [id number] Lab Interpretation (test Abnormal code = 94939-4) [facility]HEMO[facility] AND [id number] 14:25:00 Test Item Value Reference Range Interpretation Comments HEMOGLOBIN (BEAKER) (test code = 8.5 GM/DL 13.7-17.5 L 410) HEMATOCRIT (BEAKER) (test code = 27.6 % 40.1-51.0 L 411) Metal Ceiling Builder ID - [id number]-GLUCOSE [id number] 11:55:00 Test Item Value Reference Range Interpretation Comments POC-GLUCOSE METER 116 mg/dL 70-110 H : TESTED A T [facility] 6720 (BEAKER) (test code = [facility], 1538) [address]: Metal Ceiling Builder/Techni tequila ID = [id number] for SA NTOS, MACO CBC W/PLT COUNT & AUTO [id number] 06:37:00 Test Item Value Reference Range Interpretation Comments WHITE BLOOD CELL COUNT 6.0 K/ L 3.5-10.5 (BEAKER) (test code = 775) RED BLOOD CELL COUNT 2.67 M/ L 4.63-6.08 L (BEAKER) (test code = 761) HEMOGLOBIN (BEAKER) 7.0 GM/DL 13.7-17.5 L (test code = 410) HEMATOCRIT (BEAKER) 23.1 % 40.1-51.0 L (test code = 411) MEAN CORPUSCULAR VOLUME 85.0 fL 79.0-92.2 (BEAKER) (test code = 753) MEAN CORPUSCULAR 26.2 pg 25.7-32.2 HEMOGLOBIN (BEAKER) (test code = 751) MEAN CORPUSCULAR 30.8 GM/DL 32.3-36.5 L HEMOGLOBIN CONC (BEAKER) (test code = 752) RED CELL DISTRIBUTION 19.1 % 11.6-14.4 H WIDTH (BEAKER) (test code = 412) PLATELET COUNT (BEAKER) 62 K/CU MM 150-450 L (test code = 756) MEAN PLATELET VOLUME Unable to report due (BEAKER) (test code = to abn ormal Platelet 754) population distribution. NUCLEATED RED BLOOD 0 /100 WBC 0-0 CELLS (BEAKER) (test code = 413) NEUTROPHILS RELATIVE 66 % PERCENT (BEAKER) (test code = 429) LYMPHOCYTES RELATIVE 24 % PERCENT (BEAKER) (test code = 430) MONOCYTES RELATIVE 8 % PERCENT (BEAKER) (test code = 431) EOSINOPHILS RELATIVE 0 % PERCENT (BEAKER) (test code = 432) BASOPHILS RELATIVE 0 % PERCENT (BEAKER) (test code = 437) NEUTROPHILS ABSOLUTE 3.99 K/ L 1.78-5.38 COUNT (BEAKER) (test code = 670) LYMPHOCYTES ABSOLUTE 1.46 K/ L 1.32-3.57 COUNT (BEAKER) (test code = 414) MONOCYTES ABSOLUTE 0.48 K/ L 0.30-0.82 COUNT (BEAKER) (test code = 415) EOSINOPHILS ABSOLUTE 0.01 K/ L 0.04-0.54 L COUNT (BEAKER) (test code = 416) BASOPHILS ABSOLUTE 0.01 K/ L 0.01-0.08 COUNT (BEAKER) (test code = 417) IMMATURE 1 % 0-1 GRANULOCYTES-RELATIVE PERCENT (BEAKER) (test code = 2801) POCT-GLUCOSE [id number] 06:26:00 Test Item Value Reference Range Interpretation Comments POC-GLUCOSE METER 102 mg/dL 70-110 : TESTED A T [facility] 6720 (BEAKER) (test code = [facility] [place], 1538) [address]: Metal Ceiling Builder/Techni tequila ID = [id number] for ZULEIKA GARCIA CALCIUM, [id number] 06:20:00 Test Item Value Reference Range Interpretation Comments CALCIUM IONIZED (BEAKER) (test 1.13 mmol/L 1.12-1.27 code = 698) PH, BLOOD (BEAKER) (test code = 7.39 1810) COMPREHENSIVE METABOLIC [id number] 06:02:00 Test Item Value Reference Range Interpretation Comments TOTAL PROTEIN 4.4 gm/dL 6.0-8.3 L (BEAKER) (test code = 770) ALBUMIN (BEAKER) 2.0 g/dL 3.5-5.0 L (test code = 1145) ALKALINE PHOSPHATASE 89 U/L 40-150 (BEAKER) (test code = 346) BILIRUBIN TOTAL 2.4 mg/dL 0.2-1.2 H (BEAKER) (test code = 377) SODIUM (BEAKER) (test 135 meq/L 136-145 L code = 381) POTASSIUM (BEAKER) 3.8 meq/L 3.5-5.1 (test code = 379) CHLORIDE (BEAKER) 113 meq/L 98-107 H (test code = 382) CO2 (BEAKER) (test 18 meq/L 22-29 L code = 355) BLOOD UREA NITROGEN 18 mg/dL 7-21 (BEAKER) (test code = 354) CREATININE (BEAKER) 0.68 mg/dL 0.57-1.25 (test code = 358) GLUCOSE RANDOM 134 mg/dL 70-105 H (BEAKER) (test code = 652) CALCIUM (BEAKER) 7.2 mg/dL 8.4-10.2 L (test code = 697) AST (SGOT) (BEAKER) 79 U/L 5-34 H (test code = 353) ALT (SGPT) (BEAKER) 62 U/L 6-55 H (test code = 347) EGFR (BEAKER) (test INSUFFIC IENT CLINICAL code = 1092) DATA TO CALCULA TE ESTIMATED GFR. Metal Ceiling Builder ID Emmaneulle AAYLA [id number] 06:01:00 Test Item Value Reference Range Interpretation Comments MAGNESIUM (BEAKER) (test code = 1.9 mg/dL 1.6-2.6 627) Metal Ceiling Builder ID Emmanuelle AYALA [id number] 06:01:00 Test Item Value Reference Range Interpretation Comments PHOSPHORUS (BEAKER) (test code = 3.2 mg/dL 2.3-4.7 604) Metal Ceiling Builder ID - LUCY LPT/[id number] 05:40:00 Test Item Value Reference Range Interpretation Comments PROTIME (BEAKER) (test code = 21.2 seconds 11.9-14.2 H 759) INR (BEAKER) (test code = 370) 1.89 <=5.90 PARTIAL THROMBOPLASTIN TIME 44.4 seconds 22.5-36.0 H (BEAKER) (test code = 760) Effective 10/05/2018: PT Reference Range ChangeNew: 11.9-14.2 Previous: 11.7- 14.7RECOMMENDED COUMADIN/WARFARIN INR THERAPY RANGESSTANDARD DOSE: 2.0-3.0 Includes: PROPHYLAXIS for venous thrombosis, systemic embolization; TREATMENT for venous thrombosis and/or pulmonary embolus.HIGH RISK: Target INR is2.5-3.5 for patients wiht mechanical heart valves.PROTHROMBIN TIME/[id number] 05:39:00 Test Item Value Reference Range Interpretation Comments PROTIME (BEAKER) (test code = 21.2 seconds 11.9-14.2 H 759) INR (BEAKER) (test code = 370) 1.89 <=5.90 Effective 10/05/2018: PT Reference Range ChangeNew: 11.9-14.2 Previous: 11.7- 14.7RECOMMENDED COUMADIN/WARFARIN INR THERAPY RANGESSTANDARD DOSE: 2.0-3.0 Includes: PROPHYLAXIS for venous thrombosis, systemic embolization; TREATMENT for venous thrombosis and/or pulmonary embolus.HIGH RISK: Target INR is2.5-3.5 for patients wiht mechanical heart valves.HEMOGLOBIN AND [id number] 05:29:00 Test Item Value Reference Range Interpretation Comments HEMOGLOBIN (BEAKER) (test code = 7.0 GM/DL 13.7-17.5 L 410) HEMATOCRIT (BEAKER) (test code = 23.1 % 40.1-51.0 L 411) HEMOGLOBIN AND [id number] 00:37:00 Test Item Value Reference Range Interpretation Comments HEMOGLOBIN (BEAKER) (test code = 7.8 GM/DL 13.7-17.5 L 410) HEMATOCRIT (BEAKER) (test code = 25.1 % 40.1-51.0 L 411) Metal Ceiling Builder ID - [id number]-GLUCOSE [id number] 00:07:00 Test Item Value Reference Range Interpretation Comments POC-GLUCOSE METER 106 mg/dL 70-110 : TESTED A T [facility] 6720 (BEAKER) (test code = [facility], 153) [address]: Metal Ceiling Builder/Techni tequila ID = [id number] for ZULEIKA GARCIA HEMOGLOBIN AND [id number] 15:37:00 Test Item Value Reference Range Interpretation Comments HEMOGLOBIN (BEAKER) (test code = 7.9 GM/DL 13.7-17.5 L 410) HEMATOCRIT (BEAKER) (test code = 25.5 % 40.1-51.0 L 411) Metal Ceiling Builder ID - [id number]-GLUCOSE [id number] 13:18:00 Test Item Value Reference Range Interpretation Comments POC-GLUCOSE METER 128 mg/dL 70-110 H : TESTED A T [facility] 6720 (BEAKER) (test code = [facility], 1538) [address]: Metal Ceiling Builder/Techni tequila ID = [id number] for Linda Moscoso POCT-GLUCOSE [id number] 11:39:00 Test Item Value Reference Range Interpretation Comments POC-GLUCOSE METER 132 mg/dL 70-110 H : TESTED A T [facility] 6720 (BEAKER) (test code = [facility], 153) 35[address]: Metal Ceiling Builder/Techni tequila ID = [id number] for GR ANT, TIEARA RAD, CHEST, 1 VIEW, NON [id number] 11:11:00Reason for exam:- >pneumoniaShould this be performed at the bedside?->Yes [facility] : 1980 Sex: MFINAL REPORT History: Pneumonia Comparison: 04/23/2020 Findings: Small right pleural effusion is likely unchanged allowing for differences in patient positioning. Mild adjacent compressive atelectasis is also unchanged. Airspace consolidation at the left lung base has improved. No pneumothorax. The cardiac shadow is normal in size. Signed: Bharath Wang Verified Ja e/Time: 04/27/2020 11:11:41 Reading Location: [address] Transitional Reading Room XR chest 1 view portable / [id number] 11:11:00Interface, External Ris In - 04/27/2020 11:13 AM CSTFINAL REPORT History: Pneumonia Comparison: 04/23/2020 Findings: Small right pleural effusion is likely unchanged allowing for differences in patient positioning. Mild adjacent compressive atelectasis is also unchanged. Airspace consolidation at the left lung base has improved. No pneumothorax. The cardiac shadow is normal insize. Signed: Bharath Wang Verified Date/Time: 04/27/2020 11:11:41 Reading Location: [facility] C013 Transitional Reading Room [facility] [id number] 09:24:00 Test Item Value Reference Range Interpretation Comments HEMOGLOBIN (BEAKER) (test code = 7.9 GM/DL 13.7-17.5 L 410) HEMATOCRIT (BEAKER) (test code = 25.5 % 40.1-51.0 L 411) Metal Ceiling Builder ID - [id number] METABOLIC [id number] 03:56:00 Test Item Value Reference Range Interpretation Comments TOTAL PROTEIN 4.8 gm/dL 6.0-8.3 L (BEAKER) (test code = 770) ALBUMIN (BEAKER) 2.1 g/dL 3.5-5.0 L (test code = 1145) ALKALINE PHOSPHATASE 109 U/L 40-150 (BEAKER) (test code = 346) BILIRUBIN TOTAL 2.7 mg/dL 0.2-1.2 H (BEAKER) (test code = 377) SODIUM (BEAKER) (test 138 meq/L 136-145 code = 381) POTASSIUM (BEAKER) 3.6 meq/L 3.5-5.1 (test code = 379) CHLORIDE (BEAKER) 115 meq/L 98-107 H (test code = 382) CO2 (BEAKER) (test 17 meq/L 22-29 L code = 355) BLOOD UREA NITROGEN 22 mg/dL 7-21 H (BEAKER) (test code = 354) CREATININE (BEAKER) 0.65 mg/dL 0.57-1.25 (test code = 358) GLUCOSE RANDOM 116 mg/dL 70-105 H (BEAKER) (test code = 652) CALCIUM (BEAKER) 7.3 mg/dL 8.4-10.2 L (test code = 697) AST (SGOT) (BEAKER) 80 U/L 5-34 H (test code = 353) ALT (SGPT) (BEAKER) 59 U/L 6-55 H (test code = 347) EGFR (BEAKER) (test INSUFFIC IENT CLINICAL code = 1092) DATA TO CALCULA TE ESTIMATED GFR. Metal Ceiling Builder ID - MARLEE WSpecimen slightly [id number] 03:40:00 Test Item Value Reference Range Interpretation Comments MAGNESIUM (BEAKER) (test code = 2.1 mg/dL 1.6-2.6 627) Metal Ceiling Builder ID - MARLEE [id number] 03:40:00 Test Item Value Reference Range Interpretation Comments PHOSPHORUS (BEAKER) (test code = 3.2 mg/dL 2.3-4.7 604) Metal Ceiling Builder ID - MARLEE WCBC W/PLT COUNT & AUTO [id number] 03:38:00 Test Item Value Reference Range Interpretation Comments WHITE BLOOD CELL COUNT 5.6 K/ L 3.5-10.5 (BEAKER) (test code = 775) RED BLOOD CELL COUNT 2.89 M/ L 4.63-6.08 L (BEAKER) (test code = 761) HEMOGLOBIN (BEAKER) 7.4 GM/DL 13.7-17.5 L (test code = 410) HEMATOCRIT (BEAKER) 24.4 % 40.1-51.0 L (test code = 411) MEAN CORPUSCULAR VOLUME 84.4 fL 79.0-92.2 (BEAKER) (test code = 753) MEAN CORPUSCULAR 25.6 pg 25.7-32.2 L HEMOGLOBIN (BEAKER) (test code = 751) MEAN CORPUSCULAR 30.3 GM/DL 32.3-36.5 L HEMOGLOBIN CONC (BEAKER) (test code = 752) RED CELL DISTRIBUTION 19.9 % 11.6-14.4 H WIDTH (BEAKER) (test code = 412) PLATELET COUNT (BEAKER) 74 K/CU MM 150-450 L (test code = 756) MEAN PLATELET VOLUME Unable to report due (BEAKER) (test code = to abn ormal Platelet 754) population distribution. NUCLEATED RED BLOOD 0 /100 WBC 0-0 CELLS (BEAKER) (test code = 413) NEUTROPHILS RELATIVE 76 % PERCENT (BEAKER) (test code = 429) LYMPHOCYTES RELATIVE 18 % PERCENT (BEAKER) (test code = 430) MONOCYTES RELATIVE 5 % PERCENT (BEAKER) (test code = 431) EOSINOPHILS RELATIVE 0 % PERCENT (BEAKER) (test code = 432) BASOPHILS RELATIVE 0 % PERCENT (BEAKER) (test code = 437) NEUTROPHILS ABSOLUTE 4.20 K/ L 1.78-5.38 COUNT (BEAKER) (test code = 670) LYMPHOCYTES ABSOLUTE 1.00 K/ L 1.32-3.57 L COUNT (BEAKER) (test code = 414) MONOCYTES ABSOLUTE 0.28 K/ L 0.30-0.82 L COUNT (BEAKER) (test code = 415) EOSINOPHILS ABSOLUTE 0.00 K/ L 0.04-0.54 L COUNT (BEAKER) (test code = 416) BASOPHILS ABSOLUTE 0.01 K/ L 0.01-0.08 COUNT (BEAKER) (test code = 417) IMMATURE 1 % 0-1 GRANULOCYTES-RELATIVE PERCENT (BEAKER) (test code = 2801) [id number] 03:35:00 Test Item Value Reference Range Interpretation Comments PROTIME (BEAKER) (test code = 21.0 seconds 11.9-14.2 H 759) INR (BEAKER) (test code = 370) 1.87 <=5.90 PARTIAL THROMBOPLASTIN TIME 44.0 seconds 22.5-36.0 H (BEAKER) (test code = 760) Effective 10/05/2018: PT Reference Range ChangeNew: 11.9-14.2 Previous: 11.7- 14.7RECOMMENDED COUMADIN/WARFARIN INR THERAPY RANGESSTANDARD DOSE: 2.0-3.0 Includes: PROPHYLAXIS for venous thrombosis, systemic embolization; TREATMENT for venous thrombosis and/or pulmonary embolus.HIGH RISK: Target INR is2.5-3.5 for patients wiht mechanical heart valves.PROTHROMBIN TIME/[id number] 03:34:00 Test Item Value Reference Range Interpretation Comments PROTIME (BEAKER) (test code = 21.0 seconds 11.9-14.2 H 759) INR (BEAKER) (test code = 370) 1.87 <=5.90 Effective 10/05/2018: PT Reference Range ChangeNew: 11.9-14.2 Previous: 11.7- 14.7RECOMMENDED COUMADIN/WARFARIN INR THERAPY RANGESSTANDARD DOSE: 2.0-3.0 Includes: PROPHYLAXIS for venous thrombosis, systemic embolization; TREATMENT for venous thrombosis and/or pulmonary embolus.HIGH RISK: Target INR is2.5-3.5 for patients wiht mechanical heart valves.Blood gas, [id number] 03:05:00 Test Item Value Reference Range Interpretation Comments pH, Arterial (test code = 2744-1) 7.49 7.35-7.45 H pCO2, Arterial (test code = 24 35- 45 mm Hg L 2018-8) pO2, Arterial (test code = 133 80- 90 mm Hg H 3-7) O2 Sat, Arterial (test code = 99.0 % 96-97 H 8-6) HCO3, Arterial (test code = 18 mmol/L 21-29 L 1960-4) Base Excess, Arterial (test code -4.7 mmol/L -2-3 L = 1925-7) Patient Temperature (test code = 36.0 8310-5) FIO2 (test code = 1819) 21 Lab Interpretation (test code = Abnormal 94196-2) [facility] [id number] 03:05:00 Test Item Value Reference Range Interpretation Comments PH ARTERIAL (BEAKER) (test code = 7.49 7.35-7.45 H 383) PCO2 ARTERIAL (BEAKER) (test code 24 mm Hg 35-45 L = 384) PO2 ARTERIAL (BEAKER) (test code 133 mm Hg 80-90 H = 385) O2 SATURATION ARTERIAL (BEAKER) 99.0 % 96.0-97.0 H (test code = 386) HCO3 ARTERIAL (BEAKER) (test code 18 mmol/L 21-29 L = 388) BASE EXCESS ARTERIAL (BEAKER) -4.7 mmol/L -2.0-3.0 L (test code = 387) PATIENT TEMPERATURE (BEAKER) 36.0 (test code = 1818) FIO2 (BEAKER) (test code = 1819) 21.0 CALCIUM, [id number] 03:05:00 Test Item Value Reference Range Interpretation Comments CALCIUM IONIZED (BEAKER) (test 1.13 mmol/L 1.12-1.27 code = 698) PH, BLOOD (BEAKER) (test code = 7.47 1810) HEMOGLOBIN AND [id number] 03:04:00 Test Item Value Reference Range Interpretation Comments HEMOGLOBIN (BEAKER) (test code = 7.4 GM/DL 13.7-17.5 L 410) HEMATOCRIT (BEAKER) (test code = 24.4 % 40.1-51.0 L 411) BLOOD [id number] 03:00:00 Test Item Value Reference Range Interpretation Comments CULTURE (BEAKER) (test No growth in 5 days code = 1095) Blood Culture - Routine (Right Venipuncture)2020-04-26 23:00:00 Test Item Value Reference Range Interpretation Comments Result (test code = No growth in 5 days 6463-4) [facility] [id number] 23:00:00 Test Item Value Reference Range Interpretation Comments CULTURE (BEAKER) (test No growth in 5 days code = 1095) MR, ABDOMEN, [id number] 22:29:00Unlisted Reason for Exam - Click Yes and Enter Reason Below->YesUnlisted Reason for Exam->cirrhosis, please do liver protocol , hcc screeningDeos the patient have an implanted electronic device?->NoBA[facility] : 1980 Sex: MFINAL REPORT TECHNIQUE: MRI of the abdomen WITHOUT and WITH intravenous contrast. INDICATION: 39-year-old man with cirrhosis. COMPARISON: None. FINDINGS: LOWER THORAX: Bilateral pleural effusions, small on the right and trace on the left. Atelectasis in the dependent portions of both lower lobes, left greater than right. LIVER: Cirrhotic morphology of the liver. No suspicious liver observation. Right hepatic cysts measure up to 1.6 x 1.5 cm (LI-RADS 1). BILIARY: Thickened wall of the otherwise unremarkable gallbladder, a nonspecific finding in the setting of cirrhosis/ascites. No biliary ductal dilatation or filling defect.SPLEEN: Spleen is prominent and measures 16.5 cmin the craniocaudal dimension.PANCREAS: No focal mass or ductal dilatation. ADRENALS: No adrenal nodule.KIDNEYS/URETERS: No hydronephrosis or mass. PERITONEUM/RETROPERITONEUM: Small volume ascites.LYMPH NODES: No lymphadenopathy.VESSELS: Patent portal system and hepatic veins. Main portal vein is borderline prominent and measures 1.3 cm in diameter. 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 Conventional hepatic arterial anatomy. Abdominal aortais normal in caliber. GI TRACT: No distention or wall thickening. BONES AND SOFT TISSUES: Partially visualized 1.6 x 2 cm structure in the superficial soft tissues of the anterior abdominal wall, likely a fluid-containing ventral hernia. IMPRESSION:Cirrhosis with portal hypertension and small volume ascites. No suspicious liver observation. Bilateral pleural effusions, small the right and trace on the left, with adjacent atelectasis in both lower lobes. Signed: Likhari, Gauruv MDReport Verified Date/Time: 04/26/2020 22:29:54 Reading Location: [facility] B1 C013W Consult Reading Room MR abdomen without & with IV [id number] 22:29:00Interface, External Ris In - 04/26/2020 10:32 PM CSTFINAL REPORT TECHNIQUE: MRI of the abdomen WITHOUT and WITH intravenous contrast. INDICATION: 39-year-old man with cirrhosis. C OMPARISON: None. FINDINGS: LOWER THORAX: Bilateral pleural effusions, small on the right and trace on the left. Atelectasis in the dependent portions of both lower lobes, left greater than right. LIVER: Cirrhotic morphology of the liver. No suspicious liver observation. Right hepatic cysts measure upto 1.6 x 1.5 cm (LI-RADS 1). BILIARY: Thickened wall of the otherwise unremarkable gallbladder, a nonspecific finding in the setting of cirrhosis/ascites. No biliary ductal dilatation or filling defect.SPLEEN: Spleen is prominent and measures 16.5 cm in the craniocaudal dimension.PANCREAS: No focal mass or ductal dilatation. ADRENALS: No adrenal nodule.KIDNEYS/URETERS: No hydronephrosis or mass. PERIT ONEUM/RETROPERITONEUM: Small volume ascites.LYMPH NODES: No lymphadenopathy.VESSELS: Patent portal system and hepatic veins. Main portal vein is borderline prominent and measures 1.3 cm in diameter. 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 Conventional hepatic arterial anatomy. Abdominal aorta is normal in caliber. GI TRACT: No distention or wall thickening. BONES AND SOFT TISSUES: Partially visualized 1.6 x 2 cm structure in the superficial soft tissues of the anterior abdominal wall, likely a fluid-containing ventral hernia. IMPRESSION:Cirrhosis with portal hypertension and small volume ascites. No suspicious liver observation. Bilateral pleural effusions, small the right and trace on the left, with adjacent atelectasis in both lower lobes. Signed: [place] Mohan MDReport Verified Date/Time: 04/26/2020 22:29:54 Reading Location: [facility] B1 C013W Consult Reading Room [facility] [id number] 19:17:00 Test Item Value Reference Range Interpretation Comments POC-GLUCOSE METER 117 mg/dL 70-110 H : TESTED A T [facility] 6720 (BEAKER) (test code = [place], 1538) [address]: Metal Ceiling Builder/Techni tequila ID = [id number] for Ju male (contract), Estuardo a HEMOGLOBIN AND [id number] 17:30:00 Test Item Value Reference Range Interpretation Comments HEMOGLOBIN (BEAKER) (test code = 7.6 GM/DL 13.7-17.5 L 410) HEMATOCRIT (BEAKER) (test code = 24.6 % 40.1-51.0 L 411) Metal Ceiling Builder ID - [id number] doppler arms [id number] 14:04:32Ejection FractionSLEH ECHO HEARTLAB MKCKESSON CPACSRight Impression1. There is no deep venous obstruction in the jugular, subclavian, axillary,brachial, radial or ulnar veins.2. There is total echolucent superficial venous obstruction in the cephalicvein.3. There is no superficial venous obstruction in the basilic vein.Left Impression1. There is no deep venous obstruction in the jugular, subclavian, axillary,brachial, radial or ulnar veins.2. There is partial echolucent superficial venous obstruction in thecephalic vein.3. There is no superficial venous obstruction in the basilic vein ConclusionsSummary Venous duplex imaging and compression of the bilateral upper extremities was performed. Theveins were adequately visualized. The bilateral deep venous system was patent and compressible with no evidence of thrombus. The bilateral superficial venous system was positive with acute thrombus. Signature Velocities are measured in cm/s ; Diameters are measured in cm Interface, External Ris In - 04/26/2020 2:04 PM CSTPV LAB - Upper Extremities Veins Demographics Patient Name GEOFFREY RUST Date of Study 04/25/2020 Age 39 Visit Number [id number] Gender Male Accession Number [id number] Date of 1980 Referring [place] Room [id number] Physician Omari Insole Cementer Niki Olivares Interpreting Susannah nunes T Physician ProcedureType of Study: Veins: Upper Extremities Veins, VENOUS DOPPLER ARMS, BILATERAL. Indications for Study:Upper extremity edema.Patient Status:Routine.Study Location:Portable.Technical Quality:Technically Difficult. - Results were repo rted to:ABRAN MERCEDES @ 22:00.Risk FactorsHistory of Disease+ + +----- +!Diagnosis !Date !Comments !+ + + +!Hi story/Risk Factors: !04/25/2020!Multiple invasive lines !+ + +---- +ImpressionsRight Impression1. There is no deep venous obstruction inthe jugular, subclavian, axillary,brachial, radial or ulnar veins.2. There is total echolucent superficial venous obstruction in the cephalicvein.3. There is no superficial venous obstruction in the basilic vein.Left Impression1. There is no deep venous obstruction in the jugular, subclavian, axillary,brachial, radial or ulnar veins.2. There is partial echolucent superficial venous obstruction in thecephalic vein.3. There is no superficial venous obstruction in the basilic vein Conclusions SummaryVenous duplex imaging and compression of the bilateral upper extremities was performed. The veins were adequately visualized. The bilateral deep venous system was patent and compressible with no evidence of thrombus. The bilateral superficial venous system was positive with acute thrombus. Signature Velocities are measured in cm/s ; Diameters are measured in cmCHI Long Beach Community HospitalSA [id number] 11:33:00 Test Item Value Reference Range Interpretation Comments Result (test code = 6463-4) No MRSA isolated [facility] HospitalMRSA [id number] 11:33:00 Test Item Value Reference Range Interpretation Comments CULTURE (BEAKER) (test code No MRSA isolated = 1095) SPUTUM CULTURE + GRAM [id number] 11:23:00 Test Item Value Reference Interpretation Comments Range CULTURE (BEAKER) STAPHYLOCOCCUS A 1+ Staphy lococcus (test code = 1095) AUREUS aureus Clindamycin (test S code = 10) Erythromycin (test S code = 4) Linezolid (test code S = 40) Nitrofurantoin (test S code = 23) Oxacillin (test code S = 14) Rifampin (test code = S 43) Tetracycline (test S code = 2) Trimethoprim + S Sulfamethoxazole (test code = 47) Vancomycin (test code S = 13) GRAM STAIN RESULT 3+ WBCs (BEAKER) (test code = 1123) GRAM STAIN RESULT >25/LPF epithelial (BEAKER) (test code = cells 452094) GRAM STAIN RESULT 2+ gram negative (BEAKER) (test code = rods 654881) GRAM STAIN RESULT 2+ gram negative (BEAKER) (test code = coccobacilli 127866) GRAM STAIN RESULT 1+ gram positive (BEAKER) (test code = cocci in pairs and 577411) clusters 1+ Normal respiratory tabitha presentHEMOGLOBIN AND [id number] 09:20:00 Test Item Value Reference Range Interpretation Comments HEMOGLOBIN (BEAKER) (test code = 7.7 GM/DL 13.7-17.5 L 410) HEMATOCRIT (BEAKER) (test code = 25.1 % 40.1-51.0 L 411) Metal Ceiling Builder ID - [id number] GAS, [id number] 08:49:00 Test Item Value Reference Range Interpretation Comments PH ARTERIAL (BEAKER) (test code = 7.43 7.35-7.45 383) PCO2 ARTERIAL (BEAKER) (test code 29 mm Hg 35-45 L = 384) PO2 ARTERIAL (BEAKER) (test code 135 mm Hg 80-90 H = 385) O2 SATURATION ARTERIAL (BEAKER) 98.8 % 96.0-97.0 H (test code = 386) HCO3 ARTERIAL (BEAKER) (test code 19 mmol/L 21-29 L = 388) BASE EXCESS ARTERIAL (BEAKER) -4.9 mmol/L -2.0-3.0 L (test code = 387) PATIENT TEMPERATURE (BEAKER) 36.7 (test code = 1818) FIO2 (BEAKER) (test code = 1819) 30.0 POCT-GLUCOSE [id number] 06:08:00 Test Item Value Reference Range Interpretation Comments POC-GLUCOSE METER 147 mg/dL 70-110 H : TESTED A T [facility] 6720 (BEAKER) (test code = [place], 1538) [address]: Metal Ceiling Builder/Techni tequila ID = [id number] for SISSY GRULLON COMPREHENSIVE METABOLIC [id number] 02:00:00 Test Item Value Reference Range Interpretation Comments TOTAL PROTEIN 5.0 gm/dL 6.0-8.3 L (BEAKER) (test code = 770) ALBUMIN (BEAKER) 2.2 g/dL 3.5-5.0 L (test code = 1145) ALKALINE PHOSPHATASE 140 U/L 40-150 (BEAKER) (test code = 346) BILIRUBIN TOTAL 2.5 mg/dL 0.2-1.2 H (BEAKER) (test code = 377) SODIUM (BEAKER) (test 144 meq/L 136-145 code = 381) POTASSIUM (BEAKER) 3.2 meq/L 3.5-5.1 L (test code = 379) CHLORIDE (BEAKER) 122 meq/L 98-107 H (test code = 382) CO2 (BEAKER) (test 17 meq/L 22-29 L code = 355) BLOOD UREA NITROGEN 27 mg/dL 7-21 H (BEAKER) (test code = 354) CREATININE (BEAKER) 0.79 mg/dL 0.57-1.25 (test code = 358) GLUCOSE RANDOM 167 mg/dL 70-105 H (BEAKER) (test code = 652) CALCIUM (BEAKER) 7.7 mg/dL 8.4-10.2 L (test code = 697) AST (SGOT) (BEAKER) 91 U/L 5-34 H (test code = 353) ALT (SGPT) (BEAKER) 52 U/L 6-55 (test code = 347) EGFR (BEAKER) (test INSUFFIC IENT CLINICAL code = 1092) DATA TO CALCULA TE ESTIMATED GFR. Metal Ceiling Builder ID - PIBRIAN LSpecimen slightly [id number] 01:59:00 Test Item Value Reference Range Interpretation Comments MAGNESIUM (BEAKER) (test code = 2.1 mg/dL 1.6-2.6 627) Metal Ceiling Builder ID - PIBRIAN [id number] 01:59:00 Test Item Value Reference Range Interpretation Comments PHOSPHORUS (BEAKER) (test code = 3.4 mg/dL 2.3-4.7 604) Metal Ceiling Builder ID - PIBRIAN LCALCIUM, [id number] 01:46:00 Test Item Value Reference Range Interpretation Comments CALCIUM IONIZED (BEAKER) (test 1.18 mmol/L 1.12-1.27 code = 698) PH, BLOOD (BEAKER) (test code = 7.46 1810) CBC W/PLT COUNT & AUTO [id number] 01:39:00 Test Item Value Reference Range Interpretation Comments WHITE BLOOD CELL COUNT (BEAKER) 8.5 K/ L 3.5-10.5 (test code = 775) RED BLOOD CELL COUNT (BEAKER) 3.01 M/ L 4.63-6.08 L (test code = 761) HEMOGLOBIN (BEAKER) (test code = 8.0 GM/DL 13.7-17.5 L 410) HEMATOCRIT (BEAKER) (test code = 25.7 % 40.1-51.0 L 411) MEAN CORPUSCULAR VOLUME (BEAKER) 85.0 fL 79.0-92.2 (test code = 753) MEAN CORPUSCULAR HEMOGLOBIN 26.2 pg 25.7-32.2 (BEAKER) (test code = 751) MEAN CORPUSCULAR HEMOGLOBIN CONC 30.9 GM/DL 32.3-36.5 L (BEAKER) (test code = 752) RED CELL DISTRIBUTION WIDTH 20.8 % 11.6-14.4 H (BEAKER) (test code = 412) PLATELET COUNT (BEAKER) (test code 84 K/CU MM 150-450 L = 756) MEAN PLATELET VOLUME (BEAKER) 11.1 fL 9.4-12.4 (test code = 754) NUCLEATED RED BLOOD CELLS (BEAKER) 0 /100 WBC 0-0 (test code = 413) NEUTROPHILS RELATIVE PERCENT 77 % (BEAKER) (test code = 429) LYMPHOCYTES RELATIVE PERCENT 14 % (BEAKER) (test code = 430) MONOCYTES RELATIVE PERCENT 7 % (BEAKER) (test code = 431) EOSINOPHILS RELATIVE PERCENT 0 % (BEAKER) (test code = 432) BASOPHILS RELATIVE PERCENT 0 % (BEAKER) (test code = 437) NEUTROPHILS ABSOLUTE COUNT 6.57 K/ L 1.78-5.38 H (BEAKER) (test code = 670) LYMPHOCYTES ABSOLUTE COUNT 1.22 K/ L 1.32-3.57 L (BEAKER) (test code = 414) MONOCYTES ABSOLUTE COUNT (BEAKER) 0.59 K/ L 0.30-0.82 (test code = 415) EOSINOPHILS ABSOLUTE COUNT 0.01 K/ L 0.04-0.54 L (BEAKER) (test code = 416) BASOPHILS ABSOLUTE COUNT (BEAKER) 0.01 K/ L 0.01-0.08 (test code = 417) IMMATURE GRANULOCYTES-RELATIVE 1 % 0-1 PERCENT (BEAKER) (test code = 2801) HEMOGLOBIN AND [id number] 01:31:00 Test Item Value Reference Range Interpretation Comments HEMOGLOBIN (BEAKER) (test code = 8.0 GM/DL 13.7-17.5 L 410) HEMATOCRIT (BEAKER) (test code = 25.7 % 40.1-51.0 L 411) PROTHROMBIN TIME/[id number] 01:31:00 Test Item Value Reference Range Interpretation Comments PROTIME (BEAKER) (test code = 19.4 seconds 11.9-14.2 H 759) INR (BEAKER) (test code = 370) 1.70 <=5.90 Effective 10/05/2018: PT Reference Range ChangeNew: 11.9-14.2 Previous: 11.7- 14.7RECOMMENDED COUMADIN/WARFARIN INR THERAPY RANGESSTANDARD DOSE: 2.0-3.0 Includes: PROPHYLAXIS for venous thrombosis, systemic embolization; TREATMENT for venous thrombosis and/or pulmonary embolus.HIGH RISK: Target INR is2.5-3.5 for patients wiht mechanical heart valves.PT/[id number] 01:31:00 Test Item Value Reference Range Interpretation Comments PROTIME (BEAKER) (test code = 19.4 seconds 11.9-14.2 H 759) INR (BEAKER) (test code = 370) 1.70 <=5.90 PARTIAL THROMBOPLASTIN TIME 38.5 seconds 22.5-36.0 H (BEAKER) (test code = 760) Effective 10/05/2018: PT Reference Range ChangeNew: 11.9-14.2 Previous: 11.7- 14.7RECOMMENDED COUMADIN/WARFARIN INR THERAPY RANGESSTANDARD DOSE: 2.0-3.0 Includes: PROPHYLAXIS for venous thrombosis, systemic embolization; TREATMENT for venous thrombosis and/or pulmonary embolus.HIGH RISK: Target INR is2.5-3.5 for patients wiht mechanical heart valves.POCT-GLUCOSE [id number] 00:25:00 Test Item Value Reference Range Interpretation Comments POC-GLUCOSE METER 143 mg/dL 70-110 H : TESTED Laina Nunes [facility] 6720 (BEAKER) (test code = GORDON Le[place], 1538) [address]: Metal Ceiling Builder/Techni tequila ID = [id number] for SISSY GRULLON Actin (Smooth Muscle) Antibody, [id number] 21:39:00 Test Item Value Reference Range Interpretation Comments Anti-Smooth <20 See Note: U Reference Range :<20 Muscle Ab NEGATIVE> O R = 20 (test code = POSITIVE Antibo dies ) recognizing act in are the main compon entof smooth muscle antibodies asso ciated withautoimmune liver disease. Actin antibodies aref ound in approximatel y 75% of patients withautoimmune hepatitis (AIH) type 1, approximatel y65% of patients wit h autoimmune cholangitis,concetta roxima tely 30% of pat ients with primary biliarycirrhosi s, and approximately 2 % of healthy people. High values are clos filiberto correlated with AIH type 1. ROBERT (test code Performing Lab = ROBERT) EZ [facility] [address] Nikunj Montanez MD, PhD, BAL [facility] HospitalHEMO[facility] AND [id number] 16:44:00 Test Item Value Reference Range Interpretation Comments HEMOGLOBIN (BEAKER) (test code = 7.9 GM/DL 13.7-17.5 L 410) HEMATOCRIT (BEAKER) (test code = 25.2 % 40.1-51.0 L 411) Metal Ceiling Builder ID - [id number] 14:18:00 Test Item Value Reference Range Interpretation Comments Ceruloplasmin (test code 26 mg/dL 18-36 = [id number]) ROBERT (test code = ROBERT) Performing Lab *LAKIS[facility], [address] [place] [address] Robert Wallace MD [facility] HospitalPOCT-GLUCOSE [id number] 11:51:00 Test Item Value Reference Range Interpretation Comments POC-GLUCOSE METER 119 mg/dL 70-110 H : Notified RN/: (DEVANG) (test code = TESTED AT [facility] 67[address] 1538) [place], [address]: Metal Ceiling Builder/Techni tequila ID = [id number] for Ev elyn, [place] Mitochondria M2 Antibody (IgG)2020-04-25 11:24:00 Test Item Value Reference Range Interpretation Comments Mitochondria M2 Ab <20.0 See Note: U Reference (test code = Range:NEGATIVE: ) < OR = 20.0EQUIVOCAL: 20.1-24.9POSITI V E: > OR = 25.0 ROBERT (test code = Performing Lab ROBERT) [facility] [address] [place] [address] Nikunj Montanez MD, PhD, BAL [facility] W/PLT COUNT & AUTO [id number] 06:41:00 Test Item Value Reference Range Interpretation Comments WHITE BLOOD CELL COUNT 6.2 K/ L 3.5-10.5 (BEAKER) (test code = 775) RED BLOOD CELL COUNT 2.85 M/ L 4.63-6.08 L (BEAKER) (test code = 761) HEMOGLOBIN (BEAKER) 7.4 GM/DL 13.7-17.5 L (test code = 410) HEMATOCRIT (BEAKER) 24.0 % 40.1-51.0 L (test code = 411) MEAN CORPUSCULAR 84.2 fL 79.0-92.2 VOLUME (BEAKER) (test code = 753) MEAN CORPUSCULAR 26.0 pg 25.7-32.2 HEMOGLOBIN (BEAKER) (test code = 751) MEAN CORPUSCULAR 30.8 GM/DL 32.3-36.5 L HEMOGLOBIN CONC (BEAKER) (test code = 752) RED CELL DISTRIBUTION 20.9 % 11.6-14.4 H WIDTH (BEAKER) (test code = 412) PLATELET COUNT 94 K/CU MM 150-[address] T RESULT (BEAKER) (test code = COMPAR ED TO PREVIOUS 756) RESULT; CLINICA L CORRELATION REQUIRED.No jay t found MEAN PLATELET VOLUME 12.9 fL 9.4-12.4 H (BEAKER) (test code = 754) NUCLEATED RED BLOOD 0 /100 WBC 0-0 CELLS (BEAKER) (test code = 413) NEUTROPHILS RELATIVE 83 % PERCENT (BEAKER) (test code = 429) LYMPHOCYTES RELATIVE 12 % PERCENT (BEAKER) (test code = 430) MONOCYTES RELATIVE 4 % PERCENT (BEAKER) (test code = 431) EOSINOPHILS RELATIVE 0 % PERCENT (BEAKER) (test code = 432) BASOPHILS RELATIVE 0 % PERCENT (BEAKER) (test code = 437) NEUTROPHILS ABSOLUTE 5.14 K/ L 1.78-5.38 COUNT (BEAKER) (test code = 670) LYMPHOCYTES ABSOLUTE 0.77 K/ L 1.32-3.57 L COUNT (BEAKER) (test code = 414) MONOCYTES ABSOLUTE 0.26 K/ L 0.30-0.82 L COUNT (BEAKER) (test code = 415) EOSINOPHILS ABSOLUTE 0.00 K/ L 0.04-0.54 L COUNT (BEAKER) (test code = 416) BASOPHILS ABSOLUTE 0.01 K/ L 0.01-0.08 COUNT (BEAKER) (test code = 417) IMMATURE 1 % 0-1 GRANULOCYTES-RELATIVE PERCENT (BEAKER) (test code = 2801) HEMOGLOBIN AND [id number] 06:00:00 Test Item Value Reference Range Interpretation Comments HEMOGLOBIN (BEAKER) (test code = 7.4 GM/DL 13.7-17.5 L 410) HEMATOCRIT (BEAKER) (test code = 24.0 % 40.1-51.0 L 411) POCT-GLUCOSE [id number] 05:59:00 Test Item Value Reference Range Interpretation Comments POC-GLUCOSE METER 152 mg/dL 70-110 H : TESTED A T [facility] 6720 (BEAKER) (test code = GORDON Lezama [facility], 1538) [address]: Metal Ceiling Builder/Techni tequila ID = [id number] for SISSY GRULLON COMPREHENSIVE METABOLIC [id number] 05:14:00 Test Item Value Reference Range Interpretation Comments TOTAL PROTEIN 4.6 gm/dL 6.0-8.3 L (BEAKER) (test code = 770) ALBUMIN (BEAKER) 2.0 g/dL 3.5-5.0 L (test code = 1145) ALKALINE PHOSPHATASE 110 U/L 40-150 (BEAKER) (test code = 346) BILIRUBIN TOTAL 2.6 mg/dL 0.2-1.2 H (BEAKER) (test code = 377) SODIUM (BEAKER) (test 142 meq/L 136-145 code = 381) POTASSIUM (BEAKER) 4.0 meq/L 3.5-5.1 (test code = 379) CHLORIDE (BEAKER) 120 meq/L 98-107 H (test code = 382) CO2 (BEAKER) (test 16 meq/L 22-29 L code = 355) BLOOD UREA NITROGEN 31 mg/dL 7-21 H (BEAKER) (test code = 354) CREATININE (BEAKER) 0.80 mg/dL 0.57-1.25 (test code = 358) GLUCOSE RANDOM 187 mg/dL 70-105 H (BEAKER) (test code = 652) CALCIUM (BEAKER) 7.7 mg/dL 8.4-10.2 L (test code = 697) AST (SGOT) (BEAKER) 44 U/L 5-34 H (test code = 353) ALT (SGPT) (BEAKER) 27 U/L 6-55 (test code = 347) EGFR (BEAKER) (test INSUFFIC IENT CLINICAL code = 1092) DATA TO CALCULA TE ESTIMATED GFR. Metal Ceiling Builder ID - LUCY LSpecimen slightly [id number] 05:07:00 Test Item Value Reference Range Interpretation Comments MAGNESIUM (BEAKER) (test code = 2.1 mg/dL 1.6-2.6 627) Metal Ceiling Builder ID - LUCY [id number] 05:07:00 Test Item Value Reference Range Interpretation Comments PHOSPHORUS (BEAKER) (test code = 3.6 mg/dL 2.3-4.7 604) Metal Ceiling Builder ID - LUCY LPT/[id number] 04:58:00 Test Item Value Reference Range Interpretation Comments PROTIME (BEAKER) (test code = 19.8 seconds 11.9-14.2 H 759) INR (BEAKER) (test code = 370) 1.73 <=5.90 PARTIAL THROMBOPLASTIN TIME 42.5 seconds 22.5-36.0 H (BEAKER) (test code = 760) Effective 10/05/2018: PT Reference Range ChangeNew: 11.9-14.2 Previous: 11.7- 14.7RECOMMENDED COUMADIN/WARFARIN INR THERAPY RANGESSTANDARD DOSE: 2.0-3.0 Includes: PROPHYLAXIS for venous thrombosis, systemic embolization; TREATMENT for venous thrombosis and/or pulmonary embolus.HIGH RISK: Target INR is2.5-3.5 for patients wiht mechanical heart valves.PROTHROMBIN TIME/[id number] 04:51:00 Test Item Value Reference Range Interpretation Comments PROTIME (BEAKER) (test code = 19.8 seconds 11.9-14.2 H 759) INR (BEAKER) (test code = 370) 1.73 <=5.90 Effective 10/05/2018: PT Reference Range ChangeNew: 11.9-14.2 Previous: 11.7- 14.7RECOMMENDED COUMADIN/WARFARIN INR THERAPY RANGESSTANDARD DOSE: 2.0-3.0 Includes: PROPHYLAXIS for venous thrombosis, systemic embolization; TREATMENT for venous thrombosis and/or pulmonary embolus.HIGH RISK: Target INR is2.5-3.5 for patients wiht mechanical heart valves.BLOOD GAS, [id number] 04:31:00 Test Item Value Reference Range Interpretation Comments PH ARTERIAL (BEAKER) (test code = 7.45 7.35-7.45 383) PCO2 ARTERIAL (BEAKER) (test code 26 mm Hg 35-45 L = 384) PO2 ARTERIAL (BEAKER) (test code 125 mm Hg 80-90 H = 385) O2 SATURATION ARTERIAL (BEAKER) 98.8 % 96.0-97.0 H (test code = 386) HCO3 ARTERIAL (BEAKER) (test code 18 mmol/L 21-29 L = 388) BASE EXCESS ARTERIAL (BEAKER) -5.8 mmol/L -2.0-3.0 L (test code = 387) PATIENT TEMPERATURE (BEAKER) 36.2 (test code = 1818) FIO2 (BEAKER) (test code = 1819) 40.0 CALCIUM, [id number] 04:17:00 Test Item Value Reference Range Interpretation Comments CALCIUM IONIZED (BEAKER) (test 1.19 mmol/L 1.12-1.27 code = 698) PH, BLOOD (BEAKER) (test code = 7.44 1810) HEMOGLOBIN AND [id number] 00:22:00 Test Item Value Reference Range Interpretation Comments HEMOGLOBIN (BEAKER) (test code = 7.4 GM/DL 13.7-17.5 L 410) HEMATOCRIT (BEAKER) (test code = 24.1 % 40.1-51.0 L 411) Metal Ceiling Builder ID - [id number]-GLUCOSE [id number] 23:58:00 Test Item Value Reference Range Interpretation Comments POC-GLUCOSE METER 143 mg/dL 70-110 H : TESTED A T [facility] 6720 (BEAKER) (test code = [facility], 1538) [address]: Metal Ceiling Builder/Techni tequila ID = [id number] for Js hillman (contract), Lalo grewalio HEMOGLOBIN AND [id number] 18:18:00 Test Item Value Reference Range Interpretation Comments HEMOGLOBIN (BEAKER) (test code = 7.8 GM/DL 13.7-17.5 L 410) HEMATOCRIT (BEAKER) (test code = 24.8 % 40.1-51.0 L 411) Metal Ceiling Builder ID - [id number]-GLUCOSE [id number] 18:00:00 Test Item Value Reference Range Interpretation Comments POC-GLUCOSE METER 147 mg/dL 70-110 H : TESTED A T [facility] 6720 (BEAKER) (test code = [facility], 1538) [address]327: Metal Ceiling Builder/Techni tequila ID = [id number] for KAYLA DRUMMOND RAD, ABDOMEN/KUB, 1 VIEW [id number] 12:36:00Reason for exam:->Cor gayatri insertionCITY OF [facility]OPE [facility]ATIONAL [facility] CENTERName: YOCASTAGEOFFREY : 1980 Sex: MFINAL REPORT RAD, ABDOMEN/KUB, 1 VIEW AP INDICATION: Cor gayatri insertion COMPARISON: None TECHNIQUE: Limited portable radiograph of the lower chest and upper abdomen was acquired for purposes of evaluating feeding tube placement FINDINGS:Feeding tube tip overlies the duodenojejunal junction. Signed: Layne Espinalort Verified Date/Time: 04/24/2020 12:36:16 Reading Locat ion: [facility] Radiology Reading Room Electronically signed by: LAYNE ESPINAL MD on04/24/2020 12:36 PMXR abdomen / KUB 1 [id number] 12:36:00Interface, External Ris In - 04/24/2020 12:49 PM CSTFINAL REPORT RAD, ABDOMEN/KUB, 1 VIEW AP INDICATION: Cor gayatri insertion COMPARISON: None TECHNIQUE: Limited portable radiographof the lower chest and upper abdomen was acquired for purposes of evaluating feeding tube placement F INDINGS:Feeding tube tip overlies the duodenojejunal junction. Signed: Layne Espinal MDReport Verified Date/Time: 04/24/2020 12:36:16 Reading Location: [facility] Radiology Reading Room [facility] - [id number] 12:21:00Unlisted Reason for Exam - Click Yes and Enter Reason Below->No [facility]: GEOFFREY RUST : 1980 Sex: MFINAL REPORT CT BRAIN WITHOUT IV CONTRAST - PORTABLE INDICATION: Altered mental status TECHNIQUE: Noncontrast portable axial CT imaging was obtained from the vertex to the skull base. Axial images were reconstructed using a bone algorithm. DOSE REDUCTION: Dose modulation, iterative reconstruction, and/or weight-based adjustment of the mA/kV was utilized to reduce the radiation dose to as low as reasonably achievable. COMPARISON: April 21, 2020 FINDINGS: There is no discernible ramirez-white disruption. Morphology is grossly within normal limits. No midline shift or hydrocephalus is evident. Ventricular and extra-axial CSF spaces are within normal limits. Osseous structures are intact. IMPRESSION: No acute intracranial abnormality. Signed: JR Lopez Robert MDReport Verified Date/Time: 04/24/2020 12:21:42 Reading Location: [address] Neuro Reading Room CT brain without IV contrast [id number] 12:21:00Interface, External Ris In - 04/24/2020 12:[address] BRAIN WITHOUT IV CONTRAST - PORTABLE INDICATION: Altered mental status TECHNIQUE: Noncontrast portable axial CT imaging was obtained from the vertex to the skull base. Axial images were reconstructed using a bone algorithm. DOSE REDUCTION: Dose modulation, iterative reconstruction, and/or weight-based adjustment of the mA/kV was utilized to reduce the radiation dose to as low as reasonably achievable. COMPARISON: April 21, 2020 FINDINGS: There is no discernible ramirez-white disruption. Morphology is grossly within normal limits. No midline shift or hydrocephalus is evident. Ventricular and extra-axial CSF spaces are within normal limits. Osseous structures are intact. IMPRESSION: No acute intracranial abnormality. Signed: JR Lopez Robert MDReport Verified Date/Time: 04/24/2020 12:21:42 Reading Location: [address] Neuro Reading Room [facility] HospitalHEMOGLOBIN AND [id number] 12:05:00 Test Item Value Reference Range Interpretation Comments HEMOGLOBIN (BEAKER) (test code = 7.7 GM/DL 13.7-17.5 L 410) HEMATOCRIT (BEAKER) (test code = 24.6 % 40.1-51.0 L 411) Metal Ceiling Builder ID - [id number]-GLUCOSE [id number] 11:05:00 Test Item Value Reference Range Interpretation Comments POC-GLUCOSE METER 147 mg/dL 70-110 H : TESTED A T [facility] 6720 (BEAKER) (test code = [facility] [place], 1538) [address]: Metal Ceiling Builder/Techni tequila ID = [id number] for GR ANTBENJAARA Anti-Nuclear Antibody (DENISE)2020-04-24 10:58:00 Test Item Value Reference Range Interpretation Comments DENISE (test code = 66902-0) Negative Negative ROBERT (test code = ROBERT) Test performed by IFA method.Test performed by IFA method. Lab Interpretation (test Normal code = 61305-1) [facility] HospitalANTI-NUCLEAR ANTIBODY (DENISE)2020-04-24 10:58:00 Test Item Value Reference Range Interpretation Comments ANTI-NUCLEAR ANTIBODY (DENISE) (BEAKER) Negative Negative (test code = 418) Test performed by IFA method.Test performed by IFA method.[id number] 10:28:00 Test Item Value Reference Range Interpretation Comments Ammonia (test code = 69 18- 72 mol/L 72353-7) ROBERT (test code = ROBERT) Metal Ceiling Builder ID - NENA C Lab Interpretation (test Normal code = 38430-3) [facility] HospitalAMMONIA2020-12-16 10:28:00 Test Item Value Reference Range Interpretation Comments AMMONIA (BEAKER) (test code = 348) 69 mol/L 18-72 Metal Ceiling Builder ID - NENA CPOCT-GLUCOSE [id number] 06:41:00 Test Item Value Reference Range Interpretation Comments POC-GLUCOSE METER 176 mg/dL 70-110 H : TESTED A T [facility] 6720 (BEAKER) (test code = [facility] [place], 1538) [address]: Metal Ceiling Builder/Techni tequila ID = [id number] for SISSY GRULLON COMPREHENSIVE METABOLIC [id number] 04:35:00 Test Item Value Reference Range Interpretation Comments TOTAL PROTEIN 5.1 gm/dL 6.0-8.3 L (BEAKER) (test code = 770) ALBUMIN (BEAKER) 2.2 g/dL 3.5-5.0 L (test code = 1145) ALKALINE PHOSPHATASE 104 U/L 40-150 (BEAKER) (test code = 346) BILIRUBIN TOTAL 3.3 mg/dL 0.2-1.2 H (BEAKER) (test code = 377) SODIUM (BEAKER) (test 138 meq/L 136-145 code = 381) POTASSIUM (BEAKER) 4.2 meq/L 3.5-5.1 (test code = 379) CHLORIDE (BEAKER) 116 meq/L 98-107 H (test code = 382) CO2 (BEAKER) (test 16 meq/L 22-29 L code = 355) BLOOD UREA NITROGEN 33 mg/dL 7-21 H (BEAKER) (test code = 354) CREATININE (BEAKER) 1.00 mg/dL 0.57-1.25 (test code = 358) GLUCOSE RANDOM 198 mg/dL 70-105 H (BEAKER) (test code = 652) CALCIUM (BEAKER) 7.5 mg/dL 8.4-10.2 L (test code = 697) AST (SGOT) (BEAKER) 56 U/L 5-34 H (test code = 353) ALT (SGPT) (BEAKER) 30 U/L 6-55 (test code = 347) EGFR (BEAKER) (test INSUFFIC IENT CLINICAL code = 1092) DATA TO CALCULA TE ESTIMATED GFR. Metal Ceiling Builder ID - BALBINA MSpecimen slightly [id number] 04:29:00 Test Item Value Reference Range Interpretation Comments MAGNESIUM (BEAKER) (test code = 2.3 mg/dL 1.6-2.6 627) Metal Ceiling Builder ID - BALBINA [id number] 04:29:00 Test Item Value Reference Range Interpretation Comments PHOSPHORUS (BEAKER) (test code = 4.9 mg/dL 2.3-4.7 H 604) Metal Ceiling Builder ID - BALBINA MPT/[id number] 04:19:00 Test Item Value Reference Range Interpretation Comments PROTIME (BEAKER) (test code = 19.6 seconds 11.9-14.2 H 759) INR (BEAKER) (test code = 370) 1.71 <=5.90 PARTIAL THROMBOPLASTIN TIME 38.6 seconds 22.5-36.0 H (BEAKER) (test code = 760) Effective 10/05/2018: PT Reference Range ChangeNew: 11.9-14.2 Previous: 11.7- 14.7RECOMMENDED COUMADIN/WARFARIN INR THERAPY RANGESSTANDARD DOSE: 2.0-3.0 Includes: PROPHYLAXIS for venous thrombosis, systemic embolization; TREATMENT for venous thrombosis and/or pulmonary embolus.HIGH RISK: Target INR is2.5-3.5 for patients wiht mechanical heart valves.PROTHROMBIN TIME/[id number] 04:18:00 Test Item Value Reference Range Interpretation Comments PROTIME (BEAKER) (test code = 19.6 seconds 11.9-14.2 H 759) INR (BEAKER) (test code = 370) 1.71 <=5.90 Effective 10/05/2018: PT Reference Range ChangeNew: 11.9-14.2 Previous: 11.7- 14.7RECOMMENDED COUMADIN/WARFARIN INR THERAPY RANGESSTANDARD DOSE: 2.0-3.0 Includes: PROPHYLAXIS for venous thrombosis, systemic embolization; TREATMENT for venous thrombosis and/or pulmonary embolus.HIGH RISK: Target INR is2.5-3.5 for patients wiht mechanical heart valves.CBC W/PLT COUNT & AUTO [id number] 04:06:00 Test Item Value Reference Range Interpretation Comments WHITE BLOOD CELL COUNT (BEAKER) 14.7 K/ L 3.5-10.5 H (test code = 775) RED BLOOD CELL COUNT (BEAKER) 2.95 M/ L 4.63-6.08 L (test code = 761) HEMOGLOBIN (BEAKER) (test code = 7.8 GM/DL 13.7-17.5 L 410) HEMATOCRIT (BEAKER) (test code = 24.3 % 40.1-51.0 L 411) MEAN CORPUSCULAR VOLUME (BEAKER) 82.4 fL 79.0-92.2 (test code = 753) MEAN CORPUSCULAR HEMOGLOBIN 26.4 pg 25.7-32.2 (BEAKER) (test code = 751) MEAN CORPUSCULAR HEMOGLOBIN CONC 32.1 GM/DL 32.3-36.5 L (BEAKER) (test code = 752) RED CELL DISTRIBUTION WIDTH 20.7 % 11.6-14.4 H (BEAKER) (test code = 412) PLATELET COUNT (BEAKER) (test 162 K/CU MM 150-450 code = 756) MEAN PLATELET VOLUME (BEAKER) 12.2 fL 9.4-12.4 (test code = 754) NUCLEATED RED BLOOD CELLS 0 /100 WBC 0-0 (BEAKER) (test code = 413) NEUTROPHILS RELATIVE PERCENT 89 % (BEAKER) (test code = 429) LYMPHOCYTES RELATIVE PERCENT 8 % (BEAKER) (test code = 430) MONOCYTES RELATIVE PERCENT 3 % (BEAKER) (test code = 431) EOSINOPHILS RELATIVE PERCENT 0 % (BEAKER) (test code = 432) BASOPHILS RELATIVE PERCENT 0 % (BEAKER) (test code = 437) NEUTROPHILS ABSOLUTE COUNT 13.05 K/ L 1.78-5.38 H (BEAKER) (test code = 670) LYMPHOCYTES ABSOLUTE COUNT 1.22 K/ L 1.32-3.57 L (BEAKER) (test code = 414) MONOCYTES ABSOLUTE COUNT (BEAKER) 0.39 K/ L 0.30-0.82 (test code = 415) EOSINOPHILS ABSOLUTE COUNT 0.00 K/ L 0.04-0.54 L (BEAKER) (test code = 416) BASOPHILS ABSOLUTE COUNT (BEAKER) 0.01 K/ L 0.01-0.08 (test code = 417) IMMATURE GRANULOCYTES-RELATIVE 0 % 0-1 PERCENT (BEAKER) (test code = 2801) BLOOD GAS, [id number] 03:54:00 Test Item Value Reference Range Interpretation Comments PH ARTERIAL (BEAKER) (test code = 7.45 7.35-7.45 383) PCO2 ARTERIAL (BEAKER) (test code 24 mm Hg 35-45 L = 384) PO2 ARTERIAL (BEAKER) (test code 148 mm Hg 80-90 H = 385) O2 SATURATION ARTERIAL (BEAKER) 99.1 % 96.0-97.0 H (test code = 386) HCO3 ARTERIAL (BEAKER) (test code 17 mmol/L 21-29 L = 388) BASE EXCESS ARTERIAL (BEAKER) -6.7 mmol/L -2.0-3.0 L (test code = 387) PATIENT TEMPERATURE (BEAKER) 36.1 (test code = 1818) FIO2 (BEAKER) (test code = 1819) 40.0 CALCIUM, [id number] 03:53:00 Test Item Value Reference Range Interpretation Comments CALCIUM IONIZED (BEAKER) (test 1.13 mmol/L 1.12-1.27 code = 698) PH, BLOOD (BEAKER) (test code = 7.44 1810) HEMOGLOBIN AND [id number] 00:28:00 Test Item Value Reference Range Interpretation Comments HEMOGLOBIN (BEAKER) (test code = 7.6 GM/DL 13.7-17.5 L 410) HEMATOCRIT (BEAKER) (test code = 24.2 % 40.1-51.0 L 411) Metal Ceiling Builder ID - [id number]-GLUCOSE [id number] 00:08:00 Test Item Value Reference Range Interpretation Comments POC-GLUCOSE METER 186 mg/dL 70-110 H : TESTED A T [facility] 6720 (BEAKER) (test code = [facility] [place], 1538) [address]: Metal Ceiling Builder/Techni tequila ID = [id number] for CAROLANN SHERMAN SISSY Prepare Leuko-Red [id number] 23:54:00 Test Item Value Reference Range Interpretation Comments CROSSMATCH (test code = 2264) COMPATIBLE Unit ABO (test code = O Pos 3630629) UNIT NUMBER (test code = [id number] 934-0) Status (test code = 6890597) TX_TIMEINCHART Blood Bank Product (test code RED BLOOD CELLS = 2263) PRODUCT CODE (test code = O4180I29 933-2) [facility] Hospital[facility] [id number] 18:28:00 Test Item Value Reference Range Interpretation Comments POC-GLUCOSE METER 173 mg/dL 70-110 H : TESTED A T [facility] 6720 (BEAKER) (test code = [facility] [place], 1538) [address]: Metal Ceiling Builder/Techni tequila ID = [id number] for Denise Guadalupe Ma HEMOGLOBIN AND [id number] 18:27:00 Test Item Value Reference Range Interpretation Comments HEMOGLOBIN (BEAKER) (test code = 7.5 GM/DL 13.7-17.5 L 410) HEMATOCRIT (BEAKER) (test code = 23.9 % 40.1-51.0 L 411) Metal Ceiling Builder ID - [id number] AWAKE AND [id number] 17:47:00For STAT EEG- after 5 PM weekdays, weekends and holidays, page the on-call EEG TechReason for exam:-& gt;AMSCITY OF HOPE [facility]ATIONAL MED[facility] CENTERName: GEOFFREY RUST: 1980 Sex: MNEUROPHYSIOLOGY ROUTINE EEG REPORT DATES OF TEST: 04/23/20 DATE OF REPORT: 04/23/20 Name: Geoffrey Rust Start time: 2:19 PM Stop time: 2:40 PM ACC #: [id number] EEG Number: [id number] ICD-10: R41.82 CPT Code: 13616 HISTORY: 39-year-old man, with multiple medical comorbities, liver cirrhosis presented with altered mental status MEDICATIONS THAT COULD AFFECT EEG: No anti- seizure medications TECHNICAL SUMMARY: This is a digital video-EEG recorded with 32 input channels reviewed with bipolar and referential montages using the modified combinatorial system nomenclature. DESCRIPTION OF RECORD: During the maximally alert state, there is no well-defined posterior dominant rhythm. The background activity consisted predominantly of 8-10 Hz alpha frequency seen diffusely and intermixed intermittently with slower 5-6 Hz theta and 2-4 Hz delta frequencies. Thebackground activity showed poor variability. Inconsistent reactivity to external stimuli was present, evident on one occasion by the suppression of faster frequencies and dominance of diffuse delta acti tivty (example at 2:20:19 PM, when his eyes were passively opened by the technologist). No focal features No epileptiform discharges were seen. EVENTS: No clinical or electrographic seizures were recorded. HV: Hyperventilation was not performed. PHOTIC STIMULATION: Photic stimulation wasperformed 1-33 Hz. Photic stimulation didn't elicit abnormal discharges. IMPRESSION: Abnormal EEG - No posterior dominant rhythm - Moderate generalized slowing of the background activity CLINICAL CORRELATION: This record is indicative of moderate degree of encephalopathy. No epileptiform discharges or seizures were recorded. An EEG without epileptiform discharges doesnot exclude the possibility of epilepsy. If the clinical suspicion of epilepsy remains, consider additional EEG recordings. Gracy Hernandez MD Neurophysiology/ Epilepsy Fellow I have reviewed the electroencephalogram and this report and agree with its interpretation. Princess James MD Neurophysiology/Epilepsy Attending EEG AWAKE AND [id number] 17:47:00 Interface, External Ris In - 04/23/2020 5:47 PM CSTNEUROPHYSIOLOGY ROUTINE EEG REPORT DATES OF TEST: 04/23/20 DATE OF REPORT: 04/23/20 Name: Geoffrey Rust Start time: 2:19 PM Stoptime: 2:40 PM ACC #: [id number] EEG Number: [id number] ICD-10: R41.82 CPT Code: 79793 HISTORY: 39-year-old man, with multiple medical comorbities, liver cirrhosis presented with altered mental status MEDICATIONS THAT COULD AFFECT EEG: No anti-seizure medications TECHNICAL SUMMARY: This is a digital video-EEG recorded with 32 input channels reviewed with bipolar and referential montages using the modified combinatorial system nomenclature. DESCRIPTION OF RECORD: During the max imally alert state, there is no well-defined posterior dominant rhythm. The background activity consisted predominantly of 8-10 Hz alpha frequency seen diffusely and intermixed intermittently with slower 5-6 Hz theta and 2-4 Hz delta frequencies. The background activity showed poor variability. Inconsistent reactivity to external stimuli was present, evident on one occasion by the suppression of faster frequencies and dominance of diffuse delta actitivty (example at 2:20:19 PM, when his eyes were passively opened by the technologist). No focal features No epileptiform discharges were seen. E VENTS: No clinical or electrographic seizures were recorded. HV: Hyperventilation was not performed. PHOTIC STIMULATION: Photic stimulation was performed 1-33 Hz. Photic stimulation didn't elicitabnormal discharges. IMPRESSION: Abnormal EEG - No posterior dominant rhythm - Moderate generalized slowing of the background activity CLINICAL CORRELATION: This recordis indicative of moderate degree of encephalopathy. No epileptiform discharges or seizures were recorded. An EEG without epileptiform discharges does not exclude the possibility of epilepsy. If the clinical suspicion of epilepsy remains, consider additional EEG recordings. Gracy Hernandez MD Neurophysiology/ Epilepsy Fellow I have reviewed the electroencephalogram and this report and agree with its interpretation. Princess James MD Neurophysiology/Epilepsy Attending [facility] [id number] 15:18:19[facility] HospitalMackenzie delgado MD 04/23/2020 3:21 PMB[facility] HospitalBronchoscopy Procedure Note Procedure:1. Bronchoscopy, Diagnostic2. Bronchoscopy, Therapeutic Pre-Operative Diagnosis: Respiratory failure with hypoxia, decreased compliance on ventilator Post-Operative Diagnosis: Same Indication: Diagnostic and therapeutic for new acute hypoxia Anesthesia: Moderate Sedation Consent: The patient was in immediate danger, and required the procedure emergently. Procedure Details: Time out was performed by the procedure team and nursing staff. Multifactor patient identify was verified using name, medical record number, and date of . Vent support maintained on Fio2 100. Thebronchoscope was introduced through the ETT. A bronchoscopic airway exam was performed to evaluate the visible tracheobronchial tree to the segmental level. The right bronchial tree was assessed to include the right mainstem bronchus, RBI, and RUL/RML/RLL bronchi to the segmental level. The left bronchial tree was assessed to include the left mainstem bronchus, EDSON, Lingula, and LLL bronchi to thesegmental level. The bronchoscope was then removed and the procedure terminated. Summary of Significa nt Findings:-Trachea: ETT terminates 2cm above barrington-Main Barrington: sharp-Right bronchial tree: purulent secretions obstructing RBI, with some pooling of secretions-Left bronchial tree: purulent secretions in left lower lobe, suctioned Estimated Blood Loss: Minimal Specimens: Sent purulent fluid Complications: None; patient tolerated the procedure well. Disposition: ICU - intubated and hemodynamically stable. Patient tolerated the procedure well.[facility] HospitalBLOOD GAS, [id number] 14:56:00 Test Item Value Reference Range Interpretation Comments PH ARTERIAL (BEAKER) (test code = 7.48 7.35-7.45 H 383) PCO2 ARTERIAL (BEAKER) (test code 23 mm Hg 35-45 L = 384) PO2 ARTERIAL (BEAKER) (test code 287 mm Hg 80-90 H = 385) O2 SATURATION ARTERIAL (BEAKER) 99.7 % 96.0-97.0 H (test code = 386) HCO3 ARTERIAL (BEAKER) (test code 17 mmol/L 21-29 L = 388) BASE EXCESS ARTERIAL (BEAKER) -5.9 mmol/L -2.0-3.0 L (test code = 387) PATIENT TEMPERATURE (BEAKER) 36.9 (test code = 1818) FIO2 (BEAKER) (test code = 1819) 100.0 RAD, CHEST, 1 VIEW, NON [id number] 13:10:00Reason for exam:->ETT POSITION [facility]UST : 1980 Sex: MFINAL REPORT INDICATION: ETT POSITION COMPARISON: None TECHNIQUE: Single frontal view of the chest. FINDINGS: Lungs and pleura: Diffuse bilateral interstitial and airspace opacities, unchanged. No effusion.Heart and mediastinum: Normal heart size. Unremarkable mediastinal contours.Osseous structures: No acute abnormality.Other: ET tube tip is 4 cm superior to the barrington. Signed: Layne Espinal Verified Date/Time: 04/23/2020 13:10:24 Reading Location: [facility] Radiology Reading Room Hepatitis A antibody, [id number] 12:56:00 Test Item Value Reference Range Interpretation Comments Hep A IgG (test code = Reactive Nonreactive A 62686-6) ROBERT (test code = ROBERT) Metal Ceiling Builder ID - HOA F Lab Interpretation (test Abnormal code = 26317-1) [facility] HospitalHEPATITIS A ANTIBODY, [id number] 12:56:00 Test Item Value Reference Range Interpretation Comments HEPATITIS A IGG ANTIBODY (BEAKER) Reactive Nonreactive A (test code = 2797) Metal Ceiling Builder ID Emmanuelle HOA FHepatitis B surface [id number] 12:55:00 Test Item Value Reference Range Interpretation Comments Hep B S Ab (test code = <8.0 <8.0 mIU/mL 76575-2) ROBERT (test code = ROBERT) Metal Ceiling Builder RAMANDEEP Corona Lab Interpretation (test Normal code = 15009-3) [facility] HospitalHEPATITIS B SURFACE [id number] 12:55:00 Test Item Value Reference Range Interpretation Comments HEPATITIS B SURFACE ANTIBODY < mIU/mL <8.0 (BEAKER) (test code = 647) Metal Ceiling Builder ID Emmanuelle CAMARA FHepatitis B surface [id number] 12:53:00 Test Item Value Reference Range Interpretation Comments HBsAg Screen (test code Nonreactive Nonreactive = 5195-3) ROBERT (test code = ROBERT) Specimen is considered negative for HBsAg. Lab Interpretation (test Normal code = 77834-7) [facility] HospitalHesaint elizabeth hebrontis B core antibody, [id number] 12:53:00 Test Item Value Reference Range Interpretation Comments Hep B Core Total Ab Nonreactive Nonreactive (test code = 88624-4) ROBERT (test code = ROBERT) Metal Ceiling Builder RAMANDEEP Corona Lab Interpretation (test Normal code = 14064-3) [facility] HospitalAlpha fetoprotein (AFP), tumor [id number] 12:53:00 Test Item Value Reference Range Interpretation Comments Alpha-Fetoprotein (test 2.4 ng/mL <10.0 code = 1834-1) ROBERT (test code = ROBERT) Metal Ceiling Builder RAMANDEEP Corona Lab Interpretation (test Normal code = 24209-9) [facility] HospitalHEPATITIS B SURFACE [id number] 12:53:00 Test Item Value Reference Range Interpretation Comments HEPATITIS B SURFACE ANTIGEN (2) Nonreactive Nonreactive (BEAKER) (test code = 2585) Specimen is considered negative for HBsAg.ALPHA FETOPROTEIN (AFP), TUMOR MARKER 2020-04-23 12:53:00 Test Item Value Reference Range Interpretation Comments ALPHA-FETOPROTEIN (BEAKER) (test 2.4 ng/mL <10.0 code = 1094) Metal Ceiling Builder ID Emmanuelle CAMARA FHEPATITIS B CORE ANTIBODY, [id number] 12:53:00 Test Item Value Reference Range Interpretation Comments HEPATITIS B CORE TOTAL ANTIBODY Nonreactive Nonreactive (BEAKER) (test code = 497) Metal Ceiling Builder ID Emmanuelle CAMARA FHepatitis C [id number] 12:51:00 Test Item Value Reference Range Interpretation Comments Hepatitis C Ab (test Nonreactive Nonreactive code = 57842-0) ROBERT (test code = ROBERT) Metal Ceiling Builder ID Emmanuelle Corona Lab Interpretation (test Normal code = 33823-3) [facility] HospitalHEPATITIS C [id number] 12:51:00 Test Item Value Reference Range Interpretation Comments HEPATITIS C ANTIBODY (BEAKER) Nonreactive Nonreactive (test code = 367) Metal Ceiling Builder ID Emmanuelle CAMARA GXhnxr-0-yzemvrtkjpc2976-12-15 12:30:00 Test Item Value Reference Range Interpretation Comments A-1 Antitrypsin (test code 154.20 mg/dL 90-200 = 1825-9) ROBERT (test code = ROBERT) Metal Ceiling Builder ID Emmanuelle Corona Lab Interpretation (test Normal code = 90091-9) [facility] HospitalALPHA-1-[id number] 12:30:00 Test Item Value Reference Range Interpretation Comments ALPHA-1 ANTITRYPSIN (BEAKER) 154.20 mg/dL 90.00-200.00 (test code = 502) Metal Ceiling Builder ID - HOA FBilirubin, [id number] 12:25:00 Test Item Value Reference Range Interpretation Comments Bilirubin, Direct (test 3.2 mg/dL 0.1-0.5 H code = 1968-7) ROBERT (test code = ROBERT) Metal Ceiling Builder ID Emmanuelle Corona Lab Interpretation (test Abnormal code = 15213-8) [facility]IL[facility], [id number] 12:25:00 Test Item Value Reference Range Interpretation Comments BILIRUBIN DIRECT (BEAKER) (test 3.2 mg/dL 0.1-0.5 H code = 706) Metal Ceiling Builder ID Emmanuelle CAMARA FPOCT-GLUCOSE [id number] 12:22:00 Test Item Value Reference Range Interpretation Comments POC-GLUCOSE METER 159 mg/dL 70-110 H : [facility] (BEAKER) (test code = [place], 1538) [address]: Metal Ceiling Builder/Techni tequila ID = [id number] for NAHID YOUSSEF BLOOD GAS, [id number] 12:13:00 Test Item Value Reference Range Interpretation Comments PH ARTERIAL (BEAKER) (test code = 7.47 7.35-7.45 H 383) PCO2 ARTERIAL (BEAKER) (test code 23 mm Hg 35-45 L = 384) PO2 ARTERIAL (BEAKER) (test code 81 mm Hg 80-90 = 385) O2 SATURATION ARTERIAL (BEAKER) 97.2 % 96.0-97.0 H (test code = 386) HCO3 ARTERIAL (BEAKER) (test code 16 mmol/L 21-29 L = 388) BASE EXCESS ARTERIAL (BEAKER) -6.8 mmol/L -2.0-3.0 L (test code = 387) PATIENT TEMPERATURE (BEAKER) 36.0 (test code = 1818) FIO2 (BEAKER) (test code = 1819) 75.0 HEMOGLOBIN AND [id number] 12:12:00 Test Item Value Reference Range Interpretation Comments HEMOGLOBIN (BEAKER) (test code = 7.3 GM/DL 13.7-17.5 L 410) HEMATOCRIT (BEAKER) (test code = 23.1 % 40.1-51.0 L 411) Metal Ceiling Builder ID - [id number] METABOLIC [id number] 05:39:00 Test Item Value Reference Range Interpretation Comments TOTAL PROTEIN 5.1 gm/dL 6.0-8.3 L (BEAKER) (test code = 770) ALBUMIN (BEAKER) 2.4 g/dL 3.5-5.0 L (test code = 1145) ALKALINE PHOSPHATASE 98 U/L 40-150 (BEAKER) (test code = 346) BILIRUBIN TOTAL 4.5 mg/dL 0.2-1.2 H (BEAKER) (test code = 377) SODIUM (BEAKER) (test 138 meq/L 136-145 code = 381) POTASSIUM (BEAKER) 3.9 meq/L 3.5-5.1 (test code = 379) CHLORIDE (BEAKER) 114 meq/L 98-107 H (test code = 382) CO2 (BEAKER) (test 15 meq/L 22-29 L code = 355) BLOOD UREA NITROGEN 32 mg/dL 7-21 H (BEAKER) (test code = 354) CREATININE (BEAKER) 1.13 mg/dL 0.57-1.25 (test code = 358) GLUCOSE RANDOM 168 mg/dL 70-105 H (BEAKER) (test code = 652) CALCIUM (BEAKER) 7.4 mg/dL 8.4-10.2 L (test code = 697) AST (SGOT) (BEAKER) 91 U/L 5-34 H (test code = 353) ALT (SGPT) (BEAKER) 34 U/L 6-55 (test code = 347) EGFR (BEAKER) (test INSUFFIC IENT CLINICAL code = 1092) DATA TO CALCULA TE ESTIMATED GFR. Metal Ceiling Builder ID - LUCY LSpecimen moderately [id number] 05:34:00 Test Item Value Reference Range Interpretation Comments MAGNESIUM (BEAKER) (test code = 1.9 mg/dL 1.6-2.6 627) Metal Ceiling Builder ID - LUCY [id number] 05:34:00 Test Item Value Reference Range Interpretation Comments PHOSPHORUS (BEAKER) (test code = 5.2 mg/dL 2.3-4.7 H 604) Metal Ceiling Builder ID - LUCY LCBC W/PLT COUNT & AUTO [id number] 05:28:00 Test Item Value Reference Range Interpretation Comments WHITE BLOOD CELL COUNT (BEAKER) 18.1 K/ L 3.5-10.5 H (test code = 775) RED BLOOD CELL COUNT (BEAKER) 2.90 M/ L 4.63-6.08 L (test code = 761) HEMOGLOBIN (BEAKER) (test code = 7.7 GM/DL 13.7-17.5 L 410) HEMATOCRIT (BEAKER) (test code = 23.8 % 40.1-51.0 L 411) MEAN CORPUSCULAR VOLUME (BEAKER) 82.1 fL 79.0-92.2 (test code = 753) MEAN CORPUSCULAR HEMOGLOBIN 26.6 pg 25.7-32.2 (BEAKER) (test code = 751) MEAN CORPUSCULAR HEMOGLOBIN CONC 32.4 GM/DL 32.3-36.5 (BEAKER) (test code = 752) RED CELL DISTRIBUTION WIDTH 20.7 % 11.6-14.4 H (BEAKER) (test code = 412) PLATELET COUNT (BEAKER) (test 110 K/CU MM 150-450 L code = 756) MEAN PLATELET VOLUME (BEAKER) 11.5 fL 9.4-12.4 (test code = 754) NUCLEATED RED BLOOD CELLS 0 /100 WBC 0-0 (BEAKER) (test code = 413) NEUTROPHILS RELATIVE PERCENT 90 % (BEAKER) (test code = 429) LYMPHOCYTES RELATIVE PERCENT 8 % (BEAKER) (test code = 430) MONOCYTES RELATIVE PERCENT 2 % (BEAKER) (test code = 431) EOSINOPHILS RELATIVE PERCENT 0 % (BEAKER) (test code = 432) BASOPHILS RELATIVE PERCENT 0 % (BEAKER) (test code = 437) NEUTROPHILS ABSOLUTE COUNT 16.27 K/ L 1.78-5.38 H (BEAKER) (test code = 670) LYMPHOCYTES ABSOLUTE COUNT 1.43 K/ L 1.32-3.57 (BEAKER) (test code = 414) MONOCYTES ABSOLUTE COUNT (BEAKER) 0.29 K/ L 0.30-0.82 L (test code = 415) EOSINOPHILS ABSOLUTE COUNT 0.04 K/ L 0.04-0.54 (BEAKER) (test code = 416) BASOPHILS ABSOLUTE COUNT (BEAKER) 0.02 K/ L 0.01-0.08 (test code = 417) IMMATURE GRANULOCYTES-RELATIVE 0 % 0-1 PERCENT (BEAKER) (test code = 2801) PT/[id number] 05:10:00 Test Item Value Reference Range Interpretation Comments PROTIME (BEAKER) (test code = 19.5 seconds 11.9-14.2 H 759) INR (BEAKER) (test code = 370) 1.71 <=5.90 PARTIAL THROMBOPLASTIN TIME 40.8 seconds 22.5-36.0 H (BEAKER) (test code = 760) Effective 10/05/2018: PT Reference Range ChangeNew: 11.9-14.2 Previous: 11.7- 14.7RECOMMENDED COUMADIN/WARFARIN INR THERAPY RANGESSTANDARD DOSE: 2.0-3.0 Includes: PROPHYLAXIS for venous thrombosis, systemic embolization; TREATMENT for venous thrombosis and/or pulmonary embolus.HIGH RISK: Target INR is2.5-3.5 for patients wiht mechanical heart valves.PROTHROMBIN TIME/[id number] 05:09:00 Test Item Value Reference Range Interpretation Comments PROTIME (BEAKER) (test code = 19.5 seconds 11.9-14.2 H 759) INR (BEAKER) (test code = 370) 1.71 <=5.90 Effective 10/05/2018: PT Reference Range ChangeNew: 11.9-14.2 Previous: 11.7- 14.7RECOMMENDED COUMADIN/WARFARIN INR THERAPY RANGESSTANDARD DOSE: 2.0-3.0 Includes: PROPHYLAXIS for venous thrombosis, systemic embolization; TREATMENT for venous thrombosis and/or pulmonary embolus.HIGH RISK: Target INR is2.5-3.5 for patients wiht mechanical heart valves.HEMOGLOBIN AND [id number] 05:03:00 Test Item Value Reference Range Interpretation Comments HEMOGLOBIN (BEAKER) (test code = 7.7 GM/DL 13.7-17.5 L 410) HEMATOCRIT (BEAKER) (test code = 23.8 % 40.1-51.0 L 411) BLOOD GAS, [id number] 04:56:00 Test Item Value Reference Range Interpretation Comments PH ARTERIAL (BEAKER) (test code = 7.48 7.35-7.45 H 383) PCO2 ARTERIAL (BEAKER) (test code 22 mm Hg 35-45 L = 384) PO2 ARTERIAL (BEAKER) (test code 172 mm Hg 80-90 H = 385) O2 SATURATION ARTERIAL (BEAKER) 99.3 % 96.0-97.0 H (test code = 386) HCO3 ARTERIAL (BEAKER) (test code 16 mmol/L 21-29 L = 388) BASE EXCESS ARTERIAL (BEAKER) -6.8 mmol/L -2.0-3.0 L (test code = 387) PATIENT TEMPERATURE (BEAKER) 36.4 (test code = 1818) FIO2 (BEAKER) (test code = 1819) 30.0 CALCIUM, [id number] 04:56:00 Test Item Value Reference Range Interpretation Comments CALCIUM IONIZED (BEAKER) (test 1.08 mmol/L 1.12-1.27 L code = 698) PH, BLOOD (BEAKER) (test code = 7.47 1810) BLOOD GAS, [id number] 00:53:00 Test Item Value Reference Range Interpretation Comments PH ARTERIAL (BEAKER) (test code = 7.52 7.35-7.45 H 383) PCO2 ARTERIAL (BEAKER) (test code 19 mm Hg 35-45 LL = 384) PO2 ARTERIAL (BEAKER) (test code 182 mm Hg 80-90 H = 385) O2 SATURATION ARTERIAL (BEAKER) 99.4 % 96.0-97.0 H (test code = 386) HCO3 ARTERIAL (BEAKER) (test code 15 mmol/L 21-29 L = 388) BASE EXCESS ARTERIAL (BEAKER) -6.4 mmol/L -2.0-3.0 L (test code = 387) PATIENT TEMPERATURE (BEAKER) 36.7 (test code = 1818) FIO2 (BEAKER) (test code = 1819) 40.0 POCT-GLUCOSE [id number] 00:00:00 Test Item Value Reference Range Interpretation Comments POC-GLUCOSE METER 97 mg/dL 70-110 : TESTED A T [facility] 6720 (BEAKER) (test code = GORDON Lezama [place], 1538) [address]: Metal Ceiling Builder/Techni tequila ID = [id number] for SISSY THURSTON Lactic acid, [id number] 22:05:00 Test Item Value Reference Range Interpretation Comments Lactate, Venous (test 1.77 mmol/L 0.5-2.2 code = 2872) ROBERT (test code = ROBERT) Metal Ceiling Builder ID - DBSpecimen slightly icteric Lab Interpretation (test Normal code = 64760-9) [facility], [id number] 22:05:00 Test Item Value Reference Range Interpretation Comments LACTATE BLOOD VENOUS (2) (BEAKER) 1.77 mmol/L 0.50-2.20 (test code = 2872) Metal Ceiling Builder ID - DBSpecimen slightly [id number] 21:19:00 Test Item Value Reference Range Interpretation Comments Cortisol, Total (test code = 11.6 ug/dL 3.7-19.4 2755) ROBERT (test code = ROBERT) Metal Ceiling Builder ID - DB Lab Interpretation (test Normal code = 82413-8) [facility] HospitalCORTISOL2020-12-14 21:19:00 Test Item Value Reference Range Interpretation Comments CORTISOL, TOTAL (BEAKER) (test 11.6 ug/dL 3.7-19.4 code = 2755) Metal Ceiling Builder ID - DBHEMOGLOBIN AND [id number] 20:39:00 Test Item Value Reference Range Interpretation Comments HEMOGLOBIN (BEAKER) (test code = 9.0 GM/DL 13.7-17.5 L 410) HEMATOCRIT (BEAKER) (test code = 28.3 % 40.1-51.0 L 411) Metal Ceiling Builder ID - [id number], [id number] 20:24:00 Test Item Value Reference Range Interpretation Comments CALCIUM IONIZED (BEAKER) (test 1.10 mmol/L 1.12-1.27 L code = 698) PH, BLOOD (BEAKER) (test code = 7.50 1810) BLOOD GAS, [id number] 20:24:00 Test Item Value Reference Range Interpretation Comments PH ARTERIAL (BEAKER) (test code = 7.50 7.35-7.45 H 383) PCO2 ARTERIAL (BEAKER) (test code 21 mm Hg 35-45 L = 384) PO2 ARTERIAL (BEAKER) (test code 134 mm Hg 80-90 H = 385) O2 SATURATION ARTERIAL (BEAKER) 99.0 % 96.0-97.0 H (test code = 386) HCO3 ARTERIAL (BEAKER) (test code 16 mmol/L 21-29 L = 388) BASE EXCESS ARTERIAL (BEAKER) -5.4 mmol/L -2.0-3.0 L (test code = 387) PATIENT TEMPERATURE (BEAKER) 36.8 (test code = 1818) FIO2 (BEAKER) (test code = 1819) 40.0 2D Echo W/Doppler(CW/PW/Color)2020-04-22 17:35:55 Test Item Value Reference Range Interpretation Comments Ejection Fraction Est EF is 55-60% (test code = 2574) PXN (test code = Interface, External Ris In PXN) - 04/22/2020 5:36 PM CSTTransthoracic Echocardiography Report (TTE) Demographics Patient Name GEOFFREY RUST Date of Study 04/22/2020 Gender Male Visit Number [id number] Race Unknown Room Number 7214 Number Date of 1980 Referring Physician Fran Mejias Age 39 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 Left Atrium Normal size left atrium. Right Ventricle Normal right ventricle structure and function. Right Atrium Normal right atrium. Aortic Valve Normal aortic valve structure [...] diameter) is normal . Pericardium No pericardial effusion is visualized. [...] l/min/m^2 RVOT RVOT VTI (PW): 28.86 cm [facility] Metabolic [id number] 16:44:00 Test Item Value Reference Range Interpretation Comments Sodium (test code = 140 meq/L 388-868 4165-2) Potassium (test code 4.5 meq/L 3.5-5.1 Specime n slightly = 2823-3) hemolyzed Chloride (test code = 116 meq/L 98-107 H 5-0) CO2 (test code = 16 meq/L 22-29 L 8-9) BUN (test code = 30 mg/dL 7-21 H 3094-0) Creatinine (test code 0.82 mg/dL 0.57-1.25 Specim en slightly = 2160-0) hemolyzed Glucose (test code = 157 mg/dL 70-105 H 2345-7) Calcium (test code = 7.7 mg/dL 8.4-10.2 L 15482-1) EGFR (test code = [place] [address]-6) CLINICAL DATA T O CALCULATE ESTIMATED GFR. ROBERT (test code = ROBERT) Metal Ceiling Builder ID - DBSpecimen moderately icteric Lab Interpretation Abnormal (test code = 07579-5) [facility] HospitalBASI METABOLIC [id number] 16:44:00 Test Item Value Reference Range Interpretation Comments SODIUM (BEAKER) (test 140 meq/L 136-145 code = 381) POTASSIUM (BEAKER) 4.5 meq/L 3.5-5.1 Specimen slightly (test code = 379) hemolyzed CHLORIDE (BEAKER) 116 meq/L 98-107 H (test code = 382) CO2 (BEAKER) (test 16 meq/L 22-29 L code = 355) BLOOD UREA NITROGEN 30 mg/dL 7-21 H (BEAKER) (test code = 354) CREATININE (BEAKER) 0.82 mg/dL 0.57-1.25 Specimen slightly (test code = 358) hemolyzed GLUCOSE RANDOM 157 mg/dL 70-105 H (BEAKER) (test code = 652) CALCIUM (BEAKER) 7.7 mg/dL 8.4-10.2 L (test code = 697) EGFR (BEAKER) (test INSUFFIC IENT CLINICAL code = 1092) DATA TO CALCULA TE ESTIMATED GFR. Metal Ceiling Builder ID - DBSpecimen moderately ictericHEMOGLOBIN AND [id number] 16:21:00 Test Item Value Reference Range Interpretation Comments HEMOGLOBIN (BEAKER) (test code = 9.0 GM/DL 13.7-17.5 L 410) HEMATOCRIT (BEAKER) (test code = 28.3 % 40.1-51.0 L 411) Metal Ceiling Builder ID - [id number] AND [id number] 14:38:00 Test Item Value Reference Range Interpretation Comments HEMOGLOBIN (BEAKER) (test code = 9.0 GM/DL 13.7-17.5 L 410) HEMATOCRIT (BEAKER) (test code = 28.6 % 40.1-51.0 L 411) Metal Ceiling Builder ID - [id number] GAS, [id number] 14:36:00 Test Item Value Reference Range Interpretation Comments PH ARTERIAL (BEAKER) (test code = 7.44 7.35-7.45 383) PCO2 ARTERIAL (BEAKER) (test code 28 mm Hg 35-45 L = 384) PO2 ARTERIAL (BEAKER) (test code 94 mm Hg 80-90 H = 385) O2 SATURATION ARTERIAL (BEAKER) 97.5 % 96.0-97.0 H (test code = 386) HCO3 ARTERIAL (BEAKER) (test code 18 mmol/L 21-29 L = 388) BASE EXCESS ARTERIAL (BEAKER) -5.0 mmol/L -2.0-3.0 L (test code = 387) PATIENT TEMPERATURE (BEAKER) 37.0 (test code = 1818) FIO2 (BEAKER) (test code = 1819) 100.0 Lactic Acid, [id number] 14:00:00 Test Item Value Reference Range Interpretation Comments Lactate, Art (test code = 2.0 mmol/L 0.5-2.2 2874) ROBERT (test code = ROBERT) Metal Ceiling Builder ID Emmanuelle Loera slightly icteric Lab Interpretation (test Normal code = 57570-1) [facility] HospitalLACTIC ACID, [id number] 14:00:00 Test Item Value Reference Range Interpretation Comments LACTATE BLOOD ARTERIAL (2) 2.0 mmol/L 0.5-2.2 (BEAKER) (test code = 2874) Metal Ceiling Builder ID Emmanuelle Loera slightly qbigckdPbvenxgopq6747-26-21 12:33:00 Test Item Value Reference Range Interpretation Comments Fibrinogen (test code = 3255-7) 223 mg/dl 225-434 L Lab Interpretation (test code = Abnormal 95135-7) [facility] HospitalaPTT2020-12-14 12:33:00 Test Item Value Reference Range Interpretation Comments PTT (test code = 79180-5) 41.1 22.5- 36.0 seconds H Lab Interpretation (test code = Abnormal 79053-9) [facility] HospitalFIBRINOGEN2020-12-14 12:33:00 Test Item Value Reference Range Interpretation Comments FIBRINOGEN LEVEL (BEAKER) (test 223 mg/dl 225-434 L code = 658) [id number] 12:33:00 Test Item Value Reference Range Interpretation Comments PARTIAL THROMBOPLASTIN TIME 41.1 seconds 22.5-36.0 H (BEAKER) (test code = 760) PROTHROMBIN TIME/[id number] 12:32:00 Test Item Value Reference Range Interpretation Comments PROTIME (BEAKER) (test code = 18.1 seconds 11.9-14.2 H 759) INR (BEAKER) (test code = 370) 1.54 <=5.90 Effective 10/05/2018: PT Reference Range ChangeNew: 11.9-14.2 Previous: 11.7- 14.7RECOMMENDED COUMADIN/WARFARIN INR THERAPY RANGESSTANDARD DOSE: 2.0-3.0 Includes: PROPHYLAXIS for venous thrombosis, systemic embolization; TREATMENT for venous thrombosis and/or pulmonary embolus.HIGH RISK: Target INR is2.5-3.5 for patients wiht mechanical heart valves.BLOOD GAS, [id number] 12:10:00 Test Item Value Reference Range Interpretation Comments PH ARTERIAL (BEAKER) (test code = 7.33 7.35-7.45 L 383) PCO2 ARTERIAL (BEAKER) (test code 34 mm Hg 35-45 L = 384) PO2 ARTERIAL (BEAKER) (test code 216 mm Hg 80-90 H = 385) O2 SATURATION ARTERIAL (BEAKER) 99.4 % 96.0-97.0 H (test code = 386) HCO3 ARTERIAL (BEAKER) (test code 18 mmol/L 21-29 L = 388) BASE EXCESS ARTERIAL (BEAKER) -7.6 mmol/L -2.0-3.0 L (test code = 387) PATIENT TEMPERATURE (BEAKER) 35.8 (test code = 1818) FIO2 (BEAKER) (test code = 1819) 50.0 SARS-COV2/RT-PCR ([facility])2020-04-22 12:03:00 Test Item Value Reference Range Interpretation Comments SARS-COV2/RT-PCR (test Negative Not Detected, Negative, code = 5747283) See external report for linked test SARS-COV-2 [facility] (test code = 3526381) Negative result for this test determines that SARS-CoV-2 RNA was not present in the specimen above the Limit of Detection (LOD). However, Negative results do not preclude SARS-CoV-2 infection and should not be used as the sole basis for treatment or patient management decisions. Negative results mustbe combined with clinical observations, patient history, and epidemiological information. A false negative result may occur if a specimen is improperly collected, transported or handled. A false negative result should be considered if patient's recent exposures or clinical presentation indicate that COVID-19 (SARS-CoV-2) is likely and diagnostic tests for other causes of illness are negative. Re-testing should be considered in cases of suspected false negatives.The limit of detection for this assay is 800 copies/mL.This SARS CoV-2 test is a real-time RT-PCR test intended for the qualitative detection of nucleic acid from SARS-CoV-2 in a nasopharyngeal swab specimen collected from individuals susp ected of COVID-19 by their healthcare provider.This test has not been Food and Drug [...] is revoked under Section 564(g) of the Act.Fact Sheet for Healthcare Providers:https://www.[employer]/sites/default/files/product/documents/Fact_Shee o_RD_Bydqfepff_Bqey_MHBU-FjN-7.pdfFact Sheet for Healthcare Patients:https://www.[employer]com/sites/default/files/product/ documents/Zjna_Jokyh_Dlzvviiy_Hkyo_WTUG-QyJ-3.pdfPerforming Laboratory:[facility], [place] [address]M/S, RENAL WITH [id number] 11:56:00Reason for exam:->blood in urine [facility] : 1980 Sex: MFINAL REPORT TECHNIQUE: Grayscale, color Doppler, and spectral Doppler ultrasound of the kidneys and bladder. INDICATION: 39-year-old man with hematuria. COMPARISON: None. FINDINGS: RIGHT KIDNEY: Right kidney measures 10 x 5 x 5.4 cm with cortical thickness of 1.9 cm. No solid mass. No hydronephrosis. Renal artery and vein are patent. Resistive index in the lower portion ofthe kidney is elevated and measures 0.85. Resistive indices in the upper and mid portions of the kidney are at the upper limit of normal and measures 0.73 and 0.76, respectively. LEFT KIDNEY: Left kidney measures 10.5 x 5.4 x 4.9 cm with cortical thickness of 1.9 cm. No solid mass. No hydronephrosis. Renal artery and vein are patent. Normal resistive indices throughout the kidney range between 0.66-0.70. BLADDER: Bladder is decompressed by Pires catheter. IMPRESSION:Unremarkable appearance of the kidneys. Patent bilateral renal vasculature. Elevated resistive index in the lower portion of the right kidney is nonspecific and may be seen with medical renal disease. Signed: India Mohan MDReport Verified Date/Time: 04/22/2020 11:56:58 US Renal with Doppler 2020-04-22 11:56:00Interface, External Ris In - 04/22/2020 11:59 AM CSTFINAL REPORT TECHNIQUE: Grayscale, color Doppler, and spectral Doppler ultrasound of the kidneys and bladder. INDICATION: 39-year-old man with hematuria. COMPARISON: None. FINDINGS: RIGHT KIDNEY: Right kidney measures 10 x 5 x5.4 cm with cortical thickness of 1.9 cm. No solid mass. No hydronephrosis. Renal artery and vein are patent. Resistive index in the lower portion of the kidney is elevated and measures 0.85. Resistiveindices in the upper and mid portions of the kidney are at the upper limit of normal and measures 0.73 and 0.76, respectively. LEFT KIDNEY: Left kidney measures 10.5 x 5.4 x 4.9 cm with cortical thickness of 1.9 cm. No solid mass. No hydronephrosis. Renal artery and vein are patent. Normal resistive indices throughout the kidney range between 0.66-0.70. BLADDER: Bladder is decompressed by Pires catheter. IMPRESSION:Unremarkable appearance of the kidneys. Patent bilateral renal vasculature. Elevatedresistive index in the lower portion of the right kidney is nonspecific and may be seen with medicalrenal disease. Signed: India Mohan MDReport Verified Date/Time: 04/22/2020 11:56:58 [facility] Trialysis [id number] 11:49:54WhJoe sloan PA 04/22/2020 11:53 AMTrialysis Catheter Date/Time: 04/22/2020 10:30 AMPerformed by: Joe Alonzo PAAuthorized by: Joe Alonzo PA Consent: The procedure was performed in an emergent situation. Verbal consent not obtained. Written consent not obtained.Test results: test results available and properly labeledSite marked: the operative site was markedImaging studies: imaging studies availableRequired items: required blood products, implants, devices, and special equipment availablePatient identity confirmed: anonymous protocol, patient vented/unresponsive, arm band and provided demographic dataTime out: Immediately prior to procedure a "time out" was called to verify the correct patient, procedure, equipment, vp software support and site/side marked as required.Indica tions: vascular access Anesthesia:Local Anesthetic: lidocaine 1% without epinephrine Sedation:Patient sedated: no Preparation: skin prepped with 2% chlorhexidineSkin prep agent dried: skin prep agent completely dried prior to procedureSterile barriers: all five maximum sterile barriers used - cap, mask, sterile gown, sterile gloves, and large sterile sheetHand hygiene: hand hygiene performed prior tocentral venous catheter insertionLocation details: left femoralPatient position: flatCatheter type: triple lumenCatheter size: 13 Fr 20cm Trialysis.Pre-procedure: landmarks identifiedNumber of attempts: 1Successful placement: yesPost-procedure: line sutured and dressing appliedImmediate Post-ProcedureNote Date/Time: 04/22/2020 10:30 AMAssistants to the procedure: NonePre-procedure diagnosis: Hemorrhagic shockPost-procedure diagnosis: Hemorrhagic shockProcedures Performed: Trialysis CatheterSpecimens removed: NoneEstimated blood loss (mL): NoneComplications: NoneType of anesthesia: NoneGrafts or Implants: NoneCHI Kaiser Foundation HospitalInsert Arterial [id number] 11:47:48Joe Alonzo PA 04/22/2020 11:49 AMInsert Arterial Line Date/Time: 04/22/2020 10:30 AMPerformed by: Joe Alonzo PAAuthorized by: Joe Alonzo PA Consent: The procedure was perf ormed in an emergent situation. Verbal consent not obtained. Written consent not obtained.Test results: test results available and properly labeledSite marked: the operative site was markedImaging studies: imaging studies availableRequired items: required blood products, implants, devices, and specialequipment availablePatient identity confirmed: provided demographic data, anonymous protocol, patient vented/unresponsive and arm bandTime out: Immediately prior to procedure a "time out" was called toverify the correct patient, procedure, equipment, vp software support and site/side marked as required.Preparation: Patient was prepped and draped in the usual sterile fashion.Indications: multiple ABGs, respiratory failure and hemodynamic monitoringLocation: left radial Anesthesia:Local Anesthetic: lidocaine 1% without epinephrineAllen's test normal: yesNeedle gauge: 20Seldinger technique: Seldinger technique usedNumber of attempts: 1Post-procedure: line sutured and dressing appliedPost-procedure CMS: normalPatient tolerance: patient tolerated the procedure well with no immediate complicationsPublic Health Service HospitalRAD, CHEST, 1 VIEW, NON DEPT 2020-04-22 11:25:00Reason for exam:->Intubated and left femoral cvc placedShould this be performed at the bedside?->Yes [facility] : 1980 Sex: MFINAL REPORT RAD, CHEST, 1 VIEW, NON DEPT INDICATION: Intubated and left femoral cvc placed COMPARISON: Radiographic prior day FINDINGS: Portable frontal view of the chest. IMPRESSION: Support Lines: ET tube tip is 4 cm superior to the [place] Lungs and pleura: Mild diffuseinterstitial thickening No pneumothorax.Heart and mediastinum: Stable contours. Stable surgical rubio es.Additional findings: None. Signed: Layne Espinal Verified Date/Time: 04/22/2020 11:25:59 Reading Location: [facility] Radiology Reading Room CBC (Hemogram only)2020-04-22 10:45:00 Test Item Value Reference Range Interpretation Comments WBC (test code = 6690-2) 7.8 3.5- 10.5 K/L RBC (test code = 789-8) 3.19 4.63- 6.08 M/L L MCHC (test code = 786-4) 31.5 32.3- 36.5 GM/DL L Hematocrit (test code = 4544-3) 26.7 % 40.1-51 L MCV (test code = 787-2) 83.7 fL 79-92.2 MCH (test code = 785-6) 26.3 pg 25.7-32.2 RDW (test code = 788-0) 20.4 % 11.6-14.4 H Platelets (test code = 777-3) 112 150- 450 K/CU MM L MPV (test code = 43977-3) 11.7 fL 9.4-12.4 nRBC (test code = 413) 0 0- 0 /100 WBC Lab Interpretation (test code = Abnormal 55227-7) [facility]22 10:45:00 Test Item Value Reference Range Interpretation Comments WHITE BLOOD CELL COUNT (BEAKER) 7.8 K/ L 3.5-10.5 (test code = 775) RED BLOOD CELL COUNT (BEAKER) 3.19 M/ L 4.63-6.08 L (test code = 761) HEMOGLOBIN (BEAKER) (test code = 8.4 GM/DL 13.7-17.5 L 410) HEMATOCRIT (BEAKER) (test code = 26.7 % 40.1-51.0 L 411) MEAN CORPUSCULAR VOLUME (BEAKER) 83.7 fL 79.0-92.2 (test code = 753) MEAN CORPUSCULAR HEMOGLOBIN 26.3 pg 25.7-32.2 (BEAKER) (test code = 751) MEAN CORPUSCULAR HEMOGLOBIN CONC 31.5 GM/DL 32.3-36.5 L (BEAKER) (test code = 752) RED CELL DISTRIBUTION WIDTH 20.4 % 11.6-14.4 H (BEAKER) (test code = 412) PLATELET COUNT (BEAKER) (test 112 K/CU MM 150-450 L code = 756) MEAN PLATELET VOLUME (BEAKER) 11.7 fL 9.4-12.4 (test code = 754) NUCLEATED RED BLOOD CELLS 0 /100 WBC 0-0 (BEAKER) (test code = 413) COMPREHENSIVE METABOLIC [id number] 06:08:00 Test Item Value Reference Range Interpretation Comments TOTAL PROTEIN 4.9 gm/dL 6.0-8.3 L (BEAKER) (test code = 770) ALBUMIN (BEAKER) 2.0 g/dL 3.5-5.0 L (test code = 1145) ALKALINE PHOSPHATASE 115 U/L 40-150 (BEAKER) (test code = 346) BILIRUBIN TOTAL 3.9 mg/dL 0.2-1.2 H (BEAKER) (test code = 377) SODIUM (BEAKER) (test 134 meq/L 136-145 L code = 381) POTASSIUM (BEAKER) 4.4 meq/L 3.5-5.1 (test code = 379) CHLORIDE (BEAKER) 109 meq/L 98-107 H (test code = 382) CO2 (BEAKER) (test 15 meq/L 22-29 L code = 355) BLOOD UREA NITROGEN 33 mg/dL 7-21 H (BEAKER) (test code = 354) CREATININE (BEAKER) 0.97 mg/dL 0.57-1.25 (test code = 358) GLUCOSE RANDOM 242 mg/dL 70-105 H (BEAKER) (test code = 652) CALCIUM (BEAKER) 7.8 mg/dL 8.4-10.2 L (test code = 697) AST (SGOT) (BEAKER) 71 U/L 5-34 H (test code = 353) ALT (SGPT) (BEAKER) 30 U/L 6-55 (test code = 347) EGFR (BEAKER) (test INSUFFIC IENT CLINICAL code = 1092) DATA TO CALCULA TE ESTIMATED GFR. Metal Ceiling Builder ID - EDASISpecimen slightly [id number] 06:01:00 Test Item Value Reference Range Interpretation Comments MAGNESIUM (BEAKER) (test code = 2.1 mg/dL 1.6-2.6 627) Metal Ceiling Builder ID - [id number] 06:01:00 Test Item Value Reference Range Interpretation Comments PHOSPHORUS (BEAKER) (test code = 4.8 mg/dL 2.3-4.7 H 604) Metal Ceiling Builder ID - [id number] 05:57:00 Test Item Value Reference Range Interpretation Comments FIBRINOGEN LEVEL (BEAKER) (test 236 mg/dl 225-434 code = 658) CBC W/PLT COUNT & AUTO [id number] 05:25:00 Test Item Value Reference Range Interpretation Comments WHITE BLOOD CELL COUNT (BEAKER) 6.1 K/ L 3.5-10.5 (test code = 775) RED BLOOD CELL COUNT (BEAKER) 2.63 M/ L 4.63-6.08 L (test code = 761) HEMOGLOBIN (BEAKER) (test code = 6.8 GM/DL 13.7-17.5 L 410) HEMATOCRIT (BEAKER) (test code = 21.6 % 40.1-51.0 L 411) MEAN CORPUSCULAR VOLUME (BEAKER) 81.4 fL 79.0-92.2 (test code = 753) MEAN CORPUSCULAR HEMOGLOBIN 25.9 pg 25.7-32.2 (BEAKER) (test code = 751) MEAN CORPUSCULAR HEMOGLOBIN CONC 31.8 GM/DL 32.3-36.5 L (BEAKER) (test code = 752) RED CELL DISTRIBUTION WIDTH 20.6 % 11.6-14.4 H (BEAKER) (test code = 412) PLATELET COUNT (BEAKER) (test code 99 K/CU MM 150-450 L = 756) MEAN PLATELET VOLUME (BEAKER) 12.4 fL 9.4-12.4 (test code = 754) NUCLEATED RED BLOOD CELLS (BEAKER) 0 /100 WBC 0-0 (test code = 413) NEUTROPHILS RELATIVE PERCENT 63 % (BEAKER) (test code = 429) LYMPHOCYTES RELATIVE PERCENT 24 % (BEAKER) (test code = 430) MONOCYTES RELATIVE PERCENT 6 % (BEAKER) (test code = 431) EOSINOPHILS RELATIVE PERCENT 5 % (BEAKER) (test code = 432) BASOPHILS RELATIVE PERCENT 1 % (BEAKER) (test code = 437) NEUTROPHILS ABSOLUTE COUNT 3.86 K/ L 1.78-5.38 (BEAKER) (test code = 670) LYMPHOCYTES ABSOLUTE COUNT 1.48 K/ L 1.32-3.57 (BEAKER) (test code = 414) MONOCYTES ABSOLUTE COUNT (BEAKER) 0.39 K/ L 0.30-0.82 (test code = 415) EOSINOPHILS ABSOLUTE COUNT 0.31 K/ L 0.04-0.54 (BEAKER) (test code = 416) BASOPHILS ABSOLUTE COUNT (BEAKER) 0.03 K/ L 0.01-0.08 (test code = 417) IMMATURE GRANULOCYTES-RELATIVE 1 % 0-1 PERCENT (BEAKER) (test code = 2801) [id number] 05:22:00 Test Item Value Reference Range Interpretation Comments PROTIME (BEAKER) (test code = 18.9 seconds 11.9-14.2 H 759) INR (BEAKER) (test code = 370) 1.64 <=5.90 PARTIAL THROMBOPLASTIN TIME 38.7 seconds 22.5-36.0 H (BEAKER) (test code = 760) Effective 10/05/2018: PT Reference Range ChangeNew: 11.9-14.2 Previous: 11.7- 14.7RECOMMENDED COUMADIN/WARFARIN INR THERAPY RANGESSTANDARD DOSE: 2.0-3.0 Includes: PROPHYLAXIS for venous thrombosis, systemic embolization; TREATMENT for venous thrombosis and/or pulmonary embolus.HIGH RISK: Target INR is2.5-3.5 for patients wiht mechanical heart valves.HEMOGLOBIN AND [id number] 05:18:00 Test Item Value Reference Range Interpretation Comments HEMOGLOBIN (BEAKER) (test code = 6.8 GM/DL 13.7-17.5 L 410) HEMATOCRIT (BEAKER) (test code = 21.6 % 40.1-51.0 L 411) BLAINE, [id number] 05:14:00 Test Item Value Reference Range Interpretation Comments ABO Grouping (test code = 2588) O Rh Factor (test code = 2589) POS [facility] 03:23:00 Test Item Value Reference Range Interpretation Comments Ferritin (test code = 23.17 ng/mL 5-275 2276-4) ROBERT (test code = ROBERT) Metal Ceiling Builder ID - EDASI Lab Interpretation (test Normal code = 78361-4) [facility]IN2020-[facility]-14 03:23:00 Test Item Value Reference Range Interpretation Comments FERRITIN (BEAKER) (test code = 23.17 ng/mL 5.00-275.00 361) Metal Ceiling Builder ID - EDASITSH/Free T4 If [id number] 01:39:00 Test Item Value Reference Range Interpretation Comments TSH (test code = 38507-7) 0.829 0.350- 4.940 uIU/mL ROBERT (test code = ROBERT) Metal Ceiling Builder ID - DB Lab Interpretation (test Normal code = 11767-6) [facility] HospitalTSH/FREE T4 IF [id number] 01:39:00 Test Item Value Reference Range Interpretation Comments THYROID STIMULATING HORMONE 0.829 uIU/mL 0.350-4.940 (BEAKER) (test code = 772) Metal Ceiling Builder ID - [id number] 01:28:00 Test Item Value Reference Range Interpretation Comments Procalcitonin (test code = 0.27 ng/mL <0.05 H 58735-1) ROBERT (test code = ROBERT) SEPSIS RISK (ng/mL)Low: 0.05-0.50Intermedi ate: 0.51-2.00High: >=2.01 Lab Interpretation (test Abnormal code = 44715-7) [facility] HospitalPROCALCITONIN2020-12-14 01:28:00 Test Item Value Reference Range Interpretation Comments PROCALCITONIN (BEAKER) (test code 0.27 ng/mL <0.05 H = 3036) SEPSIS RISK (ng/mL)Low: 0.05-0.50Intermediate: 0.51-2.00High: >=2.01Iron, TIBC, % sat. (without ferritin)2020-04-22 01:19:00 Test Item Value Reference Range Interpretation Comments Iron (test code = 2498-4) 48.0 ug/dL 40-160 TIBC (test code = 2500-7) 251 ug/dL 250-450 Iron % Saturation (test code 19 % 20-55 L = 2502-3) ROBERT (test code = ROBERT) Metal Ceiling Builder ID - DB Lab Interpretation (test Abnormal code = 60998-4) [facility] HospitalIRON, TIBC, % SAT. (WITHOUT FERRITIN)2020-04-22 01:19:00 Test Item Value Reference Range Interpretation Comments IRON (BEAKER) (test code = 547) 48.0 ug/dL 40.0-160.0 TOTAL IRON BINDING CAPACITY 251 ug/dL 250-450 (BEAKER) (test code = 769) IRON % SATURATION (2) (BEAKER) 19 % 20-55 L (test code = 2590) Metal Ceiling Builder ID - DBCALCIUM, [id number] 01:05:00 Test Item Value Reference Range Interpretation Comments CALCIUM IONIZED (BEAKER) (test 1.03 mmol/L 1.12-1.27 L code = 698) PH, BLOOD (BEAKER) (test code = 7.48 1810) HEMOGLOBIN AND [id number] 00:59:00 Test Item Value Reference Range Interpretation Comments HEMOGLOBIN (BEAKER) (test code = 7.3 GM/DL 13.7-17.5 L 410) HEMATOCRIT (BEAKER) (test code = 22.7 % 40.1-51.0 L 411) Metal Ceiling Builder ID - [id number], BRAIN, WITHOUT [id number] 23:30:00Unlisted Reason for Exam - Click Yes and Enter Reason Below->No [facility] : 1980 Sex: MFINAL REPORT CT, BRAIN, WITHOUT CONTRAST CLINICAL INDICATION: Subarachnoid hemorrhage, follow-up COMPARISON: None TECHNIQUE: Noncontrast axial CT imaging of the brain and skull. Coronal and sagittal reformats obtained. DOSE REDUCTION: Dose modulation, iterative reconstruction, and/or weight-based adjustment of the mA/kV was utilized to reduce the radiation dose to as low as reasonably achievable. FINDINGS:Cerebral parenchyma: No mass, acute intracranial hemorrhage or evidence of acute cortical infarct.Cerebellum and brainstem: No acute finding.Ventricles: No evidence of hydrocephalus.Extra-axial spaces: Unremarkable. Calvarium and skull base: Intact.Paranasal sinuses and mastoid air cells: Imaged chambers are without acute abnormality.Orbital contents: Included portions unremarkable. Additional findings: None. IMPRESSION: No acute intracranial abnormality. If there is persistent clinical concern for intracranial pathology, MR examination is recommended for further ch aracterization. Signed: Driss Owens MDReport Verified Date/Time: 04/21/2020 23:30:02 CT brain without IV [id number] 23:30:00Interface, External Ris In - 04/21/2020 11:[address], BRAIN, WI THOUT CONTRAST CLINICAL INDICATION: Subarachnoid hemorrhage, follow-up COMPARISON: None TECHNIQUE:Noncontrast axial CT imaging of the brain and skull. Coronal and sagittal reformats obtained. DOSE REDUCTION: Dose modulation, iterative reconstruction, and/or weight-based adjustment of the mA/kV was u tilized to reduce the radiation dose to as low as reasonably achievable. FINDINGS:Cerebral parenchyma: No mass, acute intracranial hemorrhage or evidence of acute cortical infarct.Cerebellum and brainstem: No acute finding.Ventricles: No evidence of hydrocephalus.Extra-axial spaces: Unremarkable. Calvarium and skull base: Intact.Paranasal sinuses and mastoid air cells: Imaged chambers are without acute abnormality.Orbital contents: Included portions unremarkable. Additional findings: None. IMPRESSION: No acute intracranial abnormality. If there is persistent clinical concern for intracranial pathology, MR examination is recommended for further characterization. Signed: Driss Owens MDReport Verified Date/Time: 04/21/2020 23:30:02 [facility]Type [facility], [id number] 23:12:00 Test Item Value Reference Range Interpretation Comments ABO/RH AUTOMATED (BEAKER) (test O POSITIVE code = 2260) Ab Scrn (test code = 890-4) NEGATIVE [facility] HospitalAMMONIA2020-12-13 22:55:00 Test Item Value Reference Range Interpretation Comments AMMONIA (BEAKER) (test code = 348) 144 mol/L 18-72 H Metal Ceiling Builder ID - DBRAD, CHEST, 1 VIEW, NON [id number] 22:55:00Reason for exam:- >pneumoniaShould this be performed at the bedside?->Yes [facility] : 1980 Sex: MFINAL REPORT RAD, CHEST, 1 VIEW, NON DEPT CLINICAL HISTORY: pneumonia TECHNIQUE: Single view of the chest. COMPARISON: None IMPRESSION: There are no focal infiltrates or effusions. No pneumothorax. The cardiomediastinal silhouette is magnified by technique. The osseous structures appear intact. Signed: Driss Owens MDReport Verified Date/Time: 04/21/2020 22:55:34 BASIC METABOLIC [id number] 22:44:00 Test Item Value Reference Range Interpretation Comments SODIUM (BEAKER) (test 133 meq/L 136-145 L code = 381) POTASSIUM (BEAKER) 5.4 meq/L 3.5-5.1 H (test code = 379) CHLORIDE (BEAKER) 109 meq/L 98-107 H (test code = 382) CO2 (BEAKER) (test 17 meq/L 22-29 L code = 355) BLOOD UREA NITROGEN 37 mg/dL 7-21 H (BEAKER) (test code = 354) CREATININE (BEAKER) 0.99 mg/dL 0.57-1.25 (test code = 358) GLUCOSE RANDOM 150 mg/dL 70-105 H (BEAKER) (test code = 652) CALCIUM (BEAKER) 6.9 mg/dL 8.4-10.2 L (test code = 697) EGFR (BEAKER) (test INSUFFIC IENT CLINICAL code = 1092) DATA TO CALCULA TE ESTIMATED GFR. Metal Ceiling Builder ID - DBSpecimen moderately ictericHepatic function [id number] 22:36:00 Test Item Value Reference Range Interpretation Comments Protein, Total (test code 5.4 6.0- 8.3 gm/dL L = 2885-2) Albumin (test code = 2.2 g/dL 3.5-5 L 78678-2) Total Bilirubin (test 4.3 mg/dL 0.2-1.2 H code = 1975-2) Bilirubin, Direct (test 2.8 mg/dL 0.1-0.5 H code = 1967-7) Alkaline Phosphatase 139 U/L 40-150 (test code = 6768-6) AST (test code = 1920-8) 69 U/L 5-34 H ALT (test code = 1742-6) 29 U/L 6-55 ROBERT (test code = ROBERT) Metal Ceiling Builder ID - DBSpecimen moderately icteric Lab Interpretation (test Abnormal code = 13987-2) [facility] HospitalMAGNESIUM2020-12-13 22:36:00 Test Item Value Reference Range Interpretation Comments MAGNESIUM (BEAKER) (test code = 2.1 mg/dL 1.6-2.6 627) Metal Ceiling Builder ID - [id number] 22:36:00 Test Item Value Reference Range Interpretation Comments PHOSPHORUS (BEAKER) (test code = 3.5 mg/dL 2.3-4.7 604) Metal Ceiling Builder ID - DBHEPATIC FUNCTION [id number] 22:36:00 Test Item Value Reference Range Interpretation Comments TOTAL PROTEIN (BEAKER) (test code = 5.4 gm/dL 6.0-8.3 L 770) ALBUMIN (BEAKER) (test code = 1145) 2.2 g/dL 3.5-5.0 L BILIRUBIN TOTAL (BEAKER) (test code 4.3 mg/dL 0.2-1.2 H = 377) BILIRUBIN DIRECT (BEAKER) (test 2.8 mg/dL 0.1-0.5 H code = 706) ALKALINE PHOSPHATASE (BEAKER) (test 139 U/L 40-150 code = 346) AST (SGOT) (BEAKER) (test code = 69 U/L 5-34 H 353) ALT (SGPT) (BEAKER) (test code = 29 U/L 6-55 347) Metal Ceiling Builder ID - DBSpecimen moderately ictericLACTIC ACID, [id number] 22:31:00 Test Item Value Reference Range Interpretation Comments LACTATE BLOOD VENOUS (2) (BEAKER) 2.02 mmol/L 0.50-2.20 (test code = 2872) Metal Ceiling Builder ID - DBSpecimen slightly ictericPT/[id number] 22:30:00 Test Item Value Reference Range Interpretation Comments PROTIME (BEAKER) (test code = 18.4 seconds 11.9-14.2 H 759) INR (BEAKER) (test code = 370) 1.58 <=5.90 PARTIAL THROMBOPLASTIN TIME 38.2 seconds 22.5-36.0 H (BEAKER) (test code = 760) Effective 10/05/2018: PT Reference Range ChangeNew: 11.9-14.2 Previous: 11.7- 14.7RECOMMENDED COUMADIN/WARFARIN INR THERAPY RANGESSTANDARD DOSE: 2.0-3.0 Includes: PROPHYLAXIS for venous thrombosis, systemic embolization; TREATMENT for venous thrombosis and/or pulmonary embolus.HIGH RISK: Target INR is2.5-3.5 for patients wiht mechanical heart valves.[id number] 22:29:00 Test Item Value Reference Range Interpretation Comments FIBRINOGEN LEVEL (BEAKER) (test 260 mg/dl 225-434 code = 658) Urinalysis w/Microscopic + Reflex to [id number] 22:22:00 Test Item Value Reference Range Interpretation Comments Color, UA (test code = Yellow 5778-6) Clarity, UA (test code = Clear 5767-9) Specific [place], UA (test 1.026 1.001-1.035 code = 5811-5) pH, UA (test code = 7.5 5.0-8.0 5803-2) Protein, UA (test code = 30 mg/dL Negative A 47049-2) Glucose, UA (test code = Negative Negative 365) Ketones, UA (test code = Trace Negative A 2514-8) Bilirubin, UA (test code = Negative Negative 69725-7) Blood, UA (test code = Large Negative A 90557-3) Nitrite, UA (test code = Negative Negative 5802-4) Leukocytes, UA (test code Negative Negative = 5799-2) Urobilinogen, UA (test 2.0 mg/dL 0.2-1 H code = 31464-3) RBC, UA (test code = 344 /HPF 33572-3) WBC, UA (test code = 0 /HPF 5821-4) Specimen Source (test code = 2795) ROBERT (test code = ROBERT) Metal Ceiling Builder ID - [auto]Metal Ceiling Builder ID - tech Lab Interpretation (test Abnormal code = 09579-2) [facility]/ REFLEX URINE [id number] 22:22:00 Test Item Value Reference Range Interpretation Comments COLOR (BEAKER) (test code = 470) Yellow CLARITY (BEAKER) (test code = 469) Clear SPECIFIC GRAVITY UA (BEAKER) (test 1.026 1.001-1.035 code = 468) PH UA (BEAKER) (test code = 467) 7.5 5.0-8.0 PROTEIN UA (BEAKER) (test code = 30 mg/dL Negative A 464) GLUCOSE UA (BEAKER) (test code = Negative Negative 365) KETONES UA (BEAKER) (test code = Trace Negative A 371) BILIRUBIN UA (BEAKER) (test code = Negative Negative 462) BLOOD UA (BEAKER) (test code = 461) Large Negative A NITRITE UA (BEAKER) (test code = Negative Negative 465) LEUKOCYTE ESTERASE UA (BEAKER) Negative Negative (test code = 466) UROBILINOGEN UA (BEAKER) (test code 2.0 mg/dL 0.2-1.0 H = 463) RBC UA (BEAKER) (test code = 519) 344 /HPF WBC UA (BEAKER) (test code = 520) 0 /HPF SOURCE(BEAKER) (test code = 2795) Metal Ceiling Builder ID - [auto]Metal Ceiling Builder ID - techCBC W/PLT COUNT & AUTO DIFFERENTIAL 2020-04-21 22:20:00 Test Item Value Reference Range Interpretation Comments WHITE BLOOD CELL COUNT (BEAKER) 7.1 K/ L 3.5-10.5 (test code = 775) RED BLOOD CELL COUNT (BEAKER) 2.90 M/ L 4.63-6.08 L (test code = 761) HEMOGLOBIN (BEAKER) (test code = 7.4 GM/DL 13.7-17.5 L 410) HEMATOCRIT (BEAKER) (test code = 24.2 % 40.1-51.0 L 411) MEAN CORPUSCULAR VOLUME (BEAKER) 83.4 fL 79.0-92.2 (test code = 753) MEAN CORPUSCULAR HEMOGLOBIN 25.5 pg 25.7-32.2 L (BEAKER) (test code = 751) MEAN CORPUSCULAR HEMOGLOBIN CONC 30.6 GM/DL 32.3-36.5 L (BEAKER) (test code = 752) RED CELL DISTRIBUTION WIDTH 20.0 % 11.6-14.4 H (BEAKER) (test code = 412) PLATELET COUNT (BEAKER) (test 129 K/CU MM 150-450 L code = 756) MEAN PLATELET VOLUME (BEAKER) 11.4 fL 9.4-12.4 (test code = 754) NUCLEATED RED BLOOD CELLS 0 /100 WBC 0-0 (BEAKER) (test code = 413) NEUTROPHILS RELATIVE PERCENT 65 % (BEAKER) (test code = 429) LYMPHOCYTES RELATIVE PERCENT 25 % (BEAKER) (test code = 430) MONOCYTES RELATIVE PERCENT 6 % (BEAKER) (test code = 431) EOSINOPHILS RELATIVE PERCENT 4 % (BEAKER) (test code = 432) BASOPHILS RELATIVE PERCENT 1 % (BEAKER) (test code = 437) NEUTROPHILS ABSOLUTE COUNT 4.56 K/ L 1.78-5.38 (BEAKER) (test code = 670) LYMPHOCYTES ABSOLUTE COUNT 1.75 K/ L 1.32-3.57 (BEAKER) (test code = 414) MONOCYTES ABSOLUTE COUNT (BEAKER) 0.42 K/ L 0.30-0.82 (test code = 415) EOSINOPHILS ABSOLUTE COUNT 0.26 K/ L 0.04-0.54 (BEAKER) (test code = 416) BASOPHILS ABSOLUTE COUNT (BEAKER) 0.04 K/ L 0.01-0.08 (test code = 417) IMMATURE GRANULOCYTES-RELATIVE 0 % 0-1 PERCENT (BEAKER) (test code = 2801) POCT-GLUCOSE [id number] 21:49:00 Test Item Value Reference Range Interpretation Comments POC-GLUCOSE METER 135 mg/dL 70-110 H : TESTED A T [facility] 6720 (BEAKER) (test code = GORDON MORROW, 1538) 90492: Metal Ceiling Builder/Techni tequila ID = [id number] for DAR DAMIAN
--- OUTSIDE RECORDS SUMMARY | 2020-05-18 02:37 | XMS REPORT | Summary of Care ---
:1980 Author Organization [facility] Address [address] [place] [id number] Care Team Providers Name Role Phone Pcp, Does Not Have A Primary Care Provider Reason for Visit Reason Comments Abdominal Pain Ascites Shortness of Breath Auth/Cert Status Reason Specialty Diagnoses / Referred By Referred To Procedures Contact Contact Emergency Medicine [facility] Em ergency Dept [address] [place] [address] Fax: Encounter Details Date Type Department Care Team Description 05/11/2020 Emergency ADC-Emergency Pushpa Negro, General ized abdominal pain (Primary Dx); Department DO Ascites due to alcoholic cirrhosis [address] [address] [place] [address] [phone] Allergies No Known Allergiesdocumented as of this encounter (statuses as of 05/11/2020) Medications Medication Sig Dispensed Refills Start Date [...] as of this encounter (statuses as of 05/11/2020) Active Problems Problem Noted Date Ascites 05/07/2020 GI bleed 04/04/2020 Gastrointestinal hemorrhage with hematemesis 0 Overview: Added automatically from request for alex manuel [id number] documented as of this encounter (statuses as of 05/11/2020) Social History Tobacco Use Types Packs/Day Years Used Date Former Smoker Smokeless Tobacco: Never Used Sex Assigned at Date Recorded Not on file COVID-19 Exposure Response Date Recorded In the last month, have you been in contact with No / Unsure 05/11/2020 9:54 PM 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 documented as of this encounter Last Filed Vital Signs Vital Sign Reading Time Taken Comments Blood Pressure 138/69 05/11/2020 10:04 PM [employer] TECHNICIAN Pulse 88 05/11/2020 10:04 PM P[employer]OT PL[employer] RESEARCH TECHNICIAN Temperature 37.1 C (98.7 F) 05/11/2020 10:04 PM P[employer] RESEARCH TECHNICIAN Respiratory Rate 26 05/11/2020 10:04 PM [employer] RESEARCH TECHNICIAN Oxygen Saturation 100% 05/11/2020 10:04 PM P[employer] PL[employer] RESEARCH TECHNICIAN Inhaled Oxygen Concentration - - Weight 85.7 kg (189 lb) 05/11/2020 10:04 PM P[employer] PL[employer] RESEARCH TECHNICIAN Height 170.2 cm (5' 7") 05/11/2020 10:04 PM P[employer] RESEARCH TECHNICIAN Body Mass Index 29.6 05/11/2020 10:04 PM P[employer] RESEARCH TECHNICIAN documented in this encounter Discharge Instructions Pushpa Horner DO - 1DIAGNOSIS 1. Ascites NO LIFE-THREATENING FINDINGS ON TODAY'S EXAM. PROCEDURES IN THE ER TODAY: Blood work MEDICATIONS ADMINISTERED IN THE ER TODAY: Lasix YOUR PRESCRIPTIONS AND LSQI-NOT-NLRVELC MEDICATION RECOMMENDATIONS: None SPECIAL CARE INSTRUCTIONS: None FOLLOW-UP RECOMMENDATIONS: RECOMMEND FOLLOW-UP WITH A PRIMARY CARE PROVIDER OR SPECIALIST IN 2-5 DAYS, ESPECIALLY IF NO IMPROVEMENT IN SYMPTOMS. TO FOLLOW-UP WITHIN THE [facility], TRY THESE OPTIONS (CLINIC APPOINTMENTS AVAILABLE ON [id number] BASIS): 1. SCHEDULE AN APPOINTMENT ONLINE AT [email or web address] 2. OR CALL THE [facility] AT OR 3. OR CALL YOUR [facility] PHYSICIAN'S OFFICE DIRECTLY IF YOU ARE ALREADY AN ESTABLISHED [facility] PATIENT. OR, YOU MAY FOLLOW-UP WITH A PROVIDER OF YOUR CHOICE, SUCH : 1. A PHYSICIAN OF YOUR CHOICE 2. [facility], . LOCATIONS IN [facility] 3. [facility], [address] [address]; [phone] RETURN TO ER FOR WORSENING OF SYMPTOMS. AttachmentsThe following attachments cannot be sent through Care Everywhere. Ascites (Monegasque)documented in this encounter ED Notes Diann Carey RN - 05/11/2020 10:02 PM CSTPt reports abdominal pain r/t ascites that started yesterday with SOB. Denies known sick contacts. Last paracentesis was 3 days ago, reports that they took approx 4L. Pushpa Coto DO - 05/11/2020 9:56 PM CST [facility] Emergency Department Note Patient Name: Willis Alvarez Date of : 1980 39 year old male Treatment [facility]: [facility] Primary Care Physician: PATIENT DOES NOT HAVE A PCP Patient Escorted by: Family [5] Mode of Arrival: Personal means [1] EMS Treatment Prior to ED Arrival: GEOSPATIAL TECHNOLOGIST treatment: None Travel and Exposure Screening: Symptoms Does patient have any of these symptoms?: (not recorded) Exposure Screening Has patient had contact with someone with a communicable disease in the last month?: (not recorded) Diseases exposed to:: (not recorded) Is Patient ?: (not recorded) Exposure Date: (not recorded) Chief Complaint: Chief Complaint Patient presents with Abdominal Pain Ascites Shortness of Breath History of Present Illness: Patient presents for eval for abdominal swelling. Has h/o cirrhosis and had a paracentesis on Wednesday - today is Wednesday. No n/v. No fever/chills. No dysuria. Does not take lasix or aldactone at home. Cirrhosis is from alcohol and he no longer drinks. No sob or cp. No cough. Has appointment with GI on Wednesday - today is Wednesday. Feels like his abdomen is swollen and that he needs another tap. Here for eval. Past Medical History/Immunizations: Past Medical History: Diagnosis Date Alcoholic cirrhosis Cirrhosis Esophageal ulcer Esophageal varices Gastrointestinal hemorrhage with hematemesis Hepatic encephalopathy Metabolic encephalopathy Pleural effusion Portal hypertension Tetanus received in last 5 years: Unknown Allergies: No Known Allergies Past Social History: Tobacco Use Former Smoker. Smokeless Tobacco: Never used smokeless tobacco. Past Surgical History: Past Surgical History: Procedure Laterality Date ESOPHAGOGASTRODUODENOSCOPY N/A 04/05/2020 Surgeon: Fletcher Beauchamp MD; Location: [facility] Review of Systems: Review of Systems Constitutional: Negative for chills and fever. Respiratory: Negative for cough and shortness of breath. Cardiovascular: Negative for chest pain. Gastrointestinal: Positive for abdominal distention. Negative for nausea and vomiting. Genitourinary: Negative for dysuria. Musculoskeletal: Negative for arthralgias, neck pain and neck stiffness. Skin: Negative for wound. Neurological: Negative for dizziness. Psychiatric/Behavioral: Negative for agitation. Physical Exam: ED Triage Vitals [05/11/20 2204] Weight 85.7 kg (189 lb) Actual or estimated Estimated by patient/family report Height 1.702 m (5' 7") BP 138/69 Pulse 88 Resp 26 Temp 37.1 C (98.7 F) Temp source Oral SpO2 100 % Measured on Room air Physical Exam Vitals signs and nursing note reviewed. Constitutional: Appearance: Normal appearance. HENT: Head: Normocephalic and atraumatic. Cardiovascular: Rate and Rhythm: Normal rate. Pulses: Normal pulses. Pulmonary: Effort: Pulmonary effort is normal. No respiratory distress. Abdominal: General: There is distension. Palpations: Abdomen is soft. There is fluid wave. Tenderness: There is no abdominal tenderness. Musculoskeletal: Normal range of motion. Right lower leg: Edema present. Left lower leg: Edema present. Comments: +3 pitting edema b/l legs Skin: General: Skin is warm and dry. Neurological: General: No focal deficit present. Mental Status: He is alert. Radiology: No results found for this visit on 05/11/20. Lab Results (24h): Recent Results (from the past 24 hour(s)) CBC with Differential Collection Time: 05/11/20 10:24 PM Result Value Ref Range WBC 6.86 4.20 - 10.70 10*3/L RBC 2.98 (L) 4.26 - 5.52 10*6/L HGB 8.0 (L) 12.2 - 16.4 g/dL HCT 24.8 (L) 38.4 - 49.3 % MCV 83.2 81.7 - 95.6 fL MCH 26.8 26.1 - 32.7 pg MCHC 32.3 31.2 - 35.0 g/dL RDW-SD 58.9 (H) 38.5 - 51.6 fL RDW-CV 19.9 (H) 12.1 - 15.4 % PLT 53 (L) 150 - 328 10*3/L MPV NRBC/100 WBC 0.0 0.0 - 10.0 /100 WBCs NRBC x10^3 <0.01 10*3/L GRAN MAT (NEUT) % 60.7 % IMM GRAN % 0.40 % LYMPH % 24.6 % MONO % 5.5 % EOS % 8.5 % BASO % 0.3 % GRAN MAT x10^3(ANC) 4.16 1.99 - 6.95 10*3/uL IMM GRAN x10^3 0.03 0.00 - 0.06 10*3/uL LYMPH x10^3 1.69 1.09 - 3.23 10*3/uL MONO x10^3 0.38 0.36 - 1.02 10*3/uL EOS x10^3 0.58 (H) 0.06 - 0.53 10*3/uL BASO x10^3 <0.03 0.01 - 0.09 10*3/uL Basic Metabolic Panel (NA, K, CL, CO2, GLUCOSE, BUN, CREATININE, CA) Collection Time: 05/11/20 10:24 PM Result Value Ref Range NA 137 135 - 145 mmol/L K 4.0 3.5 - 5.0 mmol/L CL 113 (H) 98 - 108 mmol/L CO2 TOTAL 19 (L) 23 - 31 mmol/L AGAP 5 2 - 16 BUN 14 7 - 23 mg/dL GLUCOSE 120 (H) 70 - 110 mg/dL CREATININE 0.73 0.60 - 1.25 mg/dL CALCIUM 7.9 (L) 8.6 - 10.6 mg/dL eGFR Calculation (Non-) 118.4 mL/min/1.73m2 eGFR Calculation () 143.5 mL/min/1.73m2 Hepatic Function Panel (ALB, T.PRO, BILI T, BU/BC, ALT, AST, ALK PHOS) Collection Time: 05/11/20 10:24 PM Result Value Ref Range TOTAL BILI 2.2 (H) 0.1 - 1.1 mg/dL BILI UNCON 1.3 (H) 0.1 - 1.1 mg/dL BILI CONJ 0.0 0.0 - 0.3 mg/dL T PROTEIN 5.4 (L) 6.3 - 8.2 g/dL ALBUMIN 2.5 (L) 3.5 - 5.0 g/dL ALK PHOS 221 (H) 34 - 122 U/L ALTv 42 5 - 50 U/L AST(SGOT) 56 (H) 13 - 40 U/L Lipase Serum Collection Time: 05/11/20 10:24 PM Result Value Ref Range LIPASE 183 0 - 220 U/L Orders and Treatments: Orders Placed This Encounter Procedures CBC with Differential Basic Metabolic Panel (NA, K, CL, CO2, GLUCOSE, BUN, CREATININE, CA) Hepatic Function Panel (ALB, T.PRO, BILI T, BU/BC, ALT, AST, ALK PHOS) Lipase Serum Orders Placed This Encounter Medications furosemide (LASIX) injection 40 mg ED COURSE patient presents for eval for abdominal distension. Has h/o cirrhosis and last had a paracentesis on Wednesday - today is Wednesday. Is not on lasix or aldactone. Has appointment with GI on Wednesday. No n/v. No cp or sob. No cough. VSS here in the EC. Lungs clear. Abdominal distension with fluid wave. Soft and not tender abdomen. No tense ascites. No concern for SBP based on H&P. Patient resting comfortably with clear lungs. O2 sat of 100% lying flat. No respiratory distress. Patient does not have an indication for emergent paracentesis. Will give lasix for comfort. Will check labs. Anticipate discharge home later. 2320 - labs ok. Patient doing well. Will discharge home in stable condition with PCP f/u. Has GI appointment for Wednesday - today is Wednesday. MDM: Coding Scoring Tools: No data recorded Diagnosis/Impression: ICD-10-CM ICD-9-CM 1. Generalized abdominal pain R10.84 789.07 2. Ascites due to alcoholic cirrhosis K70.31 571.2 Disposition/Condition: ED Disposition ED Disposition Condition Comment Disch - Home Stable Discharge Medications: Patient's Medications START taking these medications No medications on file CONTINUE taking these medications which have NOT CHANGED CIPROFLOXACIN HCL 500 MG TABLET Take 1 tablet by mouth every 12 (twelve) hours. FERROUS SULFATE 325 MG (65 MG IRON) TABLET Take 1 tablet by mouth 2 (two) times daily for 30 days. LACTULOSE 10 GRAM/15 ML (15 ML) SOLN Take 30 mL by mouth 3 (three) times daily. PANTOPRAZOLE 40 MG EC TABLET Take 1 tablet by mouth daily. PROPRANOLOL 10 MG TABLET Take 1 tablet by mouth 2 (two) times daily. RIFAXIMIN (XIFAXAN) 550 MG TABLET Take 550 mg by mouth 2 (two) times daily. START taking Modified Medications as Prescribed No medications on file STOP taking these medications No medications on file Follow-up: Electronically signed by: Pushpa Negro DO 05/11/2020 10:17 PM T PLANT RESEARCH TECHNICIAN documented in this encounter Miscellaneous Notes ED Nurse Note - Jenn Mcclain RN - 05/11/2020 11:41 PM CSTPt given printed and verbal discharge instructions regarding ascites/abd pain, encouraged hydration, Pt verbalized understanding of instructions,pt encouraged to follow up with pcp Advised to seek medical attention for new/prolonged/worsening of symptoms, PIV d'cd, dressing to site, catheter in tact. Awake, alert oriented, resp reg unlabored, skin w/d, pt leaving in no apparent distress, T PLANT RESEARCH TECHNICIAN documented in this encounter Plan of Treatment Health Maintenance Due Date Last Done Comments Depression Screening 1990 DTaP,Tdap,and Td Vaccines (1 - 1997 Tdap) INFLUENZA VACCINE (#1) 2020 PNEUMOCOCCAL 0-64 YEARS COMBINED Aged Out No longer eligible based on SERIES patient's age to complete this topic documented as of this encounter Procedures Procedure Name Priority Date/Time Associated Diagnosis Comme nts CBC WITH DIFF STAT 05/11/2020 10:24 PM Generalized Results for this [employer] RESEARCH TECHNICIAN abdominal pain procedure are in the results section. BASIC METABOLIC STAT 05/11/2020 10:24 PM Generalized Resul ts for this PANEL (NA, K, CL, P[employer] RESEARCH TECHNICIAN abdominal pain procedur e are in CO2, GLUCOSE, BUN, the resul ts CREATININE, CA) section. HEPATIC FUNCTION STAT 05/11/2020 10:24 PM Generalized Resu lts for this PANEL ([id number]) P[employer] RESEARCH TECHNICIAN abdominal pain procedure ar e in (ALB,T.PRO,BILI the results T,BU/BC,ALT,AST,ALK section. PHOS) LIPASE STAT 05/11/2020 10:24 PM Generalized Results for this [employer] RESEARCH TECHNICIAN abdominal pain procedure are in the results section. CONSENT/REFUSAL FOR Routine 05/11/2020 9:54 PM DIAGNOSIS AND P[employer] RESEARCH TECHNICIAN TREATMENT documented in this encounter Results Lipase Serum (05/11/2020 10:24 PM PILOT PL[employer] RESEARCH TECHNICIAN) Pathologist [facility] aissatou LIPASE 183 0 - 220 U/L [facility] Specimen Blood - VENOUS Performing Organization Address City/State/Zipcode Phone Number [facility] CLIA: [id number] [place] [address] Hepatic Function Panel (ALB, T.PRO, BILI T, BU/BC, ALT, AST, ALK PHOS) (05/11/2020 10:24 PM P[employer]OT PLANT RESEARCH TECHNICIAN) Pathologist [facility] TOTAL BILI 2.2 (H) 0.1 - 1.1 mg/dL [facility] BILI UNCON 1.3 (H) 0.1 - 1.1 mg/dL [facility] BILI CONJ 0.0 0.0 - 0.3 mg/dL [facility] T PROTEIN 5.4 (L) 6.3 - 8.2 g/dL [facility] ALBUMIN 2.5 (L) 3.5 - 5.0 g/dL [facility] ALK PHOS 221 (H) 34 - 122 U/L [facility] ALTv 42 5 - 50 U/L [facility] AST(SGOT) 56 (H) 13 - 40 U/L [facility] Specimen Blood - VENOUS Performing Organization Address City/State/Zipcode Phone Number [facility] CLIA: [id number] [place] [address] Basic Metabolic Panel (NA, K, CL, CO2, GLUCOSE, BUN, CREATININE, CA) (05/11/2020 10:24 PM PILOT PLANT RESEARCH TECHNICIAN) [facility] NA 137 135 - 145 [facility] mmol/L [facility] K 4.0 3.5 - 5.0 [facility] mmol/L [facility] CL 113 (H) 98 - 108 mmol/L [facility] CO2 TOTAL 19 (L) 23 - 31 mmol/L [facility] AGAP 5 2 - 16 [facility] BUN 14 7 - 23 mg/dL [facility] GLUCOSE 120 (H) 70 - 110 mg/dL [facility] CREATININE 0.73 0.60 - 1.25 [facility] mg/dL [facility] CALCIUM 7.9 (L) 8.6 - 10.6 [facility] mg/dL [facility] eGFR Calculation 118.4 mL/min/1.73m2 [facility] (Non-[facility] [place]ian) eGFR Calculation 143.5 mL/min/1.73m2 [facility] () [facility] Specimen Blood - VENOUS Narrative Performed At Association of Glomerular Filtration Rate (GFR) [facility] and Staging of Kidney Disease* [...] tests). Performing Organization Address City/State/Zipcode Phone Number [facility] CLIA: [id number] [place] [address] CBC with Differential (05/11/2020 10:24 PM PILOT PLANT RESEARCH TECHNICIAN) WBC 6.86 4.20 - 10.70 [facility] 10*3/L [facility] RBC 2.98 (L) 4.26 - 5.52 [facility] 10*6/L [facility] HGB 8.0 (L) 12.2 - 16.4 [facility] g/dL [facility] HCT 24.8 (L) 38.4 - 49.3 % [facility] MCV 83.2 81.7 - 95.6 [facility] LAB[facility]ORY MCH 26.8 26.1 - 32.7 [facility] LABORATORY MCHC 32.3 31.2 - 35.0 [facility] g/dL [facility] RDW-SD 58.9 (H) 38.5 - 51.6 [facility] LABORATORY RDW-CV 19.9 (H) 12.1 - 15.4 % [facility] PLT 53 (L) 150 - 328 [facility] 10*3/L [facility] MPV Comment: Not [facility] LABORATORY NRBC/100 WBC 0.0 0.0 - 10.0 [facility] /100 WBCs [facility] NRBC x10^3 <0.01 10*3/L [facility] GRAN MAT (NEUT) % 60.7 % [facility] IMM GRAN % 0.40 % [facility] LYMPH % 24.6 % [facility] MONO % 5.5 % [facility] EOS % 8.5 % [facility] BASO % 0.3 % [facility] GRAN MAT 4.16 1.99 - 6.95 [facility] x10^3(ANC) 10*3/uL HOSPITAL LAB[facility]ORY IMM GRAN x10^3 0.03 0.00 - 0.06 [facility] 10*3/uL HOSPITAL LAB[facility] LYMPH x10^3 1.69 1.09 - 3.23 [facility] 10*3/uL HOSPITAL LAB[facility] MONO x10^3 0.38 0.36 - 1.02 [facility] 10*3/uL HOSPITAL LAB[facility] EOS x10^3 0.58 (H) 0.06 - 0.53 [facility] 10*3/uL [facility] BASO x10^3 <0.03 0.01 - 0.09 [facility] 10*3/uL [facility] Specimen Blood - VENOUS Performing Organization Address City/State/Zipcode Phone Number [facility] CLIA: [id number] [place] [address] documented in this encounter Visit Diagnoses Diagnosis Generalized abdominal pain - Primary Abdominal pain, generalized Ascites due to alcoholic cirrhosis documented in this encounter Administered Medications Medication Order MAR Action Action Date Dose Rate Site furosemide (LASIX) injection 40 mg Given 05/11/2020 10:30 PM P[employer]OT PL[employer] RESEARCH TECHNICIAN 40 mg 40 mg, IV Push, ONCE, 1 dose, 05/11/20 at 2330, DANIELLE documented in this encounter
[2020-05-18 03:16] LABS: Absolute Lymphocytes (CBC) 1.9 K/uL (0.7-4.9); Basophils % 1.1 % (0-1.3); MPV 10.4 fL (7.6-11.3); RBC Red Blood Cell Count 3.17 M/uL (4.33-5.43)
[2020-05-18 03:21] LABS: Protime INR 1.4
[2020-05-18 03:24] LABS: Urine Blood NEGATIVE (NEG); Urine Glucose NEGATIVE (NEG); Urine Protein 2+ (NEG); Urine Specific Gravity >1.030 (1.005-1.030)
[2020-05-18 03:34] LABS: Barbiturates NEGATIVE (NEGATIVE); Benzodiazepines NEGATIVE (NEGATIVE); Cocaine NEGATIVE (NEGATIVE); METHAMPHETAM NEGATIVE (NEGATIVE); Methadone NEGATIVE (NEGATIVE); Opiates NEGATIVE (NEGATIVE); Phencyclidine NEGATIVE (NEGATIVE); THC Cannibis NEGATIVE (NEGATIVE)
[2020-05-18 03:39] LABS: Anisocytosis 2+; Blood Morphology Comment NOTED (NOT SEEN); Elliptocytes 2+; Hypochromasia 1+; Platelet Estimate ADEQ; Teardrop Cell 1+; White Blood Cell Scan OK (OK)
[2020-05-18 03:43] LABS: ALT/SGPT 35 U/L (12-78); AST/SGOT 56 U/L (15-37); Albumin 1.9 g/dL (3.4-5.0); Alkaline Phosphatase 217 U/L (45-117); BUN Blood Urea Nitrogen 18 mg/dL (7-18); Bicarbonate 19 mmol/L (21-32); Bilirubin Direct 1.3 mg/dL (0-0.2); Bilirubin Total 2.2 mg/dL (0.2-1.0); Glucose Level 114 mg/dL (74-106); Potassium 4.2 mmol/L (3.5-5.1); Protein, Total 5.5 g/dL (6.4-8.2); Sodium Level 143 mmol/L (136-145); Troponin (Emerg Dept Use Only) < 0.02 ng/mL (0.0-0.045)
[2020-05-18] MEDS ORDERED: LACTULOSE 20 GM/30 ML UCUP ONE ×2 (03:49→04:07)
[2020-05-18 04:49] LABS: Blood Gas Oxyhemoglobin 97.2 % (94-97); Blood O2 Saturation 99.9 % (92-98.5)
[2020-05-18] MEDS ORDERED: PANTOPRAZOLE 40 MG INJ ONE (04:57)
[2020-05-18] MEDS ORDERED: OCTREOTIDE ACETATE 500 MCG/ML ONE (04:58)
[2020-05-18] MEDS ORDERED: OCTREOTIDE ACETATE 100 MCG/ML ONE (05:05)
[2020-05-18] MEDS ORDERED: NA CHLORIDE 0.9% 500 ML ONE (05:05)
[2020-05-18] MEDS ORDERED: NA CHLORIDE 0.9% 250 ML ONE (05:05)
--- NOTE | 2020-05-18 05:48 | ER ---
Nurse's Notes [facility] Name: Willis Barba Age: 39 yrs Sex: Male : 1980 Arrival Date: 05/18/2020 Time: 02:27 Bed 2 Private MD: Diagnosis: Hepatic Encephalopathy;GI Bleeding Presentation: 05/18 02:20 Chief complaint: EMS states: Called for patient with altered mental status; family lp1 reports hx of high ammonia levels due to cirrhosis; Admitted to hospital about 3 weeks ago and had fluid drained from abdomen; Per EMS, patient combative and biting. 02:20 Coronavirus screen: Client denies travel out of the [place] in the last 14 days. unknown; lp1 unable to answer questions. Ebola Screen: No symptoms or risks identified at this time. Initial Sepsis Screen: Does the patient meet any 2 criteria? No. Patient's initial sepsis screen is negative. Does the patient have a suspected source of infection? No. Patient's initial sepsis screen is negative. Risk Assessment: Do you want to hurt yourself or someone else? Patient reports no desire to harm self or others. Onset of symptoms was May 18, 2020. 02:20 Method Of Arrival: EMS: [facility] lp1 02:20 Acuity: NIDIA 2 lp1 Historical: - Allergies: 03:00 No Known Allergies; lp1 - Home Meds: 03:00 Iron CR 65 mg Oral daily [Active]; Xifaxan 550 mg oral tab [Active]; pantoprazole oral lp1 oral once daily [Active]; lactulose 10 gram/15 mL (15 mL) Oral soln 30 mL 3 times per day [Active]; Propranolol Oral [Active]; Folic Acid Oral [Active]; - PMHx: 03:00 Cirrhosis; Hypertension; Liver disease; lp1 - PSHx: 03:00 None; lp1 - Immunization history:: Adult Immunizations up to date. - Social history:: Smoking status: unknown. Screenin:00 Abuse screen: Denies threats or abuse. Denies injuries from another. Nutritional lp1 screening: No deficits noted. Tuberculosis screening: No symptoms or risk factors identified. Fall Risk Total Joseph Fall Scale indicates High Risk Score (45 or more points). Fall prevention measures have been instituted. Side Rails Up X 2 Placed Close to Nursing Station Frequent Obs/Assessments Occuring Family Present and informed to notify staff if the need to leave the bedside As available patient and family educated on Fall Prevention Program and Strategies. Assessment: 03:04 General: Appears ill, Behavior is drowsy. Pain: Unable to use pain scale. Patient is rv disoriented. Neuro: Level of Consciousness is lethargic, Oriented to none. Cardiovascular: Patient's skin is warm and dry. Rhythm is sinus rhythm. Respiratory: Airway is patent Respiratory effort is even, unlabored. Derm: Skin is intact. 07:00 Reassessment: RECD REPORT FROM SERGE OSULLIVAN. 39YO HM P/W AMS, H/O CIRRHOSIS. TRANSFER IN bp PROCESS FOR GI. 07:29 Reassessment: REPORT TO MAY OSULLIVAN FOR [place] [facility]. TRANSPORT PENDING. bp 08:03 Reassessment: EMS AT B/S FOR TRANSPORT. bp Vital Signs: 02:20 BP 142 / 91; Pulse 78; Resp 19; Pulse Ox 100% on R/A; Weight 77.11 kg; lp1 04:18 BP 144 / 84; Pulse 76; Resp 17; Pulse Ox 100% on R/A; rv 04:30 Temp 97.5; rv 05:00 BP 144 / 98; Pulse 80; Resp 17; Pulse Ox 100% on 2 lpm NC; rv 06:00 BP 128 / 90; Pulse 80; Resp 15; Pulse Ox 100% on 2 lpm NC; rv 07:00 BP 159 / 118; Pulse 92; Resp 21; Pulse Ox 100% ; bp 08:03 BP 127 / 92; Pulse 85; Resp 17; Temp 98; Pulse Ox 100% ; bp ED Course: 02:27 Patient arrived in ED. am2 02:35 Missed attempt(s): 20 gauge in right forearm. Bleeding controlled, band aid applied, ds4 catheter tip intact. 02:36 Piyush Maciel, ABRAN is Primary Nurse. rv 02:40 Inserted saline lock: 20 gauge in left forearm, using aseptic technique. Blood rv collected. by DICKSON. 02:40 Initial lab(s) drawn, by ED staff. rv 02:44 Otilio Pierce MD is Attending Physician. mh7 02:57 Triage completed. lp1 02:57 Arm band placed on right wrist. lp1 03:00 Patient has correct armband on for positive identification. Bed in low position. Call lp1 light in reach. Side rails up X2. panel monitor on. Pulse ox on. NIBP on. 03:11 Urine Drug Screen Sent. ds4 03:11 AMMONIA Sent. ds4 03:17 Chest Single View XRAY In Process Unspecified. EDMS 03:29 CT Head Brain wo Cont In Process Unspecified. EDMS 04:40 Called [facility] to initiate transfer. tt3 04:48 Connected and initiated with Karma Long at [facility]. tt3 04:56 Per Karma Long, all [facility] campuses are at capacity at this time. tt3 05:10 Tried to initiate transfer at [facility] with Belle. Call was disconnected from their tt3 end due to phone issues. Per Belle, the transfer center is having issues with their phones. 05:13 Initiated transfer at [facility] with Bernie Robbins. Stated she would make a few tt3 calls and call me back. 05:28 Per Bernie Robbins, the transfer request was denied due to the [facility] campus being at tt3 capacity. When asked about other campuses she stated "We can't initiate at the smaller campuses as they are holding in their ER's.". 05:30 Initiated at [facility] with Juany Montgomery and the request was denied due to tt3 capacity. 05:32 Initiated transfer with at [facility]. Listed multiple campuses to try and she stated that tt3 she can only do them one by one. She will check with [place] first and call back. If needed, she stated she would inquire with other campuses afterwards. 05:41 called back to speak with Dr. Pierce regarding the transfer request. tt3 05:44 Gen Manzo gave admin approval. The pt is going to [facility] ER. The accepting tt3 physician is Santo Britton Face sheet and MOT faxed to per 's request. Nurse to call report to [phone]. 07:10 Primary Nurse role handed off by Piyush Maciel, RN bp 07:10 Rowdy Willson, RN is Primary Nurse. bp 08:05 No provider procedures requiring assistance completed. Patient transferred, IV remains bp in place. Administered Medications: 04:03 Drug: Lactulose 20 grams {Note: given per rectum.} Volume: 30 ml; Route: PO; rv 06:19 Follow up: Response: No adverse reaction rv 05:00 Drug: Octreotide 50 mcg Route: IV; Rate: per protocol; Site: left forearm; rv 06:19 Follow up: Response: No adverse reaction rv 08:06 Follow up: IV Status: Infusion continued upon transfer bp 05:00 Drug: Octreotide Infusion (50 mcg/hr) - (Octreotide 500 mcg, NS 0.9% 500 ml) Route: IV; rv Rate: 50 ml/hr; Site: left forearm; 06:19 Follow up: IV Status: Infusion continued upon transfer rv 05:00 Drug: ProTONIX 8 mg/hr Route: IV; Rate: 25 ml/hr; Site: left forearm; rv 06:19 Follow up: IV Status: Infusion continued upon transfer rv Outcome: 05:48 ER care complete, transfer ordered by 7 08:04 Transferred by ground EMS Note: [facility] bp 08:04 Condition: stable 08:04 Instructed on the need for transfer. 08:43 Patient left the ED. bp Signatures: Dispatcher [employer] EDMS Jazmyne Hwang, RN RN lp1 Dickson Novak ds4 Jenn Rothman am2 Rowdy Willson RN RN bp Piyush Maciel RN RN rv Otilio Pierce MD MD 7 Kvng Martinez tt3 Corrections: (The following items were deleted from the chart) 05:24 05:24 Octreotide Infusion (50 mcg/hr) - (Octreotide 500 mcg, NS 0.9% 500 ml) IV at 50 rv ml/hr in left forearm rv 06:06 05:32 Initiated transfer with Lou at [facility]. Listed multiple campuses to try and she tt3 stated that she can only do them one by one. She will check with [place] first and call back. If needed, she stated she would inquire with other campuses afterwards. tt3 06:06 05:41 Lou called back to speak with Dr. Pierce regarding the transfer request. tt3 tt3
--- NOTE | 2020-05-18 05:49 | EDPHYS ---
Physician Documentation [facility] Name: Willis Barba Age: 39 yrs Sex: Male : 1980 Arrival Date: 05/18/2020 Time: 02:27 Bed 2 Private MD: ED Physician Otilio Pierce HPI: 05/18 03:02 This 39 yrs old Male presents to ER via EMS with complaints of Altered Mental mh7 Status. 03:02 The patient presents with agitation, confusion. Onset: The symptoms/episode mh7 began/occurred today. Possible causes: Elevated Ammonia level. Associated signs and symptoms: Pertinent positives: agitation, combativeness, confusion, Pertinent negatives: vomiting. Current symptoms: In the emergency department the patient's symptoms are unchanged from the initial presentation. The patient has experienced similar episodes in the past, a few times. Historical: - Allergies: 03:00 No Known Allergies; lp1 - Home Meds: 03:00 Iron CR 65 mg Oral daily [Active]; Xifaxan 550 mg oral tab [Active]; pantoprazole oral lp1 oral once daily [Active]; lactulose 10 gram/15 mL (15 mL) Oral soln 30 mL 3 times per day [Active]; Propranolol Oral [Active]; Folic Acid Oral [Active]; - PMHx: 03:00 Cirrhosis; Hypertension; Liver disease; lp1 - PSHx: 03:00 None; lp1 - Immunization history:: Adult Immunizations up to date. - Social history:: Smoking status: unknown. ROS: 03:02 Unable to obtain ROS due to altered mental status. 7 Exam: 03:02 Head/Face: Normocephalic, atraumatic. Eyes: Pupils equal round and reactive to light, mh7 extra-ocular motions intact. Lids and lashes normal. Conjunctiva and sclera are non-icteric and not injected. Cornea within normal limits. Periorbital areas with no swelling, redness, or edema. Neck: Trachea midline, no thyromegaly or masses palpated, and no cervical lymphadenopathy. Supple, full range of motion without nuchal rigidity, or vertebral point tenderness. No Meningismus. Chest/axilla: Normal chest wall appearance and motion. Nontender with no deformity. No lesions are appreciated. Cardiovascular: Regular rate and rhythm with a normal S1 and S2. No gallops, murmurs, or rubs. Normal PMI, no JVD. No pulse deficits. Respiratory: Lungs have equal breath sounds bilaterally, clear to auscultation and percussion. No rales, rhonchi or wheezes noted. No increased work of breathing, no retractions or nasal flaring. 03:02 Back: No spinal tenderness. No costovertebral tenderness. Full range of motion. Skin: Warm, dry with normal turgor. Normal color with no rashes, no lesions, and no evidence of cellulitis. MS/ Extremity: Pulses equal, no cyanosis. Neurovascular intact. Full, normal range of motion. 03:02 Constitutional: The patient appears obviously ill. 03:02 Abdomen/GI: Inspection: distension, that is mild, Bowel sounds: normal, in all quadrants, Palpation: abdomen is soft and non-tender, in all quadrants, Indicators: McBurney's point is not tender, Palma's sign is negative, Rovsing's sign is negative, Obturator sign is negative, Psoas sign is negative, Liver: is enlarged, Hernia: not appreciated. 03:02 Neuro: Orientation: unable to test, AMS, Mentation: unable to test, AMS, Memory: unable to test, AMS, Cranial nerves: unable to test, AMS, Cerebellar function: unable to test, AMS, Motor: moves all fours, Sensation: no obvious gross deficits, Gait: not tested. seizure activity, is not displayed by the patient, Abnormal movements: there are no abnormal movements. 05:48 Abdomen/GI: Rectal exam: Prostate: normal, rectal tone normal, Stool: brown, guaiac mh7 positive, hemorrhoid(s), are not appreciated. Vital Signs: 02:20 BP 142 / 91; Pulse 78; Resp 19; Pulse Ox 100% on R/A; Weight 77.11 kg; lp1 04:18 BP 144 / 84; Pulse 76; Resp 17; Pulse Ox 100% on R/A; rv 04:30 Temp 97.5; rv 05:00 BP 144 / 98; Pulse 80; Resp 17; Pulse Ox 100% on 2 lpm NC; rv 06:00 BP 128 / 90; Pulse 80; Resp 15; Pulse Ox 100% on 2 lpm NC; rv 07:00 BP 159 / 118; Pulse 92; Resp 21; Pulse Ox 100% ; bp 08:03 BP 127 / 92; Pulse 85; Resp 17; Temp 98; Pulse Ox 100% ; bp MDM: 05:44 Differential Diagnosis: CVA, electrolyte abnormality, alcohol intoxication, [facility] hypoglycemia, intracranial bleed, overdose, pneumonia, seizure, sepsis, TIA, UTI, volume depletion, Hepatic Encephalopathy. Data reviewed: vital signs, nurses notes, EMS record, old medical records, lab test result(s), cardiac enzymes, CBC, electrolytes, urinalysis, urine drug screen, EKG, radiologic studies, CT scan, plain films. Data interpreted: Pulse oximetry: on room air is 100 %. Interpretation: normal. Counseling: I had a detailed discussion with the patient and/or guardian regarding:. Counseling: I had a detailed discussion with the patient and/or guardian regarding: the need to transfer to another facility, for higher level of care, [facility] does not immediately have the required specialist. Response to treatment: the patient's symptoms have mildly improved after treatment. 05:48 Patient medically screened. [facility] 05/18 02:57 Order name: AMMONIA; Complete Time: 03:22 05/18 03:01 Order name: Acetaminophen; Complete Time: 04:16 05/18 03:01 Order name: Basic Metabolic Panel; Complete Time: 04:16 05/18 05:44 Interpretation: Abnormal. 05/18 03:01 Order name: CBC with Diff; Complete Time: 04:16 05/18 03:01 Order name: ETOH Level; Complete Time: 04:16 05/18 03:01 Order name: Hepatic Function; Complete Time: 04:16 05/18 03:01 Order name: PT-INR; Complete Time: 03:26 05/18 03:01 Order name: Ptt, Activated; Complete Time: 03:26 05/18 03:01 Order name: Salicylate; Complete Time: 04:16 05/18 03:01 Order name: Urine Drug Screen; Complete Time: 03:36 05/18 03:01 Order name: Troponin (emerg Dept Use Only); Complete Time: 04:16 05/18 03:10 Order name: Urine Dipstick--Ancillary (enter results); Complete Time: 03:26 [facility] 05/18 03:20 Order name: CBC Smear Scan; Complete Time: 04:16 MS 05/18 03:23 Order name: Glucose, Ancillary Testing; Complete Time: 03:26 MS 05/18 03:01 Order name: EKG; Complete Time: 03:03 [facility] 05/18 03:01 Order name: EKG - Nurse/Tech; Complete Time: 03:02 7 05/18 03:01 Order name: IV Saline Lock; Complete Time: 03:02 7 05/18 03:01 Order name: Labs collected and sent; Complete Time: 03:02 7 05/18 03:01 Order name: Urine Dipstick-Ancillary (obtain specimen); Complete Time: 03:09 7 05/18 03:01 Order name: Chest Single View XRAY [facility] 05/18 03:01 Order name: CT Head Brain wo Cont [facility] 05/18 04:19 Order name: Type And Screen; Complete Time: 05:41 7 05/18 04:37 Order name: Arterial Blood Gas; Complete Time: 05:19 mh7 Administered Medications: 04:03 Drug: Lactulose 20 grams {Note: given per rectum.} Volume: 30 ml; Route: PO; rv 06:19 Follow up: Response: No adverse reaction rv 05:00 Drug: Octreotide 50 mcg Route: IV; Rate: per protocol; Site: left forearm; rv 06:19 Follow up: Response: No adverse reaction rv 08:06 Follow up: IV Status: Infusion continued upon transfer bp 05:00 Drug: Octreotide Infusion (50 mcg/hr) - (Octreotide 500 mcg, NS 0.9% 500 ml) Route: IV; rv Rate: 50 ml/hr; Site: left forearm; 06:19 Follow up: IV Status: Infusion continued upon transfer rv 05:00 Drug: ProTONIX 8 mg/hr Route: IV; Rate: 25 ml/hr; Site: left forearm; rv 06:19 Follow up: IV Status: Infusion continued upon transfer rv Disposition: 05/18/20 05:48 Transfer ordered to Other Acute Care Facility. Diagnosis are Hepatic Encephalopathy, GI Bleeding. - Reason for transfer: Higher level of care. - Accepting physician is Dr. Natanael Sheikh. - Condition is Stable. - Problem is an acute exacerbation. - Symptoms have improved. Signatures: Dispatcher [employer] EDJazmyne Gallardo RN RN lp1 Rowdy Willson, RN RN bp Piyush Maciel, RN RN rv Otilio Pierce MD MD mh7 Corrections: (The following items were deleted from the chart) 08:43 05:48 05/18/2020 05:48 Transfer ordered to Other Acute Care Facility. Diagnosis is bp Hepatic Encephalopathy; GI Bleeding. Reason for transfer: Higher level of care. Accepting physician is Dr. Natanael Sheikh. Condition is Stable. Problem is an acute exacerbation. Symptoms have improved. mh7
[2020-05-18 08:49] VITALS: O2SAT 100
[2020-05-18 08:55] VITALS: BP 127/92; TEMP 98
--- NOTE | 2020-05-18 09:27 | RAD REPORT ---
EXAM DESCRIPTION: RAD - Chest Single View - 05/18/2020 3:17 am CLINICAL HISTORY: AMS, shortness of breath with cirrhosis and abdominal pain COMPARISON: Portable April 21 TECHNIQUE: AP portable chest image was obtained 05/18/2020 3:17 am . FINDINGS: Lung volumes are low. No peripheral mass or consolidation. Interstitial markings and vascu lature in the perihilar regions are accentuated by the low lung volumes. Cardiac silhouette is upper normal to slightly enlarged. No measurable pleural effusion and no pneumothorax. No acute bony abnorm ality seen. No acute aortic findings suspected. IMPRESSION: Limited portable study without peripheral mass or consolidation. Perihilar interstitial edema or infiltrate could be masked in this setting.
--- NOTE | 2020-05-18 14:07 | RAD REPORT ---
EXAM DESCRIPTION: CT - Head Brain Wo Cont - 05/18/2020 6:50 am CLINICAL HISTORY: AMS COMPARISON: None available TECHNIQUE: Axial CT of the head obtained from the skull apex to the skull base without contrast. FINDINGS: No acute intracranial hemorrhage identified. No mass, mass effect, shift of the midline, a bnormal extra-axial fluid collection or CT evidence of acute ischemic change identified. The ventricu lar system is unremarkable. No acute abnormalities of the supratentorial white matter, basal gangli a, cerebellum, or brainstem. The visualized paranasal sinuses and the mastoid air cells are relatively well aerated. No skull fr acture identified. Visualized orbits and globes are unremarkable. IMPRESSION: 1. No acute intracranial abnormality identified. This exam was performed according to our departmental dose-optimization program, which includes autom ated exposure control, adjustment of the mA and/or kV according to patient size and/or use of iterati ve reconstruction technique. Electronically signed by: Pedro Urbina 05/18/2020 3:41 AM FINANCIAL AID COORDINATOR Due to temporary technical issues with the PACS/Fluency reporting system, reports are being signed by the in house radiologists without review as a courtesy to insure prompt reporting. The interpreting radiologist is fully responsible for the content of the report.
--- NOTE | 2020-05-19 07:28 | EKG ---
Test Date: 2020-05-18 Test Time: 02:49:59 Supervisor [place]: KATHRYN MEASUREMENT RESULTS: Intervals: Rate: 75 VT: 146 QRSD: 80 QT: 442 QTc: 493 [place]: P: 59 VT: 146 QRS: 38 T: 17 INTERPRETIVE STATEMENTS: Normal sinus rhythm Prolonged QT Abnormal ECG Compared to ECG 04/21/2020 13:33:33 No significant changes Electronically Signed On 05-19-20 07:24:19 HISTOPATH TECH by Burke Hutrado
== END 2020-05-18 08:43 ==
LOC: ER 02:26
DX: K72.90 Hepatic failure, unspecified without coma (principal); K92.2 Gastrointestinal hemorrhage, unspecified; K74.60 Unspecified cirrhosis of liver; I10 Essential (primary) hypertension
CPT/HCPCS: 36415; 70450; 71045; 80048; 80076; 80307; 80320; 80329; 81003; 82140; 82805; 82947; 84484; 85025; 85610; 85730; 86850; 86900; 86901; 93005; 96365; 96366; 96367; 96368; 99285; C9113; J2354; J7040; J7050; U0003

== ENCOUNTER 2020-06-24 09:06 | Inpatient (IN) | payer SELFPAY ==
[2020-06-24 10:00] LABS: Absolute Lymphocytes (CBC) 1.7 K/uL (0.7-4.9); Basophils % 1.2 % (0-1.3); Hematocrit 16.7 % (39.6-49.0); Lymphocytes % 24.3 % (15.3-44.8); MPV 10.6 fL (7.6-11.3)
[2020-06-24] MEDS ORDERED: OCTREOTIDE 500 MCG in NA CHLORIDE 0.9% 500 ML IV ONE (10:00)
[2020-06-24] MEDS ORDERED: PANTOPRAZOLE INJ 80 MG in NA CHLORIDE 0.9% 250 ML IV ONE (10:00)
[2020-06-24] MEDS ORDERED: ONDANSETRON 4 MG/2 ML VIAL ONE (10:02)
[2020-06-24] MEDS ORDERED: PANTOPRAZOLE 40 MG INJ ONE ×2 (10:02→21:14)
[2020-06-24 10:06] LABS: ALT/SGPT 21 U/L (12-78); AST/SGOT 54 U/L (15-37); Albumin 1.6 g/dL (3.4-5.0); Alkaline Phosphatase 157 U/L (45-117); BUN Blood Urea Nitrogen 16 mg/dL (7-18); Bicarbonate 21 mmol/L (21-32); Bilirubin Direct 1.1 mg/dL (0-0.2); Bilirubin Total 2.1 mg/dL (0.2-1.0); Glucose Level 114 mg/dL (74-106); Lipase 106 U/L (73-393); Potassium 4.4 mmol/L (3.5-5.1); Protein, Total 4.8 g/dL (6.4-8.2); Sodium Level 146 mmol/L (136-145)
[2020-06-24] MEDS ORDERED: NA CHLORIDE 0.9% 0 ML ONE (11:02)
[2020-06-24] MEDS ORDERED: DIPHENHYDRAMINE 50 MG/ML VIAL ONE (11:11)
[2020-06-24] MEDS ORDERED: CEFTRIAXONE/SWI 1gm 1 GM/10 ML SYR ONE (12:37)
[2020-06-24] MEDS ORDERED: NA CHLORIDE 0.9% 250 ML ONE ×2 (13:15→16:19)
--- NOTE | 2020-06-24 15:41 | EDPHYS ---
Physician Documentation [facility] Name: Willis Barba Age: 40 yrs Sex: Male : 1980 Arrival Date: 06/24/2020 Time: 09:07 Bed 16 Private MD: ED Physician Cabrera Lopez HPI: 06/24 09:46 This 40 yrs old Male presents to ER via EMS with complaints of blood in vomit. jr8 09:46 The patient presents to the emergency department vomiting blood, a moderate amount, jr8 blood streaked emesis, bright red, 4 times since symptom onset. Onset: The symptoms/episode began/occurred acutely, this morning. Abdominal pain: none is appreciated. Modifying factors: The symptoms are alleviated by nothing, the symptoms are aggravated by nothing. Associated signs and symptoms: Pertinent positives: fatigued and weak with walking . Severity of symptoms: At their worst the symptoms were moderate in the emergency department the symptoms are unchanged. The patient has not experienced similar symptoms in the past. The patient has not recently seen a physician. Historical: - Allergies: 09:21 No Known Allergies; ss - Home Meds: 09:21 propranolol 10 mg Oral tab 1 tab twice a day [Active]; ferrous sulfate 325 mg (65 mg ss iron) Oral TbEC daily [Active]; spironolactone 50 mg Oral tab 1 tab once daily [Active]; furosemide 40 mg Oral tab 1 tab 2 times per day [Active]; Constulose 10 gram/15 mL oral soln [Active]; folic acid 1 mg Oral tab 1 tab once daily [Active]; pantoprazole 40 mg oral TbEC 1 tab once daily [Active]; Xifaxan oral oral [Active]; - PMHx: 09:21 Cirrhosis; Hypertension; Liver disease; ss - PSHx: 09:21 None; ss - Immunization history:: Adult Immunizations up to date. - Social history:: Smoking status: Patient/guardian denies using tobacco, Stopped _ months ago 4 Patient/guardian denies using alcohol, the patient reports quitting approximately .5 years ago. ROS: 09:46 Constitutional: Negative for fever, chills, and weight loss. jr8 09:46 Cardiovascular: Negative for chest pain, palpitations, and edema, Respiratory: Negative for shortness of breath, cough, wheezing, and pleuritic chest pain. 09:46 Abdomen/GI: Positive for nausea and vomiting, hematemesis, Negative for diarrhea, abdominal distension, black/tarry stool, rectal pain, rectal bleeding, bowel incontinence, flatulence. 09:46 All other systems are negative. Exam: 09:46 Eyes: Pupils equal round and reactive to light, extra-ocular motions intact. Lids and jr8 lashes normal. Conjunctiva and sclera are icteric with no injection. Cornea within normal limits. Periorbital areas with no swelling, redness, or edema. ENT: Nares patent. No nasal discharge, no septal abnormalities noted. Tympanic membranes are normal and external auditory canals are clear. Oropharynx with no redness, swelling, or masses, exudates, or evidence of obstruction, uvula midline. Mucous membranes moist. Neck: Trachea midline, no thyromegaly or masses palpated, and no cervical lymphadenopathy. Supple, full range of motion without nuchal rigidity, or vertebral point tenderness. No Meningismus. Cardiovascular: Regular rate and rhythm with a normal S1 and S2. No gallops, murmurs, or rubs. Normal PMI, no JVD. No pulse deficits. Respiratory: Lungs have equal breath sounds bilaterally, clear to auscultation and percussion. No rales, rhonchi or wheezes noted. No increased work of breathing, no retractions or nasal flaring. Skin: Warm, dry with normal turgor. Normal color with no rashes, no lesions, and no evidence of cellulitis. MS/ Extremity: Pulses equal, no cyanosis. Neurovascular intact. Full, normal range of motion. Neuro: Awake and alert, GCS 15, oriented to person, place, time, and situation. Cranial nerves II-XII grossly intact. Motor strength 5/5 in all extremities. Sensory grossly intact. 09:46 Abdomen/GI: Inspection: distension, is not seen, Bowel sounds: active, all quadrants, Palpation: abdomen is soft and non-tender, in all quadrants, Indicators: McBurney's point is not tender, Palma's sign is negative, Liver: is enlarged. Vital Signs: 09:21 BP 130 / 74; Pulse 92; Resp 18; Temp 97.7(TE); Pulse Ox 98% on R/A; Weight 77.11 kg; ss Height 5 ft. 7 in. (170.18 cm); Pain 0/10; 10:33 BP 108 / 62; Pulse 87; Resp 19; Pain 0/10; ss 12:01 BP 103 / 66; Pulse 94; Resp 14; Temp 98.5(TE); Pulse Ox 100% on R/A; Pain 0/10; ss 13:20 BP 95 / 49; Pulse 81; Resp 15; Pulse Ox 100% on R/A; dh4 14:20 BP 99 / 47; Pulse 93; Resp 14; Temp 98.7; Pulse Ox 100% on R/A; zb 15:20 BP 103 / 69; Pulse 82; Resp 16; Temp 98.7; Pulse Ox 100% on R/A; zb 16:20 BP 97 / 43; Pulse 82; Resp 15; Temp 98.2; Pulse Ox 100% on R/A; zb 17:20 BP 97 / 43; Pulse 82; Resp 16; Temp 98.2; Pulse Ox 100% on R/A; zb 18:20 BP 107 / 71; Pulse 80; Resp 15; Temp 98.3; Pulse Ox 100% on R/A; zb 19:20 BP 115 / 71; Pulse 81; Resp 16; Pulse Ox 100% on R/A; zb 20:20 BP 114 / 58; Pulse 86; Resp 18; Pulse Ox 100% on R/A; zb 02/ 03:00 BP 125 / 72; Pulse 82; Resp 17; Pulse Ox 100% on R/A; ll2 04:00 BP 102 / 49; Pulse 70; Resp 15; Pulse Ox 100% on R/A; ll2 05:17 BP 94 / 44; Pulse 71; Resp 15; Pulse Ox 100% on R/A; ll2 06:15 BP 102 / 46; Pulse 70; Resp 15; Pulse Ox 100% on R/A; ll2 07:00 BP 119 / 63; Pulse 78; Resp 15; Pulse Ox 100% ; bp 08:00 BP 140 / 72; Pulse 82; Resp 28; Pulse Ox 91% ; bp 09:00 BP 121 / 62; Pulse 77; Resp 14; Pulse Ox 100% ; bp 11:18 BP 124 / 63; Pulse 76; Resp 14 S; Pulse Ox 100% on R/A; jd3 12:30 BP 110 / 60; Pulse 68; Resp 16; Pulse Ox 100% on R/A; zb 06/24 09:21 Body Mass Index 26.63 (77.11 kg, 170.18 cm) MDM: 06/24 09:07 Patient medically screened. jr8 11:01 Data reviewed: vital signs, nurses notes, lab test result(s). Data interpreted: Pulse jr8 oximetry: on room air is 98 %. Interpretation: normal. Counseling: I had a detailed discussion with the patient and/or guardian regarding: the historical points, exam findings, and any diagnostic results supporting the discharge/admit diagnosis, lab results, the need to transfer to another facility, [facility] does not immediately have the required specialist. ED course: Patient had episode of hematemesis here. Approximately 3/4 full. Still hemodynamically stable at this time. Attempting transfer but EMS services in local region not transferring at this time. 13:37 ED course: Still waiting on a facility approval. Denials at [facility], [place] [id number] Castañeda asking chief of transfer medicine at [facility] too look to see if they can move someone around as patient needs ICU bed at this time . 15:38 ED course: Got approval for ICU acceptance. Awaiting bed assignment. Will have one jr8 opening at [facility] within next few hours . 06/24 09:24 Order name: Basic Metabolic Panel; Complete Time: 10:12 06/24 09:24 Order name: CBC with Diff; Complete Time: 10:12 06/24 09:24 Order name: Hepatic Function; Complete Time: 10:12 06/24 09:24 Order name: Lipase; Complete Time: 10:12 jr06/24 09:24 Order name: TS jr8 06/24 10:20 Order name: Bb Add On bd 06/24 10:24 Order name: Packed RBC Leukored EDNJ 06/24 10:35 Order name: COVID-19 : Document "Date of Symptom Onset" if Symptomatic. 06/24 11:56 Order name: SARS-COV-2 RT PCR; Complete Time: 12:00 EDMS 06/24 15:35 Order name: Protime (+inr); Complete Time: 18:21 jr8 06/24 15:35 Order name: Ptt, Activated; Complete Time: 18:21 jr8 06/24 18:55 Order name: Hemoglobin; Complete Time: 19:21 jr8 06/24 18:55 Order name: Hematocrit; Complete Time: 19:21 zb 06/25 08:15 Order name: Hemoglobin bp 06/25 08:15 Order name: Hematocrit bp 06/25 08:16 Order name: Hemoglobin; Complete Time: 10:32 EDMS 06/25 08:16 Order name: Hematocrit; Complete Time: 10:32 EDMS 06/25 10:39 Order name: CBC with Diff yeni 06/25 10:39 Order name: Comprehensive Metabolic Panel yeni 06/25 10:50 Order name: Bb Add On bd 06/25 11:04 Order name: Packed RBCs (Additional Unit) EDMS 06/25 11:26 Order name: Fresh Frozen Plasma EDMS 06/25 11:49 Order name: AMMONIA jd3 06/25 13:36 Order name: Basic Metabolic Panel EDMS 06/25 13:36 Order name: CBC with Automated Diff EDMS 06/25 13:36 Order name: CBC with Automated Diff EDMS 06/25 13:36 Order name: CBC with Automated Diff EDMS 06/24 09:24 Order name: IV Saline Lock; Complete Time: 09:52 jr8 06/24 09:24 Order name: Labs collected and sent; Complete Time: 09:52 jr8 06/24 15:35 Order name: XRAY Chest (1 view); Complete Time: 16:41 jr8 06/25 10:39 Order name: Chest Single View XRAY - STROKE yeni 06/25 10:42 Order name: IV Saline Lock - Large Bore; Complete Time: 10:49 yeni 06/25 13:36 Order name: CONS Pharmacy Consult EDMS 06/25 13:36 Order name: NPO EDMS 06/25 13:36 Order name: EKG Electrocardiogram EDMS 06/25 13:36 Order name: EKG Electrocardiogram EDMS 06/25 13:36 Order name: EKG Electrocardiogram EDMS 06/25 13:36 Order name: EKG Electrocardiogram EDMS 06/25 13:36 Order name: EKG Electrocardiogram EDMS 06/25 13:36 Order name: EKG Electrocardiogram EDMS 06/25 13:36 Order name: EKG Electrocardiogram EDMS 06/25 13:36 Order name: EKG Electrocardiogram EDMS 06/25 13:36 Order name: EKG Electrocardiogram EDMS 06/25 13:36 Order name: EKG Electrocardiogram EDMS 06/25 13:36 Order name: EKG Electrocardiogram EDMS 06/25 13:36 Order name: CBC with Automated Diff EDMS 06/25 13:42 Order name: Consult GI-Javier Hedrick MD (Gastroenterology) 06/25 19:53 Order name: Hemoglobin EDMS 06/25 19:53 Order name: Hematocrit EDNJ 06/26 11:27 Order name: CBC with Automated Diff EDMS Administered Medications: 09:50 Drug: Zofran (Ondansetron) 4 mg Route: IVP; Site: left antecubital; ss 12:04 Follow up: Response: No adverse reaction ss 09:52 Drug: ProTONIX 40 mg Route: IVP; Site: left antecubital; ss 12:03 Follow up: Response: No adverse reaction ss 10:30 Drug: Octreotide Infusion (50 mcg/hr) - (Octreotide 500 mcg, NS 0.9% 500 ml) Route: IV; ss Rate: 50 ml/hr; Site: left antecubital; 10:34 Drug: ProTONIX 8 mg/hr Route: IV; Rate: 25 ml/hr; Site: left wrist; ss 12:30 Drug: Rocephin 1 grams Route: IV; Rate: calculated rate; Site: left forearm; zb 06/25 11:39 Drug: Vitamin K1 10 mg Route: Sub-Q; Site: right upper arm; jd3 Disposition: 06/27 06:21 Co-signature as Attending Physician, Cabrera Lopez MD I agree with the assessment and yeni plan of care. Disposition: 06/25/20 13:25 Hospitalization ordered by Yony Valerio for Inpatient Admission. Preliminary diagnosis are Hematemesis, Anemia, unspecified, Alcoholic cirrhosis of liver. - Bed requested for Telemetry/MedSurg (Inpatient). - Status is Inpatient Admission. jl7 - Condition is Serious. - Problem is new. - Symptoms have improved. Signatures: Dispatcher [employer] EDCabrera Rincon MD MD cha Williams, Irene, RN RN Lilia Pittman RN RN ss Johnson Viera, PA PA jr8 Niki Zimmerman RN RN tl1 Cole Vela RN RN jl7 Juancarlos Villalobos RN RN Jesenia Hi RN RN zb Corrections: (The following items were deleted from the chart) 06/24 11:10 10:36 CORONAVIRUS ordered. [facility] EDMS 11:26 11:01 ED course: Patient had episode of hematemesis . jr8 jr8 06/25 12:05 11:04 FFP Apheresis ordered. EDNJ EDMS 13:20 06/24 15:39 06/24/2020 15:[address] [facility] Diagnosis is Hematemesis; Alcoholic cirrhosis of liver; Acute Anemia. Reason for transfer: Higher level of care. Accepting physician is Dr. Lima. Condition is Fair. Problem is an ongoing problem. Symptoms have worsened. jr8 06/25 18:02 13:25 Hospitalization Ordered by Yony Valerio MD for Inpatient Admission. iw Preliminary diagnosis is Hematemesis; Anemia, unspecified; Alcoholic cirrhosis of liver. Bed requested for Intensive Care Unit. Status is Inpatient Admission. Condition is Serious. Problem is new. Symptoms have improved. yeni 06/26 15:36 06/25 18:02 06/25/2020 13:25 Hospitalization Ordered by Yony Valerio MD for tl1 Inpatient Admission. Preliminary diagnosis is Hematemesis; Anemia, unspecified; Alcoholic cirrhosis of liver. Bed requested for [facility] ER HOLD. Status is Inpatient Admission. Condition is Serious. Problem is new. Symptoms have improved. iw 06/26 17:25 15:36 06/25/2020 13:25 Hospitalization Ordered by Yony Valerio MD for Inpatient jl7 Admission. Preliminary diagnosis is Hematemesis; Anemia, unspecified; Alcoholic cirrhosis of liver. Bed requested for Telemetry/MedSurg (Inpatient). Status is Inpatient Admission. Condition is Serious. Problem is new. Symptoms have improved. tl1
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
--- NOTE | 2020-06-24 16:32 | RAD REPORT ---
EXAM DESCRIPTION: RAD - Chest Single View - 06/24/2020 4:26 pm CLINICAL HISTORY: DYSPNEA Chest pain. COMPARISON: Chest Single View dated 05/18/2020; Chest Single View dated 04/21/2020; Chest Single View dated 04/18/2020; Chest Single View dated 04/18/2020 FINDINGS: Portable technique limits examination quality. The lungs are grossly clear. The heart is normal in size. No displaced fractures. IMPRESSION: No acute intrathoracic process suspected.
[2020-06-24 18:02] LABS: Protime INR 1.83
[2020-06-24 19:18] LABS: Hematocrit 23.8 % (39.6-49.0)
[2020-06-24] MEDS ORDERED: NA CHLORIDE 0.9% 500 ML ONE (21:14)
[2020-06-24] MEDS ORDERED: OCTREOTIDE ACETATE 100 MCG/ML ONE ×2 (21:15→22:52)
[2020-06-24] MEDS ORDERED: OCTREOTIDE ACETATE 500 MCG/ML ONE (23:57)
[2020-06-25] MEDS ORDERED: NA CHLORIDE 0.9% 500 ML ONE (00:05)
[2020-06-25] MEDS ORDERED: PANTOPRAZOLE INJ 80 MG in NA CHLORIDE 0.9% 250 ML IV ONE (08:00)
[2020-06-25 09:31] LABS: Hematocrit 21.3 % (39.6-49.0)
[2020-06-25] MEDS ORDERED: VITAMIN K (ADULT) 10 MG/ML ONE (11:39)
[2020-06-25 11:52] LABS: Absolute Lymphocytes (CBC) 1.3 K/uL (0.7-4.9); Basophils % 0.9 % (0-1.3); Hematocrit 21.1 % (39.6-49.0); Lymphocytes % 27.4 % (15.3-44.8); MPV 10.8 fL (7.6-11.3); RBC Red Blood Cell Count 2.27 M/uL (4.33-5.43)
[2020-06-25 12:08] LABS: ALT/SGPT 20 U/L (12-78); AST/SGOT 57 U/L (15-37); Albumin 1.6 g/dL (3.4-5.0); Alkaline Phosphatase 104 U/L (45-117); BUN Blood Urea Nitrogen 19 mg/dL (7-18); Bicarbonate 20 mmol/L (21-32); Bilirubin Total 2.2 mg/dL (0.2-1.0); Glucose Level 94 mg/dL (74-106); Potassium 3.9 mmol/L (3.5-5.1); Protein, Total 4.6 g/dL (6.4-8.2); Sodium Level 145 mmol/L (136-145)
[2020-06-25] MEDS: NA CHLORIDE 0.9% 1,000 ML IV SCH (14:00)
[2020-06-25] MEDS ORDERED: NA CHLORIDE 0.9% 250 ML IV SCH (14:00)
[2020-06-25] MEDS: OCTREOTIDE 500 MCG in NA CHLORIDE 0.9% 500 ML IV SCH (14:00)
[2020-06-25] MEDS: PANTOPRAZOLE INJ 80 MG in NA CHLORIDE 0.9% 250 ML IV SCH (14:00)
[2020-06-25] MEDS ORDERED: NA CHLORIDE 0.9% 250 ML ONE ×2 (14:32→23:43)
--- NOTE | 2020-06-25 17:39 | P.HP ---
Certification for Inpatient With expected LOS: >2 Midnights Patient will require the following post-hospital care: None Practitioner: I am a practitioner with admitting privileges, knowledge of patient current condition, hospital course, and medical plan of care. Services: Services provided to patient in accordance with Admission requirements found in Title 42 Section 412.3 of the Code of Federal Regulations Patient History Date of Service: 06/25/20 (Hospitalist) Reason for admission: GI bleeding History of Present Illness: Patient is 40 years of age admitted with sudden onset of hematemesis he has cirrhosis of the liver alcohol-induced has had multiple paracentesis for ascites as been going on for about 3 months he has had multiple hospital visits also complaining of lower extremity edema is very anemic on admission and was transfused Allergies No Known Allergies Allergy (Unverified 04/13/20 17:28) Home Medications: Pantoprazole [Protonix Tab*] 40 mg PO DAILY 04/13/20 Propranolol [Inderal*] 10 mg PO BID 04/13/20 Spironolactone 25 mg PO DAILY 30 Days #30 tablet 04/18/20 - Past Medical/Surgical History Diabetic: No -: Liver cirrhosis -: Splenomegaly -: Esophageal varices -: History of alcohol abuse -: EGD with banding of varices - Family History Mother -: Diabetes Father -: Diabetes - Social History Alcohol use: Yes CD- Drugs: Yes Caffeine use: Yes Review of Systems 10-point ROS is otherwise unremarkable General: Weakness Physical Examination - Vital Signs Temperature: 97.7 F Pulse: 92 Pulse Ox (%): 98 - Physical Exam General: Alert HEENT: Atraumatic Neck: Supple Respiratory: Clear to auscultation bilaterally Cardiovascular: No edema, Regular rate/rhythm Gastrointestinal: Normal bowel sounds, Soft and benign Musculoskeletal: No clubbing, No contractures Integumentary: No rashes, No significant lesion - Studies Laboratory Data (last 24 hrs) 06/25/20 11:12: Sodium 145, Potassium 3.9, BUN 19 H, Creatinine 0.69, Glucose 94, Total Bilirubin 2.2 H, AST 57 H, ALT 20, Alkaline Phosphatase 104 06/25/20 11:12: WBC 4.70 D, Hgb 6.9 L*, Hct 21.1 L, Plt Count 66 L D 06/25/20 08:43: Hgb 6.9 L*, Hct 21.3 L 06/24/20 18:58: Hgb 7.9 L*, Hct 23.8 L D 06/24/20 17:49: PT 21.2 H, INR 1.83, APTT 42.2 H Assessment and Plan - Plan Hematemesis patient admitted with sudden onset of upper GI bleed severe anemia history of cirrhosis of the liver current history of paracentesis history of al cohol abuse patient was very anemic on admission hemoglobin 5.6 abnormal liver function tests patient will have an EGD done patient has had banding before will start on and GI bleed protocol with IV Protonix and was statin start on some normal saline his blood pressure is stable discharge tomorrow if he continues to remain stable - Advance Directives Does patient have a Living Will: No Does patient have a Durable POA for Healthcare: No
[2020-06-25] MEDS ORDERED: Ringers Lactate 1,000 ML IV ONE (17:46)
[2020-06-25] MEDS ORDERED: EPINEPHRINE/PF 1 MG/ML AMP ONE (18:13)
[2020-06-25] MEDS ORDERED: propofoL 200 MG/20 ML VIAL IV ONE (18:15)
[2020-06-25] MEDS ORDERED: Levofloxacin500mg IV 500 MG/100 ML BAG IV ONE (18:30)
[2020-06-25 19:18] VITALS: O2SAT 100
[2020-06-25 19:52] LABS: Hematocrit 24.7 % (39.6-49.0)
[2020-06-25] MEDS ORDERED: CEFTRIAXONE 1 GM/NS 50 ML 1 GM/50 ML BAG IV SCH (21:00)
--- NOTE | 2020-06-25 22:36 | ENDO RPT ---
[address], [address] EGD PROCEDURE REPORT EXAM DATE: 06/25/2020 PATIENT NAME: Willis Barba MR#: [id number] BIRTHDATE: 1980 ATTENDING: Javier Hedrick Dr STATUS: inpatient PIPEMAN: Diamond Espinal RN INDICATIONS: The patient is a 40 yr old Male here for an EGD due to hematemesis, upper G.I. bleeding, anemia, and surveillance PROCEDURE PERFORMED: EGD with banding MEDICATIONS: Per Anesthesia. TOPICAL ANESTHETIC: none CONSENT: The patient understands the risks and benefits of the procedure and understands that these risks include, but are not limited to: sedation, allergic reaction, infection, perforation and/or bleeding. Alternative means of evaluation and treatment include, among others: physical exam, x-rays, and/or surgical intervention. The patient elects to proceed with this endoscopic procedure. DESCRIPTION OF PROCEDURE: During intra-op preparation period all mechanical medical equipment was checked for proper function. Hand hygiene and appropriate measures for infection prevention was taken. Procedure, possible complications, and alternatives including but not limited to the possibility of bleeding, perforation, tear, infection, sepsis, need for surgery, need for blood transfusion, and anesthesia related complications were explained to the patient. After the risks, benefits and alternatives of the procedure were thoroughly explained, Informed consent was verified, confirmed and timeout was successfully executed by the treatment team. The patient was placed in the left lateral position. The patient was anesthetized with topical anesthesia. Through the anesthetized oropharyngeal area, the scope was passed without any difficulty. The Pentax EG-[id number] ([id number]) endoscope was introduced through the mouth and advanced to the second portion of the duodenum. Retroflexed views revealed no abnormalities. The gastroscope was then slowly withdrawn and removed. Two columns of grade III varices with one red whale stephany were found in the lower esophagus. Esophageal bandings X2 was performed. ADVERSE EVENTS: There were no complications. IMPRESSIONS: Two columns of grade III varices with one red whale stephany in the lower esophagus, s/p banding X2 RECOMMENDATIONS: Continue Propanolol REPEAT EXAM: Return in 3 week(s) for EGD. Javier Hedrick Dr eSigned: Javier Hedrick Dr 06/25/2020 6:31 PM cc: CPT CODES: ICD9 CODES: PATIENT NAME: Jameson Tone. MR#: [id number]
--- NOTE | 2020-06-25 22:36 | RAD REPORT ---
[facility]55 [facility] CLINICAL HISTORY: Cough COMPARISON: June 24 FINDINGS: Mild right basilar opacity unchanged which may represent a small area of atelectasis Left lung appears clear. Heart is normal size
[2020-06-25] MEDS ORDERED: CEFTRIAXONE/SWI 1gm 1 GM/10 ML SYR ONE (22:47)
[2020-06-25] MEDS ORDERED: NA CHLORIDE 0.9% 1,000 ML ONE (23:05)
[2020-06-26] MEDS: OCTREOTIDE 500 MCG in NA CHLORIDE 0.9% 500 ML IV SCH ×2
[2020-06-26] MEDS: NA CHLORIDE 0.9% 1,000 ML IV SCH
[2020-06-26] MEDS: PANTOPRAZOLE INJ 80 MG in NA CHLORIDE 0.9% 250 ML IV SCH ×2
[2020-06-26] MEDS ORDERED: NA CHLORIDE 0.9% 250 ML ONE (02:52)
[2020-06-26] MEDS ORDERED: NA CHLORIDE 0.9% 500 ML ONE (02:52)
[2020-06-26] MEDS ORDERED: PANTOPRAZOLE 40 MG INJ ONE ×2 (02:52→09:07)
[2020-06-26] MEDS ORDERED: OCTREOTIDE ACETATE 100 MCG/ML ONE (02:53)
[2020-06-26 05:38] LABS: Absolute Lymphocytes (CBC) 1.1 K/uL (0.7-4.9); Basophils % 0.9 % (0-1.3); Hematocrit 22.2 % (39.6-49.0); Lymphocytes % 26.1 % (15.3-44.8); MPV 9.8 fL (7.6-11.3); RBC Red Blood Cell Count 2.51 M/uL (4.33-5.43)
[2020-06-26 06:00] LABS: BUN Blood Urea Nitrogen 15 mg/dL (7-18); Bicarbonate 19 mmol/L (21-32); Glucose Level 82 mg/dL (74-106); Potassium 3.7 mmol/L (3.5-5.1); Sodium Level 144 mmol/L (136-145)
[2020-06-26] MEDS ORDERED: SODIUM CHLORIDE 0.9% 10ML INJ IV PRN (07:11)
[2020-06-26] MEDS: FERROUS SULFATE 325 MG TAB PO SCH (09:00)
[2020-06-26] MEDS: CEFTRIAXONE/SWI 1gm 1 GM/10 ML SYR IV SCH ×2 (09:00→20:30)
[2020-06-26] MEDS: PANTOPRAZOLE 40 MG INJ IVP SCH ×2 (09:00→20:30)
[2020-06-26] MEDS: PROPRANOLOL HCL 10 MG TAB PO SCH ×2 (09:00→20:30)
[2020-06-26] MEDS: FOLIC ACID 1 MG TABLET PO SCH (09:00)
[2020-06-26] MEDS ORDERED: CEFTRIAXONE/SWI 1gm 1 GM/10 ML SYR ONE (09:07)
[2020-06-26] MEDS ORDERED: FOLIC ACID 1 MG TABLET ONE (09:08)
[2020-06-26] MEDS ORDERED: INFLUENZA VACCINE (for 3y+) 0.5 ML DOSE IMVAC ONE (11:00)
[2020-06-26 11:21] LABS: Absolute Lymphocytes (CBC) 1.1 K/uL (0.7-4.9); Basophils % 0.7 % (0-1.3); Hematocrit 23.4 % (39.6-49.0); Lymphocytes % 28.2 % (15.3-44.8); RBC Red Blood Cell Count 2.62 M/uL (4.33-5.43)
--- NOTE | 2020-06-26 15:01 | P.PN ---
Subjective Date of Service: 06/26/20 Chief Complaint: GI bleeding Subjective: Improving, Doing well Physical Examination - Vital Signs Temperature: 98.4 F Blood Pressure: 112/58 Pulse: 68 Respirations: 15 Pulse Ox (%): 100 - Studies Laboratory Data (last 24 hrs) 06/25/20 11:12: Hgb 6.9 L* Assessment & Plan Discharge Plan: Home Plan to discharge in: 24 Hours Physician Review Additional Text: Physical exam: Patient alert, cooperative. Heart: Regular rate rhythm Lungs: Clear Abdomen: Soft nontender nondistended Extremities: Good range of motion Impression: Hematemesis secondary to acute upper GI bleed/anemia with cirrhosis status post EGD showing stage III gastric varices status post banding x2 Plan: Patient doing well status post banding. Will stop octreotide. Change Protonix to IV b.i.d.. Patient tolerating clear liquid diet. Will advance to full liquid. Case discussed in length with GI. Will start soft diet tomorrow. Continue propranolol. Will start Aldactone and Lasix tomorrow. Anticipate improvement over the next 24 hr with likely discharge tomorrow. Time Spent Managing Pts Care (In Minutes): 55
[2020-06-26 17:46] VITALS: BMI 25.8
--- NOTE | 2020-06-26 22:27 | P.PN ---
Subjective Date of Service: 06/26/20 Chief Complaint: GI bleeding, hematemesis, esophageal varices Subjective: Improving (No further bleeding. Hgb stable at 7-8. S/p EGD with esophageal varices banding yesterday.) Physical Examination - Vital Signs Temperature: 98.7 F Blood Pressure: 127/74 Pulse: 70 Respirations: 16 Pulse Ox (%): 98 - Studies Laboratory Data (last 24 hrs) 06/25/20 11:12: Hgb 6.9 L* Assessment And Plan - Current Problems (Diagnosis) (1) Hematemesis Current Visit: Yes Status: Acute Comment: Improved. (2) Esophageal varices in alcoholic cirrhosis Current Visit: Yes Status: Acute (3) Anemia Current Visit: No Status: Acute (4) Ascites Current Visit: No Status: Acute (5) Liver cirrhosis Current Visit: No Status: Acute - Plan REC: 1) hgb goal 7-8 2) FL diet and advance slowly to GI soft 3) 2 g Na diet 4) continue diuretic therapy 5) continue Propranolol 6) EGD with repeat esophageal varices banding in 3-4 weeks 7) wean off IV Octreotide Physician Review Additional Text: Physical exam: Patient alert, cooperative. Heart: Regular rate rhythm Lungs: Clear Abdomen: Soft nontender nondistended Extremities: Good range of motion Impression: Hematemesis secondary to acute upper GI bleed/anemia with cirrhosis status post EGD showing stage III gastric varices status post banding x2 Plan: Patient doing well status post banding. Will stop octreotide. Change Protonix to IV b.i.d.. Patient tolerating clear liquid diet. Will advance to full liquid. Case discussed in length with GI. Will start soft diet tomorrow. Continue propranolol. Will start Aldactone and Lasix tomorrow. Anticipate improvement over the next 24 hr with likely discharge tomorrow.
[2020-06-27 06:39] LABS: Absolute Lymphocytes (CBC) 1.5 K/uL (0.7-4.9); Hematocrit 25.9 % (39.6-49.0); MPV 9.5 fL (7.6-11.3); RBC Red Blood Cell Count 2.89 M/uL (4.33-5.43)
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
[2020-06-27 08:29] LABS: Anisocytosis 1+; Blood Morphology Comment NOTED (NOT SEEN); Platelet Estimate DECR; White Blood Cell Scan OK (OK)
[2020-06-27 08:44] VITALS: BP 111/66; TEMP 98.9
[2020-06-27] MEDS: PANTOPRAZOLE 40 MG INJ IVP SCH (08:46)
[2020-06-27] MEDS: FERROUS SULFATE 325 MG TAB PO SCH (08:46)
[2020-06-27] MEDS: PROPRANOLOL HCL 10 MG TAB PO SCH (08:46)
[2020-06-27] MEDS: CEFTRIAXONE/SWI 1gm 1 GM/10 ML SYR IV SCH (08:46)
[2020-06-27] MEDS: FOLIC ACID 1 MG TABLET PO SCH (08:46)
--- NOTE | 2020-08-01 10:34 | CON ---
Date of Consultation: 06/25/2020 Reason For Consultation: Hematemesis with history of end-stage liver disease, cirrhosis. History Of Present Illness: This is a 40-year-old male with history of end-stage liver dise ase, cirrhosis of liver secondary to alcohol abuse. The patient presented to the hospital with sudde n onset of hematemesis. He also was noted to have multiple paracenteses for ascites over the past 3 months, multiple hospital visits for lower extremity edema and anemia and has been transfused. Past Medical History: Significant for: 1.End-stage liver disease, cirrhosis of liver with splenomegaly and esophageal varices. 2.History of end-stage liver disease secondary to alcohol abuse. 3.Alcohol abuse. 4.EGD with banding of varices in the past. Home Medications: Include propranolol 10 mg p.o. b.i.d., Aldactone 25 mg p.o. daily, and Protonix 40 mg daily. Allergies: NKDA. Social History: Single. Two kids. Quit tobacco in March 2020 and quit alcohol in March 2020. Family History: Father of lung cancer, also had diabetes by chart review. Mother is alive with diabetes, hypertension at age 89. Review of Systems: The patient has hematemesis with diarrhea. Nausea and vomiting. Denies any significant abdominal pa in, fevers, chills, night sweats, heat or cold. No chest pain, shortness of breath, seizure, syncope . He does have lower extremity edema. No muscle aches, backaches. No depression, anxiety. Physical Examination: Vital Signs: The patient is 5 feet 7 inches, 169 pounds, BMI of 26.6 kg/m2. Temperature of 98.3 degrees Fahrenheit yesterday, pulse of 76, respirations 14, blood pressure 124/63 , O2 saturation 100%. HEENT: Normocephalic, atraumatic. Anicteric. Pupils are equal, round, and reactive to light. Extr aocular movements are intact. Oropharynx is clear. Neck: Supple. No masses. Respiration: Clear to auscultation bilaterally. Cardiac: Regular rate and rhythm. Gastrointestinal: Positive bowel sounds. Some mild distention. Dullness in flanks, mild percussion. Extremities: No clubbing, cyanosis, but there has some edema in lower extremities. Neuro: Alert and oriented x3. Grossly nonfocal. 5/5 motor strength to light touch. Laboratory Data: The patient has a white count of 4.7, hemoglobin of 6.9 on admission. H ematocrit today 21, MCV of 93, platelet count of 66, down from 101 on admission. Polys of 68%, lymph ocytes 27%, monocytes of 5%, eosinophils of 6%. PT of 21.9, INR of 1.83, PTT of . He has a sodium 145, potassium 3.9, chloride , bicarb of 20, BUN 19, creatinine of 0.7, calcium 6. 5, total bilirubin 2.2, direct bilirubin 1.1, AST 57, ALT 20, alkaline phosphatase 104, total protein 4.6, albumin 1.6, lipase 106. B type natriuretic peptide is 174. UA; 1+ ketones, 2+ protein on May uary . from April 14, 2020 was negative. Drug screen was negative. Alcohol was neg ative. COVID-19 testing was negative on yesterday on June 24. Chest x-ray; left lung appears cl ear. Heart is normal size. Some mild right basilar opacities unchanged from prior previous may be a telectasis. Impression: 1.Hematemesis hemoglobin down to 5.6 on admission, now is 6.9 March 2020, t he patient had hematemesis with diarrhea and end-stage liver disease with cirrhosis perfor med for esophageal varices. He has had no alcohol since March 2020, 3.5 L of whiskey per week in the past. 2.History of cirrhosis, able to be secondary to alcohol abuse in the past at [facility]. 3.Hepatic encephalopathy. He was at [facility] followup on July 01, 2020 at 2 p.m. He is ___ propranolol, Feosol, Aldactone and Lasix therapy with folate and Protonix as well. 4.Anemia. Hemoglobin of down to 5.6 on admission, platelet count of 101 corrected down t o 66 since admission. Coagulopathy; PT/INR 21.2, INR of 1.83, PTT of 42.2. 5.History of cirrhosis with hypertension alcohol abuse, hypertension, has quit alcohol in March 2020. Recommendation: 1.Hemoglobin goals of level of 7-8. I am going to continue IV octreotide and IV ceftriaxone. 2.Keep the patient n.p.o. 3.Urgent EGD with probable esophageal banding with history of esophageal varices and banding approxi mately March of last year. 4.I agree with [facility] to correct coagulopathy. ICU monitoring. Care discussed with the patient. ERROL/STEPHANIE Voice ID: [id number] Report ID: [id number]
== END 2020-06-27 10:40 | disposition home or self-care (01) | DRG 432 ==
LOC: ER 09:06 → ERHOLD 06-25 13:42 → 2ND 06-26 16:43
PROVIDERS: ADMIT Internal Medicine Sleep Medicine; ATTEND Family Medicine
PROC: 30233N1 Transfusion of Nonautologous Red Blood Cells into Peripheral Vein, Percutaneous Approach (ICD-10-PCS; 2020-06-25)
PROC: 30233K1 Transfusion of Nonautologous Frozen Plasma into Peripheral Vein, Percutaneous Approach (ICD-10-PCS; 2020-06-25)
PROC: 06L38CZ Occlusion of Esophageal Vein with Extraluminal Device, Via Natural or Artificial Opening Endoscopic (ICD-10-PCS; principal; 2020-06-25 15:30)
DX: K70.31 Alcoholic cirrhosis of liver with ascites (principal); I85.11 Secondary esophageal varices with bleeding; D68.9 Coagulation defect, unspecified; D50.0 Iron deficiency anemia secondary to blood loss (chronic); I10 Essential (primary) hypertension; Z87.891 Personal history of nicotine dependence; Z79.899 Other long term (current) drug therapy; Z20.822 Contact with and (suspected) exposure to COVID-19
CPT/HCPCS: 36415; 71045; 80048; 80053; 80076; 82140; 83690; 85014; 85018; 85025; 85610; 85730; 86850; 86900; 86901; 86927; 96372; 99285; C9113; J0171; J0696; J1200; J2354; J2405; J2704; J3430; J7030; J7040; J7050; J7120; P9016; P9017; U0003